=== PATIENT | female | born 1960 | race Caucasian/White ===

== ENCOUNTER 2016-12-12 09:05 | Day surgery (SDC) | payer MEDICARE, BC ==
[2016-12-08 13:42] VITALS: BMI 35.6
[~2016-12-12 09:05] MED LIST: LACTATED RINGERS 1,000 ML IV SCH
[2016-12-12 09:24] VITALS: TEMP 98
[2016-12-12] MEDS ORDERED: LIDOCAINE 1% 20 ML VIAL (10MG/ML) FOR IV START SQ ONE (09:36)
[2016-12-12] MEDS ORDERED: MIDAZOLAM 2 MG/2 ML VIAL ONE (10:16)
[2016-12-12] MEDS ORDERED: fentaNYL (PF) 50 MCG/ML 2 ML AMP ONE (10:16)
[2016-12-12] MEDS ORDERED: TRIAMCINOLONE ACETONIDE 40 MG/ML 1 ML VIAL ONE (10:16)
[2016-12-12] MEDS ORDERED: BUPIVACAINE (PF) 0.5% 30 ML VIAL ONE (10:16)
[2016-12-12] MEDS ORDERED: IV FLUID CONTINUATION 1,000 ML IV ONE (11:19)
--- NOTE | 2016-12-12 11:19 | P.PCN ---
Date of Procedure: 12/12/16 Procedure(s) Performed: PREOPERATIVE DIAGNOSIS: 1-Lumbosacral spondylosis . 2- Right sacroiliit. post operative Diagnosis: . 1-Lumbosacral spondylosis . 2- Right sacroiliit. PROCEDURES: 1- Right radiofrequency thermocoagulation/ablation of the L5 dorsal ramus. 2- Right multi-site radiofrequency thermocoagulation/ablation of the right S1 , S2, lateral branchs. The procedure was performed using fluoroscopic guidance during needle placement to assure proper position and maximize safety . ANESTHESIA: LOCAL ANESTHESIA with lidocaine 1% 5 ML and IV sedation with versed 2 mg and Fentanyle 100 mcg EBL: NONE INDICATION/MEDICAL NECESSITY: History of low back pain secondary to right sacroiliitis and lumbosacral arthropathy unresponsive to more conservative treatments. The patient reported more than 50% relief of pain symptoms following 2 previous diagnostic blocks with Bupivacaine. PROCEDURE DESCRIPTION: The patient was seen and identified in the preoperative area. Risks, benefits, complications, and alternatives were discussed with the patient. The patient agreed to proceed with the procedure and signed the consent. Vital signs were checked before and after the procedure and they remained stable. Patient ambulated to the procedure room and time out was completed. The patient was placed in the prone position on the procedure table and a pillow was placed under the abdomen to reduce lumbar lordosis. The lumbosacral area was prepped and draped in the usual sterile fashion. Critical pause was taken. L5 Dorsal Ramus RF: Using right oblique fluoroscopy, the junction of the transverse process and the superior articular process of the right S1 vertebra, which correspond to the fluoroscopic image of the "eye of the Escobar dog" was identified. Subsequently, a 10-cm 20 -gauge radiofrequency cannula with a 10-mm active tip was advanced under fluoroscopic guidance until contact was made with periosteum. At this level, the Sensory testing of the L5 dorsal ramus was performed at 50 Hz and 0 to 1 volt with production of concordant pain starting at 0.5 volt. Motor stimulation was done at 2.5 Hz with stimulation of mulitifidus muscle contration . No radicular symptoms or paresthesias were produced during the testing. Subsequently, the L5 dorsal ramus was subjected to a radiofrequency ablation at 80 degree celsius for 90 seconds . after 0.5% Bupivacaine 1 ml injected at each level after negative aspirations .The needle was withdrawn intact. S1, S3, Lateral Branch RF: The lateral margins of the Right S1, S2, foramina were identified using AP fluoroscopy. Under fluoroscopic guidance, three 10-cm 20 -gauge radiofrequency cannula with a 10-mm active tip were inserted at 8-10 mm peripheral to the posterior S1 foramen, at various locations using clock-face coordinates. The center of the clock was registered at the lateral margin of the foramen. The 2: 30, 4:00, and 5:30 oclock positions were used. At this level, the sensory testing of the S1 lateral branch was performed at 50 Hz and 0 to 1 volt at the three levels with production of concordant pain starting at 0.5 volt. Motor stimulation was done at 2.5 Hz. No radicular symptoms or paresthesias were produced during the testing. Subsequently, the S1 lateral branch was subjected to a radiofrequency ablation at a mode of 90 seconds at 80 degrees Celsius at the 3 levels after negative motor and sensory testing and after injecting 0.5 ml of preservative free Bupivacaine 0.5 %. The same procedure was performed at the level of the S2 foramen.The needle was withdrawn intact after each injection. COMPLICATIONS: The patient tolerated the procedure well without any acute complications. ( the Plan was to do also radiofrequency of the lateral branches of S3, but I couldn't visualize the S3 foramina, for this reason I ended up doing, the lateral branches of S1 and S2 only ). DISPOSTION/PLAN: The patient ambulated to the recovery area after the procedure in a stable condition for observation. Patient was reexamined prior to discharge. Patient was observed for 30 minutes in the recovery area and was discharged home, accompanied by an adult, after meeting discharged criteria. Discharge instructions were give to the patient by the staff. Patient was specifically instructed not to drive today and to rest for the rest of the day. The patient will schedule a follow up visit in the clinic in weeks or earlier if needed.
--- NOTE | 2016-12-12 11:25 | FL ---
Fluoroscopy HISTORY: Pain 1 minute 33 seconds fluoroscopy time supplied to the referring clinician. 5 intraoperative C-arm brittany ges document the procedure. See dictated report from anesthesia.
[2016-12-12 11:38] VITALS: BP 127/75; PULSE 65; RESP 16
== END 2016-12-12 11:50 | disposition home or self-care (01) ==
LOC: ORPAIN 09:05
PROVIDERS: ATTEND Specialist
DX: M46.1 Sacroiliitis, not elsewhere classified (principal); M47.817 Spondylosis without myelopathy or radiculopathy, lumbosacral region
CPT/HCPCS: 64640 ×2; 64635; 99152; 99153 ×2; J2250; J3301; J3010

== ENCOUNTER → 2017-01-09 | Outpatient (CLI) | payer MEDICARE, BC ==
[2017-01-09 12:14] VITALS: BP 144/88; PULSE 85; RESP 16; TEMP 98.1
--- NOTE | 2017-01-09 12:44 | P.PN ---
Subjective This is follow-up visit for this patient with a history of severe and chronic low back pain secondary to lumbar postlaminectomy syndrome lumbar spondylosis with facet arthropathy, and right sacroiliitis we have done interventional pain management injection, radiofrequency ablation of the right side L5-S1 towards the Ramas, and radiofrequency ablation on the right side lateral branches of S1-S2 and S3, and this helped her low back pain tremendously, and is currently on pain medications [place] 5/325 every 6-8 hours when necessary Patient denies any side effects of the medication, denies excessive drowsiness or sleepiness, denies suicidal ideation, and reports that the current pain medication is helping To control the pain and improve activity of daily living Physical Examinations : 1-Constitutiona : Cooperative , not in acute distress . 2-HEENT : nech ; supple , no Lymphadenopathy , no Thyromegaly , normal thyroid size . eyes : no ptosis , no icterus, no photophobia . ENT : normal of hearing , normal oropharynx , no Thrush . 3- Respiratory : Chest clear to auscultations Bilaterally , no wheezing , no Rhonchi . 4- Cardiovascular : regular rate and rhythem , S1 , S2 , no S3 , no S4. 5- Gastrointestinal : abdomen soft no tenderness , bowel sounds positive all four quadrents , no organomegally . 6- Genitourinary : Defferred . 7- neurologic : Cranial nerve II to XII intact , no focal neurological deffecit . 8-psychatric : alert , oriented X 3 , appropriate affect , intact judgment and insight . 9-Lymphatic : no Lymphadenopathy . 10- musculoskeltal : exams of the Lumber spine = motor strength lower extremities ,thigh and legs .5/5 deep tendon reflexes : normal Knee Jerk , normal ankle Jerk . lumber facet Loading Test positive strait leg raising test positive at 30 degree , RT ,LT , Fabere test positive RT and positive LT . Range of motion: Range of motion in flexion of the lumbar spine 30 degrees Range of motion range of motion of extension of the lumbar spine 10 Sever tenderness over the Sacroiliac joint on the Right , Assessment and plan = - Chronic low back pain secondary to lumbar degenerative disc disease , lumbar spondylosis with facet arthropathy without myelopathy , - chronic and current use of high-risk medication (Opioids). The patient was counseled about risk of opioid use, psychological risk associated with opioids and was orally counseled to not overuse , divert,or sell dictations to take medications as prescribed only , and to restore medication in safe location , and the patient counseled against driving while using narcotic medications, and also not to use alcohol or any illicit recreational drugs, the patient's verbalized understanding that the lack of compliance will result in failure to renew narcotic prescription and possible discharge from the clinic - diagnoses, prognosis, and treatment options including but not limited to physical therapy, surgical interventions, interventional therapies , and medication management including narcotics and adjuvant medication were discussed with the patient and all The questions answered -medication management =1-prescription refill for [place] 5/325 every 6 hours dispensed 90 with 1 refill and she will follow up with the pain clinic in 2 months Patient and the spinal cord stimulator implanted by Dr. Dr. Espinoza, and currently her stimulator is not functioning, and she is not planning to do any revision because of her insurance coverage, -procedure= none scheduled at this time. Objective - Vital Signs Vital signs: Vital Signs Temp 98.1 F 01/09/17 12:08 Pulse 85 01/09/17 12:08 Resp 16 01/09/17 12:08 BP 144/88 01/09/17 12:08 Pulse Ox Intake & Output 01/08/17 01/09/17 01/09/17 18:59 06:59 18:59 Weight 88.451 kg
== END | disposition home or self-care (01) ==
LOC: PNWHC3 11:58
PROVIDERS: ATTEND Specialist
DX: G89.29 Other chronic pain (principal); M51.36 Other intervertebral disc degeneration, lumbar region; M47.816 Spondylosis without myelopathy or radiculopathy, lumbar region; M46.96 Unspecified inflammatory spondylopathy, lumbar region; M96.1 Postlaminectomy syndrome, not elsewhere classified; M46.1 Sacroiliitis, not elsewhere classified; Z98.890 Other specified postprocedural states; Z79.891 Long term (current) use of opiate analgesic
CPT/HCPCS: 99211

== ENCOUNTER → 2017-03-06 | Outpatient (CLI) | payer MEDICARE, BC ==
[2017-03-06 12:58] VITALS: BP 121/83; PULSE 63; RESP 16; TEMP 98
--- NOTE | 2017-03-06 13:17 | P.CONS ---
History of Present Illness - Reason for Consult Consult date: 03/06/17 - History of Present Illness This is follow up visit for this 56-year-old female with a chronic history of severe low back pain, diagnosed with lumbar spondylosis and right sacroiliitis, status post radiofrequency ablation of the dorsum browning processor AT L5-S1 ,and RFA of the lateral branches of S1/S2/S3 , which was done in November 2016, she reported that her pain improved almost 70% after the radiofrequency, he continued to have some low back pain which is controlled with the current pain medication [place] 5/325 every 6 hours, and she taken Motrin occasionally, Motrin causes some stomach upset , she denies any fever or night sweats which she denies any change in the bowel movement or urination and no motor or sensory deficit Past Medical History Past Medical History: Deep Vein Thrombosis (DVT), GERD/Reflux, Osteoarthritis ( OA) Additional Past Medical History / Comment(s): BACK PAIN History of Any Multi-Drug Resistant Organisms: None Reported Past Surgical History: Back Surgery, Section, Hysterectomy, Orthopedic Surgery Additional Past Surgical History / Comment(s): LAMINECTOMY WITH SPINAL CORD STIMULATOR,LT OVARY REMOVED 1998, pain procedures. Past Anesthesia/Blood Transfusion Reactions: Postoperative Nausea & Vomiting ( PONV) Additional Past Anesthesia/Blood Transfusion Reaction / Comm: PONV WITH BACK SURGERY Past Psychological History: Depression Smoking Status: Former smoker Past Alcohol Use History: Rare Additional Past Alcohol Use History / Comment(s): QUIT SMOKING 1984-STARTED IN 1972. PPD-3/4-1 Past Drug Use History: None Reported - Past Family History Mother Family Medical History: Cancer, CVA/TIA Additional Family Medical History / Comment(s): BREAST CA Medications and Allergies Home Medications Medication Instructions Recorded Confirmed Type Citalopram Hydrobromide [CeleXA] 20 mg PO DAILY 08/04/14 03/06/17 History Calcium Carbonate [Calcium] 600 mg PO DAILY 12/08/16 03/06/17 History Kelp 1 each PO DAILY 12/08/16 03/06/17 History L.acidoph,Paracasei, B.lactis 1 tab PO DAILY 12/08/16 03/06/17 History [Probiotic] Magnesium 200 mg PO DAILY 12/08/16 03/06/17 History Meloxicam [Mobic] 7.5 mg PO BID PRN 03/06/17 03/06/17 History Allergies Allergy/AdvReac Type Severity Reaction Status Date / Time No Known Allergies Allergy Verified 03/06/17 12:48 Physical Exam Vitals: Vital Signs Temp Pulse Resp BP 03/06/17 12:50 98 F 63 16 121/83 Intake and Output 03/05/17 03/06/17 03/06/17 22:59 06:59 14:59 Other: Weight 88.451 kg Patient Weight 03/07/17 06:59 Weight 88.451 kg Physical Examinations : 1-Constitutiona : Cooperative , not in acute distress . 2-HEENT : nech ; supple , no Lymphadenopathy , no Thyromegaly , normal thyroid size . eyes : no ptosis , no icterus, no photophobia . ENT : normal of hearing , normal oropharynx , no Thrush . 3- Respiratory : Chest clear to auscultations Bilaterally , no wheezing , no Rhonchi . 4- Cardiovascular : regular rate and rhythem , S1 , S2 , no S3 , no S4. 5- Gastrointestinal : abdomen soft no tenderness , bowel sounds positive all four quadrents , no organomegally . 6- Genitourinary : Defferred . 7- neurologic : Cranial nerve II to XII intact , no focal neurological deffecit . 8-psychatric : alert , oriented X 3 , appropriate affect , intact judgment and insight . 9-Lymphatic : no Lymphadenopathy . 10- musculoskeltal : exams of the Lumber spine = normal moter stegnth lower extremities ,thigh and legs .5/5 deep tendon reflexes : normal Knee Jerk , normal ankle Jerk . positive lumber facet Loading Test mild tenderness over the Sacroiliac joint on the Right , Assessment and Plan Plan: Assessment and plan = - Chronic low back pain secondary to sacroiliitis, lumbar spondylosis with facet arthropathy without myelopathy , -Improved significantly after the radiofrequency of the doors of drowsiness and L5-S1 and the lateral branches of S1/S2/S3 -chronic and current use of high-risk medication (Opioids). The patient was counseled about risk of opioid use, psychological risk associated with opioids discussed with the patient, body mass index and exercise. Patient signed the narcotic agreement , and was orally counseled not to overuse , abuse , divert, or sell medications ,and take them as prescribed only , and the patient was counseled against driving and while you are using the narcotic medication also not to use alcohol or any illicit drugs and the patient verbalized understanding that lack of compliance and could result in failure to renew narcotics prescriptions and possible discharge from the clinic - diagnoses, prognosis, and treatment options including but not limited to physical therapy, surgical interventions, interventional therapies and medication management including narcotics and adjuvant medication were discussed with the patient and all questions answered to the patient's satisfaction. -medication refile =1-discontinue Motrin ( S.E stomach upset ) 2-start Mobic 7.5 g twice a day dispense 60 with one refill 3-[place] 5/325 every 6 hours dispense 90 with 1 refill ,And she will follow with the pain clinic in 2 months -procedure= none Time with Patient: Less than 30
== END ==
LOC: PNWHC3 11:33
PROVIDERS: ATTEND Specialist
DX: M47.816 Spondylosis without myelopathy or radiculopathy, lumbar region (principal); M46.96 Unspecified inflammatory spondylopathy, lumbar region; G89.29 Other chronic pain; M19.90 Unspecified osteoarthritis, unspecified site; Z79.891 Long term (current) use of opiate analgesic; Z79.899 Other long term (current) drug therapy
CPT/HCPCS: 99211

== ENCOUNTER → 2017-05-22 | Outpatient (CLI) | payer MEDICARE, BC ==
[2017-05-22 12:56] VITALS: BP 141/95; PULSE 84; RESP 16; TEMP 98.2
--- NOTE | 2017-05-22 13:22 | P.PN ---
Progress Note - Text This is a 56-year-old female with lower back pain status post spinal cord stimulator placement. The patient states that the spinal cord similar to lead was broken and she is not using it anymore. She did have lumbar medial branch radio frequency ablation in November of this year which helped her pain significantly. She feels pain in the lower back that shoots down her right leg to the right thigh as she states. The same kind of pain responded favorably to her last radio frequency ablation as mentioned above. The patient also takes [place] 5 mg 3 times a day and Mobic 7.5 mg twice a day. At this point I will schedule the patient to have right lumbar medial branch radiofrequency ablation under fluoroscopic guidance next month and also will continue with her [place] and Mobic.
== END | disposition home or self-care (01) ==
LOC: PNWHC3 12:24
PROVIDERS: ATTEND Anesthesiology
DX: M54.5 Low back pain (principal); Z79.899 Other long term (current) drug therapy; Z79.1 Long term (current) use of non-steroidal anti-inflammatories (NSAID)
CPT/HCPCS: 99211

== ENCOUNTER 2017-06-22 06:39 | Day surgery (SDC) | payer MEDICARE, BC ==
[2017-06-16 15:58] VITALS: BMI 35.6
[2017-06-22 06:51] VITALS: RESP 16; TEMP 98.2
--- NOTE | 2017-06-22 07:42 | P.PCN ---
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 Skin was prepped with ChloraPrep and draped in a sterile manner. Lidocaine 1% was used to numb the skin up at the target points that were chosen as follows: For The L5-S1 level which corresponds to thedorsal ramus of L5 the target point was the superior medial aspect of the sacral ala on the right side of the spine on the AP view of fluoroscopy, and for the L2, L3, and L4 medial branches the target points were the connection between the transverse process and the superior to go process of L3, L4, and L5 vertebra respectively on the right oblique view of fluoroscopy. I used 18-gauge 150 mm in length with 10 mm curved active tip radiofrequency ablation needles for this procedure. I placed the active tips as parallel as possible to the medial branches tracks by going in a superior medial direction. AP, oblique, and lateral view of fluoroscopy were used to verify needle tip position. Then motor stimulation showed only local twitches of these needles with no radiation of twitching to the right lower extremity. I then prepared a solution of 3 MLS of Marcaine 0.5% +40 mg of Kenalog and 1 mL of the solution was injected in each needle before starting radio frequency ablation for 90 seconds at 80C. After The first session of ablation was done the needles were withdrawn by 1 or 2 mm and the bevels were turned 180 and another another session of ablation was started for 90 seconds at 80C. Patient tolerated procedure well. Fluoroscopy time 16 seconds.
[2017-06-22] MEDS ORDERED: IV FLUID CONTINUATION 1,000 ML IV ONE (07:51)
[2017-06-22] MEDS ORDERED: fentaNYL (PF) 50 MCG/ML 2 ML AMP IVP ONE (08:14)
--- NOTE | 2017-06-22 08:49 | FL ---
EXAMINATION TYPE: FL guided pain mgmt statistic DATE OF EXAM: 06/22/2017 COMPARISON: NONE HISTORY: Back pain TECHNIQUE: Fluoroscopy. FINDINGS/IMPRESSION: Fluoroscopic guidance was provided during procedure performed by Dr. Lozano. A total of 16 seconds of fluoroscopic time was utilized during the procedure and 3 spot images was ac quired.
[2017-06-22 09:00] VITALS: BP 123/80; PULSE 58
== END 2017-06-22 09:12 | disposition home or self-care (01) ==
LOC: ORPAIN 06:39
DX: M47.816 Spondylosis without myelopathy or radiculopathy, lumbar region (principal); M46.1 Sacroiliitis, not elsewhere classified
CPT/HCPCS: 64635; 64636; 99152; 99153; J2250; J3301; J3010

== ENCOUNTER → 2017-07-17 | Outpatient (CLI) | payer MEDICARE, BC ==
[2017-07-17 13:50] VITALS: BP 140/102; PULSE 100; RESP 16
--- NOTE | 2017-07-17 14:20 | P.PN ---
Progress Note - Text This is a 56-year-old female with chronic lower back pain. The patient had an RFA on the right side of her lower back which helped her pain significantly. Her pain now on the right side of her back and her right leg is 2 out of 10 and as a matter of fact the patient was able to go down on her Everetts dose from 3 pills to 1-2 pills a day. Today I will give the patient prescription for Everetts 5 mg twice a day as needed for her pain and we'll see her back in 2 months. The plan will be to repeat her lumbar medial branch RFA on her pain starts to get worse.
== END | disposition home or self-care (01) ==
LOC: PNWHC3 13:26
PROVIDERS: ATTEND Anesthesiology
DX: M54.5 Low back pain (principal); Z79.899 Other long term (current) drug therapy; Z98.890 Other specified postprocedural states
CPT/HCPCS: 99211

== ENCOUNTER → 2017-09-11 | Outpatient (CLI) | payer MEDICARE, BC ==
[2017-09-11 13:28] VITALS: BP 141/91; PULSE 83; RESP 16
--- NOTE | 2017-09-11 14:00 | P.PN ---
Progress Note - Text Progress Note Date: 09/11/17 This is a 57-year-old female with chronic lower back pain status post medial branch RFA which has helped her pain significantly. The patient denies any new neurologic changes and no weakness in the lower extremities or any bowel or bladder dysfunction. The pain occasionally wakes her up at night. The patient still uses [place] 5 mg twice a day as needed for her pain. She denies any side effects to [place] and she does not show any drug-seeking behavior. For now we will give the patient prescription for 2 months of [place] I will plan on repeating the lumbar medial branch RFA on her pain starts to become more significant. PQRS measures: 1-Patient's medications are documented in the chart. 2-Tobacco use is negative, counseling given 3-Patient has had a pneumococcal vaccine. 4-Advanced care planning discussed, patient unable to give 5-Opioid contract signed with the patient. 6-Pain positive, follow-up visit or procedure scheduled 7-Patient's blood pressure measured and documented within normal limits. 8-Patient's weight was measured, and body mass index ABOVE the normal limits, and counseling was done. Patient instructed to follow up with PCP. 9-Patient WAS NOT identified as an unhealthy alcohol user.
== END | disposition home or self-care (01) ==
LOC: PNWHC3 12:56
PROVIDERS: ATTEND Anesthesiology
DX: M54.5 Low back pain (principal)
CPT/HCPCS: 99211

== ENCOUNTER → 2017-11-06 | Outpatient (CLI) | payer MEDICARE, BC ==
[2017-11-06 14:26] VITALS: BP 120/83; PULSE 94; RESP 18
--- NOTE | 2017-11-06 14:51 | P.PN ---
Progress Note - Text Progress Note Date: 11/06/17 Patient returns for follow-up for chronic back pain with radiation to bilateral legs. Patient got good relief from lumbar RFA done in May 2017 and continues on [place] 5/325 BID with good relief. Patient denies adverse drug effects from medications. Today, pt denies new-onset weakness, bowel/bladder incontinence, or any other signs or symptoms of cauda equina syndrome. There are no signs of acute intoxication, and no indications of medication diversion or overuse. In addition to above, 13-point review of systems is also negative for chest pain , shortness of breath, changes in vision, changes in hearing, new onset weakness , abdominal pain, diarrhea, extreme fatigue, malaise, fever, skin changes, homicidal or suicidal ideation, or bowel or bladder incontinence. Vital Signs: Reviewed in EMR Gen: WDWN, AAOx3, NAD HEENT: NCAT, EOMI, hearing grossly normal Pulm: resp unlabored Abd: soft, NT, ND Neck: supple, trachea midline ROM in flexion lumbar spine: reduced ROM in extension lumbar spine: reduced Lumbar paravertebral tenderness: + Facet loading: + R side SI joint tenderness: + R side, neg L side Stevie's test: + R side, neg L side Straight leg raise: neg bilateral Neuro: CN II-XII grossly intact, muscle strength lower extremities PRESERVED Imaging: Reviewed in EMR Assessment: 1. lumbar spondylosis without myelopathy 2. sacroiliac joint dysfunction 3. lumbar postlaminectomy syndrome, SCS in place Plan: 1. Explanation: Opioid and psychological risk scores were reviewed. Diagnoses , prognoses, and multiple treatment options including but not limited to physical therapy, interventional therapies, adjuvant medical therapies, narcotic medication therapies, and surgery were discussed with the patient and all questions were answered to the patient's satisfaction. 2. Opioid agreement: Patient has previously signed narcotic agreement, and was orally counseled to not overuse, abuse, divert, or cell medications, and to take them as prescribed by only 1 healthcare provider. The patient was also counseled to store opioid medications in a safe and preferably locked location. Patient was also counseled against driving or operating heavy equipment while using narcotic medications and also to not use alcohol or any illicit or recreational drugs. The patient verbalized understanding that lack of compliance with any of the above and likely result in failure to renew narcotic prescriptions, possible discharge from the clinic, and possible legal ramifications thereafter if indicated. 3. Counseling: The patient was counseled extensively on SMOKING CESSATION, BODY MASS INDEX, EXERCISE. Specifically, the patient was instructed regarding the importance of smoking cessation, obesity, and exercise in the context of both chronic pain and overall health. 4. Procedures: Right SIJ RFA in December 04. Consultations: None 6. Investigations: none 7. Medications: [place] 5/325 BID #60 with one refill 8. Disposition: f/u for procedure as scheduled PQRS measures: 1-Patient's medications are documented in the chart. 2-Tobacco use is negative 3-Patient has not had a pneumococcal vaccine. 4-Advanced care planning discussed, patient unable to give. 5-Opioid contract signed with the patient. 6-Pain positive, follow-up visit or procedure scheduled 7-Patient's blood pressure measured and documented, and patient will follow up with the primary care due to hypertension. 8-Patient's weight was measured, and body mass index ABOVE the normal limits, and counseling was done. Patient instructed to follow up with PCP. 9-Patient WAS NOT identified as an unhealthy alcohol user.
== END | disposition home or self-care (01) ==
LOC: PNWHC3 13:38
PROVIDERS: ATTEND Anesthesiology
DX: M47.816 Spondylosis without myelopathy or radiculopathy, lumbar region (principal); M96.1 Postlaminectomy syndrome, not elsewhere classified; M53.88 Other specified dorsopathies, sacral and sacrococcygeal region; Z79.891 Long term (current) use of opiate analgesic; Z96.89 Presence of other specified functional implants
CPT/HCPCS: 99211

== ENCOUNTER 2018-02-05 08:50 | Day surgery (SDC) | payer MEDICARE, BC ==
[2018-02-01 09:56] VITALS: BMI 36.6
[2018-02-05 09:55] VITALS: TEMP 97.9
[2018-02-05] MEDS ORDERED: LACTATED RINGERS 1,000 ML IV ONE (09:56)
[2018-02-05] MEDS ORDERED: LIDOCAINE 1% 20 ML VIAL (10MG/ML) FOR IV START INTRADERMA ONE (10:03)
--- NOTE | 2018-02-05 10:33 | P.PCN ---
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 Skin was prepped with ChloraPrep and draped in a sterile manner. Lidocaine 1% was used to numb the skin up at the target points that were chosen as follows: For The L5-S1 level which corresponds to the dorsal ramus of L5 the target point was the superior medial aspect of the sacral ala on the right side of the spine on the AP view of fluoroscopy, and for the L2, L3, and L4 medial branches the target points were the connection between the transverse process and the superior to go process of L3, L4, and L5 vertebra respectively on the right oblique view of fluoroscopy. I used 18-gauge 100 mm in length with 10 mm curved active tip radiofrequency ablation needles for this procedure. I placed the active tips as parallel as possible to the medial branches tracks by going in a superior medial direction. AP, oblique, and lateral view of fluoroscopy were used to verify needle tip position. Then motor stimulation showed only local twitches of these needles with no radiation of twitching to the right lower extremity. I then prepared a solution of 3 MLS of Marcaine 0.5% +40 mg of Kenalog and 1 mL of the solution was injected in each needle before starting radio frequency ablation for 90 seconds at 80C. After The first session of ablation was done the needles were withdrawn by 1 or 2 mm and the bevels were turned 180 and another another session of ablation was started for 90 seconds at 80C. Patient tolerated procedure well. Fluoroscopy time 16 seconds.
[2018-02-05] MEDS ORDERED: IV FLUID CONTINUATION 400 ML IV ONE (11:13)
[2018-02-05 11:21] VITALS: RESP 18
[2018-02-05 11:49] VITALS: BP 126/83; PULSE 65
== END 2018-02-05 11:52 | disposition home or self-care (01) ==
LOC: ORPAIN 08:50
PROVIDERS: ATTEND Anesthesiology
DX: M47.26 Other spondylosis with radiculopathy, lumbar region (principal); M46.1 Sacroiliitis, not elsewhere classified; Z90.710 Acquired absence of both cervix and uterus
CPT/HCPCS: 64635; 64636 ×2; J2250; J3301; J2001; J3010; 99152; 99153

== ENCOUNTER → 2018-03-05 | Outpatient (CLI) | payer MEDICARE, BC ==
[2018-03-05 13:28] VITALS: BP 134/91; PULSE 84; RESP 16
--- NOTE | 2018-03-13 11:38 | P.PN ---
Progress Note - Text Progress Note Date: 03/05/18 Patient returns for follow-up for chronic back pain with radiation to bilateral legs. Patient got only 1-2 weeks' relief from previous lumbar RFA and continues on Mobridge 5/325 BID with decent relief. Patient denies adverse drug effects from medications. Today, pt denies new-onset weakness, bowel/bladder incontinence, or any other signs or symptoms of cauda equina syndrome. There are no signs of acute intoxication, and no indications of medication diversion or overuse. In addition to above, 13-point review of systems is also negative for chest pain , shortness of breath, changes in vision, changes in hearing, new onset weakness , abdominal pain, diarrhea, extreme fatigue, malaise, fever, skin changes, homicidal or suicidal ideation, or bowel or bladder incontinence. Vital Signs: Reviewed in EMR Gen: WDWN, AAOx3, NAD HEENT: NCAT, EOMI, hearing grossly normal Pulm: resp unlabored Abd: soft, NT, ND Neck: supple, trachea midline ROM in flexion lumbar spine: reduced ROM in extension lumbar spine: reduced Lumbar paravertebral tenderness: + Facet loading: + R side SI joint tenderness: + R side, neg L side Stevie's test: + R side, neg L side Straight leg raise: neg bilateral Neuro: CN II-XII grossly intact, muscle strength lower extremities PRESERVED Imaging: Reviewed in EMR Assessment: 1. lumbar spondylosis without myelopathy 2. sacroiliac joint dysfunction 3. lumbar postlaminectomy syndrome, SCS in place Plan: 1. Explanation: Opioid and psychological risk scores were reviewed. Diagnoses , prognoses, and multiple treatment options including but not limited to physical therapy, interventional therapies, adjuvant medical therapies, narcotic medication therapies, and surgery were discussed with the patient and all questions were answered to the patient's satisfaction. 2. Opioid agreement: Patient has previously signed narcotic agreement, and was orally counseled to not overuse, abuse, divert, or cell medications, and to take them as prescribed by only 1 healthcare provider. The patient was also counseled to store opioid medications in a safe and preferably locked location. Patient was also counseled against driving or operating heavy equipment while using narcotic medications and also to not use alcohol or any illicit or recreational drugs. The patient verbalized understanding that lack of compliance with any of the above and likely result in failure to renew narcotic prescriptions, possible discharge from the clinic, and possible legal ramifications thereafter if indicated. 3. Counseling: The patient was counseled extensively on SMOKING CESSATION, BODY MASS INDEX, EXERCISE. Specifically, the patient was instructed regarding the importance of smoking cessation, obesity, and exercise in the context of both chronic pain and overall health. 4. Procedures: Right SIJ injection 5. Consultations: None 6. Investigations: none 7. Medications: Mobridge 5/325 BID #60 with no refill 8. Disposition: f/u for procedure as scheduled PQRS measures: 1-Patient's medications are documented in the chart. 2-Tobacco use is negative 3-Patient has not had a pneumococcal vaccine. 4-Advanced care planning discussed, patient unable to give. 5-Opioid contract signed with the patient. 6-Pain positive, follow-up visit or procedure scheduled 7-Patient's blood pressure measured and documented, and patient will follow up with the primary care due to hypertension. 8-Patient's weight was measured, and body mass index ABOVE the normal limits, and counseling was done. Patient instructed to follow up with PCP. 9-Patient WAS NOT identified as an unhealthy alcohol user.
== END | disposition home or self-care (01) ==
LOC: PNWHC3 13:09
PROVIDERS: ATTEND Anesthesiology
DX: G89.29 Other chronic pain (principal); M54.9 Dorsalgia, unspecified; M96.1 Postlaminectomy syndrome, not elsewhere classified; M47.816 Spondylosis without myelopathy or radiculopathy, lumbar region; M53.88 Other specified dorsopathies, sacral and sacrococcygeal region; Z79.891 Long term (current) use of opiate analgesic
CPT/HCPCS: 99211

== ENCOUNTER 2018-03-07 06:50 | Day surgery (SDC) | payer MEDICARE, BC ==
[2018-03-07] MEDS ORDERED: LACTATED RINGERS 1,000 ML IV SCH (07:15)
[2018-03-07 07:37] VITALS: RESP 16; TEMP 97.1
[2018-03-07] MEDS ORDERED: LIDOCAINE 1% 20 ML VIAL (10MG/ML) FOR IV START INTRADERMA ONE (07:42)
--- NOTE | 2018-03-07 09:12 | P.PCN ---
Date of Procedure: 03/07/18 Procedure(s) Performed: Preoperative diagnoses= 1-right sacroiliitis. 2-lumbar spondylosis with lumbar facet arthropathy without myelopathy Postoperative diagnoses= same as preoperative diagnosis. Procedure= Right sacroiliac joint steroid injection under fluoroscopic guidance. Anesthesia= moderate sedation with Versed 2 mg and fentanyl 50 micrograms and local infiltration with lidocaine 1% 2 ml Estimated blood loss=minimal. Procedure indication= the patient had a history of severe chronic low back pain , diagnosed with sacroiliitis and lumbar sacral facet arthropathy unresponsive to conservative treatment. Procedure description= the patient was seen and identified in the preoperative holding area, risks and benefits and alternative of the procedure and possible complications discussed with the patient, and he agreed with the preceding, patient signed the consent, an IV was started, and vital signs were monitored and were stable throughout the procedure, patient was placed in the prone position or table and the lumbosacral area was prepped and draped with a sterile fashion, vital signs were closely monitored during the procedure, the fluoroscopy camera was placed in the contralateral oblique view on the right sacroiliac joint and the lower part of the joint was identified, local infiltration of the skin and subcutaneous tissue with lidocaine 1% 2 mL then a 22-gauge Quincke-type spinal needle advanced slowly under fluoroscopy and placed in the posterior and inferior border of the right sacroiliac joint, placement confirmed with AP and lateral view, and after appropriate needle placement confirmed and after negative aspiration for heme and CSF and there was no paresthesia during the injection, 3 ml of Marcaine 0.5% and 40 mg of Kenalog injected after negative aspiration, then the needle removed . Patient tolerated the procedure well without any complication, The patient returned to supine position after the back was cleaned and a Band- Aid applied, the patient transported to recovery room in stable condition and he was monitored for 30 minutes before he was discharged home and then patient was reexamined before going home and patient was discharged in stable condition and patient will follow up with the pain clinic in a few weeks
[2018-03-07] MEDS ORDERED: IV FLUID CONTINUATION 1,000 ML IV ONE ×2 (09:18)
--- NOTE | 2018-03-07 09:20 | FL ---
EXAMINATION TYPE: FL guided pain mgmt statistic DATE OF EXAM: 03/07/2018 CLINICAL HISTORY: Low back and right sacroiliac joint pain. TECHNIQUE: Fluoroscopy. COMPARISON: None. FINDINGS: Fluoroscopic guidance was provided during pain relief procedure performed by Dr. Boss . A total of 6 seconds of fluoroscopic time was utilized during the procedure and two spot images ar e acquired. Images acquired shows needle localization at level of SI joint. IMPRESSION: As Above.
[2018-03-07 09:38] VITALS: BP 144/103; PULSE 64
== END 2018-03-07 09:49 | disposition home or self-care (01) ==
LOC: ORPAIN 06:50
PROVIDERS: ATTEND Specialist
DX: G89.29 Other chronic pain (principal); M46.1 Sacroiliitis, not elsewhere classified; M47.816 Spondylosis without myelopathy or radiculopathy, lumbar region
CPT/HCPCS: J3301; G0260; 27096

== ENCOUNTER 2018-03-28 08:46 | Day surgery (SDC) | payer MEDICARE, BC ==
[2018-03-20 15:13] VITALS: BMI 36.6
[2018-03-28 09:46] VITALS: RESP 16; TEMP 96.9
[2018-03-28] MEDS ORDERED: ONDANSETRON 4 MG/2 ML VIAL IVP ONE (10:03)
--- NOTE | 2018-03-28 10:05 | P.PCN ---
Date of Procedure: 03/28/18 Surgeon: Edgardo Lozano Pathology: none sent Condition: stable Disposition: PACU Description of Procedure: Procedure(s) Performed: Preoperative diagnoses= 1-right sacroiliitis. 2-postlaminectomy pain syndrome Postoperative diagnoses= same as preoperative diagnosis. Procedure= Right sacroiliac joint steroid injection under fluoroscopic guidance. Anesthesia= moderate sedation with Versed and fentanyl and local infiltration with lidocaine 1% 2 ml Estimated blood loss=minimal. Procedure indication= the patient had a history of severe chronic low back pain , diagnosed with sacroiliitis and lumbar sacral facet arthropathy unresponsive to conservative treatment. Procedure description= the patient was seen and identified in the preoperative holding area, risks and benefits and alternative of the procedure and possible complications discussed with the patient, and he agreed with the preceding, patient signed the consent, an IV was started, and vital signs were monitored and were stable throughout the procedure, patient was placed in the prone position or table and the lumbosacral area was prepped and draped with a sterile fashion, vital signs were closely monitored during the procedure, the fluoroscopy camera was placed in the contralateral oblique view on the right sacroiliac joint and the lower part of the joint was identified, local infiltration of the skin and subcutaneous tissue with lidocaine 1% 2 mL then a 22-gauge Quincke-type spinal needle advanced slowly under fluoroscopy and placed in the posterior and inferior border of the right sacroiliac joint, placement confirmed with AP and lateral view, and after appropriate needle placement confirmed and after negative aspiration for heme and CSF and there was no paresthesia during the injection, 3 ml of ropivacaine 0.5% and 40 mg of Kenalog injected after negative aspiration, then the needle removed . Patient tolerated the procedure well without any complication, The patient returned to supine position after the back was cleaned and a Band- Aid applied, the patient transported to recovery room in stable condition and he was monitored for 30 minutes before he was discharged home and then patient was reexamined before going home and patient was discharged in stable condition and patient will follow up with the pain clinic in a few weeks
[2018-03-28] MEDS ORDERED: IV FLUID CONTINUATION 1,000 ML IV ONE (10:16)
--- NOTE | 2018-03-28 10:23 | FL ---
Fluoroscopy HISTORY: Pain 15 seconds fluoroscopy time supplied to the referring clinician. 1 intraoperative C-arm images docum ent the procedure. See dictated report from anesthesia.
[2018-03-28 10:35] VITALS: BP 130/82; PULSE 76
== END 2018-03-28 10:45 | disposition home or self-care (01) ==
LOC: ORPAIN 08:46
PROVIDERS: ATTEND Anesthesiology
DX: G89.29 Other chronic pain (principal); M46.1 Sacroiliitis, not elsewhere classified; M96.1 Postlaminectomy syndrome, not elsewhere classified; M46.96 Unspecified inflammatory spondylopathy, lumbar region; E66.9 Obesity, unspecified; Z68.36 Body mass index [BMI] 36.0-36.9, adult
CPT/HCPCS: J2250; J3301; J2405; J3010; G0260; 27096

== ENCOUNTER → 2018-04-02 | Outpatient (CLI) | payer MEDICARE, BC ==
[2018-04-02 13:52] VITALS: BP 126/89; PULSE 96; RESP 16; TEMP 98.3
--- NOTE | 2018-04-02 14:20 | P.PAINPG ---
Subjective Progress Note Date: 04/02/18 This is follow-up visit for this patient with a history of severe and chronic low back pain secondary to sacroiliitis, lumbar facet arthropathy, We have done an interventional pain procedure radiofrequency ablation of the medial branch lumbar area, and recently we did the right side sacroiliac joint steroid injection, and she reported that her pain improved significantly after sacroiliac steroid injection The patient currently on Filion 5/325 twice a day, Mobic 7.5 mg twice a day Patient denies any side effect of the medication , patient denies any excessive drowsiness or sleepiness, patient denies any suicidal ideation, Patient reported that the current medication is helping to control the pain and improve the activity of daily livings, Patient denies any motor or sensory deficit, denies any change in the bowel movement or urination, patient denies any fever or night sweats. Patient here today for follow-up visit and medication refill Objective - Vital Signs Vital signs: Vital Signs Temp 98.3 F 04/02/18 13:47 Pulse 96 04/02/18 13:47 Resp 16 04/02/18 13:47 BP 126/89 04/02/18 13:47 Pulse Ox 96 04/02/18 13:47 Intake & Output 04/01/18 04/02/18 04/02/18 18:59 06:59 18:59 Weight 90.718 kg - Exam Physical Examinations : 1-Constitutiona : Cooperative , not in acute distress . 2-HEENT : nech ; supple , no Lymphadenopathy , normal thyroid size . eyes : no ptosis , no icterus, no photophobia . ENT : normal of hearing , normal oropharynx , no Thrush . 3- Respiratory : Chest clear to auscultations Bilaterally , no wheezing , no Rhonchi . 4- Cardiovascular : regular rate and rhythem , S1 , S2 , no S3 , no S4. 5- Gastrointestinal : abdomen soft no tenderness , bowel sounds , no organomegally . 6- Genitourinary : Defferred . 7- neurologic : Cranial nerve II to XII intact , no focal neurological deffecit . 8-psychatric : alert , oriented X 3 , appropriate affect , intact judgment and insight . 9-Lymphatic : no Lymphadenopathy . 10- musculoskeltal : Lumber spine = normal moter stegnth lower extremities ,thigh and legs .5/5 deep tendon reflexes : normal Knee Jerk , normal ankle Jerk . lumber facet Loading Test positive Sever tenderness over the Sacroiliac joint on the Right , Assessment and Plan Plan: Assessment and plan= chronic low back pain secondary to sacroiliitis , lumbar spondylosis with lumbar facet arthropathy , Status post radiofrequency ablation of the medial branch lumbar area and recently we have done right-sided sacroiliac joint steroid injection patient gets excellent pain relief chronic and current use of high-risk medication (opioids) Patient denies any side effects of the current pain medication and the current treatment/medication helping the patient to do activity of daily living , Diagnoses, prognosis, treatment options, including but not limited to physical therapy, medication management, interventional therapies, and surgery, were discussed with the patient All the questions answered Patient signed the narcotic agreement, and was orally counseled, not to overuse, not to abuse, not to Divert , not tp sell pain medication, and to take it as prescribed only, Patient was counseled not to drive or operate heavy equipment while using narcotic medication, and advised not to use alcohol or any Illicit drugs while using the narcotis, the patient's verbalized understanding that lack of compliance with any of the above instructions, will likely to cause discharge from, the pain service, not to renew his narcotic prescriptions Medication managements= patient will be given prescription refills for Filion 5/325 every 12 hours dispense 60 with one refill , Time with Patient: Less than 30 PQRS Measure Charge Sheet Measure #130: Documentation of Current Meds in Medical Chart: Patient's medications documented in chart Measure #226: Tobacco Use: Screen & Cessation Intervention: Pt not a tobacco user Measure #111: Pneumonia Vaccination: Pneumococcal vaccine administered or previously received Measure #47: Advance Care Plan: Advance care planning discussed & documented, plan or surrogate given Measure #412: Opioid Treatment Agreement: Documented signed opioid trtmnt agreemnt min once during opioid trtmnt Measure #408: Opioid Therapy Follow-up Evaluation: Patient had f/u eval minimum every 3 months during opioid therapy Measure #317: Preventitive Care & Scrn High Bld Press & F/U: Normal blood pressure, f/u not required Measure #128: Body Mass Index (BMI) Screening & Follow-up: BMI documented ABOVE normal parameters - f/u documented Measure #131: Pain Assessment & Follow-up: Pain positive & plan documented, Follow-up scheduled Measure #431: Unhealthy Alcohol Use Preventative Care & Scrn: Patient not identified as an unhealthy alcohol user PQRS Narrative: Smoking Status Former smoker Do You Want the Pneumonia Vaccine Up to Date Vaccine AT THIS TIME? Narcotic Agreement Date Signed 10/13/16 Blood Pressure 126/89 Pain Intensity [Right Buttock] 1 Scale Used Numeric (1 - 10) Hx Alcohol Use (MH) Yes: occational Home Medications: Ambulatory Orders Citalopram Hydrobromide [CeleXA] 20 mg PO HS 08/04/14 Calcium Carbonate [Calcium] 600 mg PO DAILY 12/08/16 Kelp 1 each PO DAILY 12/08/16 L.acidoph,Paracasei, B.lactis [Probiotic] 1 tab PO DAILY 12/08/16 Magnesium 200 mg PO DAILY 12/08/16 Meloxicam [Mobic] 7.5 mg PO BID PRN #60 tab 03/05/18 HYDROcodone/APAP 5-325MG [Filion 5-325] 1 - 2 tab PO Q12HR PRN #60 tab 04/02/18 Hydrocodone/Acetaminophen [Filion 5-325] 1 tab PO Q12HR PRN #60 tablet 04/02/18 Controlled Substance Measures - Controlled Substance Measures Is patient prescribed a controlled substance at discharge?: Yes When asked, does pt state using other controlled substances?: No If prescribed controlled substance>3 days was MAPS reviewed?: Yes If Rx opioid, was Start Talking consent form obtained?: Yes If opioid is for acute pain is fill amount 7 days or less?: No Was information provided regarding opioid addiction?: Yes
== END | disposition home or self-care (01) ==
LOC: PNWHC3 12:50
PROVIDERS: ATTEND Specialist
DX: G89.29 Other chronic pain (principal); M47.816 Spondylosis without myelopathy or radiculopathy, lumbar region; M46.1 Sacroiliitis, not elsewhere classified; M46.96 Unspecified inflammatory spondylopathy, lumbar region; Z87.891 Personal history of nicotine dependence; Z79.899 Other long term (current) drug therapy; Z79.1 Long term (current) use of non-steroidal anti-inflammatories (NSAID); Z79.891 Long term (current) use of opiate analgesic
CPT/HCPCS: 99211

== ENCOUNTER → 2018-06-12 | Outpatient (CLI) | payer MEDICARE, BC ==
[2018-06-12 12:50] VITALS: BP 127/89; PULSE 87; RESP 16
--- NOTE | 2018-06-12 13:44 | P.PAINPG ---
Subjective Progress Note Date: 06/12/18 This is follow-up visit for this patient with a history of severe and chronic low back pain secondary to lumbar failed back surgery syndrome, lumbar facet arthropathy, right sacroiliitis We have done an interventional pain procedure right sacroiliac joint steroid injectionx2 , and she gets excellent pain relief after each injection The patient currently on [place] 5/325 every 12 hours, Mobic 7.5 twice a day when necessary Patient denies any side effect of the medication , patient denies any excessive drowsiness or sleepiness, patient denies any suicidal ideation, Patient reported that the current medication is helping to control the pain and improve the activity of daily livings, Patient denies any motor or sensory deficit, denies any change in the bowel movement or urination, patient denies any fever or night sweats Objective - Vital Signs Vital signs: Vital Signs Temp Pulse 87 06/12/18 12:46 Resp 16 06/12/18 12:46 BP 127/89 06/12/18 12:46 Pulse Ox 95 06/12/18 12:46 Intake & Output 06/11/18 06/12/18 06/12/18 18:59 06:59 18:59 Weight 97.522 kg - Exam Physical Examinations : 1-Constitutiona : Cooperative , not in acute distress . 2-HEENT : nech ; supple , no Lymphadenopathy , normal thyroid size . eyes : no ptosis , no icterus , no photophobia . ENT : normal of hearing , normal oropharynx , no Thrush . 3- Respiratory : Chest clear to auscultations Bilaterally , no wheezing , no Rhonchi . 4- Cardiovascular : regular rate and rhythem , S1 , S2 , no S3 , no S4. 5- Gastrointestinal : abdomen soft no tenderness , bowel sounds , no organomegally . 6- Genitourinary : Defferred . 7- neurologic : Cranial nerve II to XII intact , no focal neurological deffecit . 8-psychatric : alert , oriented X 3 , appropriate affect , intact judgment and insight . 9-Lymphatic : no Lymphadenopathy . 10- musculoskeltal : Lumber spine moter stegnth lower extremities ,thigh and legs 5/5 Right side , 5/5 Left side deep tendon reflexes : normal Knee Jerk , normal ankle Jerk positive lumber facet Loading Test on the right side Range of motion of the lumbar spine Flexion 30 degrees, extension 10 degrees strait leg raising test , positive at 30 degree on the right side Fabere test positive RT and positive LT . Sever tenderness over the Sacroiliac joint on the R sides Assessment and Plan Plan: Assessment and plan= chronic low back pain secondary to right sacroiliitis , lumbar spondylosis with lumbar facet arthropathy . Failed back surgery syndrome lumbar area Patient had more than 50% decrease in her pain after right sacroiliac joint steroid injection ,done on 2 different occasions chronic and current use of high-risk medication (opioids) Patient denies any side effects of the current pain medication and the current treatment/medication helping the patient to do activity of daily living , Diagnoses, prognosis, treatment options, including but not limited to physical therapy, medication management, interventional therapies, and surgery, were discussed with the patient All the questions answered The narcotic consent was signed and patient agreed and understood the side effects and complications of opioid treatment. Patient signed the narcotic agreement, and was orally counseled, not to overuse, not to abuse, not to Divert , not tp sell pain medication, and to take it as prescribed only, Patient was counseled not to drive or operate heavy equipment while using narcotic medication, and advised not to use alcohol or any Illicit drugs while using the narcotis, the patient's verbalized understanding that lack of compliance with any of the above instructions, will likely to cause discharge from, the pain service, not to renew his narcotic prescriptions Medication managements= patient will be given prescription refills for [place] 5/25 dispense 60 with 1 refill. Interventions= patient will be good candidate to have radiofrequency ablation on the right sacroiliac joint, and the frequency of L5-S1 dorsal ramus , radiofrequency ablation of the lateral branches S1/S2/S3 , Time with Patient: Less than 30 PQRS Measure Charge Sheet Measure #130: Documentation of Current Meds in Medical Chart: Patient's medications documented in chart Measure #226: Tobacco Use: Screen & Cessation Intervention: Pt not a tobacco user Measure #111: Pneumonia Vaccination: Pneumococcal vaccine administered or previously received Measure #47: Advance Care Plan: Advance care planning discussed & documented, pt chose/unable to give Measure #412: Opioid Treatment Agreement: Documented signed opioid trtmnt agreemnt min once during opioid trtmnt Measure #408: Opioid Therapy Follow-up Evaluation: Patient had f/u eval minimum every 3 months during opioid therapy Measure #317: Preventitive Care & Scrn High Bld Press & F/U: Normal blood pressure, f/u not required Measure #128: Body Mass Index (BMI) Screening & Follow-up: BMI documented ABOVE normal parameters - f/u documented Measure #131: Pain Assessment & Follow-up: Pain positive & plan documented, Follow-up scheduled Measure #431: Unhealthy Alcohol Use Preventative Care & Scrn: Patient not identified as an unhealthy alcohol user PQRS Narrative: Smoking Status Former smoker Do You Want the Pneumonia Vaccine Up to Date Vaccine AT THIS TIME? Narcotic Agreement Date Signed 10/13/16 Blood Pressure 127/89 Pain Intensity [Right Lower 7 Back] Scale Used Numeric (1 - 10) Hx Alcohol Use (MH) Yes: occational Home Medications: Ambulatory Orders Citalopram Hydrobromide [CeleXA] 20 mg PO HS 08/04/14 Calcium Carbonate [Calcium] 600 mg PO DAILY 12/08/16 Kelp 1 each PO DAILY 12/08/16 L.acidoph,Paracasei, B.lactis [Probiotic] 1 tab PO DAILY 12/08/16 Magnesium 200 mg PO DAILY 12/08/16 Meloxicam [Mobic] 7.5 mg PO BID PRN #60 tab 03/05/18 HYDROcodone/APAP 5-325MG [[place] 5-325] 1 - 2 tab PO Q12HR PRN #60 tab 06/12/18 Hydrocodone/Acetaminophen [[place] 5-325] 1 tab PO Q12HR PRN #60 tablet 06/12/18 Controlled Substance Measures - Controlled Substance Measures Is patient prescribed a controlled substance at discharge?: Yes When asked, does pt state using other controlled substances?: No If prescribed controlled substance>3 days was MAPS reviewed?: Yes If Rx opioid, was Start Talking consent form obtained?: Yes If opioid is for acute pain is fill amount 7 days or less?: No Was information provided regarding opioid addiction?: Yes
== END | disposition home or self-care (01) ==
LOC: PNWHC3 12:16
PROVIDERS: ATTEND Specialist
DX: G89.29 Other chronic pain (principal); M47.816 Spondylosis without myelopathy or radiculopathy, lumbar region; M46.96 Unspecified inflammatory spondylopathy, lumbar region; M46.1 Sacroiliitis, not elsewhere classified; M96.1 Postlaminectomy syndrome, not elsewhere classified; Z87.891 Personal history of nicotine dependence; Z79.899 Other long term (current) drug therapy; Z79.891 Long term (current) use of opiate analgesic; Z79.1 Long term (current) use of non-steroidal anti-inflammatories (NSAID)
CPT/HCPCS: 99211

== ENCOUNTER 2018-07-05 07:56 | Day surgery (SDC) | payer MEDICARE, BC ==
[2018-06-28 15:38] VITALS: BMI 36.6
[2018-07-05 08:32] VITALS: TEMP 98.4
[2018-07-05] MEDS ORDERED: LACTATED RINGERS 1,000 ML IV ONE (08:40)
[2018-07-05] MEDS ORDERED: LIDOCAINE 1% 20 ML VIAL (10MG/ML) FOR IV START INTRADERMA ONE (08:41)
[2018-07-05] MEDS ORDERED: LACTATED RINGERS 1,000 ML IV SCH (09:15)
--- NOTE | 2018-07-05 09:49 | P.PCN ---
Date of Procedure: 07/05/18 Procedure(s) Performed: PREOPERATIVE DIAGNOSIS: 1-Lumbosacral spondylosis with facet arthropathy without myelopathy. 2 Right Sacroilitis post operative Diagnosis: . 1-Lumbosacral spondylosis with facet arthropathy without myelopathy. 2- Right sacroilitis. PROCEDURES: 1- Right radiofrequency thermocoagulation/ablation of the L5 dorsal ramus. 2- Right multi-site radio frequency thermocoagulation/ablation of the S1, S2, and S3 lateral branchs. The procedure was performed using fluoroscopic guidance during needle placement to assure proper position and maximize safety . ANESTHESIA: LOCAL ANESTHESIA and IV sedation with versed mg and Fentanyle mcg EBL: NONE INDICATION/MEDICAL NECESSITY: History of low back pain secondary to right sacroiliitis and lumbosacral arthropathy unresponsive to more conservative treatments. The patient reported more than 50% relief of pain symptoms following 2 previous diagnostic blocks with Bupivacaine. PROCEDURE DESCRIPTION: The patient was seen and identified in the preoperative area. Risks, benefits, complications, and alternatives were discussed with the patient. The patient agreed to proceed with the procedure and signed the consent. Vital signs were checked before and after the procedure and they remained stable. Patient ambulated to the procedure room and time out was completed. The patient was placed in the prone position on the procedure table and a pillow was placed under the abdomen to reduce lumbar lordosis. The lumbosacral area was prepped and draped in the usual sterile fashion. Critical pause was taken. L5 Dorsal Ramus RF: Using right oblique fluoroscopy, the junction of the transverse process and the superior articular process of the right S1 vertebra, which correspond to the fluoroscopic image of the "eye of the Escobar dog" was identified. Subsequently, a 10-cm 20 -gauge radiofrequency cannula with a 10-mm active tip was advanced under fluoroscopic guidance until contact was made with periosteum. At this level, the Sensory testing of the L5 dorsal ramus was performed at 50 Hz and 0 to 1 volt with production of concordant pain starting at 0.5 volt. Motor stimulation was done at 2.5 Hz with stimulation of mulitifidus muscle contration . No radicular symptoms or paresthesias were produced during the testing. Subsequently, the L5 dorsal ramus was subjected to a radiofrequency ablation at 80 degree celsius for 90 seconds . after 0.5% Bupivacaine 1 ml injected at each level after negative aspirations . S1, S3, and S3 Lateral Branch RF: The lateral margins of the Right S1, S2, and S3 foramina were identified using AP fluoroscopy. Under fluoroscopic guidance, three 10-cm 20 -gauge radiofrequency cannula with a 10-mm active tip were inserted at 8-10 mm peripheral to the posterior S1 foramen, at various locations using clock-face coordinates. The center of the clock was registered at the lateral margin of the foramen. The 2:30, 4:00, and 5:30 oclock positions were used. At this level , the sensory testing of the S1 lateral branch was performed at 50 Hz and 0 to 1 volt at the three levels with production of concordant pain starting at 0.5 volt. Motor stimulation was done at 2.5 Hz. No radicular symptoms or paresthesias were produced during the testing. Subsequently, the S1 lateral branch was subjected to a radiofrequency ablation at a mode of 90 seconds at 80 degrees Celsius at the 3 levels after negative motor and sensory testing and after injecting 0.5 ml of preservative free Bupivacaine 0.5 %. The same procedure was performed at the level of the S2 foramen. For the S3 foramen, only the 2:30 and 4:00 oclock positions were used. Sensory and motor testing followed by radiofrequency ablation were performed as described for the S1 and S2 foramina. The same procedure was repeated on the left side using the following locations: The 9:30, 8:00, and 6:30 oclock positions were used for the S1 and S2 foramina and the 9:30 and 8:00 oclock positions were used for the S3 foramen. The needle was withdrawn intact after each injection. COMPLICATIONS: The patient tolerated the procedure well without any acute complications. DISPOSTION/PLAN: The patient ambulated to the recovery area after the procedure in a stable condition for observation. Patient was reexamined prior to discharge. Patient was observed for 30 minutes in the recovery area and was discharged home, accompanied by an adult, after meeting discharged criteria. Discharge instructions were give to the patient by the staff. Patient was specifically instructed not to drive today and to rest for the rest of the day. The patient will schedule a follow up visit in the clinic in weeks or earlier if needed.
[2018-07-05 10:11] VITALS: BP 135/89; PULSE 55; RESP 16
--- NOTE | 2018-07-05 13:01 | FL ---
Fluoroscopy HISTORY: Pain 23 seconds fluoroscopy time supplied to the referring clinician. 1 intraoperative C-arm images docum ent the procedure. See dictated report from anesthesia.
== END 2018-07-05 10:41 | disposition home or self-care (01) ==
LOC: ORPAIN 07:56
PROVIDERS: ATTEND Hospitalist
DX: G89.29 Other chronic pain (principal); M47.817 Spondylosis without myelopathy or radiculopathy, lumbosacral region; M46.1 Sacroiliitis, not elsewhere classified; M96.1 Postlaminectomy syndrome, not elsewhere classified; Z79.891 Long term (current) use of opiate analgesic; Z87.891 Personal history of nicotine dependence
CPT/HCPCS: 64640 ×3; 64635; J2250; J2001; J3010; 64636; 99152

== ENCOUNTER → 2018-07-26 | Outpatient (CLI) | payer MEDICARE, BC ==
[2018-07-26 13:54] VITALS: BP 124/84; PULSE 88; RESP 16
--- NOTE | 2018-07-26 18:13 | P.PAINPG ---
Subjective Progress Note Date: 07/26/18 This is follow-up visit for this patient with a history of severe and chronic low back pain secondary to lumbar failed back surgery syndrome, lumbar facet arthropathy, right sacroiliitis We have done an interventional pain procedure right sacroiliac joint steroid injectionx2 , and we have done radiofrequency ablation of the median branch lumbar area and the radiofrequency ablation of the sacroiliac joint , patient reported that the pain improved more than 50% after the radiofrequency The patient currently on [place] 5/325 every 12 hours, Mobic 7.5 twice a day when necessary Patient denies any side effect of the medication , patient denies any excessive drowsiness or sleepiness, patient denies any suicidal ideation, Patient reported that the current medication is helping to control the pain and improve the activity of daily livings, Patient denies any motor or sensory deficit, denies any change in the bowel movement or urination, patient denies any fever or night sweats Physical Examinations : 1-Constitutiona : Cooperative , not in acute distress . 2-HEENT : nech ; supple , no Lymphadenopathy , normal thyroid size . eyes : no ptosis , no icterus , no photophobia . ENT : normal of hearing , normal oropharynx , no Thrush . 3- Respiratory : Chest clear to auscultations Bilaterally , no wheezing , no Rhonchi . 4- Cardiovascular : regular rate and rhythem , S1 , S2 , no S3 , no S4. 5- Gastrointestinal : abdomen soft no tenderness , bowel sounds , no organomegally . 6- Genitourinary : Defferred . 7- neurologic : Cranial nerve II to XII intact , no focal neurological deffecit . 8-psychatric : alert , oriented X 3 , appropriate affect , intact judgment and insight . 9-Lymphatic : no Lymphadenopathy . 10- musculoskeltal : Lumber spine moter stegnth lower extremities ,thigh and legs 5/5 Right side , 5/5 Left side deep tendon reflexes : normal Knee Jerk , normal ankle Jerk positive lumber facet Loading Test on the right side Range of motion of the lumbar spine Flexion 30 degrees, extension 10 degrees strait leg raising test , positive at 30 degree on the right side Fabere test positive RT and positive LT . tenderness over the Sacroiliac joint on the R sides Assessment and plan= chronic low back pain secondary to right sacroiliitis , lumbar spondylosis with lumbar facet arthropathy . Failed back surgery syndrome lumbar area Patient had more than 50% decrease in her pain after right RFA of the lumbar medial branch RFA of the right sacroiliac joint chronic and current use of high-risk medication (opioids) Patient denies any side effects of the current pain medication and the current treatment/medication helping the patient to do activity of daily living , Diagnoses, prognosis, treatment options, including but not limited to physical therapy, medication management, interventional therapies, and surgery, were discussed with the patient All the questions answered The narcotic consent was signed and patient agreed and understood the side effects and complications of opioid treatment. Patient signed the narcotic agreement, and was orally counseled, not to overuse, not to abuse, not to Divert , not tp sell pain medication, and to take it as prescribed only, Patient was counseled not to drive or operate heavy equipment while using narcotic medication, and advised not to use alcohol or any Illicit drugs while using the narcotis, the patient's verbalized understanding that lack of compliance with any of the above instructions, will likely to cause discharge from, the pain service, not to renew his narcotic prescriptions Medication managements= patient will be given prescription refills for [place] 03/23 dispense 60 with 1 refill. Interventions= none at this time Objective - Vital Signs Vital signs: Vital Signs Temp Pulse 88 07/26/18 13:44 Resp 16 07/26/18 13:44 BP 124/84 07/26/18 13:44 Pulse Ox 96 07/26/18 13:44 Intake & Output 07/25/18 07/26/18 07/26/18 18:59 06:59 18:59 Weight 97.522 kg PQRS Measure Charge Sheet Measure #130: Documentation of Current Meds in Medical Chart: Patient's medications documented in chart Measure #226: Tobacco Use: Screen & Cessation Intervention: Pt not a tobacco user Measure #111: Pneumonia Vaccination: Pneumococcal vaccine administered or previously received Measure #47: Advance Care Plan: Advance care planning discussed & documented, pt chose/unable to give Measure #412: Opioid Treatment Agreement: Documented signed opioid trtmnt agreemnt min once during opioid trtmnt Measure #408: Opioid Therapy Follow-up Evaluation: Patient had f/u eval minimum every 3 months during opioid therapy Measure #317: Preventitive Care & Scrn High Bld Press & F/U: Normal blood pressure, f/u not required Measure #128: Body Mass Index (BMI) Screening & Follow-up: BMI documented ABOVE normal parameters - f/u documented Measure #131: Pain Assessment & Follow-up: Pain positive & plan documented, Follow-up scheduled Measure #431: Unhealthy Alcohol Use Preventative Care & Scrn: Patient not identified as an unhealthy alcohol user PQRS Narrative: Smoking Status Former smoker Do You Want the Pneumonia No Vaccine AT THIS TIME? Narcotic Agreement Date Signed 03/05/18 Blood Pressure 124/84 Pain Intensity [Right Lower 3 Back] Scale Used Numeric (1 - 10) Hx Alcohol Use (MH) Yes: occational Home Medications: Ambulatory Orders Citalopram Hydrobromide [CeleXA] 20 mg PO HS 08/04/14 Calcium Carbonate [Calcium] 600 mg PO DAILY 12/08/16 Kelp 1 each PO DAILY 12/08/16 L.acidoph,Paracasei, B.lactis [Probiotic] 1 tab PO DAILY 12/08/16 Magnesium 200 mg PO DAILY 12/08/16 Meloxicam [Mobic] 7.5 mg PO BID PRN #60 tab 03/05/18 Hydrocodone/Acetaminophen [[place] 5-325] 1 tab PO Q12HR PRN #60 tablet 06/12/18 Controlled Substance Measures - Controlled Substance Measures Is patient prescribed a controlled substance at discharge?: Yes When asked, does pt state using other controlled substances?: No If prescribed controlled substance>3 days was MAPS reviewed?: Yes If Rx opioid, was Start Talking consent form obtained?: Yes If opioid is for acute pain is fill amount 7 days or less?: No Was information provided regarding opioid addiction?: Yes
== END ==
LOC: PNWHC3 12:50
PROVIDERS: ATTEND Specialist
DX: M47.816 Spondylosis without myelopathy or radiculopathy, lumbar region (principal); M46.96 Unspecified inflammatory spondylopathy, lumbar region; M46.1 Sacroiliitis, not elsewhere classified; M96.1 Postlaminectomy syndrome, not elsewhere classified; Z79.899 Other long term (current) drug therapy; Z79.1 Long term (current) use of non-steroidal anti-inflammatories (NSAID); Z79.891 Long term (current) use of opiate analgesic; Z87.891 Personal history of nicotine dependence
CPT/HCPCS: 99211

== ENCOUNTER → 2018-08-13 | Outpatient (CLI) | payer MEDICARE, BC ==
--- NOTE | 2018-08-13 19:10 | BD ---
EXAMINATION TYPE: Axial Bone Density DATE OF EXAM: 08/13/2018 COMPARISON: NONE CLINICAL HISTORY: 57-year-old female postmenopausal screening without HRT Height: 62 Weight: 214.2 FRAX RISK QUESTIONS: Alcohol (3 or more units per day): no Family History (Parent hip fracture): no Glucocorticoids (More than 3mos): no (Ex: prednisone, prednisolone, methylprednisolone, dexamethasone, and hydrocortisone). History of Fracture in Adulthood: no Secondary Osteoporosis: 1. Type 1 Diabetes: no 2. Hyperthyroidism: no 3. Menopause before 45: yes 4. Malnutrition: no 5. Chronic liver disease: no Rheumatoid Arthritis: no Current Tobacco Use: no RISK FACTORS HISTORY OF: Family History of Osteoporosis: no Active: sometimes Diet low in dairy products/other sources of calcium: low but takes calcium Postmenopausal woman: hysterectomy age 38 Lost more than 2 inches in height since high school: no MEDICATIONS: Celexa, narco Additional History: pt has a neuro stimulater in her back EXAM MEASUREMENTS: Bone mineral densitometry was performed using the GoGuide System. Bone mineral density as measured about the Lumbar spine is: ----- L1-L4(G/cm2): 1.106 T Score Values are as follows: ----- L2: -0.6 ----- L3: -0.6 ----- L4: -05 ----- L1-L4: -0.6 Bone mineral density : baseline here Bone mineral density about the R hip (g/cm2): 0.855 Bone mineral density about the L hip (g/cm2): 0.860 T Score values are as follows: -----R Neck: -1.1 -----L Neck: -1.3 -----R Total: -1.2 -----L Total: -1.0 Bone mineral density baseline IMPRESSION: Osteopenia (T Score between -2.5 and -1). There is slightly increased risk of fracture and the patient may be considered for treatment. Re-Screen 2-5 years. NOTE: T-SCORE=SD OF THE YOUNG ADULT MEAN.
--- NOTE | 2018-08-14 11:14 | MM ---
Reason for exam: screening (asymptomatic). Last mammogram was performed 1 year and 6 months ago. History: Patient is postmenopausal. Family history of breast cancer in sister at age 60. Physical Findings: A clinical breast exam by your physician is recommended on an annual basis and results should be correlated with mammographic findings. MG 3D Screening Mammo W/Cad Bilateral CC and MLO view(s) were taken. Prior study comparison: February 15, 2017, mammogram, performed at [facility]. June 25, 2013, mammogram, performed at [facility]. There are scattered fibroglandular densities. No significant changes when compared with prior studies. ASSESSMENT: Negative, BI-RAD 1 RECOMMENDATION: Routine screening mammogram of both breasts in 1 year.
== END | disposition home or self-care (01) ==
LOC: RADMAMWWP 13:36
PROVIDERS: ATTEND Family Medicine
DX: Z12.31 Encounter for screening mammogram for malignant neoplasm of breast (principal); M85.88 Other specified disorders of bone density and structure, other site; Z78.0 Asymptomatic menopausal state
CPT/HCPCS: 77063; 77067; 77080

== ENCOUNTER → 2018-09-03 | Outpatient (CLI) | payer MEDICARE, BC ==
[2018-09-03 14:02] VITALS: BP 121/84; PULSE 107; RESP 18
--- NOTE | 2018-09-03 14:16 | P.PAINCN ---
History of Present Illness - Reason for Consult Consult date: 09/03/18 - Chief Complaint Back pain - History of Present Illness Adelina presents today for follow-up. She reports that her pain is significantly improved since her radiofrequency ablation. She continues to have some pain that shoots down her leg and reports the [place] does help with that and she continues to use 1-2 tablets per day. She denies any side effects from the medications. She denies any new symptoms. She denies any aberrant use of the medications. She has a prescription that was dated to be filled after August 23 with her today. I advised her that it still be good to be refilled over next couple days. Review of Systems 10 point review of system was done and is negative except as noted in the HPI Past Medical History Past Medical History: Deep Vein Thrombosis (DVT), GERD/Reflux, Musculoskeletal Disorder, Osteoarthritis (OA) Additional Past Medical History / Comment(s): BACK PAIN. DVT TO LEFT LEG 1979 History of Any Multi-Drug Resistant Organisms: None Reported Past Surgical History: Back Surgery, Section, Hysterectomy, Orthopedic Surgery Additional Past Surgical History / Comment(s): LAMINECTOMY WITH SPINAL CORD STIMULATOR,LT OVARY REMOVED 1998, pain procedures. Past Anesthesia/Blood Transfusion Reactions: Postoperative Nausea & Vomiting ( PONV) Additional Past Anesthesia/Blood Transfusion Reaction / Comm: PONV WITH BACK SURGERY Past Psychological History: Depression Smoking Status: Former smoker Past Alcohol Use History: Rare Additional Past Alcohol Use History / Comment(s): QUIT SMOKING 1984-STARTED IN 1972. PPD-3/4-1 Past Drug Use History: None Reported - Past Family History Mother Family Medical History: Cancer, CVA/TIA Additional Family Medical History / Comment(s): BREAST CA Medications and Allergies Home Medications Medication Instructions Recorded Confirmed Type Citalopram Hydrobromide [CeleXA] 20 mg PO HS 08/04/14 09/03/18 History Calcium Carbonate [Calcium] 600 mg PO DAILY 12/08/16 09/03/18 History Kelp 1 each PO DAILY 12/08/16 09/03/18 History L.acidoph,Paracasei, B.lactis 1 tab PO DAILY 12/08/16 09/03/18 History [Probiotic] Magnesium 200 mg PO DAILY 12/08/16 09/03/18 History Meloxicam [Mobic] 7.5 mg PO BID PRN #60 tab 03/05/18 09/03/18 Rx Hydrocodone/Acetaminophen [[place] 1 tab PO Q12HR PRN #60 tablet 06/12/18 Rx 5-325] Allergies Allergy/AdvReac Type Severity Reaction Status Date / Time No Known Allergies Allergy Verified 09/03/18 13:51 Physical Exam Vitals: Vital Signs Pulse Resp BP Pulse Ox 09/03/18 13:56 107 H 18 121/84 96 Intake and Output 09/02/18 09/03/18 09/03/18 22:59 06:59 14:59 Other: Weight 97.522 kg PHYSICAL EXAM: Constitutional: Awake and alert no distress Cardiovascular exam: Regular rate, no lower extremity edema, palpable pulses bilaterally Respiratory exam: No audible wheezing, no accessory muscle usage Abdominal exam: Soft nontender Muscular skeletal exam: - Cervical spine: Nontender to palpation bilaterally. Range of motion is not limited. Spurling is negative bilateral. Facet loading is negative bilaterally - Lumbar spine: Decreased lumbar lordosis. No changes in skin. Minimal tenderness to palpation bilateral. Patient has full range of motion in flexion and extension as well as lateral sidebending. Straight leg raise is negative. Facet loading is negative. Nontender over the SI joints. AYAN Negative, Gaenselons negative, SI Joint compression negative. Neuro exam: Normal sensation bilateral upper and lower extremities. Deep tendon reflexes are 2+ bilaterally. Bosch's is negative Psychiatric exam: Cooperative, good insight Assessment and Plan Assessment: Sacroiliitis Opioid dependence Plan: Plan is to refill her medications today for the next 2 months time. I will give her another prescription that will be filled not before 10/03/2018. That should get her into the new year. Maps was reviewed. Urine drug screen has been reviewed and is appropriate. Opioid start talking form has been signed and is in the chart follow-up in 10-11 weeks. Time with Patient: Less than 30 PQRS Measure Charge Sheet Measure #130: Documentation of Current Meds in Medical Chart: Patient's medications documented in chart Measure #226: Tobacco Use: Screen & Cessation Intervention: Pt screened for tobacco use AND intervention given Measure #111: Pneumonia Vaccination: Pneumococcal vaccine administered or previously received Measure #47: Advance Care Plan: Advance care planning discussed & documented, pt chose/unable to give Measure #412: Opioid Treatment Agreement: Documented signed opioid trtmnt agreemnt min once during opioid trtmnt Measure #408: Opioid Therapy Follow-up Evaluation: Patient had f/u eval minimum every 3 months during opioid therapy Measure #317: Preventitive Care & Scrn High Bld Press & F/U: Normal blood pressure, f/u not required Measure #128: Body Mass Index (BMI) Screening & Follow-up: BMI documented within normal parameters Measure #131: Pain Assessment & Follow-up: Pain positive & plan documented PQRS Narrative: Smoking Status Former smoker Do You Want the Pneumonia Vaccine Up to Date Vaccine AT THIS TIME? Narcotic Agreement Date Signed 03/05/18 Blood Pressure 121/84 Pain Intensity [Right 5 Posterior Buttock] Scale Used Numeric (1 - 10) Hx Alcohol Use (MH) Yes: occational Home Medications: Ambulatory Orders Citalopram Hydrobromide [CeleXA] 20 mg PO HS 08/04/14 Calcium Carbonate [Calcium] 600 mg PO DAILY 12/08/16 Kelp 1 each PO DAILY 12/08/16 L.acidoph,Paracasei, B.lactis [Probiotic] 1 tab PO DAILY 12/08/16 Magnesium 200 mg PO DAILY 12/08/16 Meloxicam [Mobic] 7.5 mg PO BID PRN #60 tab 03/05/18 Hydrocodone/Acetaminophen [[place] 5-325] 1 tab PO Q12HR PRN #60 tablet 06/12/18
== END ==
LOC: PNWHC3 13:42
PROVIDERS: ATTEND Hospitalist
DX: M46.1 Sacroiliitis, not elsewhere classified (principal); F11.20 Opioid dependence, uncomplicated; Z87.891 Personal history of nicotine dependence; Z79.899 Other long term (current) drug therapy; Z79.891 Long term (current) use of opiate analgesic; Z79.1 Long term (current) use of non-steroidal anti-inflammatories (NSAID)
CPT/HCPCS: 99211

== ENCOUNTER → 2018-10-31 | Outpatient (CLI) | payer MEDICARE, BC ==
[2018-10-31 13:20] VITALS: BP 136/96; PULSE 80; RESP 16
--- NOTE | 2018-10-31 13:30 | P.PN ---
Subjective Progress Note Date: 10/31/18 This is a 58-year-old lady with history of chronic lower back pain status post back surgery. The patient hand and RFA on the lumbar medial branches recently which has helped her pain. Her pain radiates down to the right buttock area with occasional numbness and tingling in the right leg in no specific radicular distribution. The patient takes [place] 5 mg twice a day as needed for her pain and she's been doing well lately. Today, pt denies new-onset weakness, bowel/bladder incontinence, or any other signs or symptoms of cauda equina syndrome. There are no signs of acute intoxication, and no indications of medication diversion or overuse. In addition to above, 13-point review of systems is also negative for chest pain , shortness of breath, changes in vision, changes in hearing, new onset weakness , abdominal pain, diarrhea, extreme fatigue, malaise, fever, skin changes, homicidal or suicidal ideation, or bowel or bladder incontinence. Vital Signs: Reviewed in EMR Gen: AAOx3, NAD HEENT: PERRLA,hearing grossly normal Pulm: resp unlabored,CTA Heart:S1,S2, No Mur Neck: supple, trachea midline Neuro exam of the lower extremities: Within normal limits Straight leg raising test: Negative bilaterally Tenderness in the paravertebral musculature: Mild of the lumbar area Neuro: CN II-XII grossly intact, Imaging: Reviewed in EMR/chart Assessment: Failed back surgery syndrome Lumbar spondylosis without myelopathy Right sacroiliitis Obesity Opioid dependence Plan: 1. Explanation: Opioid and psychological risk scores were reviewed. Diagnoses , prognoses, and multiple treatment options including but not limited to physical therapy, interventional therapies, adjuvant medical therapies, narcotic medication therapies, and surgery were discussed with the patient and all questions were answered to the patient's satisfaction. 2. Opioid agreement: Signed with the patient and the patient is warned not to use opioids while driving or before driving and not to combine opioids with benzodiazepines or alcohol. 3. Counseling: The patient was counseled extensively on SMOKING CESSATION, BODY MASS INDEX, EXERCISE. Specifically, the patient was instructed regarding the importance of smoking cessation, obesity, and exercise in the context of both chronic pain and overall health. 4. Procedures: None at this point 5. Consultations: None 6. Investigations: None 7. Medications: Continue [place] 5 mg twice a day. I'll give her prescription for 60 pills with 1 refill. 8. Disposition: Return to clinic in 2 months 9. Maps were reviewed and were appropriate. PQRS measures: 1-Patient's medications are documented in the chart. 2-Tobacco use is negative, counseling given 3-Patient has had a pneumococcal vaccine. 4-Advanced care planning discussed, patient unable to give 5-Opioid contract signed with the patient. 6-Pain positive, follow-up visit or procedure scheduled 7-Patient's blood pressure measured and documented within normal limits. 8-Patient's weight was measured, and body mass index ABOVE the normal limits, and counseling was done. Patient instructed to follow up with PCP. 9-Patient WAS NOT identified as an unhealthy alcohol user. Objective - Vital Signs Vital signs: Vital Signs Temp Pulse 80 10/31/18 13:15 Resp 16 10/31/18 13:15 BP 136/96 10/31/18 13:15 Pulse Ox 96 10/31/18 13:15 Intake & Output 10/30/18 10/31/18 10/31/18 18:59 06:59 18:59 Weight 97.522 kg
== END ==
LOC: PNWHC3 12:44
PROVIDERS: ATTEND Anesthesiology
DX: M47.816 Spondylosis without myelopathy or radiculopathy, lumbar region (principal); M96.1 Postlaminectomy syndrome, not elsewhere classified; M46.1 Sacroiliitis, not elsewhere classified; E66.9 Obesity, unspecified; F11.20 Opioid dependence, uncomplicated; Z79.899 Other long term (current) drug therapy; Z68.39 Body mass index [BMI] 39.0-39.9, adult
CPT/HCPCS: 99211

== ENCOUNTER → 2018-12-27 | Outpatient (CLI) | payer MEDICARE, BC ==
[2018-12-27 11:44] VITALS: BP 137/86; PULSE 83; RESP 16
--- NOTE | 2018-12-27 12:19 | P.PN ---
Subjective Progress Note Date: 12/27/18 This is a 58-year-old lady with history of chronic lower back pain that radiates to the right groin anteriorly and down to the knee level. The patient had spinal cord stimulator placed in surgically by Dr. Tony however it is not working now due to lead disruption. The patient does not want the stimulator to be revised because of her current pain management is working well for her which includes a combination of interventional pain procedures and Chandler 5 mg twice a day if needed for her pain. She had RFA on the lumbar medial branches recently which has given her good pain relief. Today, pt denies new-onset weakness, bowel/bladder incontinence, or any other signs or symptoms of cauda equina syndrome. There are no signs of acute intoxication, and no indications of medication diversion or overuse. In addition to above, 13-point review of systems is also negative for chest pain , shortness of breath, changes in vision, changes in hearing, new onset weakness , abdominal pain, diarrhea, extreme fatigue, malaise, fever, skin changes, homicidal or suicidal ideation, or bowel or bladder incontinence. Vital Signs: Reviewed in EMR Gen: AAOx3, NAD HEENT: PERRLA,hearing grossly normal Pulm: resp unlabored,CTA Heart:S1,S2, No Mur Neck: supple, trachea midline Neuro exam of the lower extremities: Within normal limits Straight leg raising test: Negative bilaterally Tenderness in the paravertebral musculature: Mild of the lumbar area Neuro: CN II-XII grossly intact, Imaging: Reviewed in EMR/chart Assessment: Lumbar spondylosis without myelopathy Right sacroiliitis Obesity Opioid dependence Plan: 1. Explanation: Opioid and psychological risk scores were reviewed. Diagnoses , prognoses, and multiple treatment options including but not limited to physical therapy, interventional therapies, adjuvant medical therapies, narcotic medication therapies, and surgery were discussed with the patient and all questions were answered to the patient's satisfaction. 2. Opioid agreement: Signed with the patient and the patient is warned not to use opioids while driving or before driving and not to combine opioids with benzodiazepines or alcohol. 3. Counseling: The patient was counseled extensively on SMOKING CESSATION, BODY MASS INDEX, EXERCISE. Specifically, the patient was instructed regarding the importance of smoking cessation, obesity, and exercise in the context of both chronic pain and overall health. 4. Procedures: None at this point 5. Consultations: None 6. Investigations: None 7. Medications: Continue Chandler 5 mg twice a day. I'll give her prescription for 60 pills with 1 refill. 8. Disposition: Return to clinic in 2 months 9. Maps were reviewed and were appropriate. PQRS measures: 1-Patient's medications are documented in the chart. 2-Tobacco use is negative, counseling given 3-Patient has had a pneumococcal vaccine. 4-Advanced care planning discussed, patient unable to give 5-Opioid contract signed with the patient. 6-Pain positive, follow-up visit or procedure scheduled 7-Patient's blood pressure measured and documented within normal limits. 8-Patient's weight was measured, and body mass index ABOVE the normal limits, and counseling was done. Patient instructed to follow up with PCP. 9-Patient WAS NOT identified as an unhealthy alcohol user. Objective - Vital Signs Vital signs: Vital Signs Temp Pulse 83 12/27/18 11:38 Resp 16 12/27/18 11:38 BP 137/86 12/27/18 11:38 Pulse Ox 96 12/27/18 11:38 Intake & Output 12/26/18 12/27/18 12/27/18 18:59 06:59 18:59 Weight 95.254 kg
== END ==
LOC: PNWHC3 11:31
PROVIDERS: ATTEND Anesthesiology
DX: M47.816 Spondylosis without myelopathy or radiculopathy, lumbar region (principal); M46.1 Sacroiliitis, not elsewhere classified; E66.9 Obesity, unspecified; F11.20 Opioid dependence, uncomplicated; Z79.891 Long term (current) use of opiate analgesic
CPT/HCPCS: 99211

== ENCOUNTER → 2019-02-21 | Outpatient (CLI) | payer MEDICARE, BC ==
[2019-02-21 13:28] VITALS: BP 139/89; PULSE 78; RESP 18
--- NOTE | 2019-02-21 14:07 | P.PAINPG ---
Subjective Progress Note Date: 02/21/19 This is follow-up visit for this patient with a history of severe and chronic low back pain secondary to lumbar failed back surgery syndrome, lumbar facet arthropathy, right sacroiliitis We have done an interventional pain procedure , radiofrequency ablation of the median branch lumbar area ,and the radiofrequency ablation of the Right sacroiliac joint , patient reported that the pain improved more than 50% after the radiofrequency The patient currently on [place] 5/325 every 12 hours, Mobic 7.5 twice a day when necessary Patient denies any side effect of the medication , patient denies any excessive drowsiness or sleepiness, patient denies any suicidal ideation, Patient reported that the current medication is helping to control the pain and improve the activity of daily livings, Patient denies any motor or sensory deficit, denies any change in the bowel movement or urination, patient denies any fever or night sweats Physical Examinations : -Constitutiona : Cooperative , not in acute distress . -HEENT : nech ; supple , no Lymphadenopathy , normal thyroid size . eyes : no ptosis , no icterus, no photophobia . - neurologic : Cranial nerve II to XII intact , no focal neurological deffecit . -psychatric : alert , oriented X 3 , appropriate affect , intact judgment and insight . -Lymphatic : no Lymphadenopathy . - musculoskeltal : Lumber spine moter stegnth lower extremities ,thigh and legs 5/5 Right side , 5/5 Left side deep tendon reflexes : normal Knee Jerk , normal ankle Jerk lumber facet Loading Test positive on the right side Range of motion of the lumbar spine Flexion 60 degrees, extension 30 degrees strait leg raising test negative bilaterally Fabere test negative bilaterally Sever tenderness over the Sacroiliac joint on the Right side Gaenslen test positive on the right side Seated flexion test positive on the right side Assessment and plan= chronic low back pain secondary to right sacroiliitis , lumbar spondylosis with lumbar facet arthropathy . Failed back surgery syndrome lumbar area Patient had more than 50% decrease in her pain after RFA of the right sacroiliac chronic and current use of high-risk medication (opioids) Patient denies any side effects of the current pain medication and the current treatment/medication helping the patient to do activity of daily living , Diagnoses, prognosis, treatment options, including but not limited to physical therapy, medication management, interventional therapies, and surgery, were discussed with the patient All the questions answered The narcotic consent was signed and patient agreed and understood the side effects and complications of opioid treatment. Patient signed the narcotic agreement, and was orally counseled, not to overuse, not to abuse, not to Divert , not tp sell pain medication, and to take it as prescribed only, Patient was counseled not to drive or operate heavy equipment while using narcotic medication, and advised not to use alcohol or any Illicit drugs while using the narcotis, the patient's verbalized understanding that lack of compliance with any of the above instructions, will likely to cause discharge from, the pain service, not to renew his narcotic prescriptions Medication managements= patient will be given prescription refills for [place] 03/23 dispense 60 with 1 refill. Interventions= none at this time repeat this radiofrequency ablation of the right sacroiliac joint Objective - Vital Signs Vital signs: Vital Signs Temp Pulse 78 02/21/19 13:22 Resp 18 02/21/19 13:22 BP 139/89 02/21/19 13:22 Pulse Ox 96 02/21/19 13:22 Intake & Output 02/20/19 02/21/19 02/21/19 18:59 06:59 18:59 Weight 97.522 kg PQRS Measure Charge Sheet Measure #130: Documentation of Current Meds in Medical Chart: Patient's medications documented in chart Measure #226: Tobacco Use: Screen & Cessation Intervention: Pt not a tobacco user Measure #111: Pneumonia Vaccination: Pneumococcal vaccine administered or previously received Measure #47: Advance Care Plan: Advance care planning discussed & documented, pt chose/unable to give Measure #412: Opioid Treatment Agreement: Documented signed opioid trtmnt agreemnt min once during opioid trtmnt Measure #408: Opioid Therapy Follow-up Evaluation: Patient had f/u eval minimum every 3 months during opioid therapy Measure #317: Preventitive Care & Scrn High Bld Press & F/U: Normal blood pressure, f/u not required Measure #128: Body Mass Index (BMI) Screening & Follow-up: BMI documented ABOVE normal parameters - f/u documented Measure #131: Pain Assessment & Follow-up: Pain positive & plan documented, Follow-up scheduled Measure #431: Unhealthy Alcohol Use Preventative Care & Scrn: Patient not identified as an unhealthy alcohol user PQRS Narrative: Smoking Status Former smoker Do You Want the Pneumonia Yes Vaccine AT THIS TIME? Narcotic Agreement Date Signed 03/05/18 Blood Pressure 139/89 Pain Intensity [Right Lower 5 Back] Scale Used Numeric (1 - 10) Hx Alcohol Use (MH) Yes: occational Home Medications: Ambulatory Orders Citalopram Hydrobromide [CeleXA] 20 mg PO HS 08/04/14 Calcium Carbonate [Calcium] 600 mg PO DAILY 12/08/16 Kelp 1 each PO DAILY 12/08/16 L.acidoph,Paracasei, B.lactis [Probiotic] 1 tab PO DAILY 12/08/16 Magnesium 200 mg PO DAILY 12/08/16 Hydrocodone/Acetaminophen [[place] 5-325] 1 tab PO Q12HR PRN #60 tablet 06/12/18 Controlled Substance Measures - Controlled Substance Measures Is patient prescribed a controlled substance at discharge?: Yes When asked, does pt state using other controlled substances?: No If prescribed controlled substance>3 days was MAPS reviewed?: Yes If Rx opioid, was Start Talking consent form obtained?: Yes If opioid is for acute pain is fill amount 7 days or less?: No Was information provided regarding opioid addiction?: Yes
== END | disposition home or self-care (01) ==
LOC: PNWHC3 12:35
PROVIDERS: ATTEND Specialist
DX: G89.29 Other chronic pain (principal); M46.1 Sacroiliitis, not elsewhere classified; M47.816 Spondylosis without myelopathy or radiculopathy, lumbar region; M46.96 Unspecified inflammatory spondylopathy, lumbar region; M96.1 Postlaminectomy syndrome, not elsewhere classified; Z87.891 Personal history of nicotine dependence; Z98.890 Other specified postprocedural states; Z79.891 Long term (current) use of opiate analgesic; Z79.1 Long term (current) use of non-steroidal anti-inflammatories (NSAID)
CPT/HCPCS: 99211

== ENCOUNTER 2019-03-11 07:46 | Day surgery (SDC) | payer MEDICARE, BC ==
[2019-03-08 11:27] VITALS: BMI 38.4
[2019-03-11 08:11] VITALS: RESP 18; TEMP 98.1
[2019-03-11] MEDS: LACTATED RINGERS 1,000 ML IV SCH ×2 (08:13→08:14)
[2019-03-11] MEDS ORDERED: LIDOCAINE 1% 20 ML VIAL (10MG/ML) FOR IV START INTRADERMA ONE (08:13)
--- NOTE | 2019-03-11 09:05 | P.PCN ---
Date of Procedure: 03/11/19 Description of Procedure: PREOPERATIVE DIAGNOSIS: 1. Lumbosacral spondylosis with facet arthropathy without myelopathy. POSTOPERATIVE DIAGNOSIS: 1. Lumbosacral spondylosis with facet arthropathy without myelopathy. PROCEDURES: 1. Right radiofrequency thermocoagulation/ablation of the L5 dorsal ramus. 2. Right multi-site radio frequency thermocoagulation/ablation of the S1, S2, and S3 lateral branches. The procedure was performed using fluoroscopic guidance during needle placement to assure proper position and maximize safety ANESTHESIA: LOCAL ANESTHESIA and IV sedation with versed 2mg and Fentanyl 100mcg EBL: NONE INDICATION/MEDICAL NECESSITY: Previous radio frequency ablation of L5 dorsal ramus and S1 to S3 lateral branches provided relief greater than 80% for 6 months. This is a repeat radio frequency ablation. PROCEDURE DESCRIPTION: The patient was seen and identified in the preoperative area. Risks, benefits, complications, and alternatives were discussed with the patient. The patient agreed to proceed with the procedure and signed the consent. Vital signs were checked before and after the procedure and they remained stable. Patient ambulated to the procedure room and time out was completed. The patient was placed in the prone position on the procedure table and a pillow was placed under the abdomen to reduce lumbar lordosis. The lumbosacral area was prepped and draped in the usual sterile fashion. Critical pause was taken. L5 Dorsal Ramus RF: Using right oblique fluoroscopy, the junction of the transverse process and the superior articular process of the right S1 vertebra, which correspond to the fluoroscopic image of the "eye of the Escobar dog" was identified. Subsequently, a 10-cm 20 -gauge radiofrequency cannula with a 10-mm active tip was advanced under fluoroscopic guidance until contact was made with periosteum. At this le ranulfo, the Sensory testing of the L5 dorsal ramus was performed at 50 Hz and 0 to 1 volt with production of concordant pain starting at 0.5 volt. Motor stimulation was done at 2.5 Hz with stimulation of mulitifidus muscle contration . No radicular symptoms or paresthesias were produced during the testing. Subsequently, the L5 dorsal ramus was subjected to a radiofrequency ablation at 80 degree celsius for 90 seconds . after 0.5% ropivacaine 1 ml injected at each level after negative aspirations . S1, S3, and S3 Lateral Branch RF: The lateral margins of the Right S1, S2, and S3 foramina were identified using AP fluoroscopy. Under fluoroscopic guidance, three 10-cm 20 -gauge radiofrequency cannula with a 10-mm active tip were inserted at 8-10 mm peripheral to the posterior S1 foramen, at various locations using clock-face coordinates. The center of the clock was registered at the lateral margin of the foramen. The 2:30, 4:00, and 5:30 oclock positions were used. At this level, the sensory testing of the S1 lateral branch was performed at 50 Hz and 0 to 1 volt at the three levels with production of concordant pain starting at 0.5 volt. Motor stimulation was done at 2.5 Hz. No radicular symptoms or paresthesias were produced during the testing. Subsequently, the S1 lateral branch was subjected to a radiofrequency ablation at a mode of 90 seconds at 80 degrees Celsius at the 3 levels after negative motor and sensory testing and after injecting 0.5 ml of preservative free 0.5% Ropivacaine with 40 mg Depo- Medrol . The same procedure was performed at the level of the S2 foramen. For the S3 foramen, only the 2:30 and 4:00 oclock positions were used. Sensory and motor testing followed by radiofrequency ablation were performed as described for the S1 and S2 foramina. The same procedure was repeated on the left side using the following locations: The 9:30, 8:00, and 6:30 oclock positions were used for the S1 and S2 foramina and the 9:30 and 8:00 oclock positions were used for the S3 foramen. The needle was withdrawn intact after each injection. COMPLICATIONS: The patient tolerated the procedure well without any acute complications. DISPOSTION/PLAN: The patient ambulated to the recovery area after the procedure in a stable condition for observation. Patient was reexamined prior to discharge. Patient was observed for 30 minutes in the recovery area and was discharged home, accompanied by an adult, after meeting discharged criteria. Discharge instructions were give to the patient by the staff. Patient was specifically instructed not to drive today and to rest for the rest of the day. The patient will schedule a follow up visit in the clinic in weeks or earlier if needed.
[2019-03-11] MEDS ORDERED: IV FLUID CONTINUATION 550 ML IV ONE (09:06)
[2019-03-11 09:21] VITALS: BP 114/76; PULSE 61
--- NOTE | 2019-03-11 09:55 | FL ---
Fluoroscopy HISTORY: Pain 52 seconds fluoroscopy time supplied to the referring clinician. 4 intraoperative C-arm images docum ent the procedure. See dictated report from anesthesia.
== END 2019-03-11 09:37 | disposition home or self-care (01) ==
LOC: ORPAIN 07:46
PROVIDERS: ATTEND Anesthesiology
DX: M47.817 Spondylosis without myelopathy or radiculopathy, lumbosacral region (principal); G89.29 Other chronic pain; M96.1 Postlaminectomy syndrome, not elsewhere classified; M46.1 Sacroiliitis, not elsewhere classified; Z87.891 Personal history of nicotine dependence; Z79.899 Other long term (current) drug therapy
CPT/HCPCS: 64635; 64640 ×3; J2250; J3301; J2001; J3010; 64630; 64636; 99152; 99153

== ENCOUNTER → 2019-04-18 | Outpatient (CLI) | payer MEDICARE, BC ==
[2019-04-18 13:01] VITALS: BP 128/83; PULSE 80; RESP 16
--- NOTE | 2019-04-18 14:48 | P.PAINPG ---
Subjective Progress Note Date: 04/18/19 This is follow-up visit for this patient with a history of severe and chronic low back pain secondary to lumbar failed back surgery syndrome, lumbar facet arthropathy, right sacroiliitis We have done radiofrequency ablation of the right sacroiliac joint, and she reported that she had improvement in her right buttock pain, currently she is complaining of low back pain The patient currently on [place] 5/325 every 12 hours, Mobic 7.5 twice a day when necessary Patient denies any side effect of the medication , patient denies any excessive drowsiness or sleepiness, patient denies any suicidal ideation, Patient reported that the current medication is helping to control the pain and improve the activity of daily livings, Patient denies any motor or sensory deficit, denies any change in the bowel movement or urination, patient denies any fever or night sweats Physical Examinations : 1-Constitutiona : Cooperative , not in acute distress . 2-HEENT : nech ; supple , no Lymphadenopathy , normal thyroid size . eyes : no ptosis , no icterus, no photophobia . ENT : normal of hearing , normal oropharynx , no Thrush . 3- Respiratory : Chest clear to auscultations Bilaterally , no wheezing , no Rhonchi . 4- Cardiovascular : regular rate and rhythem , S1 , S2 , no S3 , no S4. 5- Gastrointestinal : abdomen soft no tenderness , bowel sounds , no organomegally . 6- Genitourinary : Defferred . 7- neurologic : Cranial nerve II to XII intact , no focal neurological deffecit . 8-psychatric : alert , oriented X 3 , appropriate affect , intact judgment and insight . 9-Lymphatic : no Lymphadenopathy . 10- musculoskeltal : Lumber spine moter stegnth lower extremities ,thigh and legs 5/5 Right side , 5/5 Left side deep tendon reflexes : normal Knee Jerk , normal ankle Jerk positive lumber facet Loading Test on the right side Range of motion of the lumbar spine Flexion 30 degrees, extension 10 degrees strait leg raising test , positive at 30 de gree on the right side Fabere test positive RT and positive LT . tenderness over the Sacroiliac joint on the R sides Assessment and plan= chronic low back pain secondary to right sacroiliitis , lumbar spondylosis with lumbar facet arthropathy . Failed back surgery syndrome lumbar area Status post radiofrequency ablation of the right sacroiliac joint, she continued to have low back pain chronic and current use of high-risk medication (opioids) Patient denies any side effects of the current pain medication and the current treatment/medication helping the patient to do activity of daily living , Diagnoses, prognosis, treatment options, including but not limited to physic al therapy, medication management, interventional therapies, and surgery, were discussed with the patient All the questions answered The narcotic consent was signed and patient agreed and understood the side effects and complications of opioid treatment. Patient signed the narcotic agreement, and was orally counseled, not to overuse, not to abuse, not to Divert , not tp sell pain medication, and to take it as prescribed only, Patient was counseled not to drive or operate heavy equipment while using narcotic medication, and advised not to use alcohol or any Illicit drugs while using the narcotis, the patient's verbalized understanding that lack of compliance with any of the above instructions, will likely to cause discharge from, the pain service, not to renew his narcotic prescriptions Medication managements= patient will be given prescription refills for [place] 03/23 dispense 60 with 1 refill. UDS ordered today Interventions= none at this time Investigation= with order MRI of the lumbar spine, and patient will be seen in the pain clinic after the MRI results Objective - Vital Signs Vital signs: Vital Signs Temp Pulse 80 04/18/19 12:56 Resp 16 04/18/19 12:56 BP 128/83 04/18/19 12:56 Pulse Ox Intake & Output 04/17/19 04/18/19 04/18/19 18:59 06:59 18:59 Weight 95.254 kg PQRS Measure Charge Sheet Measure #130: Documentation of Current Meds in Medical Chart: Patient's medications documented in chart Measure #226: Tobacco Use: Screen & Cessation Intervention: Pt not a tobacco user Measure #111: Pneumonia Vaccination: Pneumococcal vaccine administered or previously received Measure #47: Advance Care Plan: Advance care planning discussed & documented, pt chose/unable to give Measure #412: Opioid Treatment Agreement: Documented signed opioid trtmnt agreemnt min once during opioid trtmnt Measure #408: Opioid Therapy Follow-up Evaluation: Patient had f/u eval minimum every 3 months during opioid therapy Measure #317: Preventitive Care & Scrn High Bld Press & F/U: Normal blood pressure, f/u not required Measure #128: Body Mass Index (BMI) Screening & Follow-up: BMI documented ABOVE normal parameters - f/u documented Measure #131: Pain Assessment & Follow-up: Pain positive & plan documented, Follow-up scheduled Measure #431: Unhealthy Alcohol Use Preventative Care & Scrn: Patient not identified as an unhealthy alcohol user PQRS Narrative: Smoking Status Former smoker Narcotic Agreement Date Signed 03/05/18 Blood Pressure 128/83 Pain Intensity [Right Lower 3 Back] Scale Used Numeric (1 - 10) Hx Alcohol Use (MH) Yes: occational Home Medications: Ambulatory Orders Citalopram Hydrobromide [CeleXA] 20 mg PO HS 08/04/14 Calcium Carbonate [Calcium] 600 mg PO DAILY 12/08/16 Kelp 1 each PO DAILY 12/08/16 L.acidoph,Paracasei, B.lactis [Probiotic] 1 tab PO DAILY 12/08/16 Magnesium 200 mg PO DAILY 12/08/16 Hydrocodone/Acetaminophen [[place] 5-325] 1 tab PO Q12HR PRN #60 tablet 06/12/18 Controlled Substance Measures - Controlled Substance Measures Is patient prescribed a controlled substance at discharge?: Yes When asked, does pt state using other controlled substances?: No If prescribed controlled substance>3 days was MAPS reviewed?: Yes If Rx opioid, was Start Talking consent form obtained?: Yes If opioid is for acute pain is fill amount 7 days or less?: No Was information provided regarding opioid addiction?: Yes
== END | disposition home or self-care (01) ==
LOC: PNWHC3 12:20
PROVIDERS: ATTEND Specialist
DX: G89.29 Other chronic pain (principal); M47.816 Spondylosis without myelopathy or radiculopathy, lumbar region; M46.96 Unspecified inflammatory spondylopathy, lumbar region; M96.1 Postlaminectomy syndrome, not elsewhere classified; M46.1 Sacroiliitis, not elsewhere classified; Z87.891 Personal history of nicotine dependence; Z79.891 Long term (current) use of opiate analgesic; Z79.899 Other long term (current) drug therapy
CPT/HCPCS: 80307; G0482; G0463; 99211

== ENCOUNTER → 2019-05-16 | Outpatient (CLI) | payer MEDICARE, BC ==
--- NOTE | 2019-05-16 16:46 | CT ---
EXAMINATION TYPE: CT lumbar spine wo/w con DATE OF EXAM: 05/16/2019 COMPARISON: None HISTORY: Lower back pain. CT DLP: 2322.6 mGycm CONTRAST: CT scan of the lumbar is performed without and with IV Contrast, patient injected with 100 mL of Isovue 300. TECHNIQUE: CT of the lumbar spine is performed on a spiral scan at 3 mm thick sections. Reconstructed images are performed in the coronal and sagittal planes. FINDINGS: Imaging begins at the lower aspect of T11 and continues through the upper sacral canal. T12-L1: No focal disc herniation or significant disc bulge is evident. No spinal canal stenosis or neural foraminal stenosis is present. L1-L2: No focal disc herniation or significant disc bulge is evident. No spinal canal stenosis or n eural foraminal stenosis is present L2-L3: No focal disc herniation or significant disc bulge is evident. No spinal canal stenosis or n eural foraminal stenosis is present. There is increased signal within the disc space could be contras t or calcification. L3-L4: No focal disc herniation or significant disc bulge is evident. No spinal canal stenosis or n eural foraminal stenosis is present L4-L5: Mild disc bulge is present with anterior thecal sac flattening. No AP spinal canal stenosis is present. Facet hypertrophy is present. Neural foramen appear patent. L5-S1: No focal disc herniation or significant disc bulge is evident. No spinal canal stenosis or n eural foraminal stenosis is present Vertebral alignment appears normal. No suspicious abnormal areas of enhancement are evident within th e visualized spinal canal. Stimulator leads enter the spinal canal at T10-T11 which is just out of the [id number]. The stimul ator device is out of the [id number] for the exam but is identified on the shipping order clerk image. IMPRESSION: 1. Mild disc bulge L4-L5 with mild anterior thecal sac compression. 2. Calcified disc versus prior contrast at the L2-L3 level. No loss of disc height or disc bulge is e vident. 3. Stimulator leads and device are out of the [id number] during this examination.
== END | disposition home or self-care (01) ==
LOC: RADCTMAIN 14:12
PROVIDERS: ATTEND Specialist
DX: M51.26 Other intervertebral disc displacement, lumbar region (principal)
CPT/HCPCS: 72133; Q9967

== ENCOUNTER → 2019-06-20 | Outpatient (CLI) | payer MEDICARE, BC ==
[2019-06-20 15:07] VITALS: BP 102/70; PULSE 80; RESP 16
--- NOTE | 2019-06-20 15:51 | P.PAINPG ---
Subjective Progress Note Date: 06/20/19 This is a normal visit for this 58 years old female with a chronic history of severe low back pain patient diagnosed with lumbar spondylosis, and lumbar bulging disc disease and right sacroiliitis recently helped an RFA of the right sacroiliac joint, continued to have low back pain with radiation to the right lower extremity patient and the new computed tomography scan of the lumbar spine and it showed that she had an L4 5 bulging disc disease and lumbar facet arthropathy, she denies any motor or sensory deficit she denies any fever or numbness with and is no focal neurological deficit Objective - Vital Signs Vital signs: Vital Signs Temp Pulse 80 06/20/19 15:05 Resp 16 06/20/19 15:05 BP 102/70 06/20/19 15:05 Pulse Ox 96 06/20/19 15:05 Intake & Output 06/19/19 06/20/19 06/20/19 18:59 06:59 18:59 Weight 95.254 kg - Exam Physical Examinations : -Constitutiona : Cooperative , not in acute distress . -HEENT : nech : supple , no Lymphadenopathy , normal thyroid size . eyes : no ptosis , no icterus, no photophobia . - neurologic : Cranial nerve II to XII intact , no focal neurological deffecit . -psychatric : alert , oriented X 3 , appropriate affect , intact judgment and insight . -Lymphatic : no Lymphadenopathy . - musculoskeltal : Lumber spine moter stegnth lower extremities ,thigh and legs 5/5 Right side , 5/5 Left side deep tendon reflexes : normal Knee Jerk , normal ankle Jerk positive lumber facet Loading Test Range of motion of the lumbar spine Flexion 30 degrees, extension 10 degrees strait leg raising test , positive at 30 degree on the right side and is negative on the left side Fabere test positive RT and positive LT . Sever tenderness over the Sacroiliac joint on the Right . Assessment and Plan Plan: Assessment and plan= chronic low back pain secondary to lumbar degenerative disc disease , lumbar spondylosis with lumbar facet arthropathy . And sacroiliitis chronic and current use of high-risk medication (opioids) Patient denies any side effects of the current pain medication and the current treatment/medication helping the patient to do activity of daily living , Diagnoses, prognosis, treatment options, including but not limited to physical therapy, medication management, interventional therapies, and surgery, were discussed with the patient All the questions answered The narcotic consent was signed and patient agreed and understood the side effects and complications of opioid treatment. Patient signed the narcotic agreement, and was orally counseled, not to overuse, not to abuse, not to Divert , not tp sell pain medication, and to take it as prescribed only, Patient was counseled not to drive or operate heavy equipment while using narcotic medication, and advised not to use alcohol or any Illicit drugs while using the narcotis. understanding that lack of compliance with any of the above instructions, will likely to cause discharge from, the pain service, not to renew his narcotic prescriptions MAPS Reviwed and it was apropriate . Medication managements= patient will be given prescription refills for [place] 5/325 every 12 hours dispense 60 with one refill Interventions=Patient could benefit from lumbar epidural steroid injection at L4 5 right-sided paramedian approach , PQRS Measure Charge Sheet Measure #130: Documentation of Current Meds in Medical Chart: Patient's medications documented in chart Measure #226: Tobacco Use: Screen & Cessation Intervention: Pt not a tobacco user Measure #111: Pneumonia Vaccination: Pneumococcal vaccine NOT administered or previously given Measure #47: Advance Care Plan: Advance care planning discussed & documented, pt chose/unable to give Measure #412: Opioid Treatment Agreement: Documented signed opioid trtmnt agreemnt min once during opioid trtmnt Measure #408: Opioid Therapy Follow-up Evaluation: Patient had f/u eval minimum every 3 months during opioid therapy Measure #317: Preventitive Care & Scrn High Bld Press & F/U: Normal blood pressure, f/u not required Measure #128: Body Mass Index (BMI) Screening & Follow-up: BMI documented ABOVE normal parameters - f/u documented Measure #131: Pain Assessment & Follow-up: Pain positive & plan documented, Follow-up scheduled Measure #431: Unhealthy Alcohol Use Preventative Care & Scrn: Patient not identified as an unhealthy alcohol user PQRS Narrative: Smoking Status Former smoker Narcotic Agreement Date Signed 03/05/18 Blood Pressure 102/70 Pain Intensity [Right Lower 3 Back] Scale Used Numeric (1 - 10) Hx Alcohol Use (MH) Yes: occational Home Medications: Ambulatory Orders Citalopram Hydrobromide [CeleXA] 20 mg PO HS 08/04/14 L.acidoph,Paracasei, B.lactis [Probiotic] 1 tab PO DAILY 12/08/16 Glucosamine-Chondr 500-400Mg 1 cap PO DAILY 06/20/19 HYDROcodone/APAP 5-325MG [[place] 5-325] 1 tab PO Q12HR PRN 30 Days #60 tab 06/20/19 Hydrocodone/Acetaminophen [[place] 5-325] 1 tab PO Q12HR PRN #60 tablet 06/20/19 Magnesium/ Calcium 1 tab PO DAILY 06/20/19 Controlled Substance Measures - Controlled Substance Measures Is patient prescribed a controlled substance at discharge?: Yes When asked, does pt state using other controlled substances?: No If prescribed controlled substance>3 days was MAPS reviewed?: Yes If Rx opioid, was Start Talking consent form obtained?: Yes If opioid is for acute pain is fill amount 7 days or less?: No Was information provided regarding opioid addiction?: Yes
== END ==
LOC: PNWHC3 12:51
PROVIDERS: ATTEND Specialist
DX: G89.29 Other chronic pain (principal); M51.36 Other intervertebral disc degeneration, lumbar region; M47.816 Spondylosis without myelopathy or radiculopathy, lumbar region; M46.96 Unspecified inflammatory spondylopathy, lumbar region; M46.1 Sacroiliitis, not elsewhere classified; Z79.891 Long term (current) use of opiate analgesic; Z87.891 Personal history of nicotine dependence; Z79.899 Other long term (current) drug therapy
CPT/HCPCS: 99211

== ENCOUNTER 2019-06-27 08:03 | Day surgery (SDC) | payer MEDICARE, BC ==
[2019-06-24 14:55] VITALS: BMI 38.2
[2019-06-27 09:01] VITALS: RESP 16; TEMP 98.3
[2019-06-27] MEDS ORDERED: LIDOCAINE 1% 20 ML VIAL (10MG/ML) FOR IV START INTRADERMA ONE (09:09)
--- NOTE | 2019-06-27 09:54 | P.PCN ---
Date of Procedure: 06/27/19 Procedure(s) Performed: PREOPERATIVE DIAGNOSIS: Degenerative disc disease POSTOPERATIVE DIAGNOSIS: Same PROCEDURE Lumbar epidural steroid injection under fluoroscopic guidance at the L4-L5 right paramedian level. ANESTHESIA: Local with 1% lidocaine 3 ml; moderate sedation with 2 mg of midazolam and 50 g of fentanyl EBL: Minimal PROCEDURE INDICATION: Degenerative disc disease. PROCEDURE DESCRIPTION / TECHNIQUE: The patient was seen and identified in the preoperative area. Risks, benefits, complications including but not limited to infections ,bleeding ,allergic reaction to the medications ,nerve damage and not complete pain relief , and alternatives were discussed with the patient. The patient agreed to proceed with the procedure and signed the consent. IV was started, and vital signs were stable. Patient was taken to the OR and time out was completed. The patient was placed in the prone position on procedure table and a pillow was placed under the abdomen to reduce lumbar lordosis. The lumbosacral area was prepped and draped in the usual sterile fashion. The patient was closely monitored during the procedure. Conscious sedation was used during the procedure to decrease patients anxiety. Vital signs was monitored during the entire procedure. Using anterior-posterior fluoroscopy, the L4-L5 interlaminar space was identified and the skin over this site was marked and then infiltrated with 1% lidocaine subcutaneously. Subsequently, a 20-gauge Tuohy epidural needle was inserted and advanced toward the epidural space using the loss of resistance technique and guided by AP and lateral fluoroscopy. The correct needle position in the epidural space was verified. After negative aspiration, a solution containing 5 mL of 80 mg of Depo-Medrol, 2 mL of preservative-free normal saline, 2 mL of preservative-free 1% lidocaine was injected. The needle was withdrawn intact, skin was cleansed, and bandages were applied. COMPLICATIONS: None DISPOSITION / PLANS: The patient was returned to the supine position and transferred to the recovery area in a stable condition for observation. There was no evidence of lower extremity motor or sensory deficit after the procedure. Patient was discharged from the recovery room after meeting discharge criteria. Home discharge instructions were given to the patient by the staff. Follow up plan: In clinic or for procedure in a few weeks
[2019-06-27] MEDS ORDERED: IV FLUID CONTINUATION 1,000 ML IV ONE (09:55)
[2019-06-27 10:11] VITALS: BP 117/82; PULSE 66
--- NOTE | 2019-06-27 10:15 | FL ---
EXAMINATION TYPE: FL guided pain mgmt statistic DATE OF EXAM: 06/27/2019 CLINICAL HISTORY: Low back pain. TECHNIQUE: Fluoroscopy. COMPARISON: None. FINDINGS: Fluoroscopic guidance was provided during pain relief procedure performed by Dr. Baca . A total of 12 seconds of fluoroscopic time was utilized during the procedure and two spot images ar e acquired. Images acquired shows needle localization at L4-L5 epidural space with contrast injectio n. IMPRESSION: As Above.
== END 2019-06-27 10:22 | disposition home or self-care (01) ==
LOC: ORPAIN 08:03
PROVIDERS: ATTEND Student in an Organized Health Care Education/Training Program
DX: M51.36 Other intervertebral disc degeneration, lumbar region (principal)
CPT/HCPCS: 62323; J2250; J1030; J3010; Q9966

== ENCOUNTER → 2019-08-20 | Outpatient (CLI) | payer MEDICARE, BC ==
[2019-08-20 11:19] VITALS: BP 167/88; PULSE 78; RESP 16
--- NOTE | 2019-08-20 12:40 | P.PAINPG ---
Subjective Progress Note Date: 08/20/19 This is follow up visit for this 58 years old female with history of severe chronic low back pain ,patient diagnosed with lumbar spondylosis, and lumbar bulging disc disease and right sacroiliitis , previously we have done RFA of the right sacroiliac joint, recently we did lumbar epidural steroid injection at L4 5 patient reported that she had significant improvement of her low back pain , she denies any motor or sensory deficit she denies any fever or numbness with and is no focal neurological deficit, she continued to use [place] 5/325 every 12 hours when necessary, and she reported the current medication helping her to control her pain she denies any side effect of the medication, she denies any excessive drowsiness or sleepiness Objective - Vital Signs Vital signs: Vital Signs Temp Pulse 78 08/20/19 11:14 Resp 16 08/20/19 11:14 BP 167/88 08/20/19 11:14 Pulse Ox 97 08/20/19 11:14 - Exam Physical Examinations : -Constitutiona : Cooperative , not in acute distress . -HEENT : nech : supple , no Lymphadenopathy , normal thyroid size . eyes : no ptosis , no icterus, no photophobia . - neurologic : Cranial nerve II to XII intact , no focal neurological deffecit . -psychatric : alert , oriented X 3 , appropriate affect , intact judgment and insight . -Lymphatic : no Lymphadenopathy . - musculoskeltal : Lumber spine moter stegnth lower extremities ,thigh and legs 5/5 Right side , 5/5 Left side deep tendon reflexes : normal Knee Jerk , normal ankle Jerk positive lumber facet Loading Test Range of motion of the lumbar spine Flexion 30 degrees, extension 10 degrees strait leg raising test , positive at 30 degree Fabere test positive RT and positive LT . tenderness over the Sacroiliac joint on the Right Assessment and Plan Plan: Assessment and plan= chronic low back pain secondary to lumbar degenerative disc disease , lumbar spondylosis with lumbar facet arthropathy . Sacroiliitis chronic and current use of high-risk medication (opioids) Patient denies any side effects of the current pain medication and the current treatment/medication helping the patient to do activity of daily living , Diagnoses, prognosis, treatment options, including but not limited to physical therapy, medication management, interventional therapies, and surgery, were discussed with the patient All the questions answered The narcotic consent was signed and patient agreed and understood the side effects and complications of opioid treatment. Patient signed the narcotic agreement, and was orally counseled, not to overuse, not to abuse, not to Divert , not tp sell pain medication, and to take it as prescribed only, Patient was counseled not to drive or operate heavy equipment while using narcotic medication, and advised not to use alcohol or any Illicit drugs while using the narcotis. understanding that lack of compliance with any of the above instructions, will likely to cause discharge from, the pain service, not to renew his narcotic prescriptions MAPS Reviwed and it was apropriate . Medication managements= patient will be given prescription refills for [place] 5/325 every 12 hours dispense 60 with one refill Interventions= patient could benefit from lumbar epidural steroid injection at L4 5 levels , Time with Patient: Less than 30 PQRS Measure Charge Sheet Measure #130: Documentation of Current Meds in Medical Chart: Patient's medications documented in chart Measure #226: Tobacco Use: Screen & Cessation Intervention: Pt not a tobacco user Measure #111: Pneumonia Vaccination: Pneumococcal vaccine NOT administered or previously given Measure #47: Advance Care Plan: Advance care planning discussed & documented, pt chose/unable to give Measure #412: Opioid Treatment Agreement: Documented signed opioid trtmnt agreemnt min once during opioid trtmnt Measure #408: Opioid Therapy Follow-up Evaluation: Patient had f/u eval minimum every 3 months during opioid therapy Measure #317: Preventitive Care & Scrn High Bld Press & F/U: Pre-hypertensive or hypertensive BP documented, pt will f/u with PCP Measure #128: Body Mass Index (BMI) Screening & Follow-up: BMI documented ABOVE normal parameters - f/u documented Measure #131: Pain Assessment & Follow-up: Pain positive & plan documented, Follow-up scheduled Measure #431: Unhealthy Alcohol Use Preventative Care & Scrn: Patient not identified as an unhealthy alcohol user PQRS Narrative: Smoking Status Former smoker Narcotic Agreement Date Signed 03/05/18 Blood Pressure 167/88 Pain Intensity [Lower Back] 6 Scale Used Numeric (1 - 10) Hx Alcohol Use (MH) Yes: occational Home Medications: Ambulatory Orders Citalopram Hydrobromide [CeleXA] 20 mg PO HS 08/04/14 L.acidoph,Paracasei, B.lactis [Probiotic] 1 tab PO DAILY 12/08/16 Glucosamine-Chondr 500-400Mg 1 cap PO DAILY 06/20/19 HYDROcodone/APAP 5-325MG [[place] 5-325] 1 tab PO Q12HR PRN 30 Days #60 tab 06/20/19 Magnesium/ Calcium 1 tab PO DAILY 06/20/19 Multivitamins, Thera [Multivitamin (formulary)] 1 tab PO DAILY 08/12/19 Controlled Substance Measures - Controlled Substance Measures Is patient prescribed a controlled substance at discharge?: Yes When asked, does pt state using other controlled substances?: No If prescribed controlled substance>3 days was MAPS reviewed?: Yes If Rx opioid, was Start Talking consent form obtained?: Yes If opioid is for acute pain is fill amount 7 days or less?: No Was information provided regarding opioid addiction?: Yes
== END ==
LOC: PNWHC3 11:03
PROVIDERS: ATTEND Specialist
DX: G89.29 Other chronic pain (principal); M51.36 Other intervertebral disc degeneration, lumbar region; M47.816 Spondylosis without myelopathy or radiculopathy, lumbar region; M46.96 Unspecified inflammatory spondylopathy, lumbar region; M46.1 Sacroiliitis, not elsewhere classified; Z87.891 Personal history of nicotine dependence; Z79.899 Other long term (current) drug therapy; Z79.891 Long term (current) use of opiate analgesic
CPT/HCPCS: 99211

== ENCOUNTER 2019-09-09 07:18 | Day surgery (SDC) | payer MEDICARE, BC ==
[2019-09-04 18:14] VITALS: BMI 38.4
[2019-09-09 07:29] VITALS: RESP 18; TEMP 97.2
[2019-09-09] MEDS ORDERED: LACTATED RINGERS 1,000 ML IV ONE (07:35)
[2019-09-09] MEDS ORDERED: LIDOCAINE 1% 20 ML VIAL (10MG/ML) FOR IV START INTRADERMA ONE (07:36)
--- NOTE | 2019-09-09 07:59 | P.PCN ---
Date of Procedure: 09/09/19 Procedure(s) Performed: PREOPERATIVE DIAGNOSIS: 1- Lumbar Degenerative Disc Diseases 2-Lumbar spondylosis with Facet arthropathy without myelopathy POSTOPERATIVE DIAGNOSIS: 1-Lumber Degenerative Disc Diseases 2-Lumbar spondylosis with Facet arthropathy without myelopathy PROCEDURE 1. Lumbar epidural steroid injection under fluoroscopic guidance at the L4-5 level. (Fluoroscopy imaging was available in radiology department) (Right paramedian approach ) 2. Lumbar epidurogram. ANESTHESIA: Local with 1% lidocaine 3 ml and , moderate sedation with intravenous Versed 2 mg ,and fentanyle 50 Mcg EBL: Minimal PROCEDURE INDICATION: The patient with low back pain and radiculitis symptoms unresponsive to conservative treatment. Fluoroscopy was used to optimize visualization of the needle placement and to maximize safety. PROCEDURE DESCRIPTION / TECHNIQUE: The patient was seen and identified in the preoperative area. Risks, benefits, complications including but not limited to infections ,bleeding ,allergic reaction to the medications ,nerve damage and not complete pain releife , and alternatives were discussed with the patient. The patient agreed to proceed with the procedure and signed the consent. IV was started, and vital signs were stable. Patient was taken to the OR and time out was completed. The patient was placed in the prone position on procedure table and a pillow was placed under the abdomen to reduce lumbar lordosis. The lumbosacral area was prepped and draped in the usual sterile fashion.ere closely monitored during the procedure. Conscious sedation was used during the procedure to decrease patients anxiety. Vital signs was monitered during the entire procedure. Using anterior-posterior fluoroscopy, the L4-5 interlaminar space was identified and the skin over this site was marked and then infiltrated with 1% lidocaine subcutaneously. Subsequently, a 18 -gauge Tuohy epidural needle was inserted and advanced toward the epidural space using the ``Loss of resistance technique and guided by AP and lateral fluoroscopy. The correct needle position in the epidural space was verified with the injection of 2 mL of the water soluble contrast dye Isovue 200 contrast and observing an excellent epidurogram with the epidural spread of the dye, after negative aspiration for blood and CSF and in the absence of paresthesias. Again after negative aspiration, a 6 ml mixture containing 80 mg of Depo-medrol , and 2 ml of preservative free Normal Saline, and 2 ml of preservative free lidocaine 1% solution was injected and a washout of epidurogram was seen. Needle was withdrawn intact, skin was cleansed, and bandages were applied. COMPLICATIONS: None DISPOSITION / PLANS: The patient was placed in a supine position and transferred to the recovery area in a stable condition for observation. There was no evidence of lower extremity motor or sensory deficit after the procedure. Patient was discharged from the recovery room after meeting discharge criteria. Home discharge instructions were given to the patient by the staff. The patient was reexamined prior to discharge. The patient will schedule a follow up in the clinic in 2-4 weeks.
[2019-09-09] MEDS ORDERED: IV FLUID CONTINUATION 1,000 ML IV ONE (08:05)
[2019-09-09 08:21] VITALS: BP 111/77; PULSE 70
--- NOTE | 2019-09-09 09:19 | FL ---
EXAMINATION TYPE: FL guided pain mgmt statistic DATE OF EXAM: 09/09/2019 HISTORY: Pain 4 sec fl, 1 film
== END 2019-09-09 08:35 | disposition home or self-care (01) ==
LOC: ORPAIN 07:18
PROVIDERS: ATTEND Specialist
DX: M47.26 Other spondylosis with radiculopathy, lumbar region (principal); M51.16 Intervertebral disc disorders with radiculopathy, lumbar region
CPT/HCPCS: 62323; J2250; J1030; J3010; Q9966; 99152

== ENCOUNTER → 2019-10-15 | Outpatient (CLI) | payer MEDICARE, BC ==
[2019-10-15 11:54] VITALS: BP 134/90; RESP 16
--- NOTE | 2019-10-15 12:12 | P.PAINPG ---
Subjective Progress Note Date: 10/15/19 This is follow up visit for this 59 years old female with history of severe chronic low back pain ,patient diagnosed with lumbar spondylosis, and lumbar bulging disc disease and right sacroiliitis , recently we did lumbar epidural steroid injection at L4 5 patient reported that she had significant improvement of her low back pain , she denies any motor or sensory deficit she denies any fever or numbness with and is no focal neurological deficit, she continued to use [place] 5/325 every 12 hours when necessary, and she reported the current medication helping her to control her pain she denies any side effect of the medication, she denies any excessive drowsiness or sleepiness Objective - Vital Signs Vital signs: Vital Signs Temp Pulse Resp 16 10/15/19 11:49 BP 134/90 10/15/19 11:49 Pulse Ox 96 10/15/19 11:49 Intake & Output 10/14/19 10/15/19 10/15/19 18:59 06:59 18:59 Weight 96.162 kg - Exam -Constitutiona : Cooperative , not in acute distress . -HEENT : nech : supple , no Lymphadenopathy , normal thyroid size . eyes : no ptosis , no icterus, no photopho madalyn . - neurologic : Cranial nerve II to XII intact , no focal neurological deffecit . -psychatric : alert , oriented X 3 , appropriate affect , intact judgment and insight . -Lymphatic : no Lymphadenopathy . - musculoskeltal : Lumber spine moter stegnth lower extremities ,thigh and legs 5/5 Right side , 5/5 Left side deep tendon reflexes : normal Knee Jerk , normal ankle Jerk positive lumber facet Loading Test Range of motion of the lumbar spine Flexion 30 degrees, extension 10 degrees strait leg raising test , positive at 30 degree Fabere test positive RT and positive LT . tenderness over the Sacroiliac joint on the Right Assessment and Plan Plan: chronic low back pain secondary to lumbar degenerative disc disease , lumbar spondylosis with lumbar facet arthropathy . Sacroiliitis chronic and current use of high-risk medication (opioids) Patient denies any side effects of the current pain medication and the current treatment/medication helping the patient to do activity of daily living , Diagnoses, prognosis, treatment options, including but not limited to physical therapy, medication management, interventional therapies, and surgery, were discussed with the patient All the questions answered The narcotic consent was signed and patient agreed and understood the side effects and complications of opioid treatment. Patient signed the narcotic agreement, and was orally counseled, not to overuse, not to abuse, not to Divert , not tp sell pain medication, and to take it as prescribed only, Patient was counseled not to drive or operate heavy equipment while using narcotic medication, and advised not to use alcohol or any Illicit drugs while using the narcotis. understanding that lack of compliance with any of the above instructions, will likely to cause discharge from, the pain service, not to renew his narcotic prescriptions MAPS Reviwed and it was apropriate . Medication managements= patient will be given prescription refills for [place] 5/325 every 12 hours dispense 60 with one refill Interventions= none Time with Patient: Less than 30 PQRS Measure Charge Sheet Measure #130: Documentation of Current Meds in Medical Chart: Patient's medications documented in chart Measure #226: Tobacco Use: Screen & Cessation Intervention: Pt not a tobacco user Measure #111: Pneumonia Vaccination: Pneumococcal vaccine NOT administered or previously given Measure #47: Advance Care Plan: Advance care planning discussed & documented, pt chose/unable to give Measure #412: Opioid Treatment Agreement: Documented signed opioid trtmnt agreemnt min once during opioid trtmnt Measure #408: Opioid Therapy Follow-up Evaluation: Patient had f/u eval minimum every 3 months during opioid therapy Measure #317: Preventitive Care & Scrn High Bld Press & F/U: Normal blood pressure, f/u not required Measure #128: Body Mass Index (BMI) Screening & Follow-up: BMI documented ABOVE normal parameters - f/u documented Measure #131: Pain Assessment & Follow-up: Pain positive & plan documented, Follow-up scheduled Measure #431: Unhealthy Alcohol Use Preventative Care & Scrn: Patient not identified as an unhealthy alcohol user PQRS Narrative: Smoking Status Former smoker Narcotic Agreement Date Signed 03/05/18 Blood Pressure 134/90 Pain Intensity [Right Lower 1 Back] Scale Used Numeric (1 - 10) Hx Alcohol Use (MH) Yes: occational Home Medications: Ambulatory Orders Citalopram Hydrobromide [CeleXA] 20 mg PO HS 08/04/14 L.acidoph,Paracasei, B.lactis [Probiotic] 1 tab PO DAILY 12/08/16 Glucosamine-Chondr 500-400Mg 1 cap PO DAILY 06/20/19 Magnesium/ Calcium 250 mg PO DAILY 06/20/19 Multivitamins, Thera [Multivitamin (formulary)] 1 tab PO DAILY 08/12/19 HYDROcodone/APAP 5-325MG [[place] 5-325] 1 tab PO Q12HR PRN 30 Days #60 tab 10/15/19 HYDROcodone/APAP 5-325MG [[place] 5-325] 1 tab PO Q12HR PRN 30 Days #60 tab 10/15/19 Controlled Substance Measures - Controlled Substance Measures Is patient prescribed a controlled substance at discharge?: Yes When asked, does pt state using other controlled substances?: No If prescribed controlled substance>3 days was MAPS reviewed?: Yes If Rx opioid, was Start Talking consent form obtained?: Yes If opioid is for acute pain is fill amount 7 days or less?: No Was information provided regarding opioid addiction?: Yes
== END | disposition home or self-care (01) ==
LOC: PNWHC3 11:39
PROVIDERS: ATTEND Specialist
DX: G89.29 Other chronic pain (principal); M51.36 Other intervertebral disc degeneration, lumbar region; M47.816 Spondylosis without myelopathy or radiculopathy, lumbar region; M46.96 Unspecified inflammatory spondylopathy, lumbar region; M46.1 Sacroiliitis, not elsewhere classified; Z87.891 Personal history of nicotine dependence; Z79.891 Long term (current) use of opiate analgesic; Z79.899 Other long term (current) drug therapy
CPT/HCPCS: 99211

== ENCOUNTER → 2019-12-10 | Outpatient (CLI) | payer MEDICARE, BC ==
[2019-12-10 13:04] VITALS: BP 146/84; PULSE 98; RESP 18
--- NOTE | 2019-12-16 12:40 | P.PN ---
Subjective Progress Note Date: 12/10/19 This is a 59-year-old lady with history of chronic lower back pain with radiation to the right lower extremity to the right knee and occasionally to the right foot. The patient denies any numbness or tingling in the right lower extremity or any weakness. She has spinal cord stimulator placed surgically in 2010 but it stopped working 2 years after placement. The patient had lumbar epidural steroid injection recently which has helped her pain significantly. She still takes [place] twice a day as needed Patient denies new-onset weakness, bowel/bladder incontinence, or any other signs or symptoms of cauda equina syndrome. There are no signs of acute intoxication, and no indications of medication diversion or overuse. In addition to above, 13-point review of systems is also negative for chest pain, shortness of breath, changes in vision, changes in hearing, new onset weakness, abdominal pain, diarrhea, extreme fatigue, malaise, fever, skin changes, homicidal or suicidal ideation, or bowel or bladder incontinence. Vital Signs: Reviewed in EMR Gen: AAOx3, NAD HEENT: PERRLA,hearing grossly normal Pulm: resp unlabored Heart: Regular Neck: supple, trachea midline Neuro exam of the lower extremities: Normal and symmetrical knee reflexes however she has absent left ankle reflex compared to the right side. Straight leg raising test: Negative bilaterally Stevie's test: Range of motion of the lumbar spine: Facet loading test: Tenderness in the paravertebral musculature: Positive on the right side of the lumbar spine Positive right sacral joint tenderness Neuro: CN II-XII grossly intact, Imaging: Reviewed in EMR/chart Assessment: Lumbar spondylosis without myelopathy Right sacroiliitis Obesity Opioid dependence Malfunctioning spinal cord stimulator Plan: 1. Explanation: Opioid and psychological risk scores were reviewed. Diagnoses, prognoses, and multiple treatment options including but not limited to physical therapy, interventional therapies, adjuvant medical therapies, narcotic medication therapies, and surgery were discussed with the patient and all questions were answered to the patient's satisfaction. 2. Opioid agreement: Signed with the patient and the patient is warned not to use opioids while driving or before driving and not to combine opioids with benzodiazepines or alcohol. 3. Counseling: The patient was counseled extensively on SMOKING CESSATION, BODY MASS INDEX, EXERCISE. Specifically, the patient was instructed regarding the importance of smoking cessation, obesity, and exercise in the context of both chronic pain and overall health. 4. Procedures: None 5. Consultations: None 6. Investigations: None 7. Medications: Continue [place] 5 mg twice a day as needed 8. Disposition: Return to clinic in 8 weeks 9. Maps were reviewed and were appropriate. Controlled Substance Measures Is patient prescribed a controlled substance at discharge?: Yes When asked, does pt state using other controlled substances?: No If prescribed controlled substance>3 days was MAPS reviewed?: Yes If Rx opioid, was Start Talking consent form obtained?: Yes If opioid is for acute pain is fill amount 7 days or less?: No Was information provided regarding opioid addiction?: Yes
== END | disposition home or self-care (01) ==
LOC: PNWHC3 12:34
PROVIDERS: ATTEND Anesthesiology
DX: M47.816 Spondylosis without myelopathy or radiculopathy, lumbar region (principal); M46.1 Sacroiliitis, not elsewhere classified; E66.9 Obesity, unspecified; T85.192A Other mechanical complication of implanted electronic neurostimulator of spinal cord electrode (lead), initial encounter; F11.20 Opioid dependence, uncomplicated; Z68.38 Body mass index [BMI] 38.0-38.9, adult
CPT/HCPCS: 99211

== ENCOUNTER → 2019-12-12 | Outpatient (CLI) | payer MEDICARE, BC ==
--- NOTE | 2019-12-10 13:38 | P.PN ---
Subjective Progress Note Date: 12/10/19 This is a 59-year-old lady with history of chronic lower back pain with radiation to the right lower extremity to the right knee and occasionally to the right foot. The patient denies any numbness or tingling in the right lower extremity or any weakness. She has spinal cord stimulator placed surgically in 2010 but it stopped working 2 years after placement. The patient had lumbar epidural steroid injection recently which has helped her pain significantly. She still takes [place] twice a day as needed Patient denies new-onset weakness, bowel/bladder incontinence, or any other signs or symptoms of cauda equina syndrome. There are no signs of acute intoxication, and no indications of medication diversion or overuse. In addition to above, 13-point review of systems is also negative for chest pain, shortness of breath, changes in vision, changes in hearing, new onset weakness, abdominal pain, diarrhea, extreme fatigue, malaise, fever, skin changes, homicidal or suicidal ideation, or bowel or bladder incontinence. Vital Signs: Reviewed in EMR Gen: AAOx3, NAD HEENT: PERRLA,hearing grossly normal Pulm: resp unlabored Heart: Regular Neck: supple, trachea midline Neuro exam of the lower extremities: Normal and symmetrical knee reflexes however she has absent left ankle reflex compared to the right side. Straight leg raising test: Negative bilaterally Stevie's test: Range of motion of the lumbar spine: Facet loading test: Tenderness in the paravertebral musculature: Positive on the right side of the lumbar spine Positive right sacral joint tenderness Neuro: CN II-XII grossly intact, Imaging: Reviewed in EMR/chart Assessment: Lumbar spondylosis without myelopathy Right sacroiliitis Obesity Opioid dependence Malfunctioning spinal cord stimulator Plan: 1. Explanation: Opioid and psychological risk scores were reviewed. Diagnoses, prognoses, and multiple treatment options including but not limited to physical therapy, interventional therapies, adjuvant medical therapies, narcotic medication therapies, and surgery were discussed with the patient and all questions were answered to the patient's satisfaction. 2. Opioid agreement: Signed with the patient and the patient is warned not to use opioids while driving or before driving and not to combine opioids with benzodiazepines or alcohol. 3. Counseling: The patient was counseled extensively on SMOKING CESSATION, BODY MASS INDEX, EXERCISE. Specifically, the patient was instructed regarding the importance of smoking cessation, obesity, and exercise in the context of both chronic pain and overall health. 4. Procedures: None 5. Consultations: None 6. Investigations: None 7. Medications: Continue [place] 5 mg twice a day as needed 8. Disposition: Return to clinic in 8 weeks 9. Maps were reviewed and were appropriate. Controlled Substance Measures Is patient prescribed a controlled substance at discharge?: Yes When asked, does pt state using other controlled substances?: No If prescribed controlled substance>3 days was MAPS reviewed?: Yes If Rx opioid, was Start Talking consent form obtained?: Yes If opioid is for acute pain is fill amount 7 days or less?: No Was information provided regarding opioid addiction?: Yes
--- NOTE | 2019-12-16 09:07 | MM ---
Reason for exam: screening (asymptomatic). Last mammogram was performed 1 year and 4 months ago. History: Patient is postmenopausal. Family history of breast cancer in sister at age 60. Physical Findings: A clinical breast exam by your physician is recommended on an annual basis and results should be correlated with mammographic findings. MG 3D Screening Mammo W/Cad Bilateral CC and MLO view(s) were taken. Prior study comparison: August 13, 2018, bilateral MG 3d screening mammo w/cad. February 15, 2017, mammogram, performed at [facility]. There are scattered fibroglandular densities. No significant changes when compared with prior studies. ASSESSMENT: Benign, BI-RAD 2 RECOMMENDATION: Routine screening mammogram of both breasts in 1 year.
== END | disposition home or self-care (01) ==
LOC: RADMAMWWP 15:39
PROVIDERS: ATTEND Family Medicine
DX: Z12.31 Encounter for screening mammogram for malignant neoplasm of breast (principal)
CPT/HCPCS: 77063; 77067

== ENCOUNTER → 2020-04-01 | Outpatient (CLI) | payer MEDICARE, BC ==
--- NOTE | 2020-04-01 10:21 | P.PAINPG ---
Subjective Progress Note Date: 04/01/20 Adelina is a 59 y/o female seen via telemedicine visit today for low back pain. She has a history of DDD with radiculopathy. She has been doing well with treatments of injections and medications. She had not had any injections recently due to the pandemic. Her pain medication helps with her pain, no side effects. Pain now is 5/10. Depends on activity level. Objective - Exam GENERAL: Awake, alert, oriented, no distress HENT: atraumatic, normocephalic, trachea midline, nose midline RESP: NO audible wheezing, no coughing CARDIO: Reg rate (per patient palpation), no edema ABDOMEN: Non tender (per patient), no distension CERVICAL SPINE: Range of motion preserved, Spurling Negative LUMBAR SPINE: Limited range of motion secondary to pain, pain with flexion and extension of the Lumbar spine. NEURO: Gait is Normal, Sensation in Lower ext normal (per patient) PSYCH: Cooperative, normal affect. Assessment and Plan Assessment: lumbar DDD Lumbar radiculopathy opioid dependence Plan: Plan is to repeat RUFINA brooke refill medications today. PQRS Measure Charge Sheet Measure #130: Documentation of Current Meds in Medical Chart: Patient's medications documented in chart Measure #226: Tobacco Use: Screen & Cessation Intervention: Pt screened for tobacco use AND intervention given Measure #111: Pneumonia Vaccination: Pneumococcal vaccine NOT administered or previously given Measure #47: Advance Care Plan: Advance care planning discussed & documented, plan or surrogate given Measure #412: Opioid Treatment Agreement: Documented signed opioid trtmnt agreemnt min once during opioid trtmnt Measure #408: Opioid Therapy Follow-up Evaluation: Patient had f/u eval minimum every 3 months during opioid therapy Measure #317: Preventitive Care & Scrn High Bld Press & F/U: Blood pressure not documented, patient not eligible Measure #128: Body Mass Index (BMI) Screening & Follow-up: BMI documented ABOVE normal parameters - f/u documented Measure #131: Pain Assessment & Follow-up: Pain positive & plan documented Measure #431: Unhealthy Alcohol Use Preventative Care & Scrn: Patient not i dentified as an unhealthy alcohol user PQRS Narrative: Smoking Status Former smoker Narcotic Agreement Date Signed 10/15/19 Pain Intensity [Back] 6 Scale Used Numeric (1 - 10) Hx Alcohol Use (MH) Yes: occational Home Medications: Ambulatory Orders Citalopram Hydrobromide [CeleXA] 20 mg PO HS 08/04/14 L.acidoph,Paracasei, B.lactis [Probiotic] 1 tab PO DAILY 12/08/16 Glucosamine-Chondr 500-400Mg 1 cap PO DAILY 06/20/19 Magnesium/ Calcium 250 mg PO DAILY 06/20/19 Multivitamins, Thera [Multivitamin (formulary)] 1 tab PO DAILY 08/12/19 HYDROcodone/APAP 5-325MG [Malin 5-325] 1 tab PO Q12HR PRN 30 Days #60 tab 02/25/20 Controlled Substance Measures - Controlled Substance Measures Is patient prescribed a controlled substance at discharge?: Yes When asked, does pt state using other controlled substances?: No If prescribed controlled substance>3 days was MAPS reviewed?: Yes If Rx opioid, was Start Talking consent form obtained?: Yes If opioid is for acute pain is fill amount 7 days or less?: No Was information provided regarding opioid addiction?: Yes
== END | disposition home or self-care (01) ==
LOC: PNWHC3 07:01
PROVIDERS: ATTEND Hospitalist
DX: Z53.9 Procedure and treatment not carried out, unspecified reason (principal)

== ENCOUNTER 2020-04-09 10:14 | Day surgery (SDC) | payer MEDICARE, BC ==
[2020-04-08 10:22] VITALS: BMI 40.2
[2020-04-09 11:06] VITALS: RESP 18; TEMP 97.8
[2020-04-09] MEDS ORDERED: LIDOCAINE 1% (10MG/ML) FOR IV START INTRADERMA ONE (11:06)
[2020-04-09] MEDS ORDERED: LACTATED RINGERS 1,000 ML IV ONE (11:06)
[2020-04-09] MEDS ORDERED: LIDOCAINE 1% INJ 10MG/ML (20 ML MDV) ONE (11:54)
[2020-04-09] MEDS ORDERED: fentaNYL (PF) 50 MCG/ML 2 ML AMP ONE (11:54)
[2020-04-09] MEDS ORDERED: IOPAMIDOL M200 10 ML VIAL ONE (11:54)
[2020-04-09] MEDS ORDERED: TRIAMCINOLONE ACETONIDE 40 MG/ML 1 ML VIAL ONE (11:54)
[2020-04-09] MEDS ORDERED: MIDAZOLAM 2 MG/2 ML VIAL ONE (11:54)
--- NOTE | 2020-04-09 12:13 | P.PCN ---
Date of Procedure: 04/09/20 Description of Procedure: PREOPERATIVE DIAGNOSIS: 1- Lumbar Degenerative Disc Diseases 2-Lumbar spondylosis with Facet arthropathy without myelopathy POSTOPERATIVE DIAGNOSIS: 1-Lumber Degenerative Disc Diseases 2-Lumbar spondylosis with Facet arthropathy without myelopathy PROCEDURE 1. Lumbar epidural steroid injection under fluoroscopic guidance at the L4-5 level. (Fluoroscopy imaging was available in radiology department) (Right paramedian approach ) 2. Lumbar epidurogram. ANESTHESIA: Local with 1% lidocaine 3 ml and , moderate sedation with intravenous Versed 2 mg ,and fentanyl 50 Mcg EBL: Minimal PROCEDURE INDICATION: The patient with low back pain and radiculitis symptoms unresponsive to conservative treatment. Fluoroscopy was used to optimize visualization of the needle placement and to maximize safety. PROCEDURE DESCRIPTION / TECHNIQUE: The patient was seen and identified in the preoperative area. Risks, benefits, complications including but not limited to infections ,bleeding ,allergic reaction to the medications ,nerve damage and not complete pain releife , and alternatives were discussed with the patient. The patient agreed to proceed with the procedure and signed the consent. IV was started, and vital signs were stable. Patient was taken to the OR and time out was completed. The patient was placed in the prone position on procedure table and a pillow was placed under the abdomen to reduce lumbar lordosis. The lumbosacral area was prepped and draped in the usual sterile fashion.ere closely monitored during the procedure. Conscious sedation was used during the procedure to decrease patients anxiety. Vital signs was monitered during the entire procedure. Using anterior-posterior fluoroscopy, the L4-5 interlaminar space was identified and the skin over this site was marked and then infiltrated with 1% lidocaine subcutaneously. Subsequently, a 20 -gauge Tuohy epidural needle was inserted and advanced toward the epidural space using the ``Loss of resistance technique and guided by AP and lateral fluoroscopy. The correct needle position in the epidural space was verified with the injection of 2 mL of the water soluble contrast dye Isovue 200 contrast and observing an excellent epidurogram with the epidural spread of the dye, after negative aspiration for blood and CSF and in the absence of paresthesias. Again after negative aspiration, a 6 ml mixture containing 40mg Kenalog, and 4 ml of preservative free Normal Saline was injected and a washout of epidurogram was seen. Needle was withdrawn intact, skin was cleansed, and bandages were applied. COMPLICATIONS: None DISPOSITION / PLANS: The patient was placed in a supine position and transferred to the recovery area in a stable condition for observation. There was no evidence of lower extremity motor or sensory deficit after the procedure. Patient was discharged from the recovery room after meeting discharge criteria. Home discharge instructions were given to the patient by the staff. The patient was reexamined prior to discharge. Will repeat in 4 weeks. FLUOROSCOPY IMAGE SAVED AND STORED.
--- NOTE | 2020-04-09 12:26 | FL ---
Fluoroscopy INDICATION: Pain FINDINGS: Fluoroscopy time: 8 seconds. Images obtained: 2. IMPRESSIONS: 1. Documentation of fluoroscopy.
[2020-04-09] MEDS ORDERED: IV FLUID CONTINUATION 800 ML IV ONE (12:27)
[2020-04-09 12:33] VITALS: BP 139/89; PULSE 72
== END 2020-04-09 12:50 | disposition home or self-care (01) ==
LOC: ORPAIN 10:14
PROVIDERS: ATTEND Anesthesiology
DX: M51.16 Intervertebral disc disorders with radiculopathy, lumbar region (principal); M47.26 Other spondylosis with radiculopathy, lumbar region; Z90.710 Acquired absence of both cervix and uterus
CPT/HCPCS: 62323; J2250; J3301; J2001; J3010; Q9966; 99152

== ENCOUNTER 2020-04-23 08:12 | Day surgery (SDC) | payer MEDICARE, BC ==
[2020-04-22 10:57] VITALS: BMI 40.2
[2020-04-23 08:50] VITALS: RESP 16; TEMP 97
[2020-04-23] MEDS ORDERED: IOPAMIDOL M200 10 ML VIAL ONE (09:32)
[2020-04-23] MEDS ORDERED: fentaNYL (PF) 50 MCG/ML 2 ML AMP ONE (09:32)
[2020-04-23] MEDS ORDERED: methylPREDNISolone ACETATE 40 MG/ML 1 ML VIAL ONE (09:32)
[2020-04-23] MEDS ORDERED: MIDAZOLAM 2 MG/2 ML VIAL ONE (09:32)
[2020-04-23] MEDS ORDERED: LACTATED RINGERS 1,000 ML IV ONE ×2 (09:52)
[2020-04-23 10:04] VITALS: BP 141/86; PULSE 61
--- NOTE | 2020-04-23 10:10 | FL ---
EXAMINATION TYPE: FL guided pain mgmt statistic DATE OF EXAM: 04/23/2020 CLINICAL HISTORY: Low back pain. TECHNIQUE: Fluoroscopy. COMPARISON: None. FINDINGS: Fluoroscopic guidance was provided during pain relief procedure performed by Dr. Boss . A total of 5 seconds of fluoroscopic time was utilized during the procedure and single spot fluoro scopic intraoperative image is acquired. Single image acquired shows needle localization with contra st injection at L4 level. IMPRESSION: As Above.
[2020-04-23] MEDS ORDERED: IV FLUID CONTINUATION 800 ML IV ONE (10:16)
== END 2020-04-23 10:29 | disposition home or self-care (01) ==
LOC: ORPAIN 08:12
PROVIDERS: ATTEND Specialist
DX: M51.16 Intervertebral disc disorders with radiculopathy, lumbar region (principal); M47.26 Other spondylosis with radiculopathy, lumbar region; K21.9 Gastro-esophageal reflux disease without esophagitis; I82.409 Acute embolism and thrombosis of unspecified deep veins of unspecified lower extremity
CPT/HCPCS: 62323; J2250; J1030; J3010; Q9966

== ENCOUNTER → 2020-04-29 | Outpatient (CLI) | payer MEDICARE, BC ==
--- NOTE | 2020-04-23 09:47 | P.PCN ---
Date of Procedure: 04/23/20 Procedure(s) Performed: PREOPERATIVE DIAGNOSIS: 1- Lumbar Degenerative Disc Diseases 2-Lumbar spondylosis with Facet arthropathy without myelopathy POSTOPERATIVE DIAGNOSIS: 1-Lumber Degenerative Disc Diseases 2-Lumbar spondylosis with Facet arthropathy without myelopathy PROCEDURE 1. Lumbar epidural steroid injection under fluoroscopic guidance at the L4-5 level. (Fluoroscopy imaging was available in radiology department) (Right paramedian approach ) 2. Lumbar epidurogram. ANESTHESIA: Local with 1% lidocaine 3 ml and , moderate sedation with intravenous Versed 2 mg ,and fentanyle 50 Mcg EBL: Minimal PROCEDURE INDICATION: The patient with low back pain and radiculitis symptoms unresponsive to conservative treatment. Fluoroscopy was used to optimize visualization of the needle placement and to maximize safety. PROCEDURE DESCRIPTION / TECHNIQUE: The patient was seen and identified in the preoperative area. Risks, benefits, complications including but not limited to infections ,bleeding ,allergic reaction to the medications ,nerve damage and not complete pain releife , and alternatives were discussed with the patient. The patient agreed to proceed with the procedure and signed the consent. IV was started, and vital signs were stable. Patient was taken to the OR and time out was completed. The patient was placed in the prone position on procedure table and a pillow was placed under the abdomen to reduce lumbar lordosis. The lumbosacral area was prepped and draped in the usual sterile fashion.ere closely monitored during the procedure. Conscious sedation was used during the procedure to decrease patients anxiety. Vital signs was monitered during the entire procedure. Using anterior-posterior fluoroscopy, the L4-5 interlaminar space was identified and the skin over this site was marked and then infiltrated with 1% lidocaine subcutaneously. Subsequently, a 20-gauge Tuohy epidural needle was inserted and advanced toward the epidural space using the ``Loss of resistance technique and guided by AP and lateral fluoroscopy. The correct needle position in the epidural space was verified with the injection of 2 mL of the water soluble contrast dye Isovue 200 contrast and observing an excellent epidurogram with the epidural spread of the dye, after negative aspiration for blood and CSF and in the absence of paresthesias. Again after negative aspiration, a 6 ml mixture containing 80 mg of Depo-medrol , and 2 ml of preservative free Normal Saline, and 2 ml of preservative free lidocaine 1% solution was injected and a washout of epidurogram was seen. Needle was withdrawn intact, skin was cleansed, and bandages were applied. COMPLICATIONS: None DISPOSITION / PLANS: The patient was placed in a supine position and transferred to the recovery area in a stable condition for observation. There was no evidence of lower extremity motor or sensory deficit after the procedure. Patient was discharged from the recovery room after meeting discharge criteria. Home discharge instructions were given to the patient by the staff. The patient was reexamined prior to discharge. The patient will schedule a follow up in the clinic in 2-4 weeks.
[2020-04-29 13:02] VITALS: BP 159/92; PULSE 101; RESP 16
--- NOTE | 2020-04-29 13:05 | P.PAINPG ---
Subjective Progress Note Date: 04/29/20 Adelina is a 59 y/o female seen for follow-up visittoday for low back pain. She has a history of DDD with radiculopathy. She has been doing well with treatments of injections and medications. She most recently underwent lumbar epidural steroid injection at L4-5 right paramedian approach on 04/09/2020 and 04/23/2020. She returns today for follow-up. She reports excellent relief from these procedures, pain is rated as 1/10 today. Pain is located in right low back, right buttock radiating to front of right thigh up to knee. Pain is worse with standing, sitting and better with injections, medications, heat. Pain is described as a dull ache. Her current medications include [place] 5/325 one to 2 tablets per day. Her pain medication helps with her pain, no side effects. Review of systems is negative for chest pain, shortness of breath, new onset weakness, numbness/tingling, abdominal pain, malaise, fever, night sweats, chills, homicidal or suicidal ideation, or bowel or bladder incontinence. Objective Physical exam: Vitals: Reviewed in EMR GENERAL: Well appearing, in no acute distress, obese PSYCH: Mood and affect is appropriate. Awake, alert, and oriented SKIN: Skin color, texture, turgor normal, no rashes or lesions HEENT: Normocephalic, atraumatic. EOM intact CV: No pedal edema RESP: Respirations are unlabored, no audible wheezing GI: Abdomen non-distended MUSCULOSKELETAL: Bilateral lower extremity strength is normal and symmetric. No atrophy or tone abnormalities are noted. Lumbar spine: Mild tenderness to palpation over the lumbar spine and paraspinous muscles bilaterally. Positive for pain with facet loading and back extension/rotation. Extremities: Peripheral joint ROM is full and pain free without obvious instability or laxity in all four extremities. No edema or skin discolorations noted. NEUR: Cranial nerves are grossly intact No loss of sensation is noted. Assessment and Plan Assessment: lumbar DDD Lumbar radiculopathy opioid dependence Morbid obesity Plan: Patient had excellent benefit from lumbar epidural steroid injections 2. Medications: [place] 5/325reduced from #60 to #45 today. 2 month supply given. Patient is amenable to continuing to reduce opioids as tolerated UDS sent today We had a lengthy discussion regarding the importance of weight loss and exercise as it pertains to overall health and chronic pain. Patient was counseled on resuming back exercises and weight loss. Follow-up: In 8 weeks for medication management PQRS Measure Charge Sheet Measure #130: Documentation of Current Meds in Medical Chart: Patient's medications documented in chart Measure #226: Tobacco Use: Screen & Cessation Intervention: Pt is not a tobacco user Measure #111: Pneumonia Vaccination: Pneumococcal vaccine administered or previously given Measure #47: Advance Care Plan: Advance care planning discussed & documented, patient chose/unable to give Measure #412: Opioid Treatment Agreement: Documented signed opioid trtmnt agreemnt min once during opioid trtmnt Measure #408: Opioid Therapy Follow-up Evaluation: Patient had f/u eval minimum every 3 months during opioid therapy Measure #317: Preventitive Care & Scrn High Bld Press & F/U: Blood pressure prehypertensive or hypertensive, follow-up with primary care physician Measure #128: Body Mass Index (BMI) Screening & Follow-up: BMI documented ABOVE normal parameters - f/u documented Measure #131: Pain Assessment & Follow-up: Pain positive & plan documented Measure #431: Unhealthy Alcohol Use Preventative Care & Scrn: Patient not identified as an unhealthy alcohol user PQRS Measure Charge Sheet PQRS Narrative: Smoking Status Former smoker Narcotic Agreement Date Signed 10/15/19 Pain Intensity [Right Lower 1 Back] Hx Alcohol Use (MH) Yes: occational Home Medications: Ambulatory Orders Citalopram Hydrobromide [CeleXA] 20 mg PO HS 08/04/14 L.acidoph,Paracasei, B.lactis [Probiotic] 1 tab PO DAILY 12/08/16 Glucosamine-Chondr 500-400Mg 1 cap PO DAILY 06/20/19 Magnesium/ Calcium 250 mg PO DAILY 06/20/19 Multivitamins, Thera [Multivitamin (formulary)] 1 tab PO DAILY 08/12/19 Loratadine [Claritin] 10 mg PO DAILY 04/22/20 HYDROcodone/APAP 5-325MG [[place] 5-325] 1 tab PO Q12HR PRN 30 Days #45 tab 04/29/20 HYDROcodone/APAP 5-325MG [[place] 5-325] 1 tab PO Q12HR PRN 30 Days #45 tab 04/29/20 Controlled Substance Measures - Controlled Substance Measures Is patient prescribed a controlled substance at discharge?: Yes When asked, does pt state using other controlled substances?: No If prescribed controlled substance>3 days was MAPS reviewed?: Yes If Rx opioid, was Start Talking consent form obtained?: Yes If opioid is for acute pain is fill amount 7 days or less?: No Was information provided regarding opioid addiction?: Yes
== END | disposition home or self-care (01) ==
LOC: PNWHC3 12:13
PROVIDERS: ATTEND Anesthesiology
DX: M51.16 Intervertebral disc disorders with radiculopathy, lumbar region (principal); F11.20 Opioid dependence, uncomplicated; E66.01 Morbid (severe) obesity due to excess calories; Z68.41 Body mass index [BMI] 40.0-44.9, adult; Z87.891 Personal history of nicotine dependence; Z79.899 Other long term (current) drug therapy
CPT/HCPCS: 99211

== ENCOUNTER → 2020-06-24 | Outpatient (CLI) | payer MEDICARE, BC ==
[2020-06-24 12:40] VITALS: BP 131/87; PULSE 96; RESP 18; TEMP 98.5
--- NOTE | 2020-06-24 13:26 | P.PAINPG ---
Subjective Progress Note Date: 06/24/20 This is follow up visit for this 59 years old female with history of severe chronic low back pain ,patient diagnosed with lumbar spondylosis, and lumbar bulging disc disease and right sacroiliitis , recently we did lumbar epidural steroid injection at L4 5 patient reported that she had significant improvement of her low back pain , she denies any motor or sensory deficit she denies any fever or numbness with and is no focal neurological deficit, she continued to use [place] 5/325 every 12 hours when necessary, and she reported the current medication helping her to control her pain she denies any side effect of the medication, she denies any excessive drowsiness or sleepiness, currently she reported that most of the pain in the right side low back area radiated to the right buttock, the pain increases with any activity and interfere with her quality of life Objective - Vital Signs Vital signs: Vital Signs Temp 98.5 F 06/24/20 12:27 Pulse 96 06/24/20 12:27 Resp 18 06/24/20 12:27 BP 131/87 06/24/20 12:27 Pulse Ox 96 06/24/20 12:27 - Exam Physical Examinations : -Constitutiona : Cooperative , not in acute distress . -HEENT : nech : supple , no Lymphadenopathy , normal thyroid size . : eyes : no ptosis , no icterus, no photophobia . - neurologic : Cranial nerve II to XII intact , no focal neurological deffecit . -psychatric : alert , oriented X 3 , appropriate affect , intact judgment and insight . -Lymphatic : no Lymphadenopathy . - musculoskeltal : Lumber spine moter stegnth lower extremities ,thigh and legs 5/5 Right side , 5/5 Left side deep tendon reflexes : normal Knee Jerk , normal ankle Jerk lumber facet Loading Test =positive Right , positive Left Range of motion of the lumbar spine Flexion 30 degrees, extension 10 degrees strait leg raising test = positive at 45degree Fabere test= positive Right . Sever tenderness over the Sacroiliac joint on the Right . Gaenslen test= positive right . Seated flexion test= positive right . Assessment and Plan Plan: chronic low back pain secondary to lumbar degenerative disc disease , lumbar spondylosis with lumbar facet arthropathy . Right Sacroiliitis chronic and current use of high-risk medication (opioids) Patient had good results with the previous RFA of the right sacroiliac joint Patient denies any side effects of the current pain medication and the current treatment/medication helping the patient to do activity of daily living , Diagnoses, prognosis, treatment options, including but not limited to physic al therapy, medication management, interventional therapies, and surgery, were discussed with the patient All the questions answered The narcotic consent was signed and patient agreed and understood the side effects and complications of opioid treatment. Patient signed the narcotic agreement, and was orally counseled, not to overuse, not to abuse, not to Divert , not tp sell pain medication, and to take it as prescribed only, Patient was counseled not to drive or operate heavy equipment while using narcotic medication, and advised not to use alcohol or any Illicit drugs while using the narcotis. understanding that lack of compliance with any of the above instructions, will likely to cause discharge from, the pain service, not to renew his narcotic prescriptions MAPS Reviwed and it was apropriate . Medication managements= patient will be given prescription refills for [place] 5/325 every 12 hours dispense 45 with one refill Interventions= patient could benefit from repeat RFA of the right sacroiliac joint (RFA of the L5-S1 dorsal Ramas, and RFA of the lateral branches S1,S2,S3 ) Time with Patient: Less than 30 PQRS Measure Charge Sheet Measure #130: Documentation of Current Meds in Medical Chart: Patient's medications documented in chart Measure #226: Tobacco Use: Screen & Cessation Intervention: Pt not a tobacco user Measure #111: Pneumonia Vaccination: Pneumococcal vaccine administered or previously received Measure #47: Advance Care Plan: Advance care planning discussed & documented, pt chose/unable to give Measure #412: Opioid Treatment Agreement: Documented signed opioid trtmnt agreemnt min once during opioid trtmnt Measure #408: Opioid Therapy Follow-up Evaluation: Patient had f/u eval minimum every 3 months during opioid therapy Measure #317: Preventitive Care & Scrn High Bld Press & F/U: Normal blood pressure, f/u not required Measure #128: Body Mass Index (BMI) Screening & Follow-up: BMI documented ABOVE normal parameters - f/u documented Measure #131: Pain Assessment & Follow-up: Pain positive & plan documented, Follow-up scheduled Measure #431: Unhealthy Alcohol Use Preventative Care & Scrn: Patient not identified as an unhealthy alcohol user PQRS Narrative: Smoking Status Former smoker Narcotic Agreement Date Signed 04/29/20 Blood Pressure 131/87 Pain Intensity [Lower Back] 7 Scale Used Numeric (1 - 10) Hx Alcohol Use (MH) Yes: OCCASIONAL. Home Medications: Ambulatory Orders Citalopram Hydrobromide [CeleXA] 20 mg PO HS 08/04/14 L.acidoph,Paracasei, B.lactis [Probiotic] 1 tab PO DAILY 12/08/16 Magnesium/ Calcium 250 mg PO DAILY 06/20/19 Multivitamins, Thera [Multivitamin (formulary)] 1 tab PO DAILY 08/12/19 Loratadine [Claritin] 10 mg PO DAILY 04/22/20 HYDROcodone/APAP 5-325MG [[place] 5-325] 1 - 2 tab PO Q12HR PRN #45 tab 06/24/20 HYDROcodone/APAP 5-325MG [[place] 5-325] 1 tab PO Q12HR PRN 30 Days #45 tab 06/24/20 Controlled Substance Measures - Controlled Substance Measures Is patient prescribed a controlled substance at discharge?: Yes
== END | disposition home or self-care (01) ==
LOC: PNWHC3 12:19
PROVIDERS: ATTEND Specialist
DX: M51.36 Other intervertebral disc degeneration, lumbar region (principal); M47.816 Spondylosis without myelopathy or radiculopathy, lumbar region; M46.96 Unspecified inflammatory spondylopathy, lumbar region; M46.1 Sacroiliitis, not elsewhere classified; G89.29 Other chronic pain; Z87.891 Personal history of nicotine dependence; Z79.891 Long term (current) use of opiate analgesic; Z79.899 Other long term (current) drug therapy
CPT/HCPCS: 99211

== ENCOUNTER 2020-07-07 09:09 | Day surgery (SDC) | payer MEDICARE, BC ==
[2020-07-02 10:44] VITALS: BMI 38.7
[2020-07-07 09:23] VITALS: TEMP 97.5
[2020-07-07] MEDS ORDERED: LIDOCAINE 1% (10MG/ML) FOR IV START INTRADERMA ONE (09:42)
[2020-07-07] MEDS ORDERED: MIDAZOLAM 2 MG/2 ML VIAL ONE (09:58)
[2020-07-07] MEDS ORDERED: methylPREDNISolone ACETATE 40 MG/ML 1 ML VIAL ONE (09:58)
[2020-07-07] MEDS ORDERED: fentaNYL (PF) 50 MCG/ML 2 ML AMP ONE (09:58)
[2020-07-07] MEDS ORDERED: ROPIVACAINE 5MG/ML 20ML VIAL ONE (09:58)
[2020-07-07] MEDS ORDERED: IV FLUID CONTINUATION 1,000 ML IV ONE (10:37)
[2020-07-07 10:41] VITALS: RESP 16
--- NOTE | 2020-07-07 10:42 | P.PCN ---
Date of Procedure: 07/07/20 Procedure(s) Performed: PREOPERATIVE DIAGNOSIS: 1-Lumbosacral spondylosis . 2- Right sacroiliit. post operative Diagnosis: . 1-Lumbosacral spondylosis . 2- Right sacroiliit. PROCEDURES: 1- Right radiofrequency thermocoagulation/ablation of the L5 dorsal ramus. 2- Right multi-site radiofrequency thermocoagulation/ablation of the right S1, S2, S3 lateral branchs. The procedure was performed using fluoroscopic guidance during needle placement to assure proper position and maximize safety . ANESTHESIA: LOCAL ANESTHESIA with lidocaine 1% 5 ML and IV sedation with versed 2 mg and Fentanyle 50 mcg EBL: NONE INDICATION/MEDICAL NECESSITY: History of low back pain secondary to right sacroiliitis and lumbosacral arthropathy unresponsive to more conservative treatments. The patient reported more than 50% relief of pain symptoms following 2 previous diagnostic blocks with Bupivacaine. PROCEDURE DESCRIPTION: The patient was seen and identified in the preoperative area. Risks, benefits, complications, and alternatives were discussed with the patient. The patient agreed to proceed with the procedure and signed the consent. Vital signs were checked before and after the procedure and they remained stable. Patient ambulated to the procedure room and time out was completed. The patient was placed in the prone position on the procedure table and a pillow was placed under the abdomen to reduce lumbar lordosis. The lumbosacral area was prepped and draped in the usual sterile fashion. Critical pause was taken. L5 Dorsal Ramus RF: Using right oblique fluoroscopy, the junction of the transverse process and the superior articular process of the right S1 vertebra, which correspond to the fluoroscopic image of the "eye of the Escobar dog" was identified. Subsequently, a 10-cm 20 -gauge radiofrequency cannula with a 10-mm active tip was advanced under fluoroscopic guidance until contact was made with periosteum. At this level, the Sensory testing of the L5 dorsal ramus was performed at 50 Hz and 0 to 1 volt with production of concordant pain starting at 0.5 volt. Motor stimulation was done at 2.5 Hz with stimulation of mulitifidus muscle contration . No radicular symptoms or paresthesias were produced during the testing. Subsequently, the L5 dorsal ramus was subjected to a radiofrequency ablation at 80 degree celsius for 90 seconds . after 0.5% Bupivacaine 1 ml injected at each level after negative aspirations .The needle was withdrawn intact. S1, S2 ,S3, Lateral Branch RFA: The S2 and S3 foramina was not visualized secondary to a lot of gas in the pelvic area, for this reason I did the radiofrequency ablation of the Lateral branches S1, S2, and S3, by placing 20-gauge radiofrequency 10 mm active tip needles at the medial edge of the right sacroiliac joint starting from the inferior border of the right sacroiliac joint going superior, total of 6 RFA needles 20-gauge placed 3-5 mm medial to the medial edge of the Right sacroiliac joint, and after needle placement confirmed with AP and lateral view then we did , the sensory testing of the S1,S2 ,S3 lateral branch was performed at 50 Hz and 0 to 1 volt at the three levels with production of concordant pain starting at 0.5 volt. Motor stimulation was done at 2.5 Hz. No radicular symptoms or paresthesias were produced during the testing. Subsequently, we did the radiofrequency ablation for 90 seconds at 80 degrees and after injecting 0.5 ml of preservative free Bupivacaine 0.5 %.and after the radiofrequency done mixture of ropivacaine 0.5% 6 ML and 40 mg of Depo-Medrol mixed together and 1 ML of the mixture injected at each level after negative aspiration ,The needles was withdrawn intact after each injection. COMPLICATIONS: The patient tolerated the procedure well without any acute complications. DISPOSTION/PLAN: The patient ambulated to the recovery area after the procedure in a stable condition for observation. Patient was reexamined prior to discharge. Patient was observed for 30 minutes in the recovery area and was discharged home, accompanied by an adult, after meeting discharged criteria. Discharge instructions were give to the patient by the staff. Patient was specifically instructed not to drive today and to rest for the rest of the day. The patient will schedule a follow up visit in the clinic in weeks or earlier if needed.
--- NOTE | 2020-07-07 10:50 | FL ---
Fluoroscopy INDICATION: Pain FINDINGS: Fluoroscopy time: 21 seconds. Images obtained: 6. IMPRESSIONS: 1. Documentation of fluoroscopy.
[2020-07-07 10:54] VITALS: BP 114/75; PULSE 67
== END 2020-07-07 11:07 ==
LOC: ORPAIN 09:09
PROVIDERS: ATTEND Specialist
DX: M47.817 Spondylosis without myelopathy or radiculopathy, lumbosacral region (principal); M46.1 Sacroiliitis, not elsewhere classified; Z90.710 Acquired absence of both cervix and uterus
CPT/HCPCS: 64640; 64625; J2250; J1030; J3010; J2795; 99152; 99153

== ENCOUNTER → 2020-08-19 | Outpatient (CLI) | payer MEDICARE, BC ==
[2020-08-19 13:29] VITALS: BP 139/103; PULSE 94; RESP 18; TEMP 98.3
--- NOTE | 2020-08-20 09:06 | P.PN ---
Subjective Progress Note Date: 08/19/20 This is follow up visit for this 59 years old female with history of severe chronic low back pain ,patient diagnosed with lumbar spondylosis, and lumbar bulging disc disease and right sacroiliitis , previously we have done lumbar epidural steroid injections, and recently we have been RFA of the sacroiliac joint, patient currently complaining of severe low back pain in the low back area mainly in the right buttock , she denies any motor or sensory deficit she denies any fever or numbness with and is no focal neurological deficit, she continued to use [place] 5/325 every 12 hours when necessary, and she reported the current medication helping her to control her pain she denies any side effect of the medication, she denies any excessive drowsiness or sleepiness, currently she reported that most of the pain in the right side low back area radiated to the right buttock, the pain increases with any activity and interfere with her quality of life Objective Physical Examinations : -Constitutiona : Cooperative , not in acute distress . -HEENT : nech : supple , no Lymphadenopathy , normal thyroid size . : eyes : no ptosis , no icterus, no photophobia . - neurologic : Cranial nerve II to XII intact , no focal neurological deffecit . -psychatric : alert , oriented X 3 , appropriate affect , intact judgment and insight . -Lymphatic : no Lymphadenopathy . - musculoskeltal : Lumber spine moter stegnth lower extremities ,thigh and legs 5/5 Right side , 5/5 Left side deep tendon reflexes : normal Knee Jerk , normal ankle Jerk lumber facet Loading Test =positive Right , positive Left Range of motion of the lumbar spine Flexion 30 degrees, extension 10 degrees strait leg raising test = positive at 45degree Fabere test= positive Right . Sever tenderness over the Sacroiliac joint on the Right . Gaenslen test= positive right . Seated flexion test= positive right . Assessment and Plan chronic low back pain secondary to lumbar degenerative disc disease , lumbar spondylosis with lumbar facet arthropathy . Right Sacroiliitis chronic and current use of high-risk medication (opioids) Patient had good results with the previous RFA of the right sacroiliac joint Patient denies any side effects of the current pain medication and the current treatment/medication helping the patient to do activity of daily living , Diagnoses, prognosis, treatment options, including but not limited to physical therapy, medication management, interventional therapies, and surgery, were discussed with the patient All the questions answered The narcotic consent was signed and patient agreed and understood the side effects and complications of opioid treatment. Patient signed the narcotic agreement, and was orally counseled, not to overuse, not to abuse, not to Divert , not tp sell pain medication, and to take it as prescribed only, Patient was counseled not to drive or operate heavy equipment while using narcotic medication, and advised not to use alcohol or any Illicit drugs while using the narcotis. understanding that lack of compliance with any of the above instructions, will likely to cause discharge from, the pain service, not to renew his narcotic prescriptions MAPS Reviwed and it was apropriate . Medication managements= patient will be given prescription refills for [place] 5/325 every 12 hours dispense 60 with one refill Interventions= patient continued to have severe low back pain RFA of the right sacroiliac joint , patient could benefit from Voltaren gel to be applied in the right buttock area at the location of the right sacroiliac joint And she could benefit from Motrin 600 mg every 8 hours when necessary Time with Patient: Less than 30 PQRS Measure Charge Sheet Measure #130: Documentation of Current Meds in Medical Chart: Patient's medications documented in chart Measure #226: Tobacco Use: Screen & Cessation Intervention: Pt not a tobacco user Measure #111: Pneumonia Vaccination: Pneumococcal vaccine administered or previously received Measure #47: Advance Care Plan: Advance care planning discussed & documented, pt chose/unable to give Measure #412: Opioid Treatment Agreement: Documented signed opioid trtmnt agreemnt min once during opioid trtmnt Measure #408: Opioid Therapy Follow-up Evaluation: Patient had f/u eval minimum every 3 months during opioid therapy Measure #317: Preventitive Care & Scrn High Bld Press & F/U: Normal blood pressure, f/u not required Measure #128: Body Mass Index (BMI) Screening & Follow-up: BMI documented ABOVE normal parameters - f/u documented Measure #131: Pain Assessment & Follow-up: Pain positive & plan documented, Follow-up scheduled Measure #431: Unhealthy Alcohol Use Preventative Care & Scrn: Patient not identified as an unhealthy alcohol user Objective - Vital Signs Vital signs: Vital Signs Temp 98.3 F 08/19/20 13:26 Pulse 94 08/19/20 13:26 Resp 18 08/19/20 13:26 BP 139/103 08/19/20 13:26 Pulse Ox 96 08/19/20 13:26
== END | disposition home or self-care (01) ==
LOC: PNWHC3 12:48
PROVIDERS: ATTEND Specialist
DX: G89.29 Other chronic pain (principal); M51.36 Other intervertebral disc degeneration, lumbar region; M47.816 Spondylosis without myelopathy or radiculopathy, lumbar region
CPT/HCPCS: 99211

== ENCOUNTER → 2020-10-14 | Outpatient (CLI) | payer MEDICARE, BC ==
[2020-10-14 13:09] VITALS: BP 125/86; PULSE 89; RESP 16; TEMP 98.1
--- NOTE | 2020-10-14 13:23 | P.PN ---
Subjective Progress Note Date: 10/14/20 This is follow up visit for this 59 years old female with history of severe chronic low back pain ,patient diagnosed with lumbar spondylosis, and lumbar bulging disc disease and right sacroiliitis , previously we have done lumbar epidural steroid injections, and recently we have been RFA of the sacroiliac joint, patient currently complaining of severe low back pain in the low back area mainly in the right buttock , she denies any motor or sensory deficit she denies any fever or numbness with and is no focal neurological deficit, she continued to use [place] 5/325 every 12 hours when necessary, and she reported the current medication helping her to control her pain she denies any side effect of the medication, she denies any excessive drowsiness or sleepiness, currently she reported that most of the pain in the right side low back area radiated to the right buttock, the pain increases with any activity and interfere with her quality of life Objective - Vital Signs Vital signs: Vital Signs Temp 98.1 F 10/14/20 13:02 Pulse 89 10/14/20 13:02 Resp 16 10/14/20 13:02 BP 125/86 10/14/20 13:02 Pulse Ox 96 10/14/20 13:02 - Exam -Constitutiona : Cooperative , not in acute distress . -HEENT : nech : supple , no Lymphadenopathy , normal thyroid size . : eyes : no ptosis , no icterus, no photophobia . - neurologic : Cranial nerve II to XII intact , no focal neurological deffecit . -psychatric : alert , oriented X 3 , appropriate affect , intact judgment and insight . -Lymphatic : no Lymphadenopathy . - musculoskeltal : Lumber spine moter stegnth lower extremities ,thigh and legs 5/5 Right side , 5/5 Left side deep tendon reflexes : normal Knee Jerk , normal ankle Jerk lumber facet Loading Test =positive Right , positive Left Range of motion of the lumbar spine Flexion 30 degrees, extension 10 degrees strait leg raising test = positive at 45degree Fabere test= positive Right . Sever tenderness over the Sacroiliac joint on the Right . Gaenslen test= positive right . Seated flexion test= positive right . Assessment and Plan Plan: chronic low back pain secondary to lumbar degenerative disc disease , lumbar spondylosis with lumbar facet arthropathy . Right Sacroiliitis chronic and current use of high-risk medication (opioids) Patient had good results with the previous RFA of the right sacroiliac joint Patient denies any side effects of the current pain medication and the current treatment/medication helping the patient to do activity of daily living , Diagnoses, prognosis, treatment options, including but not limited to physical therapy, medication management, interventional therapies, and surgery, were discussed with the patient All the questions answered The narcotic consent was signed and patient agreed and understood the side effects and complications of opioid treatment. Patient signed the narcotic agreement, and was orally counseled, not to overuse, not to abuse, not to Divert , not tp sell pain medication, and to take it as prescribed only, Patient was counseled not to drive or operate heavy equipment while using narcotic medication, and advised not to use alcohol or any Illicit drugs while using the narcotis. understanding that lack of compliance with any of the above instructions, will likely to cause discharge from, the pain service, not to renew his narcotic prescriptions MAPS Reviwed and it was apropriate . Medication managements= patient will be given prescription refills for [place] 5/325 every 12 hours dispense 60 with one refill Interventions= patient continued to have severe low back pain RFA of the right sacroiliac joint. she could benefit from Motrin 600 mg every 8 hours when necessary, patient tried Voltaren gel and she said she had no benefit from Time with Patient: Less than 30 PQRS Measure Charge Sheet Measure #130: Documentation of Current Meds in Medical Chart: Patient's medications documented in chart Measure #226: Tobacco Use: Screen & Cessation Intervention: Pt not a tobacco user Measure #111: Pneumonia Vaccination: Pneumococcal vaccine administered or previously received Measure #47: Advance Care Plan: Advance care planning discussed & documented, pt chose/unable to give Measure #412: Opioid Treatment Agreement: Documented signed opioid trtmnt agreemnt min once during opioid trtmnt Measure #408: Opioid Therapy Follow-up Evaluation: Patient had f/u eval minimum every 3 months during opioid therapy Measure #317: Preventitive Care & Scrn High Bld Press & F/U: Normal blood pressure, f/u not required Measure #128: Body Mass Index (BMI) Screening & Follow-up: BMI documented ABOVE normal parameters - f/u documented Measure #131: Pain Assessment & Follow-up: Pain positive & plan documented, Follow-up scheduled Measure #431: Unhealthy Alcohol Use Preventative Care & Scrn: Patient not identified as an unhealthy alcohol user Time with Patient: Less than 30
== END | disposition home or self-care (01) ==
LOC: PNWHC3 12:25
PROVIDERS: ATTEND Specialist
DX: M51.36 Other intervertebral disc degeneration, lumbar region (principal); M47.816 Spondylosis without myelopathy or radiculopathy, lumbar region; M46.1 Sacroiliitis, not elsewhere classified; Z79.891 Long term (current) use of opiate analgesic
CPT/HCPCS: 99211

== ENCOUNTER → 2020-12-21 | Outpatient (CLI) | payer MEDICARE, BC ==
[2020-12-21 14:15] VITALS: BP 137/83; PULSE 103; RESP 18; TEMP 98.2
--- NOTE | 2020-12-21 14:34 | P.PN ---
Subjective Progress Note Date: 12/21/20 This is a 6-year-old lady with history of chronic lower back pain with radiation to the hips bilaterally. The patient's pain has been well-controlled with a combination of intervention pain procedures and oral opioids including [place] 5 mg twice a day and Motrin 600 mg twice a day if needed. The patient had spinal cord stimulator placed a few years ago however he stopped working and she had the lead programmer analyst removed. She never had any back surgeries previously except for placement of the spinal cord stimulator. Patient denies new-onset weakness, bowel/bladder incontinence, or any other signs or symptoms of cauda equina syndrome. There are no signs of acute int oxication, and no indications of medication diversion or overuse. In addition to above, 13-point review of systems is also negative for chest pain, shortness of breath, changes in vision, changes in hearing, new onset weakness, abdominal pain, diarrhea, extreme fatigue, malaise, fever, skin changes, homicidal or suicidal ideation, or bowel or bladder incontinence. Vital Signs: Reviewed in EMR Gen: AAOx3, NAD HEENT: PERRLA,hearing grossly normal Pulm: resp unlabored Neck: supple, trachea midline Neuro exam of the lower extremities: Straight leg raising test: Stevie's test: Range of motion of the lumbar spine: Facet loading test: Tenderness in the paravertebral musculature: Neuro: CN II-XII grossly intact, Imaging: Reviewed in EMR/chart Assessment: Morbid obesity Lumbar spondylosis without myelopathy Lumbar DDD Opioid dependence Idle spinal cord stimulation leads Plan: 1. Explanation: Opioid and psychological risk scores were reviewed. Diagnoses, prognoses, and multiple treatment options including but not limited to physical therapy, interventional therapies, adjuvant medical therapies, narcotic medication therapies, and surgery were discussed with the patient and all questions were answered to the patient's satisfaction. 2. Opioid agreement: Signed with the patient and the patient is warned not to use opioids while driving or before driving and not to combine opioids with benzodiazepines or alcohol. 3. Counseling: The patient was counseled extensively on SMOKING CESSATION, BODY MASS INDEX, EXERCISE. Specifically, the patient was instructed regarding the importance of smoking cessation, obesity, and exercise in the context of both chronic pain and overall health. 4. Procedures: None for now 5. Consultations: None 6. Investigations: None 7. Medications: Continue [place] 5 mg twice a day #60 pills with 1 refill and Motrin 600 mg twice a day with one refill. I encouraged the patient to decrease the usage of Motrin if possible to avoid any side effects. 8. Disposition: Return to clinic in 8 weeks 9. Maps were reviewed and were appropriate. Controlled Substance Measures Is patient prescribed a controlled substance at discharge?: Yes When asked, does pt state using other controlled substances?: No If prescribed controlled substance>3 days was MAPS reviewed?: Yes If Rx opioid, was Start Talking consent form obtained?: Yes If opioid is for acute pain is fill amount 7 days or less?: No Was information provided regarding opioid addiction?: Yes Objective - Vital Signs Vital signs: Vital Signs Temp 98.2 F 12/21/20 14:13 Pulse 103 H 12/21/20 14:13 Resp 18 12/21/20 14:13 BP 137/83 12/21/20 14:13 Pulse Ox 95 12/21/20 14:13
== END | disposition home or self-care (01) ==
LOC: PNWHC3 13:57
PROVIDERS: ATTEND Anesthesiology
DX: M51.36 Other intervertebral disc degeneration, lumbar region (principal); M47.816 Spondylosis without myelopathy or radiculopathy, lumbar region; E66.01 Morbid (severe) obesity due to excess calories; F11.20 Opioid dependence, uncomplicated; Z79.1 Long term (current) use of non-steroidal anti-inflammatories (NSAID); Z79.891 Long term (current) use of opiate analgesic; Z79.899 Other long term (current) drug therapy
CPT/HCPCS: 80307; G0482; G0463; 99211; 99212

== ENCOUNTER → 2021-02-15 | Outpatient (CLI) | payer MEDICARE, BC ==
[2021-02-15 13:56] VITALS: BP 120/86; PULSE 89; RESP 18; TEMP 98
--- NOTE | 2021-02-15 15:19 | P.PN ---
Subjective Progress Note Date: 02/15/21 This is follow up visit for this 60 years old female with history of severe chronic low back pain ,patient diagnosed with lumbar spondylosis, and lumbar bulging disc disease and right sacroiliitis , previously we have done lumbar epidural steroid injections, and recently we have been RFA of the sacroiliac joint, patient currently complaining of severe low back pain in the low back area mainly in the right buttock , she denies any motor or sensory deficit she denies any fever or numbness with and is no focal neurological deficit, she continued to use [place] 5/325 every 12 hours when necessary, and Motrin 600 mg every 8 hours when necessary and she reported the current medication helping her to control her pain she denies any side effect of the medication, she denies any excessive drowsiness or sleepiness, currently she reported that most of the pain in the right side low back area radiated to the right buttock, the pain increases with any activity and interfere with her quality of life - Exam Physical Examinations : -Constitutiona : Cooperative , not in acute distress . -HEENT : nech : supple , no Lymphadenopathy , normal thyroid size . : eyes : no ptosis , no icterus, no photophobia . - neurologic : Cranial nerve II to XII intact , no focal neurological deffecit . -psychatric : alert , oriented X 3 , appropriate affect , intact judgment and insight . -Lymphatic : no Lymphadenopathy . - musculoskeltal : Lumber spine moter stegnth lower extremities ,thigh and legs 5/5 Right side , 5/5 Left side deep tendon reflexes : normal Knee Jerk , normal ankle Jerk lumber facet Loading Test =positive Right , positive Left Range of motion of the lumbar spine Flexion 30 degrees, extension 10 degrees strait leg raising test = positive at 45 degree Fabere test= positive Right , and positive LT . Sever tenderness over the Sacroiliac joint on the Right . Gaenslen test= positive right . Seated flexion test= positive right . Distraction test= positive Right Sacroiliac compression test= positive right . Assessment and Plan chronic low back pain secondary to lumbar degenerative disc disease , lumbar spondylosis with lumbar facet arthropathy . Right Sacroiliitis chronic and current use of high-risk medication (opioids) Patient had good results with the previous RFA of the right sacroiliac joint Patient denies any side effects of the current pain medication and the current treatment/medication helping the patient to do activity of daily living , Diagnoses, prognosis, treatment options, including but not limited to physical therapy, medication management, interventional therapies, and surgery, were discussed with the patient All the questions answered The narcotic consent was signed and patient agreed and understood the side effects and complications of opioid treatment. Patient signed the narcotic agreement, and was orally counseled, not to overuse, not to abuse, not to Divert , not tp sell pain medication, and to take it as prescribed only, Patient was counseled not to drive or operate heavy equipment while using narcotic medication, and advised not to use alcohol or any Illicit drugs while using the narcotis. understanding that lack of compliance with any of the above instructions, will likely to cause discharge from, the pain service, not to renew his narcotic prescriptions MAPS Reviwed and it was apropriate . Medication managements= patient will be given prescription refills for [place] 5/325 every 12 hours dispense 60 with one refill, motrin 600 Q 8 H PRN Interventions= patient could benefit from RFA of the right sacroiliac joint (RFA of the right L5 and S1 dorsal dramas, RFA lateral branches S!,S2,S3 Time with Patient: Less than 30 PQRS Measure Charge Sheet Measure #130: Documentation of Current Meds in Medical Chart: Patient's medications documented in chart Measure #226: Tobacco Use: Screen & Cessation Intervention: Pt not a tobacco user Measure #111: Pneumonia Vaccination: Pneumococcal vaccine administered or previously received Measure #47: Advance Care Plan: Advance care planning discussed & documented, pt chose/unable to give Measure #412: Opioid Treatment Agreement: Documented signed opioid trtmnt agreemnt min once during opioid trtmnt Measure #408: Opioid Therapy Follow-up Evaluation: Patient had f/u eval minimum every 3 months during opioid therapy Measure #317: Preventitive Care & Scrn High Bld Press & F/U: Normal blood pressure, f/u not required Measure #128: Body Mass Index (BMI) Screening & Follow-up: BMI documented ABOVE normal parameters - f/u documented Measure #131: Pain Assessment & Follow-up: Pain positive & plan documented, Follow-up scheduled Measure #431: Unhealthy Alcohol Use Preventative Care & Scrn: Patient not identified as an unhealthy alcohol user Objective - Vital Signs Vital signs: Vital Signs Temp 98.0 F 02/15/21 13:46 Pulse 89 02/15/21 13:46 Resp 18 02/15/21 13:46 BP 120/86 02/15/21 13:46 Pulse Ox 94 L 02/15/21 13:46
== END ==
LOC: PNWHC3 13:13
PROVIDERS: ATTEND Specialist
DX: M51.36 Other intervertebral disc degeneration, lumbar region (principal); M47.816 Spondylosis without myelopathy or radiculopathy, lumbar region; G89.29 Other chronic pain; M46.1 Sacroiliitis, not elsewhere classified; Z79.891 Long term (current) use of opiate analgesic; Z87.891 Personal history of nicotine dependence
CPT/HCPCS: 99211

== ENCOUNTER → 2021-03-05 | Day surgery (SDC) | payer BC, MEDICARE ==
[2021-03-03 18:05] VITALS: BMI 37.1
[~2021-03-05] MED LIST changes: +IV FLUID CONTINUATION 1,000 ML IV ONE; +LACTATED RINGERS 1,000 ML IV ONE; -LACTATED RINGERS 1,000 ML IV SCH; +LIDOCAINE 1% INJ 10MG/ML (20 ML MDV) ONE; +MIDAZOLAM 2 MG/2 ML VIAL ONE; +ROPIVACAINE 5MG/ML 20ML VIAL ONE; +fentaNYL (PF) 50 MCG/ML 2 ML AMP ONE
[2021-03-05 13:12] VITALS: RESP 18; TEMP 97.8
--- NOTE | 2021-03-05 14:28 | P.PCN ---
Date of Procedure: 03/05/21 Description of Procedure: PREOPERATIVE DIAGNOSIS: 1-Lumbosacral spondylosis . 2- Right sacroiliitis post operative Diagnosis: . 1-Lumbosacral spondylosis . 2- Right sacroiliitis PROCEDURES: 1- Right radiofrequency thermocoagulation/ablation of the L5 dorsal ramus. 2- Right multi-site radiofrequency thermocoagulation/ablation of the right S1, S2, S3 lateral branches. The procedure was performed using fluoroscopic guidance during needle placement to assure proper position and maximize safety . ANESTHESIA: LOCAL ANESTHESIA with lidocaine 1% 5 ML and IV sedation with anesthesia team EBL: NONE INDICATION/MEDICAL NECESSITY: History of low back pain secondary to right sacroiliitis and lumbosacral arthropathy unresponsive to more conservative treatments. The patient reported more than 50% relief of pain symptoms following 2 previous diagnostic blocks with Bupivacaine. PROCEDURE DESCRIPTION: The patient was seen and identified in the preoperative area. Risks, benefits, complications, and alternatives were discussed with the patient. The patient agreed to proceed with the procedure and signed the consent. Vital signs were checked before and after the procedure and they remained stable. Patient ambulated to the procedure room and time out was completed. The patient was placed in the prone position on the procedure table and a pillow was placed under the abdomen to reduce lumbar lordosis. The lumbosacral area was prepped and draped in the usual sterile fashion. Critical pause was taken. L5 Dorsal Ramus RF: Using right oblique fluoroscopy, the junction of the transverse process and the superior articular process of the right S1 vertebra, which correspond to the fluoroscopic image of the "eye of the Escobar dog" was identified. Subsequently, a 10-cm 18 -gauge radiofrequency cannula with a 10-mm active tip was advanced under fluoroscopic guidance until contact was made with periosteum. At this level, the Sensory testing of the L5 dorsal ramus was performed at 50 Hz and 0 to 1 volt with production of concordant pain starting at 0.5 volt. Motor stimulation was done at 2.5 Hz with stimulation of mulitifidus muscle contration . No radicular symptoms or paresthesias were produced during the testing. Subsequently, the L5 dorsal ramus was subjected to a radiofrequency ablation at 80 degree celsius for 90 seconds . after 0.5% Ropivacaine 1 ml injected at each level after negative aspirations .The needle was withdrawn intact. S1, S2 ,S3, Lateral Branch RFA: The S1 S2 and S3 foramina were visualized .visualized secondary to a lot of gas in the pelvic area, for this reason I did the radiofrequency ablation of the I placed 3 20-gauge radiofrequency 10 mm active tip needles at the lateral edge of each foramen at the 3 oclock position. after needle placement confirmed with AP and lateral view then we did , the sensory testing of the S1,S2 ,S3 lateral branch was performed at 50 Hz and 0 to 1 volt at the three levels with production of concordant pain starting at 0.5 volt. Motor stimulation was done at 2.5 Hz. No radicular symptoms or paresthesias were produced during the testing. Subsequently, we did the radiofrequency ablation for 90 seconds at 80 degrees and after injecting 0.5 ml of preservative free Ropivacaine 0.5 % The needles was withdrawn intact after each injection. COMPLICATIONS: The patient tolerated the procedure well without any acute complications. DISPOSTION/PLAN: The patient ambulated to the recovery area after the procedure in a stable condition for observation. Patient was reexamined prior to discharge. Patient was observed for 30 minutes in the recovery area and was discharged home, accompanied by an adult, after meeting discharged criteria. Discharge instructions were give to the patient by the staff. Patient was specifically instructed not to drive today and to rest for the rest of the day. The patient will schedule a follow up visit in the clinic in weeks or earlier if needed.
--- NOTE | 2021-03-05 14:41 | FL ---
Fluoroscopy INDICATION: Pain FINDINGS: Fluoroscopy time: 16 seconds. Images obtained: 4. IMPRESSIONS: 1. Documentation of fluoroscopy.
[2021-03-05 14:54] VITALS: BP 151/86; PULSE 64
== END ==
LOC: ORPAIN 12:42
PROVIDERS: ATTEND Anesthesiology
DX: M47.817 Spondylosis without myelopathy or radiculopathy, lumbosacral region (principal); M46.1 Sacroiliitis, not elsewhere classified; Z79.1 Long term (current) use of non-steroidal anti-inflammatories (NSAID)
CPT/HCPCS: 64635; 64636; J2250; J2001; J3010; J2795; 64640

== ENCOUNTER → 2021-04-12 | Outpatient (CLI) | payer MEDICARE, BC ==
[2021-04-12 14:17] VITALS: BP 109/75; PULSE 85; RESP 18; TEMP 98
--- NOTE | 2021-04-12 14:39 | P.PN ---
Subjective Progress Note Date: 04/12/21 This is follow up visit for this 60 years old female with history of severe chronic low back pain ,patient diagnosed with lumbar spondylosis, and lumbar bulging disc disease and right sacroiliitis , previously we have done lumbar epidural steroid injections, and recently we have been RFA of the sacroiliac joint, patient currently complaining of severe low back pain in the low back area mainly in the right buttock , she denies any motor or sensory deficit she denies any fever or numbness with and is no focal neurological deficit, she continued to use [place] 5/325 every 12 hours when necessary, and Motrin 600 mg every 8 hours when necessary and she reported the current medication helping her to control her pain she denies any side effect of the medication, she denies any excessive drowsiness or sleepiness, currently she reported that most of the pain in the right side low back area radiated to the right buttock, the pain increases with any activity and interfere with her quality of life Physical Examinations : -Constitutiona : Cooperative , not in acute distress . -HEENT : nech : supple , no Lymphadenopathy , normal thyroid size . : eyes : no ptosis , no icterus, no photophobia . - neurologic : Cranial nerve II to XII intact , no focal neurological deffecit . -psychatric : alert , oriented X 3 , appropriate affect , intact judgment and insight . -Lymphatic : no Lymphadenopathy . - musculoskeltal : Lumber spine moter stegnth lower extremities ,thigh and legs 5/5 Right side , 5/5 Left side deep tendon reflexes : normal Knee Jerk , normal ankle Jerk lumber facet Loading Test =positive Right , positive Left Range of motion of the lumbar spine Flexion 30 degrees, extension 10 degrees strait leg raising test = positive at 45 degree Fabere test= positive Right , and positive LT . Sever tenderness over the Sacroiliac joint on the Right . Gaenslen test= positive right . Seated flexion test= positive right . Distraction test= positive Right Sacroiliac compression test= positive right . Computed tomography scan of the lumbar spine done 05/16/2019 L4 5 bulging disc and multilevel lumbar spondylosis with facet arthropathy Assessment and Plan chronic low back pain secondary to lumbar degenerative disc disease , lumbar spondylosis with lumbar facet arthropathy . Right Sacroiliitis chronic and current use of high-risk medication (opioids) status post RFA of the right sacroiliac joint Patient denies any side effects of the current pain medication and the current treatment/medication helping the patient to do activity of daily living , Diagnoses, prognosis, treatment options, including but not limited to physical therapy, medication management, interventional therapies, and surgery, were discussed with the patient All the questions answered The narcotic consent was signed and patient agreed and understood the side effects and complications of opioid treatment. Patient signed the narcotic agreement, and was orally counseled, not to overuse, not to abuse, not to Divert , not tp sell pain medication, and to take it as prescribed only, Patient was counseled not to drive or operate heavy equipment while using narcotic medication, and advised not to use alcohol or any Illicit drugs while using the narcotis. understanding that lack of compliance with any of the above instructions, will likely to cause discharge from, the pain service, not to renew his narcotic prescriptions MAPS Reviwed and it was apropriate . Medication managements= patient will be given prescription refills for [place] 5/325 every 12 hours dispense 60 with one refill, motrin 600 Q 8 H PRN Interventions= patient could benefit from caudal epidural steroid injections under fluoroscopy guidance Time with Patient: Less than 30 PQRS Measure Charge Sheet Measure #130: Documentation of Current Meds in Medical Chart: Patient's medications documented in chart Measure #226: Tobacco Use: Screen & Cessation Intervention: Pt not a tobacco user Measure #111: Pneumonia Vaccination: Pneumococcal vaccine administered or previously received Measure #47: Advance Care Plan: Advance care planning discussed & documented, pt chose/unable to give Measure #412: Opioid Treatment Agreement: Documented signed opioid trtmnt agreemnt min once during opioid trtmnt Measure #408: Opioid Therapy Follow-up Evaluation: Patient had f/u eval minimum every 3 months during opioid therapy Measure #317: Preventitive Care & Scrn High Bld Press & F/U: Normal blood pressu re, f/u not required Measure #128: Body Mass Index (BMI) Screening & Follow-up: BMI documented ABOVE normal parameters - f/u documented Measure #131: Pain Assessment & Follow-up: Pain positive & plan documented, Follow-up scheduled Measure #431: Unhealthy Alcohol Use Preventative Care & Scrn: Patient not identified as an unhealthy alcohol user Objective - Vital Signs Vital signs: Vital Signs Temp 98.0 F 04/12/21 14:03 Pulse 85 04/12/21 14:03 Resp 18 04/12/21 14:03 BP 109/75 04/12/21 14:03 Pulse Ox 95 04/12/21 14:03
== END ==
LOC: PNWHC3 13:27
PROVIDERS: ATTEND Specialist
DX: G89.29 Other chronic pain (principal); M51.36 Other intervertebral disc degeneration, lumbar region; M47.816 Spondylosis without myelopathy or radiculopathy, lumbar region; M46.1 Sacroiliitis, not elsewhere classified; Z79.891 Long term (current) use of opiate analgesic; Z87.891 Personal history of nicotine dependence
CPT/HCPCS: 99211

== ENCOUNTER → 2021-05-25 | Outpatient (CLI) | payer MEDICARE, BC ==
[2021-05-25 13:22] VITALS: BP 131/82; PULSE 83; RESP 18; TEMP 98.2
--- NOTE | 2021-05-25 14:20 | P.HPOB ---
History of Present Illness H&P Date: 05/25/21 Chief Complaint: The patient is here for her routine gynecologic exam and ma mmogram. This is a 60-year-old with an LMP of 1997. She is here to establish with this office. It has been about 8 years since her last pelvic exam. She is status post SHALINI in 1997 and left oophorectomy in 1998 for endometriosis. The patient is without gynecologic complaints. Review of Systems The patient's weight has been stable over the last year. She denies respiratory, cardiac, or G.I. problems. Past Medical History Past Medical History: Deep Vein Thrombosis (DVT), GERD/Reflux, Musculoskeletal Disorder, Osteoarthritis (OA) Additional Past Medical History / Comment(s): CHRONIC BACK PAIN, DVT TO LEFT LEG 1979. Osteopenia. Seasonal ALLERGIES. PAST [employer] WORKER HISTORY: She has no history of STDs. History of Any Multi-Drug Resistant Organisms: None Reported Past Surgical History: Back Surgery, Section, Hysterectomy, Orthopedic Surgery Additional Past Surgical History / Comment(s): LAMINECTOMY WITH SPINAL CORD STIMULATOR, SHALINI 1997, LEFT OOPHORECTOMY 1998, pain procedures, LEFT BUNIONECTOMY, COLONOSCOPY 2003. Past Anesthesia/Blood Transfusion Reactions: Postoperative Nausea & Vomiting (PONV) Additional Past Anesthesia/Blood Transfusion Reaction / Comment(s): PONV WITH BACK SURGERY. Past Psychological History: Anxiety, Depression Smoking Status: Former smoker Past Alcohol Use History: None Reported Additional Past Alcohol Use History / Comment(s): QUIT SMOKING 1984-STARTED IN 1972. PPD-3/4-1. Past Drug Use History: None Reported Additional History: She has been since 1990 and is not sexually active. She does not work outside of the home. - Past Family History Mother Family Medical History: CVA/TIA Additional Family Medical History / Comment(s): Bipolar disorder. Sister(s) Family Medical History: Cancer Additional Family Medical History / Comment(s): Breast cancer at age 60. Father Family Medical History: Myocardial Infarction ([place]) Brother(s) Family Medical History: Seizure Disorder Medications and Allergies Home Medications Medication Instructions Recorded Confirmed Type Citalopram Hydrobromide [CeleXA] 20 mg PO HS 08/04/14 05/25/21 History L.acidoph,Paracasei, B.lactis 1 tab PO DAILY 12/08/16 05/25/21 History [Probiotic] Magnesium/ Calcium 250 mg PO DAILY 06/20/19 05/25/21 History Multivitamins, Thera [Multivitamin 1 tab PO DAILY 08/12/19 05/25/21 History (formulary)] Loratadine [Claritin] 10 mg PO DAILY 04/22/20 05/25/21 History Diclofenac Sodium [Voltaren Gel] 4 gram TOPICAL BID PRN #100 gram 08/19/20 05/25/21 Rx HYDROcodone/APAP 5-325MG [[place] 1 tab PO Q12HR PRN 30 Days #60 tab 04/12/2104/30 Rx 5-325] Ibuprofen [Motrin] 600 mg PO Q8HR PRN #90 tab 04/12/21 05/25/21 Rx Allergies Allergy/AdvReac Type Severity Reaction Status Date / Time No Known Allergies Allergy Verified 05/25/21 13:18 Exam Vital Signs Temp Pulse Resp BP Pulse Ox 05/25/21 13:18 98.2 F 83 18 131/82 93 L Intake and Output 05/24/21 05/25/21 05/25/21 22:59 06:59 14:59 Other: Weight 94.801 kg Height 5 feet 1-1/2 inches, weight 209 pounds, BMI 38.9. This is a well-developed well-nourished white female who is alert and oriented times 3 in no acute distress. HEENT: Within normal limits. NECK: Supple without mass or thyromegaly. CHEST AND LUNGS: Clear to auscultation. HEART: Regular rate and rhythm. BREASTS: Are without mass or discharge. There is mild generalized bilateral breast tenderness. She has had some issues with breast soreness in the past but this did improve after decreasing caffeine intake. AXILLARY EXAM: Negative for adenopathy. BACK: Negative for CVA tenderness. ABDOMEN: Soft, nontender, without palpable masses. PELVIC EXAM: External genitalia appears normal with mild atrophy. Vagina appears normal with mild atrophy. There is no evidence of prolapse. Bimanual examination is negative for mass or tenderness. RECTAL EXAM: Rectovaginal exam is negative for mass or tenderness and is negative for occult blood. EXTREMITIES: Nontender. IMPRESSION: 1. 60-year-old menopausal female status post SHALINI and later left oophorectomy for benign reasons with normal gynecologic exam. 2. History of osteopenia. PLAN: 1. Pap smears have been discontinued. 2. Self breast awareness was discussed with the patient. 3. Screening mammogram will be done today. 4. Osteoporosis prevention was discussed. I have stressed the importance of adequate calcium, vitamin D and regular exercise. Recommended amounts of calcium and vitamin D were also discussed. We will plan on repeating bone density testing in 1 year at her annual well woman examination. 5. I have recommended screening colonoscopy since it is been nearly 20 years since she has had this done. She will arrange this through her PCP. 6. She was advised to return in one year for her annual well woman exam.
--- NOTE | 2021-05-27 11:55 | MM ---
Reason for exam: screening (asymptomatic). Last mammogram was performed 1 year and 5 months ago. History: Patient is postmenopausal. Family history of breast cancer in sister at age 60. Took hormonal contraceptives for 3 years. Physical Findings: A clinical breast exam by your physician is recommended on an annual basis and results should be correlated with mammographic findings. MG Screening Mammo w CAD Bilateral CC and MLO view(s) were taken. Prior study comparison: December 12, 2019, bilateral MG 3d screening mammo w/cad. August 13, 2018, bilateral MG 3d screening mammo w/cad. There are scattered fibroglandular densities. There is no discrete abnormality. No significant changes when compared with prior studies. ASSESSMENT: Negative, BI-RAD 1 RECOMMENDATION: Routine screening mammogram of both breasts in 1 year.
== END ==
LOC: WWCWWP 12:38
PROVIDERS: ATTEND Obstetrics & Gynecology
DX: Z12.31 Encounter for screening mammogram for malignant neoplasm of breast (principal); M19.90 Unspecified osteoarthritis, unspecified site; F32.9 Major depressive disorder, single episode, unspecified; F41.9 Anxiety disorder, unspecified; Z87.891 Personal history of nicotine dependence; Z80.3 Family history of malignant neoplasm of breast; Z90.710 Acquired absence of both cervix and uterus; Z86.718 Personal history of other venous thrombosis and embolism; Z87.39 Personal history of other diseases of the musculoskeletal system and connective tissue; Z90.721 Acquired absence of ovaries, unilateral
CPT/HCPCS: 77067

== ENCOUNTER → 2021-06-07 | Outpatient (CLI) | payer MEDICARE, BC ==
[2021-06-07 12:46] VITALS: BP 126/89; PULSE 89; RESP 18; TEMP 98.5
--- NOTE | 2021-06-07 12:55 | P.PAINPG ---
Subjective Progress Note Date: 06/07/21 This is follow up visit for this 60 years old female with history of severe chronic low back pain ,patient diagnosed with lumbar spondylosis, and lumbar bulging disc disease and right sacroiliitis , previously we have done lumbar epidural steroid injections, and recently we have been RFA of the sacroiliac joint, patient currently complaining of severe low back pain in the low back area mainly in the right buttock , she denies any motor or sensory deficit she denies any fever or numbness with and is no focal neurological deficit, she continued to use [place] 5/325 every 12 hours when necessary, and Motrin 600 mg every 8 hours when necessary and she reported the current medication helping her to control her pain she denies any side effect of the medication, she denies any excessive drowsiness or sleepiness, currently she reported that most of the pain in the right side low back area radiated to the right buttock, the pain increases with any activity and interfere with her quality of life. He is scheduled for a caudal epidural injection this . She is also planning on seeing a guest relations manager due to arthritis in her hands. Physical Examinations : -Constitutiona : Cooperative , not in acute distress . -HEENT : nech : supple , no Lymphadenopathy , normal thyroid size . : eyes : no ptosis , no icterus, no photophobia . - neurologic : Cranial nerve II to XII intact , no focal neurological deffecit . -psychatric : alert , oriented X 3 , appropriate affect , intact judgment and insight . -Lymphatic : no Lymphadenopathy . - musculoskeltal : Lumber spine moter stegnth lower extremities ,thigh and legs 5/5 Right side , 5/5 Left side deep tendon reflexes : normal Knee Jerk , normal ankle Jerk lumber facet Loading Test =positive Right , positive Left Range of motion of the lumbar spine Flexion 30 degrees, extension 10 degrees strait leg raising test = positive at 45 degree Fabere test= positive Right , and positive LT . Sever tenderness over the Sacroiliac joint on the Right . Gaenslen test= positive right . Seated flexion test= positive right . Distraction test= positive Right Sacroiliac compression test= positive right . Computed tomography scan of the lumbar spine done 05/16/2019 L4 5 bulging disc and multilevel lumbar spondylosis with facet arthropathy Assessment and Plan chronic low back pain secondary to lumbar degenerative disc disease , lumbar spondylosis with lumbar facet arthropathy . Right Sacroiliitis chronic and current use of high-risk medication (opioids) status post RFA of the right sacroiliac joint Patient denies any side effects of the current pain medication and the current treatment/medication helping the patient to do activity of daily living , Diagnoses, prognosis, treatment options, including but not limited to physical therapy, medication management, interventional therapies, and surgery, were discussed with the patient All the questions answered The narcotic consent was signed and patient agreed and understood the side effects and complications of opioid treatment. Patient signed the narcotic agreement, and was orally counseled, not to overuse, not to abuse, not to Divert , not tp sell pain medication, and to take it as prescribed only, Patient was counseled not to drive or operate heavy equipment while using narcotic medication, and advised not to use alcohol or any Illicit drugs while using the narcotis. understanding that lack of compliance with any of the above instructions, will likely to cause discharge from, the pain service, not to renew his narcotic prescriptions MAPS Reviwed and it was apropriate . Medication managements= patient will be given prescription refills for [place] 5/325 every 12 hours dispense 60 with one refill, motrin 600 Q 8 H PRN Interventions= caudal RUFINA scheduled this week I have spent 23 minutes on patient care today. The time was used to review the medical records including relevant urine studies and prescription history, review of the available imaging, evaluation and examination of the patient, coordination of care with the medical staff and if applicable referring physicians, as well as creation of the medical record. PQRS Measure Charge Sheet Measure #130: Documentation of Current Meds in Medical Chart: Patient's medications documented in chart Measure #226: Tobacco Use: Screen & Cessation Intervention: Pt not a tobacco user Measure #111: Pneumonia Vaccination: Pneumococcal vaccine administered or previously received Measure #47: Advance Care Plan: Advance care planning discussed & documented, pt chose/unable to give Measure #412: Opioid Treatment Agreement: Documented signed opioid trtmnt agreemnt min once during opioid trtmnt Measure #408: Opioid Therapy Follow-up Evaluation: Patient had f/u eval minimum every 3 months during opioid therapy Measure #317: Preventitive Care & Scrn High Bld Press & F/U: Normal blood pressure, f/u not required Measure #128: Body Mass Index (BMI) Screening & Follow-up: BMI documented ABOVE normal parameters - f/u documented Measure #131: Pain Assessment & Follow-up: Pain positive & plan documented, Follow-up scheduled Measure #431: Unhealthy Alcohol Use Preventative Care & Scrn: Patient not identified as an unhealthy alcohol user PQRS Measure Charge Sheet PQRS Narrative: Smoking Status Former smoker Narcotic Agreement Date Signed 04/29/20 Pain Intensity [Back] 6 Scale Used Numeric (1 - 10) Hx Alcohol Use (MH) Yes: Rare Home Medications: Ambulatory Orders Citalopram Hydrobromide [CeleXA] 20 mg PO HS 08/04/14 L.acidoph,Paracasei, B.lactis [Probiotic] 1 tab PO DAILY 12/08/16 Magnesium/ Calcium 250 mg PO DAILY 06/20/19 Multivitamins, Thera [Multivitamin (formulary)] 1 tab PO DAILY 08/12/19 Loratadine [Claritin] 10 mg PO DAILY 04/22/20 Diclofenac Sodium [Voltaren Gel] 4 gram TOPICAL BID PRN #100 gram 08/19/20 HYDROcodone/APAP 5-325MG [[place] 5-325] 1 tab PO Q12HR PRN 30 Days #60 tab 06/07/21 HYDROcodone/APAP 5-325MG [[place] 5-325] 1 tab PO Q6HR PRN 30 Days #60 tab 06/07/21 Ibuprofen [Motrin] 600 mg PO Q8HR PRN #90 tab 06/07/21 Controlled Substance Measures - Controlled Substance Measures Is patient prescribed a controlled substance at discharge?: Yes When asked, does pt state using other controlled substances?: No If prescribed controlled substance>3 days was MAPS reviewed?: Yes If Rx opioid, was Start Talking consent form obtained?: Yes If opioid is for acute pain is fill amount 7 days or less?: No Was information provided regarding opioid addiction?: No
== END ==
LOC: PNWHC3 12:28
PROVIDERS: ATTEND Anesthesiology
DX: M51.36 Other intervertebral disc degeneration, lumbar region (principal); M47.816 Spondylosis without myelopathy or radiculopathy, lumbar region; M46.1 Sacroiliitis, not elsewhere classified; G89.29 Other chronic pain; Z98.890 Other specified postprocedural states; Z79.891 Long term (current) use of opiate analgesic; Z87.891 Personal history of nicotine dependence
CPT/HCPCS: 80307; G0482; G0463; 99212

== ENCOUNTER 2021-06-10 11:30 | Day surgery (SDC) | payer MEDICARE, BC ==
[2021-06-02 13:50] VITALS: BMI 38.5
[~2021-06-10 11:30] MED LIST changes: -IV FLUID CONTINUATION 1,000 ML IV ONE; -LACTATED RINGERS 1,000 ML IV ONE; +LACTATED RINGERS 1,000 ML IV SCH; -LIDOCAINE 1% INJ 10MG/ML (20 ML MDV) ONE; -MIDAZOLAM 2 MG/2 ML VIAL ONE; -ROPIVACAINE 5MG/ML 20ML VIAL ONE; -fentaNYL (PF) 50 MCG/ML 2 ML AMP ONE
[2021-06-10 11:45] VITALS: RESP 18; TEMP 97.8
[2021-06-10] MEDS ORDERED: LACTATED RINGERS 1,000 ML IV ONE (11:45)
[2021-06-10] MEDS ORDERED: fentaNYL (PF) 50 MCG/ML 2 ML AMP ONE (12:19)
[2021-06-10] MEDS ORDERED: IOPAMIDOL M200 10 ML VIAL ONE (12:19)
[2021-06-10] MEDS ORDERED: SODIUM CHLORIDE 0.9% (PF) 10 ML VIAL ONE (12:19)
[2021-06-10] MEDS ORDERED: methylPREDNISolone ACETATE 40 MG/ML 1 ML VIAL ONE (12:19)
[2021-06-10] MEDS ORDERED: MIDAZOLAM 2 MG/2 ML VIAL ONE (12:19)
--- NOTE | 2021-06-10 12:38 | P.PCN ---
Date of Procedure: 06/10/21 Procedure(s) Performed: PREOPERATIVE DIAGNOSIS: 1-lumbar degenerative disc disease. 2-lumbar spondylosis and lumbar facet arthropathy. 3-sacroiliitis POSTOPERATIVE DIAGNOSIS: same as pre op diagnosis. PROCEDURE: 1. Caudal epidural steroid injection under fluoroscopic guidance. (Fluoroscopy images available in the radiology department ) 2. Caudal epidurogram ANESTHESIA: Local with 1% lidocaine; 5ml for subcutaneous infiltrations and ,and moderate sedations with IV versed 2 mg ,and fentanyl 50 mcg EBL: None. PROCEDURE INDICATION: The patient with neuropathic pain radiating distally returns for caudal epidural steroid injection. PROCEDURE DESCRIPTION: The patient was seen and identified in the preoperative area. Risks, benefits, complications, and alternatives were discussed with the patient. The patient agreed to proceed with the procedure and signed the consent. IV was started, and vital signs were stable. Patient was taken to the OR and time out was completed. The patient was placed in the prone position on procedure table and a pillow was placed under the a bdomen to reduce lumbar lordosis. The lumbosacral area was prepped and draped in the usual sterile fashion. Critical pause was taken. Vital signs were closely monitored during the procedure. Using lateral fluoroscopy the anterior-posterior plates of the sacrum were identified and the skin and deeper tissues corresponding into sacrococcygeal ligament were anesthetized using approximately 3 mL of 1% lidocaine. Then under fluoroscopy, a 3-1/2-inch 20-gauge Tuohy epidural needle was guided through the sacrococcygeal ligament, and into the epidural space. After negative aspiration, a 2 mL of Isovue 200 contrast dye was injected with excellent epidurogram. Again after negative aspiration for CSF, blood, and with no paresthesias, then Depo-Medrol 80mg, 2ml of 1% preservative free Lidocaine with 6 ml of preservative free normal saline(total of 9 ml)solution was injected with washout of epidurogram. Needle was withdrawn intact. Skin was cleansed, and bandage was applied. COMPLICATIONS: None DISPOSITION / PLANS: The patient was placed in a supine position and transferred to the recovery area in a stable condition for observation and was discharged from the recovery room after meeting discharge criteria. Home discharge instructions given to the patient by the staff. The patient was reexamined prior to discharge. The patient will schedule a follow up in the clinic in 2-4 weeks.
[2021-06-10] MEDS ORDERED: IV FLUID CONTINUATION 1,000 ML IV ONE (12:41)
--- NOTE | 2021-06-10 12:43 | FL ---
EXAMINATION TYPE: FL guided pain mgmt statistic DATE OF EXAM: 06/10/2021 HISTORY: Fluoroscopy time 4 seconds of fluoroscopy provided. IMPRESSION: 1. Fluoroscopy time.
[2021-06-10 12:57] VITALS: BP 136/84; PULSE 65
== END 2021-06-10 13:12 | disposition home or self-care (01) ==
LOC: ORPAIN 11:30
PROVIDERS: ATTEND Specialist
DX: M47.816 Spondylosis without myelopathy or radiculopathy, lumbar region (principal); M46.1 Sacroiliitis, not elsewhere classified; M51.36 Other intervertebral disc degeneration, lumbar region
CPT/HCPCS: 62323; J2250; J1030; J3010; Q9966

== ENCOUNTER 2021-06-24 17:06 | Emergency (ER) | payer MEDICARE, BC ==
[2021-06-24 17:20] VITALS: PULSE 75; TEMP 97.7
--- NOTE | 2021-06-24 17:48 | ED ---
General Adult HPI - General Chief complaint: Extremity Injury, Lower Stated complaint: Fall, toe injury Time Seen by Provider: 06/24/21 17:28 Source: patient Mode of arrival: ambulatory Limitations: no limitations - History of Present Illness Initial comments: Dictation was produced using [employer] dictation software. please excuse any grammatical, word or spelling errors. Chief Complaint: 60-year-old female presents with left foot pain History of Present Illness: An is a 60-year-old female presents with left foot pain. Patient's was wearing shoe when she stubbed her foot into the door casing. Patient now has pain in the left foot at the fifth metatarsal head. The ROS documented in this emergency department record has been reviewed and confirmed by me. Those systems with pertinent positive or negative responses have been documented in the HPI. All other systems are other negative and/or noncontributory. PHYSICAL EXAM: General Impression: Alert and oriented x3, not in acute distress HEENT: Normocephalic atraumatic, extra-ocular movements intact, pupils equal and reactive to light bilaterally, mucous membranes moist. Cardiovascular: Heart regular rate and rhythm Chest: Able to complete full sentences, no retractions, no tachypnea Left foot: Tenderness to palpation over the left fifth metatarsal head Motor: no focal deficits noted Neurological: CN II-XII grossly intact, no focal motor or sensory deficits noted Skin: Intact with no visualized rashes Psych: Normal affect and mood ED course: 60-year-old female presents with left foot pain after striking her foot on the door casing. Vital signs upon arrival are within acceptable limits. Foot x-ray shows fifth metatarsal fracture. No other issues noted. Patient placed in a posterior mold short splint. Patient discharged with referral to orthopedic surgery. Patient given crutches. Told to remain nonweightbearing to that extremity for the time being. - Related Data Home Medications Medication Instructions Recorded Confirmed Citalopram Hydrobromide [CeleXA] 20 mg PO HS 08/04/14 06/02/21 L.acidoph,Paracasei, B.lactis 1 tab PO DAILY 12/08/16 06/02/21 [Probiotic] Magnesium/ Calcium 250 mg PO DAILY 06/20/19 06/02/21 Multivitamins, Thera [Multivitamin 1 tab PO DAILY 08/12/19 06/02/21 (formulary)] Loratadine [Claritin] 10 mg PO DAILY 04/22/20 06/02/21 Previous Rx's Medication Instructions Recorded Diclofenac Sodium [Voltaren Gel] 4 gram TOPICAL BID PRN #100 gram 08/19/20 HYDROcodone/APAP 5-325MG [[place] 1 tab PO Q12HR PRN 30 Days #60 tab 06/07/21 5-325] HYDROcodone/APAP 5-325MG [[place] 5] 1 each PO Q12HR PRN 30 Days #60 tab 06/07/21 Ibuprofen [Motrin] 600 mg PO Q8HR PRN #90 tab 06/07/21 Allergies Allergy/AdvReac Type Severity Reaction Status Date / Time No Known Allergies Allergy Verified 06/24/21 17:19 Review of Systems ROS Statement: Those systems with pertinent positive or pertinent negative responses have been documented in the HPI. ROS Other: All systems not noted in ROS Statement are negative. Past Medical History Past Medical History: Deep Vein Thrombosis (DVT), GERD/Reflux, Musculoskeletal Disorder, Osteoarthritis (OA) Additional Past Medical History / Comment(s): CHRONIC BACK PAIN, DVT TO LEFT LEG 1979. Bilateral carpal tunnel currently flared up, had injection in hand. History of Any Multi-Drug Resistant Organisms: None Reported Past Surgical History: Back Surgery, Section, Hysterectomy, Orthopedic Surgery Additional Past Surgical History / Comment(s): LAMINECTOMY WITH SPINAL CORD STIMULATOR, SHALINI 1997, LEFT OOPHORECTOMY 1998, pain procedures, LEFT B UNIONECTOMY, COLONOSCOPY 2003. Past Anesthesia/Blood Transfusion Reactions: Postoperative Nausea & Vomiting (PONV) Additional Past Anesthesia/Blood Transfusion Reaction / Comment(s): PONV WITH BACK SURGERY. Past Psychological History: Anxiety, Depression Smoking Status: Never smoker Past Alcohol Use History: None Reported - Past Family History Mother Family Medical History: Cancer, CVA/TIA Additional Family Medical History / Comment(s): BREAST CANCER. Sister(s) Family Medical History: Cancer Additional Family Medical History / Comment(s): Breast cancer at age 60. Father Family Medical History: Myocardial Infarction (CA) Brother(s) Family Medical History: Seizure Disorder General Exam Limitations: no limitations Course Vital Signs 06/24/21 06/24/21 17:15 18:37 Temperature 97.7 F Pulse Rate 75 75 Respiratory 19 18 Rate Blood Pressure 147/87 124/85 O2 Sat by Pulse 97 98 Oximetry Procedures - Orthopedic Splinting/Casting Injury #1 Side: left Lower Extremity Injury Location: foot Lower Extremity Immobilizer: posterior splint Other Orthopedic Equipment: crutches Disposition Clinical Impression: Foot fracture Disposition: HOME SELF-CARE Condition: Fair Instructions (If sedation given, give patient instructions): Foot Fracture in Adults (ED) Is patient prescribed a controlled substance at d/c from ED?: No Referrals: Roberto Tucker MD [STAFF PHYSICIAN] - 1-2 days
[2021-06-24 18:39] VITALS: BP 124/85; RESP 18
--- NOTE | 2021-06-24 19:25 | XR ---
EXAMINATION TYPE: XR foot complete LT DATE OF EXAM: 06/24/2021 COMPARISON: NONE HISTORY: 60 years Female. STUDY INDICATION GIVEN: stubbed foot, 5th metatarsal pain . TECHNIQUE: 3 radiographs of the left foot IMPRESSION: Acute slightly displaced fracture of the fifth metatarsal with overlying soft tissue swelling. Mild a rthritic changes in the foot.
== END 2021-06-24 18:37 | disposition home or self-care (01) ==
LOC: EC 17:06
DX: S92.352A Displaced fracture of fifth metatarsal bone, left foot, initial encounter for closed fracture (principal); K21.9 Gastro-esophageal reflux disease without esophagitis; M19.90 Unspecified osteoarthritis, unspecified site; F41.9 Anxiety disorder, unspecified; F32.9 Major depressive disorder, single episode, unspecified; Z90.710 Acquired absence of both cervix and uterus; Z86.718 Personal history of other venous thrombosis and embolism; W22.8XXA Striking against or struck by other objects, initial encounter
CPT/HCPCS: 29515; 99283

== ENCOUNTER → 2021-09-13 | Outpatient (CLI) | payer MEDICARE, BC ==
[2021-09-13 14:05] VITALS: BP 112/89; PULSE 87; RESP 18; TEMP 98.2
--- NOTE | 2021-09-13 14:16 | P.PN ---
Subjective Progress Note Date: 09/13/21 This is follow up visit for this 61 years old female with history of severe chronic low back pain ,patient diagnosed with lumbar spondylosis, and lumbar bulging disc disease and right sacroiliitis , previously we have done lumbar epidural steroid injections,also we have done RFA of the sacroiliac joint, and recently we did caudal epidural steroid injection which helped her the most, patient currently complaining of severe low back pain in the low back area mainly in the right buttock , she denies any motor or sensory deficit she denies any fever or numbness with and is no focal neurological deficit, she continued to use [place] 5/325 every 12 hours when necessary, and Motrin 600 mg every 8 hours when necessary and she reported the current medication helping her to control her pain she denies any side effect of the medication, she denies any excessive drowsiness or sleepiness, currently she reported that most of the pain in the right side low back area radiated to the right buttock, the pain increases with any activity and interfere with her quality of life Physical Examinations : -Constitutiona : Cooperative , not in acute distress . -HEENT : nech : supple , no Lymphadenopathy , normal thyroid size . : eyes : no ptosis , no icterus, no photophobia . - neurologic : Cranial nerve II to XII intact , no focal neurological deffecit . -psychatric : alert , oriented X 3 , appropriate affect , intact judgment and insight . -Lymphatic : no Lymphadenopathy . - musculoskeltal : Lumber spine moter stegnth lower extremities ,thigh and legs 5/5 Right side , 5/5 Left side deep tendon reflexes : normal Knee Jerk , normal ankle Jerk lumber facet Loading Test =positive Right , positive Left Range of motion of the lumbar spine Flexion 30 degrees, extension 10 degrees strait leg raising test = positive at 45 degree Fabere test= positive Right , and positive LT . Sever tenderness over the Sacroiliac joint on the Right . Gaenslen test= positive right . Seated flexion test= positive right . Distraction test= positive Right Sacroiliac compression test= positive right . Computed tomography scan of the lumbar spine done 05/16/2019 L4 5 bulging disc and multilevel lumbar spondylosis with facet arthropathy Assessment and Plan chronic low back pain secondary to lumbar degenerative disc disease , lumbar spondylosis with lumbar facet arthropathy . Right Sacroiliitis chronic and current use of high-risk medication (opioids) status post RFA of the right sacroiliac joint Patient denies any side effects of the current pain medication and the current treatment/medication helping the patient to do activity of daily living , Diagnoses, prognosis, treatment options, including but not limited to physical therapy, medication management, interventional therapies, and surgery, were discussed with the patient All the questions answered The narcotic consent was signed and patient agreed and understood the side effects and complications of opioid treatment. Patient signed the narcotic agreement, and was orally counseled, not to overuse, not to abuse, not to Divert , not tp sell pain medication, and to take it as prescribed only, Patient was counseled not to drive or operate heavy equipment while using narcotic medication, and advised not to use alcohol or any Illicit drugs while using the narcotis. understanding that lack of compliance with any of the above instructions, will likely to cause discharge from, the pain service, not to renew his narcotic prescriptions MAPS Reviwed and it was apropriate . Medication managements= patient will be given prescription refills for [place] 5/325 every 12 hours dispense 60 with one refill, motrin 600 Q 8 H PRN Interventions= patient could benefit from caudal epidural steroid injections under fluoroscopy guidance Time with Patient: Less than 30 PQRS Measure Charge Sheet Measure #130: Documentation of Current Meds in Medical Chart: Patient's medications documented in chart Measure #226: Tobacco Use: Screen & Cessation Intervention: Pt not a tobacco user Measure #111: Pneumonia Vaccination: Pneumococcal vaccine administered or previously received Measure #47: Advance Care Plan: Advance care planning discussed & documented, pt chose/unable to give Measure #412: Opioid Treatment Agreement: Documented signed opioid trtmnt agreemnt min once during opioid trtmnt Measure #408: Opioid Therapy Follow-up Evaluation: Patient had f/u eval minimum every 3 months during opioid therapy Measure #317: Preventitive Care & Scrn High Bld Press & F/U: Normal blood pressure, f/u not required Measure #128: Body Mass Index (BMI) Screening & Follow-up: BMI documented ABOVE normal parameters - f/u documented Measure #131: Pain Assessment & Follow-up: Pain positive & plan documented, Follow-up scheduled Measure #431: Unhealthy Alcohol Use Preventative Care & Scrn: Patient not identified as an unhealthy alcohol user Objective - Vital Signs Vital signs: Vital Signs Temp 98.2 F 09/13/21 14:00 Pulse 87 09/13/21 14:00 Resp 18 09/13/21 14:00 BP 112/89 09/13/21 14:00 Pulse Ox
== END ==
LOC: PNWHC3 13:07
PROVIDERS: ATTEND Specialist
DX: M47.816 Spondylosis without myelopathy or radiculopathy, lumbar region (principal); M51.36 Other intervertebral disc degeneration, lumbar region; G89.29 Other chronic pain; M46.1 Sacroiliitis, not elsewhere classified; Z79.891 Long term (current) use of opiate analgesic; Z87.891 Personal history of nicotine dependence
CPT/HCPCS: 80307; G0482; G0463; 99211; 99212

== ENCOUNTER 2021-11-16 10:43 | Day surgery (SDC) | payer MEDICARE, BC ==
[2021-11-10 09:57] VITALS: BMI 39.3
[2021-11-16 11:29] VITALS: TEMP 97.6
[2021-11-16] MEDS ORDERED: LACTATED RINGERS 1,000 ML IV ONE (11:33)
[2021-11-16] MEDS ORDERED: fentaNYL (PF) 50 MCG/ML 2 ML AMP ONE (12:03)
[2021-11-16] MEDS ORDERED: IOPAMIDOL M200 10 ML VIAL ONE (12:03)
[2021-11-16] MEDS ORDERED: ROPIVACAINE 5MG/ML 20ML VIAL ONE (12:03)
[2021-11-16] MEDS ORDERED: methylPREDNISolone ACETATE 40 MG/ML 1 ML VIAL ONE (12:03)
[2021-11-16] MEDS ORDERED: MIDAZOLAM 2 MG/2 ML VIAL ONE (12:03)
--- NOTE | 2021-11-16 12:18 | P.PCN ---
Date of Procedure: 11/16/21 Description of Procedure: PREOPERATIVE DIAGNOSIS: Lumbar post laminectomy syndrome. POSTOPERATIVE DIAGNOSIS: Lumbar post laminectomy syndrome. PROCEDURE: 1. Caudal epidural steroid injection under fluoroscopic guidance. 2. Caudal epidurogram Imaging: Fluoroscopy was used, images where saved to the medical record ANESTHESIA: Local with 1% lidocaine; 5ml for subcutaneous infiltrations and 2 mg of Versed 100 g of fentanyl PROCEDURE DESCRIPTION: The patient was seen and identified in the preoperative area. Risks, benefits, complications, and alternatives were discussed with the patient. The patient agreed to proceed with the procedure and signed the consent. Vital signs were stable. Patient was taken to the OR and time out was completed. The patient was placed in the prone position on procedure table and a pillow was placed under the abdomen to reduce lumbar lordosis. The lumbosacral area was prepped and draped in the usual sterile fashion. Critical pause was taken. Vital signs were closely monitored during the procedure. Using lateral fluoroscopy the anterior-posterior plates of the sacrum were identified and the skin and deeper tissues corresponding into sacrococcygeal ligament were anesthetized using approximately 5 mL of 1% lidocaine. Then under fluoroscopy, a 3-1/2-inch 22-gauge spinal needle was guided through the sacrococcygeal ligament, and into the epidural space. After negative aspiration, a 2 mL of omnipaque-180 contrast dye was injected with excellent epidurogram. Again after negative aspiration for CSF, blood, and with no paresthesias, methylprednisolone 40mg along with 2ml of 0.5% ropivacaine with 2 ml of preservative free normal saline (total of 5ml) solution was injected with washout of epidurogram. Needle was withdrawn intact. Skin was cleansed, and bandage was applied. COMPLICATIONS: None DISPOSITION / PLANS: The patient was placed in a supine position and transferred to the recovery area in a stable condition for observation and was discharged from the recovery room after meeting discharge criteria. Home discharge instructions given to the patient by the staff. The patient was reexamined prior to discharge. The patient will schedule a follow up in the clinic in 2-4 weeks.
[2021-11-16] MEDS ORDERED: IV FLUID CONTINUATION 900 ML IV ONE (12:24)
[2021-11-16 12:28] VITALS: RESP 20
--- NOTE | 2021-11-16 12:36 | FL ---
Fluoroscopy INDICATION: Pain FINDINGS: Fluoroscopy time: 3 seconds. Images obtained: 2. IMPRESSIONS: 1. Documentation of fluoroscopy.
[2021-11-16 12:43] VITALS: BP 117/81; PULSE 76
== END 2021-11-16 12:53 | disposition home or self-care (01) ==
LOC: ORPAIN 10:43
PROVIDERS: ATTEND Hospitalist
DX: M96.1 Postlaminectomy syndrome, not elsewhere classified (principal); M51.36 Other intervertebral disc degeneration, lumbar region; M54.50 Low back pain, unspecified
CPT/HCPCS: 62323; J2250; J1030; J3010; Q9966; J2795

== ENCOUNTER → 2021-11-24 | Outpatient (CLI) | payer MEDICARE, BC ==
--- NOTE | 2021-11-24 14:08 | CT ---
EXAMINATION TYPE: CT lumbar spine wo con DATE OF EXAM: 11/24/2021 1:45 PM COMPARISON: CT lumbar spine May 16, 2019 HISTORY: lower back pain CT DLP: 1229.7 mGycm Automated exposure control for dose reduction was used. Unenhanced CT of the lumbar spine was performed. Bone and soft tissue window settings are submitted as well as coronal and sagittal reconstructions. There are 5 lumbar type vertebra redemonstrated. Slight levoconvex scoliotic curvature centered at L2 -L3 level on coronal images is again seen. Alignment is satisfactory on sagittal images. Vertebral verna dy heights and disc space heights are fairly well maintained. There is disc calcification at L2-L3 le ranulfo redemonstrated. Axial images at T12-L1, L1-L2, L2-L3, and L3-L4 levels remain within normal limits. Axial images at L4-L5 level show moderate right and mild left-sided facet arthropathy. Mild broad bas ed posterior disc protrusion. Spinal canal is minimally effaced anteriorly. There is mild bilateral a nterior inferior neural foraminal narrowing seen. No significant change from prior. Axial images at L5-S1 level mild to moderate left greater than right facet arthropathy. Spinal canal is preserved. Bilateral neural foramina are patent. No significant change from prior. Paraspinal muscle bulk is preserved. IMPRESSION: Mild multilevel degenerative changes lower lumbar spine as detailed above. No significant change from prior CT.
== END | disposition home or self-care (01) ==
LOC: RADCTMAIN 13:26
PROVIDERS: ATTEND Specialist
DX: M47.817 Spondylosis without myelopathy or radiculopathy, lumbosacral region (principal); M51.26 Other intervertebral disc displacement, lumbar region; M41.86 Other forms of scoliosis, lumbar region
CPT/HCPCS: 72131

== ENCOUNTER → 2021-12-23 | Outpatient (CLI) | payer MEDICARE, BC ==
[2021-12-23 11:09] VITALS: BP 136/89; PULSE 88; RESP 18; TEMP 98.2
--- NOTE | 2021-12-23 11:22 | P.PN ---
Subjective Progress Note Date: 12/23/21 Principal diagnosis: A 61 yr old female with a history of severe and chronic low back pain secondary to lumbar degenerative disc diseases and lumbar spondylosis with facet arthropathy presents today for evaluation status post caudal RUFINA and medication refills. Patient states she experienced 90% pain relief for one week status post procedure. Pain level is currently at 7 out of 10 in intensity, dull and achy in the tailbone area with radiation of sharp, electrical shocks in the right thigh. Pain is provoked by standing for periods of 15 minutes or walking for periods of 10 minutes or more. Pain is alleviated with medications, topicals, injections, heat, home exercise regimen, repositioning and rest. Patient has not interested in an additional caudal RUFINA at this time. She is following up with a railroad car loader for issues with her cervical spine. Interventional pain procedures completed include caudal RUFINA Patient is currently on [place] 5/325 #60, Motrin 800 #60 Patient denies any side effects of the medication(s), denies excessive drowsiness or sleepiness, denies suicidal ideation and reports that the current pain medication is helping to control the pain and improve activities of daily living. Patient denies any motor or sensory deficits. Patient denies any fever or night sweats, denies any change in the bowel movements or urination. Physical Examination: -Constitutional: Cooperative. Not in acute distress . -HEENT: Neck is supple. No lymphadenopathy. No thyromegaly. Normal thyroid size. Eyes: No ptosis , no icterus, no photophobia. ENT: No auditory deficits. Normal oropharynx. No Thrush. - Respiratory: Chest clear to auscultations bilaterally. No wheezing. No rhonchi. - Cardiovascular: Regular rate and rhythm. S1 / S2 , no S3 , no S4. - Gastrointestinal: Abdomen soft no tenderness. Bowel sounds positive in all four quadrants. No organomegaly. - Genitourinary: Deferred. - Neurologic: Cranial nerve II to XII intact. No focal neurological deficits. - Psychatric: Alert & oriented x 3. Matching mood & appropriate affect. Judgment and insight intact. - Lymphatic: No Lymphadenopathy. - Musculoskeletal: Cervical spine: Muscle bulk/ tone/ strength in the bilateral upper extremities normal. Facet loading test cervical area positive. Lumbar spine: Motor bulk/ tone/ strength lower extremities , thigh and legs : 5/5 Deep tendon reflexes : Normal Knee Jerk. Normal Ankle Jerk . Vertebral body tenderness to palpation over Lumbar Facet Loading Test positive Straight Leg Raise: positive at 30 degrees right side/ left side Gaenslen's Test positive Sacral spine : Severe tenderness over the Sacroiliac joint: right side / left side Range of motion: Flexion of the lumbar spine <60 degrees Range of motion: Extension of the lumbar spine <20 degrees Gaenslen's Test positive Rommel test: positive right side / left side Assessment and plan: Chronic low back pain secondary to lumbar degenerative disc disease , lumbar spondylosis with facet arthropathy without myelopathy Patient has not interested in a repeat procedures at this time. She is following up with a railroad car loader for neck concerns. All patient questions answered UDS from reviewed and was consistent MAPS reviewed and it was appropriate. Prescription refill for [place] 5/325 #60 with 1 refill, Motrin 800 mg #60 with 1 refill I have spent 31 minutes on patient care today. Dr Boss was available by phone for the evaluation of this patient. The time was used to review the medical records including relevant urine studies and Prescription history (MAPs), review of the available imaging, evaluation and examination of the patient, coordination of care with the medical staff and if applicable referring physicians, as well as creation of the medical record Objective - Vital Signs Vital signs: Vital Signs Temp 98.2 F 12/23/21 11:05 Pulse 88 12/23/21 11:05 Resp 18 12/23/21 11:05 BP 136/89 12/23/21 11:05 Pulse Ox 95 12/23/21 11:05 Intake & Output 12/22/21 12/23/21 12/23/21 18:59 06:59 18:59 Weight 99.79 kg PQRS Measure Charge Sheet Mode of Arrival: Ambulatory - Pain Location Right Back Non-Pharmacological Interventions: Heat, Home Exercise, Position/Reposition, Stretching Pharmacological Interventions: Block, Epidural, Medication, PRN Medication, Topical Medication PQRS Narrative: Smoking Status Former smoker Narcotic Agreement Date Signed 09/13/21 Blood Pressure 136/89 Pain Intensity [Right Back] 7 Scale Used Numeric (1 - 10) Hx Alcohol Use (MH) Yes: Rare Home Medications: Ambulatory Orders Citalopram Hydrobromide [CeleXA] 20 mg PO HS 08/04/14 L.acidoph,Paracasei, B.lactis [Probiotic] 1 tab PO DAILY 12/08/16 Multivitamins, Thera [Multivitamin (formulary)] 1 tab PO DAILY 08/12/19 Loratadine [Claritin] 10 mg PO DAILY 04/22/20 Diclofenac Sodium [Voltaren Gel] 4 gram TOPICAL BID PRN #100 gram 08/19/20 Magnesium 250 mg PO DAILY 11/10/21 HYDROcodone/APAP 5-325MG [[place] 5-325] 1 each PO Q12HR PRN 30 Days #60 tab 12/23/21 HYDROcodone/APAP 5-325MG [[place] 5] 1 each PO Q12HR PRN 30 Days #60 tab 12/23/21 Ibuprofen [Motrin] 600 mg PO Q8HR PRN 30 Days #90 tab 12/23/21
== END ==
LOC: PNWHC3 10:45
PROVIDERS: ATTEND Physician Assistant Medical
DX: M51.36 Other intervertebral disc degeneration, lumbar region (principal); M47.816 Spondylosis without myelopathy or radiculopathy, lumbar region; G89.29 Other chronic pain; Z87.891 Personal history of nicotine dependence
CPT/HCPCS: 99211

== ENCOUNTER → 2022-02-17 | Outpatient (CLI) | payer MEDICARE, BC ==
[2022-02-17 12:58] VITALS: BP 140/92; PULSE 85; RESP 16
--- NOTE | 2022-02-17 13:10 | P.PN ---
Subjective Progress Note Date: 02/17/22 Principal diagnosis: A 61 yr old female with a history of severe and chronic low back pain secondary to lumbar degenerative disc diseases and lumbar spondylosis with facet arthropathy presents today for medication refills. Pain level is currently at 5 out of 10 in intensity, localized in the right lower lumbar spine, burning, stabbing, achy, throbbing, constant in character with occasional radiation of pain to the right buttock and upper thigh. Pain is provoked by bending, twisting and lifting. Pain is alleviated with medications, topicals, heat, sitting, reclining and rest. Patient is currently on [place], Ibuprofen, Voltaren gel Patient denies any side effects of the medication(s), denies excessive drowsiness or sleepiness, denies suicidal ideation and reports that the current pain medication is helping to control the pain and improve activities of daily living. Patient denies any motor or sensory deficits. Patient denies any fever or night sweats, denies any change in the bowel movements or urination. Physical Examination: -Constitutional: Cooperative. Not in acute distress . -HEENT: Neck is supple. No lymphadenopathy. No thyromegaly. Normal thyroid size. Eyes: No ptosis , no icterus, no photophobia. ENT: No auditory deficits. Normal oropharynx. No Thrush. - Respiratory: Chest clear to auscultations bilaterally. No wheezing. No rhonchi. - Cardiovascular: Regular rate and rhythm. S1 / S2 , no S3 , no S4. - Gastrointestinal: Abdomen soft no tenderness. Bowel sounds positive in all four quadrants. No organomegaly. - Genitourinary: Deferred. - Neurologic: Cranial nerve II to XII intact. No focal neurological deficits. - Psychatric: Alert & oriented x 3. Matching mood & appropriate affect. Judgment and insight intact. - Lymphatic: No Lymphadenopathy. - Musculoskeletal: Cervical spine: Muscle bulk/ tone/ strength in the bilateral upper extremities normal. Facet loading test cervical area positive. Lumbar spine: Motor bulk/ tone/ strength lower extremities , thigh and legs : 5/5 Deep tendon reflexes : Normal Knee Jerk. Normal Ankle Jerk . Vertebral body tenderness to palpation over L4 Lumbar Facet Loading Test positive Straight Leg Raise: positive at 30 degrees right side/ left side Gaenslen's Test positive Sacral spine : Severe tenderness over the Sacroiliac joint: right side / left side Range of motion: Flexion of the lumbar spine <60 degrees Range of motion: Extension of the lumbar spine <20 degrees Gaenslen's Test positive Rommel test: positive right side / left side Assessment and plan: Chronic low back pain secondary to lumbar degenerative disc disease , lumbar spondylosis with facet arthropathy without myelopathy Chronic and current use of high-risk medication (Opioids). The patient was counseled about risk of opioid use, psychological risk associated with opioids and was orally counseled to not overuse , divert or sell medications. Pt is to store medication in a safe location. The patient is counseled against driving while using narcotic medications and also not to use alcohol or any illicit recreational drugs. Patient verbalized understanding that the lack of compliance will result in failure to renew narcotic prescription(s) as well as possible discharge from the clinic Diagnoses, prognosis and treatment options including but not limited to physical therapy, surgical interventions, interventional therapies and medication management including narcotics and adjuvant medication were discussed. All patient questions answered MAPS reviewed and it was appropriate. UDS reviewed and consistent. Prescription refill for [place] #60 w 1 refill. I have spent 31 minutes on patient care today. Dr Boss was available by phone for the evaluation of this patient. The time was used to review the medical records including relevant urine studies and Prescription history (MAPs), review of the available imaging, evaluation and examination of the patient, coordination of care with the medical staff and if applicable referring physicians, as well as creation of the medical record Objective - Vital Signs Vital signs: Vital Signs Temp Pulse 85 02/17/22 12:46 Resp 16 02/17/22 12:46 BP 140/92 02/17/22 12:46 Pulse Ox 95 02/17/22 12:46 PQRS Measure Charge Sheet Mode of Arrival: Ambulatory - Pain Location Right Lower Back Non-Pharmacological Interventions: Heat, Inactivity, Position/Reposition Pharmacological Interventions: Epidural, PRN Medication, Scheduled Medication, Topical Medication PQRS Narrative: Smoking Status Former smoker Narcotic Agreement Date Signed 09/13/21 Blood Pressure 140/92 Pain Intensity [Right Lower 5 Back] Scale Used Numeric (1 - 10) Hx Alcohol Use (MH) Yes: Rare Home Medications: Ambulatory Orders Citalopram Hydrobromide [CeleXA] 20 mg PO HS 08/04/14 L.acidoph,Paracasei, B.lactis [Probiotic] 1 tab PO DAILY 12/08/16 Multivitamins, Thera [Multivitamin (formulary)] 1 tab PO DAILY 08/12/19 Loratadine [Claritin] 10 mg PO DAILY 04/22/20 Diclofenac Sodium [Voltaren Gel] 4 gram TOPICAL BID PRN #100 gram 08/19/20 Magnesium 250 mg PO DAILY 11/10/21 Ibuprofen [Motrin] 600 mg PO Q8HR PRN 30 Days #90 tab 12/23/21 HYDROcodone/APAP 5-325MG [[place] 5-325] 1 each PO Q12HR PRN 30 Days #60 tab 02/17/22 HYDROcodone/APAP 5-325MG [[place] 5-325] 1 each PO Q12HR PRN 30 Days #60 tab 02/17/22
== END ==
LOC: PNWHC3 12:29
PROVIDERS: ATTEND Specialist
DX: M51.36 Other intervertebral disc degeneration, lumbar region (principal); M47.816 Spondylosis without myelopathy or radiculopathy, lumbar region; G89.29 Other chronic pain; Z79.891 Long term (current) use of opiate analgesic; Z87.891 Personal history of nicotine dependence
CPT/HCPCS: 99211

== ENCOUNTER → 2022-04-11 | Outpatient (CLI) | payer MEDICARE, BC ==
--- NOTE | 2022-04-11 23:36 | XR ---
EXAMINATION TYPE: XR shoulder complete LT DATE OF EXAM: 04/11/2022 COMPARISON: NONE INDICATION: Shoulder pain TECHNIQUE: 3 views of the left shoulder FINDINGS: Mild gapping at the acromioclavicular joint measuring up to 4 mm, underlying subtle ligamentous injur y cannot be excluded. Grossly unremarkable glenohumeral articulation. No definite acute fracture line identified. No humeral head dislocation or significant subluxation. N o signs of rotator cuff calcific tendinitis. Maintained acromiohumeral distance. IMPRESSION: No definite acute fracture or dislocation identified. Incidental findings as described above.
== END | disposition home or self-care (01) ==
LOC: RADXRMAIN 13:50
PROVIDERS: ATTEND Family Medicine
DX: M25.512 Pain in left shoulder (principal)

== ENCOUNTER → 2022-04-14 | Outpatient (CLI) | payer MEDICARE, BC ==
[2022-04-14 13:01] VITALS: BP 160/88; PULSE 85; RESP 18; TEMP 98.4
--- NOTE | 2022-04-14 13:10 | P.PAINPG ---
PQRS Measure Charge Sheet Comment: A 61 yr old female with a history of severe and chronic low back pain secondary to lumbar degenerative disc diseases and lumbar spondylosis with facet arthropathy presents today for medication refills. Pain level is currently at 4 out of 10 in intensity, burning, throbbing in the thoracic and lumbar spine as well as the radiating pain to the left shoulder and the left elbow status post injury. Patient underwent a left shoulder x-ray from her PCP which was negative and will follow up for additional testing. Pain is provoked by hyperextension of the lumbar spine or turning and flexing to the left. Pain is alleviated with medications, topicals, heat, home-based stretching regimen, repositioning and rest. She states the ibuprofen is causing abdominal pain and would like a substitute. Patient is currently on [place] 5/325 mg #60, ibuprofen when necessary, Voltaren gel when necessary. Patient denies any side effects of the medication(s), denies excessive drowsiness or sleepiness, denies suicidal ideation and reports that the current pain medication is helping to control the pain and improve activities of daily living. Patient denies any motor or sensory deficits. Patient denies any fever or night sweats, denies any change in the bowel movements or urination. Physical Examination: -Constitutional: Cooperative. Not in acute distress . -HEENT: Neck is supple. No lymphadenopathy. No thyromegaly. Normal thyroid size. Eyes: No ptosis , no icterus, no photophobia. ENT: No auditory deficits. Normal oropharynx. No Thrush. - Respiratory: Chest clear to auscultations bilaterally. No wheezing. No rhonchi. - Cardiovascular: Regular rate and rhythm. S1 / S2 , no S3 , no S4. - Gastrointestinal: Abdomen soft no tenderness. Bowel sounds positive in all four quadrants. No organomegaly. - Genitourinary: Deferred. - Neurologic: Cranial nerve II to XII intact. No focal neurological deficits. - Psychatric: Alert & oriented x 3. Matching mood & appropriate affect. Judgment and insight intact. - Lymphatic: No Lymphadenopathy. - Musculoskeletal: Cervical spine: Muscle bulk/ tone/ strength in the bilateral upper extremities normal Vertebral body tenderness to palpation over Facet loading test positive Thoracic spine Muscle bulk / tone/ strength in the bilateral paraspinal muscles normal Vertebral body tender to palpation over T4, T5, T6 Facet loading test positive Lumbar spine: Motor bulk/ tone/ strength lower extremities , thigh and legs : 5/5 Deep tendon reflexes : Normal Knee Jerk. Normal Ankle Jerk . Vertebral body tenderness to palpation over L3, L4, L5 Lumbar Facet Loading Test positive Straight Leg Raise: positive at 30 degrees right side/ left side Gaenslen's Test positive Sacral spine : Severe tenderness over the Sacroiliac joint: right side / left side Range of motion: Flexion of the lumbar spine <60 degrees Range of motion: Extension of the lumbar spine <20 degrees Gaenslen's Test positive Stevie's Test positive Rommel test: positive right side / left side Thigh Thrust Test Sacral Thrust Test Assessment and plan: Chronic low back pain secondary to lumbar degenerative disc disease , lumbar spondylosis with facet arthropathy without myelopathy Chronic and current use of high-risk medication (Opioids). The patient was counseled about risk of opioid use, psychological risk associated with opioids and was orally counseled to not overuse , divert or sell medications. Pt is to store medication in a safe location. The patient is counseled against driving while using narcotic medications and also not to use alcohol or any illicit recreational drugs. Patient verbalized understanding that the lack of compliance will result in failure to renew narcotic prescription(s) as well as possible discharge from the clinic Diagnoses, prognosis and treatment options including but not limited to physical therapy, surgical interventions, interventional therapies and medication management including narcotics and adjuvant medication were discuss ed. All patient questions answered MAPS reviewed and it was appropriate. Prescription refill for [place] 5/325 mg #60 & Diclofenac gel prn with 1 refill. Discontinue Ibuprofen. Start Naproxen 500mg BIDWM #60 w 1 refill. I have spent 31 minutes on patient care today. Dr Boss was available by phone for the evaluation of this patient. The time was used to review the medical records including relevant urine studies and Prescription history (MAPs), review of the available imaging, evaluation and examination of the patient, coordination of care with the medical staff and if applicable referring physicians, as well as creation of the medical record - Pain Location Left Shoulder Non-Pharmacological Interventions: Heat, Home Exercise, Inactivity, Position/Reposition, Stretching Pharmacological Interventions: PRN Medication, Topical Medication PQRS Narrative: Smoking Status Former smoker Narcotic Agreement Date Signed 09/13/21 Hx Alcohol Use (MH) Yes: Rare Home Medications: Ambulatory Orders Citalopram Hydrobromide [CeleXA] 20 mg PO HS 08/04/14 L.acidoph,Paracasei, B.lactis [Probiotic] 1 tab PO DAILY 12/08/16 Multivitamins, Thera [Multivitamin (formulary)] 1 tab PO DAILY 08/12/19 Loratadine [Claritin] 10 mg PO DAILY 04/22/20 Diclofenac Sodium [Voltaren Gel] 4 gram TOPICAL BID PRN #100 gram 08/19/20 Magnesium 250 mg PO DAILY 11/10/21 Ibuprofen [Motrin] 600 mg PO Q8HR PRN 30 Days #90 tab 12/23/21 HYDROcodone/APAP 5-325MG [[place] 5-325] 1 each PO Q12HR PRN 30 Days #60 tab 02/17/22 HYDROcodone/APAP 5-325MG [[place] 5-325] 1 each PO Q12HR PRN 30 Days #60 tab 02/17/22 Controlled Substance Measures - Controlled Substance Measures Is patient prescribed a controlled substance at discharge?: Yes When asked, does pt state using other controlled substances?: Yes If prescribed controlled substance>3 days was MAPS reviewed?: Yes If Rx opioid, was Start Talking consent form obtained?: Yes If opioid is for acute pain is fill amount 7 days or less?: Yes Was information provided regarding opioid addiction?: Yes
== END ==
LOC: PNWHC3 12:34
PROVIDERS: ATTEND Specialist
DX: M51.36 Other intervertebral disc degeneration, lumbar region (principal); M47.816 Spondylosis without myelopathy or radiculopathy, lumbar region; G89.29 Other chronic pain; Z79.891 Long term (current) use of opiate analgesic; Z88.6 Allergy status to analgesic agent; Z87.891 Personal history of nicotine dependence
CPT/HCPCS: 99211

== ENCOUNTER → 2022-06-02 | Outpatient (CLI) | payer MEDICARE, BC ==
--- NOTE | 2022-06-02 17:51 | BD ---
EXAMINATION TYPE: Axial Bone Density DATE OF EXAM: 06/02/2022 COMPARISON: 2018 CLINICAL HISTORY: 61 years year old Female. ICD-10 CODE: M81.0 known osteoporosis Height: 62 Weight: 215.8 FRAX RISK QUESTIONS: Alcohol (3 or more units per day): NO Family History (Parent hip fracture): NO Glucocorticoids (More than 3mos): NO History of Fracture in Adulthood: NO Secondary Osteoporosis: 1. Type 1 Diabetes: NO 2. Hyperthyroidism: NO 3. Menopause before 45: YES 4. Malnutrition: NO 5. Chronic liver disease: NO Rheumatoid Arthritis: NO Current Tobacco Use: NO RISK FACTORS HISTORY OF: Hip Fracture (Right/Left): NO Spine Fracture: NO History of Wrist Fracture: NO Surgery to Spine/Hip(right/left)/Wrist (right/left): PT HAS SPINAL CORD STIMULATOR IN [facility] WIT H BATTERY PACK RT PELVIS When: STIMULATOR 2010 Family History of Osteoporosis: NO Active: YES Diet low in dairy products/other sources of calcium: NO Postmenopausal woman: YES Take estrogen and/or progesterone medications: NO Lost more than 2 inches in height since high school: NO Frequent falls: NO Poor Health: YES Hyperparathyroidism: NO Adrenal Insufficiency: NO MEDICATIONS: Prednisone or other steroids: NO Thyroid Medications:NO Osteoporosis Medications: NO Additional Medications: MULTI VIT., MAGNESIUM, CALCIUM, VIT D, EXAM MEASUREMENTS: Bone mineral densitometry was performed using the [employer] System. Bone mineral density as measured about the Lumbar spine is: ----- L1-L4(G/cm2): 1.131 T Score Values are as follows: ----- L1: -0.9 ----- L2: -0.6 ----- L3: -0.5 ----- L4: 0.0 ----- L1-L4: -0.4 Bone mineral density has: INCREASED 2.4% since study of: 08/13/2018 Bone mineral density about the R hip (g/cm2): 0.934 Bone mineral density about the L hip (g/cm2): 0.888 T Score values are as follows: -----R Neck: -0.8 -----L Neck: -1.1 -----R Total: -0.9 -----L Total: -0.8 Bone mineral density has: INCREASED 3.8 % since study of: 08/13/2018 FRAX%s: The graph provided illustrates a 6.8% chance for a major osteoporotic fx and a 0.4% chance fo r the hips probability for fx in 10 years time. IMPRESSION: Osteopenia (T Score between -2.5 and -1). There is slightly increased risk of fracture and the patient may be considered for treatment. Re-Screen 2-5 years. NOTE: T-SCORE=SD OF THE YOUNG ADULT MEAN.
== END | disposition home or self-care (01) ==
LOC: RADBDWWP 15:42
PROVIDERS: ATTEND Family Medicine
DX: M85.89 Other specified disorders of bone density and structure, multiple sites (principal)
CPT/HCPCS: 77080

== ENCOUNTER → 2022-06-09 | Outpatient (CLI) | payer MEDICARE, BC ==
--- NOTE | 2022-06-09 13:44 | P.PAINPG ---
PQRS Measure Charge Sheet Comment: A 61 yr old female with a history of severe and chronic low back pain secondary to lumbar degenerative disc diseases and lumbar spondylosis with facet arthropathy presents today for medication refills. Pain level is currently at 7 out of 10 in intensity, dull/achy/burning, throbbing in the thoracic and lumbar spine as well as the radiating pain to the R glutes and RLE. Pain is provoked by standing/reaching and bending. Pain is alleviated with medications, topicals, heat, ice, home-based stretching regimen, repositioning and rest. She does not like Naproxen and still takes remaining Ibuprofen she has at home with food & water. Patient is currently on [place] 5/325 mg #60, Voltaren gel when necessary. Patient denies any side effects of the medication(s), denies excessive drowsiness or sleepiness, denies suicidal ideation and reports that the current pain medication is helping to control the pain and improve activities of daily living. Patient denies any motor or sensory deficits. Patient denies any fever or night sweats, denies any change in the bowel movements or urination. Physical Examination: -Constitutional: Cooperative. Not in acute distress . -HEENT: Neck is supple. No lymphadenopathy. No thyromegaly. Normal thyroid size. Eyes: No ptosis , no icterus, no photophobia. ENT: No auditory deficits. Normal oropharynx. No Thrush. - Respiratory: Chest clear to auscultations bilaterally. No wheezing. No rhonchi. - Cardiovascular: Regular rate and rhythm. S1 / S2 , no S3 , no S4. - Gastrointestinal: Abdomen soft no tenderness. Bowel sounds positive in all four quadrants. No organomegaly. - Genitourinary: Deferred. - Neurologic: Cranial nerve II to XII intact. No focal neurological deficits. - Psychatric: Alert & oriented x 3. Matching mood & appropriate affect. Judgment and insight intact. - Lymphatic: No Lymphadenopathy. - Musculoskeletal: Cervical spine: Muscle bulk/ tone/ strength in the bilateral upper extremities normal Vertebral body tenderness to palpation over Facet loading test positive Thoracic spine Muscle bulk / tone/ strength in the bilateral paraspinal muscles normal Vertebral body tender to palpation Facet loading test positive Lumbar spine: Motor bulk/ tone/ strength lower extremities , thigh and legs : 5/5 Deep tendon reflexes : Normal Knee Jerk. Normal Ankle Jerk . Vertebral body tenderness to palpation over L3, L4, L5 Lumbar Facet Loading Test positive Straight Leg Raise: positive at 30 degrees right side/ left side Gaenslen's Test positive Sacral spine : Severe tenderness over the Sacroiliac joint: right side / left side Range of motion: Flexion of the lumbar spine <60 degrees Range of motion: Extension of the lumbar spine <20 degrees Gaenslen's Test positive Stevie's Test positive Rommel test: positive right side / left side Thigh Thrust Test Sacral Thrust Test Assessment and plan: Chronic low back pain secondary to lumbar degenerative disc disease , lumbar spondylosis with facet arthropathy without myelopathy Chronic and current use of high-risk medication (Opioids). The patient was counseled about risk of opioid use, psychological risk associated with opioids and was orally counseled to not overuse , divert or sell medications. Pt is to store medication in a safe location. The patient is counseled against driving while using narcotic medications and also not to use alcohol or any illicit recreational drugs. Patient verbalized understanding that the lack of compliance will result in failure to renew narcotic prescription(s) as well as possible discharge from the clinic Diagnoses, prognosis and treatment options including but not limited to physical therapy, surgical interventions, interventional therapies and medication management including narcotics and adjuvant medication were discussed. All patient questions answered MAPS reviewed and it was appropriate. UDS collected today 06/09/22 Prescription refill for [place] 5/325 mg #60 w 1 refill. Still has Diclofenac gel. I have spent 31 minutes on patient care today. Dr Boss was available by phone for the evaluation of this patient. The time was used to review the medical records including relevant urine studies and Prescription history (MAPs), review of the available imaging, evaluation and examination of the patient, coordination of care with the medical staff and if applicable referring physicians, as well as creation of the medical record PQRS Narrative: Smoking Status Former smoker Narcotic Agreement Date Signed 09/13/21 Hx Alcohol Use (MH) Yes: Rare Home Medications: Ambulatory Orders Citalopram Hydrobromide [CeleXA] 20 mg PO HS 08/04/14 L.acidoph,Paracasei, B.lactis [Probiotic] 1 tab PO DAILY 12/08/16 Multivitamins, Thera [Multivitamin (formulary)] 1 tab PO DAILY 08/12/19 Loratadine [Claritin] 10 mg PO DAILY 04/22/20 Magnesium 250 mg PO DAILY 11/10/21 Diclofenac Sodium Gel [Voltaren Gel] 100 gm TOPICAL BID 30 Days #100 gm 04/14/22 Naproxen [EC-Naprosyn] 500 mg PO BID-W/MEALS 30 Days #60 tab 04/14/22 HYDROcodone/APAP 5-325MG [[place] 5-325] 1 each PO Q12HR PRN 30 Days #60 tab 06/09/22 HYDROcodone/APAP 5-325MG [[place] 5-325] 1 each PO Q12HR PRN 30 Days #60 tab 06/09/22 Controlled Substance Measures - Controlled Substance Measures Is patient prescribed a controlled substance at discharge?: Yes When asked, does pt state using other controlled substances?: No If prescribed controlled substance>3 days was MAPS reviewed?: Yes If Rx opioid, was Start Talking consent form obtained?: Yes Was information provided regarding opioid addiction?: Yes
[2022-06-09 13:58] VITALS: BP 134/100; PULSE 87; RESP 18; TEMP 98.1
== END ==
LOC: PNWHC3 12:42
PROVIDERS: ATTEND Specialist
DX: M51.36 Other intervertebral disc degeneration, lumbar region (principal); M47.816 Spondylosis without myelopathy or radiculopathy, lumbar region; G89.29 Other chronic pain; Z51.81 Encounter for therapeutic drug level monitoring; Z88.6 Allergy status to analgesic agent; Z79.891 Long term (current) use of opiate analgesic; Z87.891 Personal history of nicotine dependence
CPT/HCPCS: 80307; G0482; G0463; 99211

== ENCOUNTER 2022-06-23 08:48 | Day surgery (SDC) | payer MEDICARE, BC ==
[2022-06-21 11:49] VITALS: BMI 39.4
[~2022-06-23 08:48] MED LIST changes: +LIDOCAINE 1% (10MG/ML) FOR IV START INTRADERMA PRN
[2022-06-23 09:23] VITALS: TEMP 97.3
[2022-06-23] MEDS ORDERED: PROPOFOL 10 MG/ML 20 ML VIAL IV ONE (10:12)
--- NOTE | 2022-06-23 10:17 | P.GSHP ---
History of Present Illness H&P Date: 06/23/22 Chief Complaint: History of colon polyps This a 61-year-old female with previous history of colon polyps. Patient presents today for colonoscopy. Last colonoscopy was over 20 years ago. Past Medical History Past Medical History: Deep Vein Thrombosis (DVT), GERD/Reflux, Musculoskeletal Disorder, Osteoarthritis (OA) Additional Past Medical History / Comment(s): CHRONIC BACK PAIN, HX DVT TO LEFT LEG 1979, bilateral carpal tunnel. History of Any Multi-Drug Resistant Organisms: None Reported Past Surgical History: Back Surgery, Section, Hysterectomy, Orthopedic Surgery Additional Past Surgical History / Comment(s): LAMINECTOMY WITH SPINAL CORD STIMULATOR, LEFT OOPHORECTOMY, pain procedures, LEFT BUNIONECTOMY, COLONOSCOPY. Past Anesthesia/Blood Transfusion Reactions: Postoperative Nausea & Vomiting (PONV) Additional Past Anesthesia/Blood Transfusion Reaction / Comment(s): PONV WITH BACK SURGERY. Past Psychological History: Anxiety, Depression Smoking Status: Former smoker Past Alcohol Use History: None Reported Additional Past Alcohol Use History / Comment(s): QUIT SMOKING 1984, STARTED IN 1972, PPD-3/4-1. Past Drug Use History: None Reported - Past Family History Mother Family Medical History: CVA/TIA Additional Family Medical History / Comment(s): . Sister(s) Family Medical History: Cancer Additional Family Medical History / Comment(s): Breast cancer. Father Family Medical History: Myocardial Infarction ([place]) Brother(s) Family Medical History: Seizure Disorder Medications and Allergies Home Medications Medication Instructions Recorded Confirmed Type Citalopram Hydrobromide [CeleXA] 20 mg PO HS 08/04/14 06/23/22 History L.acidoph,Paracasei, B.lactis 1 tab PO DAILY 12/08/16 06/23/22 History [Probiotic] Multivitamins, Thera [Multivitamin 1 tab PO DAILY 08/12/19 06/23/22 History (formulary)] Loratadine [Claritin] 10 mg PO DAILY 04/22/20 06/23/22 History Magnesium 250 mg PO DAILY 11/10/21 06/23/22 History Diclofenac Sodium Gel [Voltaren 100 gm TOPICAL BID 30 Days #100 gm 04/14/22 06/23/22 Rx Gel] HYDROcodone/APAP 5-325MG [[place] 1 each PO Q12HR 06/21/22 06/23/22 History 5-325] Ibuprofen [Motrin] 600 mg PO Q8HR PRN 06/21/22 06/23/22 History Allergies Allergy/AdvReac Type Severity Reaction Status Date / Time naproxen Allergy Ulcers Verified 06/23/22 09:16 Surgical - Exam Vital Signs Temp Pulse Resp BP Pulse Ox 97.3 F L 85 15 123/85 96 06/23/22 09:22 06/23/22 09:22 06/23/22 09:22 06/23/22 09:22 06/23/22 09:22 - General well developed, well nourished, no distress - Eyes PERRL - ENT normal pinna - Neck no masses - Respiratory normal expansion - Cardiovascular Rhythm: regular - Abdomen Abdomen: soft, non tender Assessment and Plan Assessment: History of colon polyps. We'll perform colonoscopy.
--- NOTE | 2022-06-23 10:27 | P.OP ---
Date of Procedure: 06/23/22 Preoperative Diagnosis: History of colon polyps Postoperative Diagnosis: Normal Colonoscopy Procedure(s) Performed: Colonoscopy Anesthesia: MAC Surgeon: Joe Zheng Pathology: none sent Condition: stable Disposition: PACU Description of Procedure: N PROCEDURE: The patient was placed on the endoscopy table in the lateral position. Digital rectal examination was performed which revealed no abnormalities. The prostate was symmetrical without nodules. Flexible colonoscope was then placed in the patient's anus and passed throughout the entire colon. The ileocecal valve was visualized. The cecum, ascending, transverse, descending and sigmoid colon were normal. The rectum was normal as well. There were no masses, polyps or diverticula noted in the entire colon. SUMMARY OF FINDINGS: Normal colonoscopy.
[2022-06-23 10:55] VITALS: BP 131/83; PULSE 64; RESP 20
== END 2022-06-23 10:59 | disposition home or self-care (01) ==
LOC: ORWHC2ENDO 08:48
PROVIDERS: ATTEND Surgery
DX: Z12.11 Encounter for screening for malignant neoplasm of colon (principal); Z86.010 Personal history of colon polyps; K21.9 Gastro-esophageal reflux disease without esophagitis; M19.90 Unspecified osteoarthritis, unspecified site; Z86.718 Personal history of other venous thrombosis and embolism; G89.29 Other chronic pain; M54.9 Dorsalgia, unspecified; Z98.891 History of uterine scar from previous surgery; Z90.710 Acquired absence of both cervix and uterus; Z90.721 Acquired absence of ovaries, unilateral; Z98.890 Other specified postprocedural states; Z82.3 Family history of stroke; Z80.3 Family history of malignant neoplasm of breast; Z82.49 Family history of ischemic heart disease and other diseases of the circulatory system; Z79.83 Long term (current) use of bisphosphonates; Z79.891 Long term (current) use of opiate analgesic; Z79.899 Other long term (current) drug therapy; Z88.6 Allergy status to analgesic agent; Z87.891 Personal history of nicotine dependence
CPT/HCPCS: J2704; G0105; 45378

== ENCOUNTER → 2022-07-05 | Outpatient (CLI) | payer MEDICARE, BC ==
[2022-07-06 07:42] VITALS: BP 134/93; PULSE 81; RESP 17; TEMP 97.9
--- NOTE | 2022-07-06 08:56 | WWHP ---
[facility] - HISTORY AND PHYSICAL CHIEF COMPLAINT: The patient is here for her routine gynecologic exam and mammogram. HISTORY OF PRESENT ILLNESS: This is a 61-year-old G1, P1 with an LMP of 1997, She is status post SHALINI in 1997 and left oophorectomy in 1998 for endometriosis. She is without gynecologic complaints. PAST MEDICAL HISTORY: DVT, gastroesophageal reflux disease, osteoarthritis, chronic back pain, osteopenia, and seasonal allergies. PAST ASSISTED LIVING HOUSEKEEPER HISTORY: She has no history of STDs. PAST SURGICAL HISTORY: Back surgery, section, SHALINI and later LSO, laminectomy, back pain procedures, left bunionectomy, and colonoscopy. SOCIAL HISTORY: She quit smoking in 1984. She denies alcohol or drug use. She has been since 1990 and is not sexually active. She does not work outside of the home. FAMILY HISTORY: Unchanged from the 05/25/2021 H and P. REVIEW OF SYSTEMS: She has gained 8 pounds over the past year. She denies respiratory, cardiac, or GI problems. PHYSICAL EXAMINATION: VITAL SIGNS: Blood pressure 134/93, height 5 feet 2 inches, weight 217 pounds, BMI of 40, temperature 97.9, pulse 81, pulse oximeter 96%. GENERAL: This is a well-developed, well-nourished, white female, who is alert and oriented x3, in no acute distress. HEENT: Within normal limits. NECK: Supple without mass or thyromegaly. CHEST AND LUNGS: Clear to auscultation. HEART: Regular rate and rhythm. BREASTS: Without mass or discharge. AXILLARY: Negative for adenopathy. BACK: Negative for CVA tenderness. ABDOMEN: Soft, nontender, without palpable masses. PELVIC: External genitalia appears normal with mild atrophy. The vagina appears normal with mild atrophy. There is no evidence of prolapse. Bimanual examination is negative for mass or tenderness. RECTOVAGINAL: Negative for mass or tenderness and is negative for occult blood. EXTREMITIES: Nontender. IMPRESSION: 1. A 61-year-old menopausal female, status post total abdominal hysterectomy and later left oophorectomy for benign reasons with normal gynecologic exam. 2. History of osteopenia. PLAN: 1. Pap smears have been discontinued. 2. Self breast awareness was discussed with the patient. 3. Screening mammogram will be done today. 4. Osteoporosis prevention was discussed. She states a bone density test was done through her PCP in May of 2022. 5. She has completed her COVID vaccination series and has received 2 boosters. 6. She will return in 1 year for her well-woman examination. MMODL / IJN: [id number] /
== END ==
LOC: WWCWWP 21:33
PROVIDERS: ATTEND Obstetrics & Gynecology
DX: Z01.419 Encounter for gynecological examination (general) (routine) without abnormal findings (principal); Z12.31 Encounter for screening mammogram for malignant neoplasm of breast; Z88.6 Allergy status to analgesic agent; Z87.891 Personal history of nicotine dependence
CPT/HCPCS: 77063; 77067

== ENCOUNTER → 2022-08-04 | Outpatient (CLI) | payer MEDICARE, BC ==
[2022-08-04 13:26] VITALS: BP 129/90; PULSE 87; RESP 18; TEMP 98.2
--- NOTE | 2022-08-04 14:52 | P.PAINPG ---
PQRS Measure Charge Sheet Comment: A 61 yr old female with a history of severe and chronic low back pain secondary to lumbar degenerative disc diseases and lumbar spondylosis with facet arthropathy without myelopathy and R Sacroiliitis presents today for medication refills. Pain level is currently at 6 /10 in intensity, constant, localized in the R lower lumbar spine/tailbone, sharp in character w shooting towards the R glute and R thigh. Pain is provoked by sitting for periods of 20 min or more. Pain is alleviated with medications ([place], Ibuprofen), injections, ice, heat, repositioning and rest. Interventional pain procedures completed include Caudal RUFINA, LESIs, CESIs, R SI. Patient is currently on [place] 5/325mg #60, Ibuprofen Patient denies any side effects of the medication(s), denies excessive drowsiness or sleepiness, denies suicidal ideation and reports that the current pain medication is helping to control the pain and improve activities of daily living. Patient denies any motor or sensory deficits. Patient denies any fever or night sweats, denies any change in the bowel movements or urination. Physical Examination: -Constitutional: Cooperative. Not in acute distress . - Neurologic: Cranial nerve II to XII intact. No focal neurological deficits. - Psychatric: Alert & oriented x 3. Matching mood & appropriate affect. Judgment and insight intact. - Musculoskeletal: Cervical spine: Muscle bulk/ tone/ strength in the bilateral upper extremities normal Vertebral body tenderness to palpation over Spurling test positive Distraction test positive Facet loading test positive Thoracic spine Muscle bulk / tone/ strength in the bilateral paraspinal muscles normal Vertebral body tender to palpation over Facet loading test positive Lumbar spine: Motor bulk/ tone/ strength lower extremities , thigh and legs : 5/5 Deep tendon reflexes : Normal Knee Jerk. Normal Ankle Jerk . Vertebral body tenderness to palpation over Lumbar Facet Loading Test positive Straight Leg Raise: positive at 30 degrees right side/ left side Gaenslen's Test positive Sacral spine : Severe tenderness over the Sacroiliac joint: right side / left side Range of motion: Flexion of the lumbar spine <60 degrees Range of motion: Extension of the lumbar spine <20 degrees Gaenslen's Test positive R side Rommel test: positive right side / left side Thigh Thrust Test R R Sacral Thrust Test Assessment and plan: Chronic low back pain secondary to lumbar degenerative disc disease , lumbar spondylosis with facet arthropathy without myelopathy, R Sacroiliitis Recommendation of R SI injection. May need a series, up to 4 per 12 mo period, for optimal pain relief. Risks, benefits of procedure discussed and pt verbalized understanding. Denies anticoagulant use or medical history of diabetes. Chronic and current use of high-risk medication (Opioids). The patient was counseled about risk of opioid use, psychological risk associated with opioids and was orally counseled to not overuse , divert or sell medications. Pt is to store medication in a safe location. The patient is counseled against driving while using narcotic medications and also not to use alcohol or any illicit recreational drugs. Patient verbalized understanding that the lack of compliance will result in failure to renew narcotic prescription(s) as well as possible discharge from the clinic Diagnoses, prognosis and treatment options including but not limited to physical therapy, surgical interventions, interventional therapies and medication management including narcotics and adjuvant medication were discussed. All patient questions answered MAPS reviewed and it was appropriate. Prescription refill for [place] 5/325mg #60 w 1 RF I have spent less than 30 minutes on patient care today. Dr Boss was available by phone for the evaluation of this patient. The time was used to review the medical records including relevant urine studies and Prescription history (MAPs), review of the available imaging, evaluation and examination of the patient, coordination of care with the medical staff and if applicable referring physicians, as well as creation of the medical record PQRS Narrative: Smoking Status Former smoker Narcotic Agreement Date Signed 09/13/21 Hx Alcohol Use (MH) Yes: Rare Home Medications: Ambulatory Orders Citalopram Hydrobromide [CeleXA] 20 mg PO HS 08/04/14 L.acidoph,Paracasei, B.lactis [Probiotic] 1 tab PO DAILY 12/08/16 Multivitamins, Thera [Multivitamin (formulary)] 1 tab PO DAILY 08/12/19 Loratadine [Claritin] 10 mg PO DAILY 04/22/20 Magnesium 250 mg PO DAILY 11/10/21 Diclofenac Sodium Gel [Voltaren Gel] 100 gm TOPICAL BID 30 Days #100 gm 04/14/22 HYDROcodone/APAP 5-325MG [[place] 5-325] 1 each PO Q12HR 06/21/22 Ibuprofen [Motrin] 600 mg PO Q8HR PRN 06/21/22 Controlled Substance Measures - Controlled Substance Measures Is patient prescribed a controlled substance at discharge?: Yes When asked, does pt state using other controlled substances?: No If prescribed controlled substance>3 days was MAPS reviewed?: Yes If Rx opioid, was Start Talking consent form obtained?: Yes Was information provided regarding opioid addiction?: Yes
== END ==
LOC: PNWHC3 12:40
PROVIDERS: ATTEND Specialist
DX: M47.816 Spondylosis without myelopathy or radiculopathy, lumbar region (principal); M51.26 Other intervertebral disc displacement, lumbar region; G89.29 Other chronic pain; Z87.891 Personal history of nicotine dependence; Z79.891 Long term (current) use of opiate analgesic; Z88.6 Allergy status to analgesic agent; E66.9 Obesity, unspecified; Z68.38 Body mass index [BMI] 38.0-38.9, adult
CPT/HCPCS: 99211

== ENCOUNTER → 2022-09-29 | Outpatient (CLI) | payer MEDICARE, BC ==
[2022-09-29 14:51] VITALS: BP 127/89; PULSE 87; RESP 18
--- NOTE | 2022-09-29 15:06 | P.PAINPG ---
PQRS Measure Charge Sheet Comment: A 62 yr old female with a history of severe and chronic low back pain secondary to lumbar DDD and spondylosis with facet arthropathy without myelopathy presents today for medication refills. Pain level is currently at 6/10 in intensity, constant, localized in the R lower lumbar spine, dull in character w shooting towards the RLE. Pain is provoked by bending, twisting, lifting or other weight bearing activity. Pain is alleviated with reclining, medications and rest. Neurostimulator was removed at [facility] at 08/22/22. Patient is currently on [place] 5/325mg #60, Motrin Patient denies any side effects of the medication(s), denies excessive drowsiness or sleepiness, denies suicidal ideation and reports that the current pain medication is helping to control the pain and improve activities of daily living. Patient denies any motor or sensory deficits. Patient denies any fever or night sweats, denies any change in the bowel movements or urination. Physical Examination: -Constitutional: Cooperative. Not in acute distress . - Neurologic: Cranial nerve II to XII intact. No focal neurological deficits. - Psychatric: Alert & oriented x 3. Matching mood & appropriate affect. Judgment and insight intact. - Musculoskeletal: Cervical spine: Muscle bulk/ tone/ strength in the bilateral upper extremities normal Vertebral body tenderness to palpation over Spurling test positive Distraction test positive Facet loading test positive Thoracic spine Muscle bulk / tone/ strength in the bilateral paraspinal muscles normal Vertebral body tender to palpation over Facet loading test positive Lumbar spine: Motor bulk/ tone/ strength lower extremities , thigh and legs : 5/5 Deep tendon reflexes : Normal Knee Jerk. Normal Ankle Jerk . Vertebral body tenderness to palpation over L3, L4, L5 Lumbar Facet Loading Test positive Straight Leg Raise: positive at 30 degrees right side/ left side Gaenslen's Test positive Sacral spine : Severe tenderness over the Sacroiliac joint: right side / left side Range of motion: Flexion of the lumbar spine <60 degrees Range of motion: Extension of the lumbar spine <20 degrees Gaenslen's Test positive Rommel test: positive right side / left side Thigh Thrust Test Sacral Thrust Test Assessment and plan: Chronic low back pain secondary to lumbar degenerative disc disease, spondylosis with facet arthropathy without myelopathy Chronic and current use of high-risk medication (Opioids). The patient was counseled about risk of opioid use, psychological risk associated with opioids and was orally counseled to not overuse , divert or sell medications. Pt is to store medication in a safe location. The patient is counseled against driving while using narcotic medications and also not to use alcohol or any illicit recreational drugs. Patient verbalized understanding that the lack of compliance will result in failure to renew narcotic prescription(s) as well as possible discharge from the clinic Diagnoses, prognosis and treatment options including but not limited to physical therapy, surgical interventions, interventional therapies and medication management including narcotics and adjuvant medication were discussed. All patient questions answered MAPS reviewed and it was appropriate. UDS reviewed and consistent Prescription refill for [place] 5/325mg #60, Motrin #60 w 1 RF I have spent less than 30 minutes on patient care today. Dr Boss was available by phone for the evaluation of this patient. The time was used to review the medical records including relevant urine studies and Prescription history (MAPs), review of the available imaging, evaluation and examination of the patient, coordination of care with the medical staff and if applicable referring physicians, as well as creation of the medical record PQRS Narrative: Smoking Status Former smoker Narcotic Agreement Date Signed 09/13/21 Hx Alcohol Use (MH) Yes: Rare Home Medications: Ambulatory Orders Citalopram Hydrobromide [CeleXA] 20 mg PO HS 08/04/14 L.acidoph,Paracasei, B.lactis [Probiotic] 1 tab PO DAILY 12/08/16 Multivitamins, Thera [Multivitamin (formulary)] 1 tab PO DAILY 08/12/19 Loratadine [Claritin] 10 mg PO DAILY 04/22/20 Magnesium 250 mg PO DAILY 11/10/21 Diclofenac Sodium Gel [Voltaren Gel] 100 gm TOPICAL BID 30 Days #100 gm 04/14/22 Ibuprofen [Motrin] 600 mg PO Q8HR PRN 06/21/22 HYDROcodone/APAP 5-325MG [[place] 5-325] 1 each PO Q12HR PRN 30 Days #60 tab 08/04/22 HYDROcodone/APAP 5-325MG [[place] 5-325] 1 tab PO Q12HR PRN 30 Days #60 tab 08/04/22 Controlled Substance Measures - Controlled Substance Measures Is patient prescribed a controlled substance at discharge?: Yes When asked, does pt state using other controlled substances?: No If prescribed controlled substance>3 days was MAPS reviewed?: Yes If Rx opioid, was Start Talking consent form obtained?: Yes Was information provided regarding opioid addiction?: Yes
== END ==
LOC: PNWHC3 12:37
PROVIDERS: ATTEND Specialist
DX: M47.816 Spondylosis without myelopathy or radiculopathy, lumbar region (principal); M51.36 Other intervertebral disc degeneration, lumbar region; G89.29 Other chronic pain; Z79.891 Long term (current) use of opiate analgesic; Z87.891 Personal history of nicotine dependence; Z88.6 Allergy status to analgesic agent
CPT/HCPCS: 99211

== ENCOUNTER 2022-10-04 09:30 | Day surgery (SDC) | payer MEDICARE, BC ==
[2022-09-30 11:53] VITALS: BMI 38.4
[~2022-10-04 09:30] MED LIST changes: -LIDOCAINE 1% (10MG/ML) FOR IV START INTRADERMA PRN
[2022-10-04 10:03] VITALS: BP 142/91; PULSE 78; RESP 18; TEMP 97.5
[2022-10-04] MEDS ORDERED: methylPREDNISolone ACETATE 40 MG/ML 1 ML VIAL ONE (10:26)
[2022-10-04] MEDS ORDERED: ROPIVACAINE 5 MG/ML 20 ML AMPULE ONE (10:26)
--- NOTE | 2022-10-04 10:35 | P.PCN ---
Date of Procedure: 10/04/22 Description of Procedure: Procedure: Sacroiliac joint injection right Preoperative diagnosis: Sacroiliitis Postoperative diagnosis: Sacroiliitis Imaging: Fluoroscopy was used, images where saved to the medical record Complications: none ANESTHESIA: None Description of the procedure: procedure risk and benefits discussed with the patient, including but not limited, risk of infection and bleeding, and allergic reaction to the medication and incomplete pain relief. Patient agreed and signed consent. Patient was taken to the room and placed in a prone position. Chlorhexidine was used to cleanse the skin. Under sterile conditions patient skin was anesthetized 1% lidocaine. Subcutaneous tissues were also anesthetized with a total 5 mL of 1% lidocaine. After that, a 25-gauge spinal needle was advanced through the anesthetized location under fluoroscopic guidance. Needle was advanced into the inferior portion of the sacroiliac joint. IV contrast was used to confirm spread within the joint. After adequate spread was achieved, 2.5 ML's of 0.5% ropivacaine with 40 mg of depomedrol was injected into the joint (steroid split between both sides if bilateral). Patient tolerated the procedure well. Sent to the recovery room in stable condition. Patient will follow up as directed.
--- NOTE | 2022-10-04 10:46 | FL ---
EXAMINATION TYPE: FL guided pain mgmt statistic DATE OF EXAM: 10/04/2022 FLUOROSCOPY Fluoroscopy time of 2 seconds was used during SI joint injection. 1 image/s document/s the procedure .
== END 2022-10-04 10:54 | disposition home or self-care (01) ==
LOC: ORPAIN 09:30
PROVIDERS: ATTEND Hospitalist
DX: M46.1 Sacroiliitis, not elsewhere classified (principal)
CPT/HCPCS: J1030; J2795; G0260; 27096

== ENCOUNTER → 2022-11-30 | Outpatient (CLI) | payer MEDICARE, BC ==
[2022-11-30 14:19] VITALS: BP 126/85; PULSE 86; RESP 18; TEMP 98.3
--- NOTE | 2022-11-30 14:20 | P.PAINPG ---
PQRS Measure Charge Sheet Comment: A 62 yr old female with a history of severe and chronic LBP secondary to lumbar DDD and spondylosis with facet arthropathy without myelopathy presents today for medication refills and evaluation s/p R SI injection. Pt states she received 50% x 7 wks s/p procedure. Pain level is provoked at 10 /10 in intens ity, constant, localized in the R lumbar spine, sharp in character w shooting towards the R buttocks and inner thigh. Pain is provoked by bending, sitting for periods of 20 min or more. Pain is alleviated with heat, ice, medications (L[place], Ibu), reclinging, topicals and rest. Interventional pain procedures completed include R SI injection Patient is currently on [place] , Ibu Patient denies any side effects of the medication(s), denies excessive drowsiness or sleepiness, denies suicidal ideation and reports that the current pain medication is helping to control the pain and improve activities of daily living. Patient denies any motor or sensory deficits. Patient denies any fever or night sweats, denies any change in the bowel movements or urination. Physical Examination: -Constitutional: Cooperative. Not in acute distress . - Neurologic: Cranial nerve II to XII intact. No focal neurological deficits. - Psychatric: Alert & oriented x 3. Matching mood & appropriate affect. Judgment and insight intact. - Musculoskeletal: Cervical spine: Muscle bulk/ tone/ strength in the bilateral upper extremities normal Vertebral body tenderness to palpation over Spurling test positive Distraction test positive Facet loading test positive Thoracic spine Muscle bulk / tone/ strength in the bilateral paraspinal muscles normal Vertebral body tender to palpation over Facet loading test positive Lumbar spine: Motor bulk/ tone/ strength lower extremities , thigh and legs : 5/5 Deep tendon reflexes : Normal Knee Jerk. Normal Ankle Jerk . Vertebral body tenderness to palpation over Lumbar Facet Loading Test positive Straight Leg Raise: positive at 30 degrees right side/ left side Gaenslen's Test positive Sacral spine : Severe tenderness over the Sacroiliac joint: right side / left side Range of motion: Flexion of the lumbar spine <60 degrees Range of motion: Extension of the lumbar spine <20 degrees Gaenslen's Test positive R Rommel test: positive right side / left side Thigh Thrust Test R Sacral Thrust Test positive Assessment and plan: Chronic LBP secondary to lumbar DDD, spondylosis with facet arthropathy without myelopathy Recommendation of R SI injection. May need a series of injections, up to 3 within a 6 month period, for optimal pain relief. Risks, benefits of procedure discussed and pt verbalized understanding. Admits to anticoagulant use or medical history of diabetes. Protocol for discontinuation/continuation of medications surrounding procedure discussed. Chronic and current use of high-risk medication (Opioids). The patient was counseled about risk of opioid use, psychological risk associated with opioids and was orally counseled to not overuse , divert or sell medications. Pt is to store medication in a safe location. The patient is counseled against driving while using narcotic medications and also not to use alcohol or any illicit recreational drugs. Patient verbalized understanding that the lack of compliance will result in failure to renew narcotic prescription(s) as well as possible discharge from the clinic Diagnoses, prognosis and treatment options including but not limited to physical therapy, surgical interventions, interventional therapies and medication management including narcotics and adjuvant medication were discussed. All patient questions answered MAPS reviewed and it was appropriate. UDS reviewed and consistent. Prescription refill for [place] 5/325mg # 60, Ibu w 1 RF I have spent less than 30 minutes on patient care today. Dr Boss was available by phone for the evaluation of this patient. The time was used to review the medical records including relevant urine studies and Prescription history (MAPs), review of the available imaging, evaluation and examination of the patient, coordination of care with the medical staff and if applicable referring physicians, as well as creation of the medical record PQRS Narrative: Smoking Status Former smoker Narcotic Agreement Date Signed 09/13/21 Hx Alcohol Use (MH) Yes: Rare Home Medications: Ambulatory Orders Citalopram Hydrobromide [CeleXA] 20 mg PO HS 08/04/14 L.acidoph,Paracasei, B.lactis [Probiotic] 1 tab PO DAILY 12/08/16 Multivitamins, Thera [Multivitamin (formulary)] 1 tab PO DAILY 08/12/19 Loratadine [Claritin] 10 mg PO DAILY 04/22/20 Magnesium 250 mg PO DAILY 11/10/21 Diclofenac Sodium Gel [Voltaren Gel] 100 gm TOPICAL BID 30 Days #100 gm 04/14/22 HYDROcodone/APAP 5-325MG [[place] 5-325] 1 tab PO Q12HR PRN 30 Days #60 tab 11/30/22 HYDROcodone/APAP 5-325MG [[place] 5-325] 1 tab PO Q12HR PRN 30 Days #60 tab 11/30/22 Ibuprofen [Motrin] 600 mg PO Q8HR PRN 30 Days #90 tab 11/30/22 Controlled Substance Measures - Controlled Substance Measures Is patient prescribed a controlled substance at discharge?: Yes When asked, does pt state using other controlled substances?: No If prescribed controlled substance>3 days was MAPS reviewed?: Yes If Rx opioid, was Start Talking consent form obtained?: Yes If opioid is for acute pain is fill amount 7 days or less?: No Was information provided regarding opioid addiction?: Yes
== END ==
LOC: PNWHC3 13:35
PROVIDERS: ATTEND Anesthesiology
DX: M47.816 Spondylosis without myelopathy or radiculopathy, lumbar region (principal); M51.36 Other intervertebral disc degeneration, lumbar region; G89.29 Other chronic pain; Z87.891 Personal history of nicotine dependence; Z88.6 Allergy status to analgesic agent
CPT/HCPCS: 99211

== ENCOUNTER → 2023-01-25 | Outpatient (CLI) | payer MEDICARE, BC ==
[2023-01-25 14:13] VITALS: BP 127/78; PULSE 97; RESP 18
--- NOTE | 2023-01-25 14:52 | P.PAINPG ---
PQRS Measure Charge Sheet Comment: A 62 yr old female with a history of severe and chronic LBP secondary to lumbar DDD and spondylosis with facet arthropathy without myelopathy presents today for medication refills. Pain level is provoked at 10 /10 in intensity, constant, localized in the lumbar spine, dull/ achy in character w shooting towa rds the buttock and R thigh. Pain is provoked by standing, bending. Pain is alleviated with medications, topicals, sitting, reclining and rest. Interventional pain procedures completed include R SI, LORENA, Caudal RUFINA Patient is currently on [place] 5/325mg #60 Patient denies any side effects of the medication(s), denies excessive drowsiness or sleepiness, denies suicidal ideation and reports that the current pain medication is helping to control the pain and improve activities of daily living. Patient denies any motor or sensory deficits. Patient denies any fever or night sweats, denies any change in the bowel movements or urination. Physical Examination: -Constitutional: Cooperative. Not in acute distress . - Neurologic: Cranial nerve II to XII intact. No focal neurological deficits. - Psychatric: Alert & oriented x 3. Matching mood & appropriate affect. Judgment and insight intact. - Musculoskeletal: Cervical spine: Muscle bulk/ tone/ strength in the bilateral upper extremities normal Vertebral body tenderness to palpation over Spurling test positive Distraction test positive Facet loading test positive TTP Thoracic spine Muscle bulk / tone/ strength in the bilateral paraspinal muscles normal Vertebral body tender to palpation over Facet loading test positive TTP Lumbar spine: Motor bulk/ tone/ strength lower extremities , thigh and legs : 5/5 Deep tendon reflexes : Normal Knee Jerk. Normal Ankle Jerk . Vertebral body tenderness to palpation over Lumbar Facet Loading Test positive Straight Leg Raise: positive at 30 degrees right side/ left side Gaenslen's Test positive Sacral spine : Severe tenderness over the Sacroiliac joint: right side / left side Range of motion: Flexion of the lumbar spine <60 degrees Range of motion: Extension of the lumbar spine <20 degrees Gaenslen's Test positive right side / left side Rommel test: positive right side / left side Thigh Thrust Test positive right side / left side Sacral Thrust Test positive right side / left side Assessment and plan: Chronic LBP secondary to lumbar DDD, spondylosis with facet arthropathy without myelopathy Chronic and current use of high-risk medication (Opioids). The patient was counseled about risk of opioid use, psychological risk associated with opioids and was orally counseled to not overuse , divert or sell medications. Pt is to store medication in a safe location. The patient is counseled against driving while using narcotic medications and also not to use alcohol or any illicit recreational drugs. Patient verbalized understanding that the lack of compliance will result in failure to renew narcotic prescription(s) as well as possible discharge from the clinic Diagnoses, prognosis and treatment options including but not limited to physical therapy, surgical interventions, interventional therapies and medication management including narcotics and adjuvant medication were discussed. All patient questions answered MAPS reviewed and it was appropriate. UDS collected today 01/25/23. Prescription refill for [place] 5/325mg #60 w 1 RF I have spent less than 30 minutes on patient care today. Dr Boss was available by phone for the evaluation of this patient. The time was used to review the medical records including relevant urine studies and Prescription history (MAPs), review of the available imaging, evaluation and examination of the patient, coordination of care with the medical staff and if applicable referring physicians, as well as creation of the medical record PQRS Narrative: Smoking Status Former smoker Narcotic Agreement Date Signed 09/13/21 Hx Alcohol Use (MH) Yes: Rare Home Medications: Ambulatory Orders Citalopram Hydrobromide [CeleXA] 20 mg PO HS 08/04/14 L.acidoph,Paracasei, B.lactis [Probiotic] 1 tab PO DAILY 12/08/16 Multivitamins, Thera [Multivitamin (formulary)] 1 tab PO DAILY 08/12/19 Loratadine [Claritin] 10 mg PO DAILY 04/22/20 Magnesium 250 mg PO DAILY 11/10/21 Diclofenac Sodium Gel [Voltaren Gel] 100 gm TOPICAL BID 30 Days #100 gm 04/14/22 Vitamin D With Calcium 1 dose PO DAILY 12/22/22 HYDROcodone/APAP 5-325MG [[place] 5-325] 1 tab PO Q12HR PRN 30 Days #60 tab 01/25/23 HYDROcodone/APAP 5-325MG [[place] 5-325] 1 tab PO Q12HR PRN 30 Days #60 tab 01/25/23 Ibuprofen [Motrin] 600 mg PO Q8HR PRN 30 Days #90 tab 01/25/23 Controlled Substance Measures - Controlled Substance Measures Is patient prescribed a controlled substance at discharge?: Yes
== END ==
LOC: PNWHC3 13:11
PROVIDERS: ATTEND Specialist
DX: M51.36 Other intervertebral disc degeneration, lumbar region (principal); M47.816 Spondylosis without myelopathy or radiculopathy, lumbar region; G89.29 Other chronic pain; Z79.891 Long term (current) use of opiate analgesic; Z51.81 Encounter for therapeutic drug level monitoring; Z87.891 Personal history of nicotine dependence; Z88.6 Allergy status to analgesic agent
CPT/HCPCS: 80307; G0482; G0463; 99212

== ENCOUNTER → 2023-03-29 | Outpatient (CLI) | payer MEDICARE, BC ==
[2023-03-29 14:02] VITALS: BP 139/86; PULSE 95; RESP 18; TEMP 98.1
--- NOTE | 2023-03-29 14:49 | P.PAINPG ---
PQRS Measure Charge Sheet Comment: A 62 yr old female with a history of severe and chronic LBP secondary to lumbar DDD and spondylosis with facet arthropathy without myelopathy presents today for medication refills. Pain level is provoked at 6/10 in intensity, constant, localized in the lumbar spine, stabbing, burning in character w shooting towards the R buttock and R thigh. Pain is provoked by standing, bending and twisting. Pain is alleviated with medications, heat, ice, topicals, sitting, reclining and rest. Interventional pain procedures completed include R SI, LORENA, Caudal RUFINA Patient is currently on [place] 5/325mg #60, Voltaren gel, Ibu Patient denies any side effects of the medication(s), denies excessive drowsiness or sleepiness, denies suicidal ideation and reports that the current pain medication is helping to control the pain and improve activities of daily living. Patient denies any motor or sensory deficits. Patient denies any fever or night sweats, denies any change in the bowel movements or urination. Physical Examination: -Constitutional: Cooperative. Not in acute distress . - Neurologic: Cranial nerve II to XII intact. No focal neurological deficits. - Psychatric: Alert & oriented x 3. Matching mood & appropriate affect. Judgment and insight intact. - Musculoskeletal: Cervical spine: Muscle bulk/ tone/ strength in the bilateral upper extremities normal Vertebral body tenderness to palpation over Spurling test positive Distraction test positive Facet loading test positive TTP Thoracic spine Muscle bulk / tone/ strength in the bilateral paraspinal muscles normal Vertebral body tender to palpation over Facet loading test positive TTP Lumbar spine: Motor bulk/ tone/ strength lower extremities , thigh and legs : 5/5 Deep tendon reflexes : Normal Knee Jerk. Normal Ankle Jerk . Vertebral body tenderness to palpation over L5 Lumbar Facet Loading Test positive Straight Leg Raise: positive at 30 degrees right side/ left side Gaenslen's Test positive Sacral spine : Severe tenderness over the Sacroiliac joint: right side / left side Range of motion: Flexion of the lumbar spine <60 degrees Range of motion: Extension of the lumbar spine <20 degrees Gaenslen's Test positive right side / left side Rommel test: positive right side / left side Thigh Thrust Test positive right side / left side Sacral Thrust Test positive right side / left side Assessment and plan: Chronic LBP secondary to lumbar DDD, spondylosis with facet arthropathy without myelopathy Chronic and current use of high-risk medication (Opioids). The patient was counseled about risk of opioid use, psychological risk associated with opioids and was orally counseled to not overuse , divert or sell medications. Pt is to store medication in a safe location. The patient is counseled against driving while using narcotic medications and also not to use alcohol or any illicit recreational drugs. Patient verbalized understanding that the lack of compliance will result in failure to renew narcotic prescription(s) as well as possible discharge from the clinic Diagnoses, prognosis and treatment options including but not limited to physical therapy, surgical interventions, interventional therapies and medication management including narcotics and adjuvant medication were discussed. All patient questions answered MAPS reviewed and it was appropriate. UDS from 01/25/23 reviewed and consistent. Prescription refill for [place] 5/325mg #60, Voltaren gel w 1 RF I have spent less than 30 minutes on patient care today. Dr Boss was available by phone for the evaluation of this patient. The time was used to review the medical records including relevant urine studies and Prescription history (MAPs), review of the available imaging, evaluation and examination of the patient, coordination of care with the medical staff and if applicable referring physicians, as well as creation of the medical record PQRS Narrative: Smoking Status Former smoker Narcotic Agreement Date Signed 12/29/22 Hx Alcohol Use (MH) Yes: Rare Home Medications: Ambulatory Orders Citalopram Hydrobromide [CeleXA] 20 mg PO HS 08/04/14 L.acidoph,Paracasei, B.lactis [Probiotic] 1 tab PO DAILY 12/08/16 Multivitamins, Thera [Multivitamin (formulary)] 1 tab PO DAILY 08/12/19 Loratadine [Claritin] 10 mg PO DAILY 04/22/20 Magnesium 250 mg PO DAILY 11/10/21 Vitamin D With Calcium 1 dose PO DAILY 12/22/22 Ibuprofen [Motrin] 600 mg PO Q8HR PRN 30 Days #90 tab 01/25/23 Diclofenac Sodium Gel [Voltaren Gel] 100 gm TOPICAL BID 30 Days #100 gm 03/29/23 HYDROcodone/APAP 5-325MG [[place] 5-325] 1 tab PO Q12HR PRN 30 Days #60 tab 03/29/23 HYDROcodone/APAP 5-325MG [[place] 5-325] 1 tab PO Q12HR PRN 30 Days #60 tab 03/29/23 Controlled Substance Measures - Controlled Substance Measures Is patient prescribed a controlled substance at discharge?: Yes When asked, does pt state using other controlled substances?: No If prescribed controlled substance>3 days was MAPS reviewed?: Yes
== END ==
LOC: PNWHC3 12:54
PROVIDERS: ATTEND Specialist
DX: M51.36 Other intervertebral disc degeneration, lumbar region (principal); M47.816 Spondylosis without myelopathy or radiculopathy, lumbar region; G89.29 Other chronic pain; Z88.8 Allergy status to other drugs, medicaments and biological substances; Z87.891 Personal history of nicotine dependence
CPT/HCPCS: 99211

== ENCOUNTER 2023-05-11 16:41 | Emergency (ER) | payer MEDICARE, BC ==
[2023-05-11 17:28] VITALS: TEMP 98.9
[2023-05-11 18:18] LABS: Basophils % (A) 0 %; Eosinophils # (A) 0.2 k/uL (0-0.7); Eosinophils % (A) 2 %; HCT 42.3 % (34.0-46.0); HGB 13.7 gm/dL (11.4-16.0); Lymphocytes % (A) 24 %; MCH 28.8 pg (25.0-35.0); MCHC 32.5 g/dL (31.0-37.0); MCV 88.7 fL (80.0-100.0); Mean Platelet Volume 8.8; Monocytes # (A) 0.7 k/uL (0-1.0); Monocytes % (A) 6 %; Neutrophils # (A) 8.6 k/uL (1.3-7.7); Neutrophils % (A) 68 %; Platelet Count 211 k/uL (150-450); RBC 4.77 m/uL (3.80-5.40); RDW 13.4 % (11.5-15.5); WBC 12.5 k/uL (3.8-10.6)
[2023-05-11 18:32] LABS: ALT 26 U/L (4-34); AST 30 U/L (14-36); African American GFR (CKD) >90 (>60 ml/min/1.73 sqM); Albumin 3.7 g/dL (3.5-5.0); Alkaline Phosphatase 99 U/L (38-126); Anion Gap 5 mmol/L; Blood Urea Nitrogen 19 mg/dL (7-17); Calcium 8.7 mg/dL (8.4-10.2); Carbon Dioxide 25 mmol/L (22-30); Chloride 107 mmol/L (98-107); Glucose 95 mg/dL (74-99); Non-African American GFR(CKD) >90 (>60 ml/min/1.73 sqM); Potassium 4.4 mmol/L (3.5-5.1); Sodium 137 mmol/L (137-145); Total Bilirubin 0.4 mg/dL (0.2-1.3); Total Protein 6.4 g/dL (6.3-8.2)
[2023-05-11] MEDS ORDERED: IPRATROPIUM-ALBUTEROL 3 ML NEB INHALATION STA (18:33)
[2023-05-11 18:40] LABS: INR 0.9 (<1.2); Prothrombin Time 9.9 sec (9.0-12.0)
--- NOTE | 2023-05-11 19:48 | ED ---
SOB HPI - General Chief Complaint: Shortness of Breath Stated Complaint: SOB Time Seen by Provider: 05/11/23 18:17 Source: patient Mode of arrival: ambulatory Limitations: no limitations - History of Present Illness Initial Comments: This 62-year-old female presents with complaint of shortness of breath. She states that she had right shoulder biceps tendon surgery done yesterday at outpatient orthopedic clinic. She started having some shortness of breath shortly after the yesterday. She states that it got worse today. She denies any cough, fevers, chills. She does relate a remote history of previous pulmonary embolism about 40 years ago. She is not on any blood thinners. She denies any leg pain or swelling. Digits that she has some slight weird sensation in her chest almost like a pressure at times. She currently does have a right shoulder anesthetic block in place and is unsure if it could be related to this. She denies any other pulmonary problems in the past such as COPD or asthma. No other complaints or modifying factors. - Related Data Home Medications Medication Instructions Recorded Confirmed Citalopram Hydrobromide [CeleXA] 20 mg PO HS 08/04/14 05/11/23 HYDROcodone/APAP 5-325MG [[place] 1 tab PO BID 05/11/23 05/11/23 5-325] HYDROcodone/APAP 7.5-325MG [[place] 1 tab PO Q4H PRN 05/11/23 05/11/23 7.5-325] Ibuprofen [Motrin] 800 mg PO Q8H PRN 05/11/23 05/11/23 Meloxicam [Mobic] 15 mg PO DAILY 05/11/23 05/11/23 Ondansetron Odt [Zofran Odt] 4 mg PO Q8HR PRN 05/11/23 05/11/23 Sennosides/Docusate Sodium [Senna 1 cap PO BID 05/11/23 05/11/23 Plus 8.6-50 mg Softgel] Allergies Allergy/AdvReac Type Severity Reaction Status Date / Time naproxen AdvReac Ulcers Verified 05/11/23 19:23 Review of Systems ROS Statement: Those systems with pertinent positive or pertinent negative responses have been documented in the HPI. ROS Other: All systems not noted in ROS Statement are negative. Past Medical History Past Medical History: Deep Vein Thrombosis (DVT), GERD/Reflux, Musculoskeletal Disorder, Osteoarthritis (OA) Additional Past Medical History / Comment(s): CHRONIC BACK PAIN, HX DVT TO LEFT LEG 1979, bilateral carpal tunnel., RLS. History of Any Multi-Drug Resistant Organisms: None Reported Past Surgical History: Back Surgery, Section, Hysterectomy, Orthopedic Surgery Additional Past Surgical History / Comment(s): LAMINECTOMY WITH SPINAL CORD STIMULATOR THEN SIMULATOR REMOVED JULY 2022, LEFT OOPHORECTOMY, pain procedures, LEFT BUNIONECTOMY, COLONOSCOPY. Past Anesthesia/Blood Transfusion Reactions: Postoperative Nausea & Vomiting (PONV) Additional Past Anesthesia/Blood Transfusion Reaction / Comment(s): PONV WITH BACK SURGERY. Past Psychological History: Anxiety, Depression Smoking Status: Former smoker Past Alcohol Use History: None Reported Past Drug Use History: None Reported - Past Family History Mother Family Medical History: CVA/TIA Additional Family Medical History / Comment(s): . Sister(s) Family Medical History: Cancer Additional Family Medical History / Comment(s): Breast cancer. Father Family Medical History: Myocardial Infarction ([place]) Brother(s) Family Medical History: Seizure Disorder General Exam - General Exam Comments Initial Comments: GENERAL: The patient is well nourished and well hydrated. VITAL SIGNS: Heart rate, blood pressure, respiratory rate reviewed as recorded in nurse's notes. EYES: Pupils are round and reactive. Extraocular movements are intact. No conjunctival / lid redness or swelling. ENT: No external evidence of injury, swelling, or ecchymosis. Airway is patent. Throat is clear. NECK: Nontender. No swelling or evidence of injury. No subcutaneous emphysema. Trachea is midline. No thyroid mass. HEART: Regular rate and rhythm. Good peripheral pulses. LUNGS/CHEST: Breath sounds clear and equal bilaterally. No rales, rhonchi, or wheezes. No ecchymosis, subcutaneous emphysema, or tenderness. ABDOMEN: Abdomen soft without tenderness. No palpable masses or organomegaly. No peritoneal signs. No abdominal wall swelling or ecchymosis. EXTREMITIES: Some blood stressing noted to the right shoulder. Normal muscle tone and function. No thoracolumbar tenderness. NEUROLOGIC: Sensation is grossly intact. Cranial nerve exam reveals face is symmetrical, tongue is midline, speech is clear. SKIN: No abrasions or ecchymosis is noted. No induration or masses noted. PSYCHIATRIC: Alert and oriented. Appropriate behavior and judgment. Limitations: no limitations Course Vital Signs 05/11/23 05/11/23 05/11/23 17:24 17:37 17:40 Temperature 98.9 F Pulse Rate 62 Respiratory 18 Rate Blood Pressure 150/83 182/94 O2 Sat by Pulse 96 93 L 93 L Oximetry 05/11/23 05/11/23 05/11/23 17:50 17:57 18:00 Temperature Pulse Rate 58 L 54 L Respiratory 22 16 27 H Rate Blood Pressure 182/94 182/94 182/94 O2 Sat by Pulse 95 96 96 Oximetry 05/11/23 05/11/23 05/11/23 18:10 18:20 18:26 Temperature Pulse Rate 61 58 L Respiratory 25 H 32 H 20 Rate Blood Pressure 177/104 177/104 O2 Sat by Pulse 95 93 L Oximetry 05/11/23 05/11/23 05/11/23 18:27 18:30 18:40 Temperature Pulse Rate 75 59 L 56 L Respiratory 20 16 23 Rate Blood Pressure 148/74 177/104 178/102 O2 Sat by Pulse 98 96 94 L Oximetry 05/11/23 05/11/23 05/11/23 18:50 18:52 19:00 Temperature Pulse Rate 57 L 60 Respiratory 16 Rate Blood Pressure 178/102 178/102 O2 Sat by Pulse 100 Oximetry 05/11/23 05/11/23 05/11/23 19:02 19:10 19:20 Temperature Pulse Rate 60 60 68 Respiratory 16 16 Rate Blood Pressure 166/88 166/88 O2 Sat by Pulse 94 L 95 Oximetry Medical Decision Making - Medical Decision Making The patient was seen and examined. All diagnostics were reviewed. The EKG was done and this does show a sinus bradycardia at a rate of 56. There is no acute ST or T-wave changes noted per my interpretation. The intervals are normal. Laboratories done which is all essentially within normal limits including a negative d-dimer and negative troponin. Chest x-ray also was completed. The x- ray does show elevation of the right hemidiaphragm. The white blood cell count is slightly elevated. There is no evidence of pneumonia on x-ray per my interpretation. It is felt as though she likely is exhibiting the effects of her right shoulder block to her breathing pattern. She likely has some mild paralysis of the right chest muscles and diaphragm. She did receive a right shoulder block. She still has a catheter noted into her right neck with medication still being administered into this catheter. Her oxygenation is monitored and she is 98% on recheck. It is felt as though she is symptomatic in regards to dyspnea and this affecting her chest musculature but it is not felt as though it is life-threatening at this point in time. It is felt as though she stable for discharge home. She is to remove the catheter in 2 days. She is instructed to return to the emergency department over the next 2 days if any symptoms do worsen. Return parameters are discussed. Close follow-up recommended. Was pt. sent in by a medical professional or institution (, PA, PHOTONICS TECHNICIAN, urgent care, hospital, or usp...) When possible be specific @ -The patient was told to come to the emergency department by her orthopedic physician. Did you speak to anyone other than the patient for history (EMS, parent, family, police, friend...)? What history was obtained from this source @ -[No] Did you review nursing and triage notes (agree or disagree)? Why? @ -[I reviewed and agree with nursing and triage notes] Were old charts reviewed (outside hosp., previous admission, EMS record, old EKG, old radiological studies, urgent care reports/EKG's, usp records)? Report findings @ -Old records are reviewed. Surgery was not completed at our hospital. It was completed at an outpatient surgery center. Differential Diagnosis (chest pain, altered mental status, abdominal pain women, abdominal pain men, vaginal bleeding, weakness, fever, dyspnea, syncope, headache, dizziness, GI bleed, back pain, seizure, CVA, palpatations, mental health, musculoskeletal)? @ -Dyspnea, pulmonary embolism, pneumonia, bronchitis, anesthesia complications EKG interpreted by me (3pts min.). @ -[As above] X-rays interpreted by me (1pt min.). @ -X-rays are interpreted by myself. CT interpreted by me (1pt min.). @ -[None done] U/S interpreted by me (1pt. min.). @ -[None done] What testing was considered but not performed or refused? (CT, X-rays, U/S, labs)? Why? @ -[None] What meds were considered but not given or refused? Why? @ -[None] Did you discuss the management of the patient with other professionals (professionals i.e. , PA, PHOTONICS TECHNICIAN, lab, RT, psych nurse, social services designee, dance instructor, teacher, commercial credit officer, case loader operator)? Give summary @ -[No] Was smoking cessation discussed for >3mins.? @ -[No] Was critical care preformed (if so, how long)? @ -[No] Were there social determinants of health that impacted care today? How? (Homelessness, low income, unemployed, alcoholism, drug addiction, transportation, low edu. Level, literacy, decrease access to med. care, usp, rehab)? @ -[No] Was there de-escalation of care discussed even if they declined (Discuss DNR or withdrawal of care, Hospice)? DNR status @ -[No] What co-morbidities impacted this encounter? (DM, HTN, Smoking, COPD, CAD, Cancer, CVA, ARF, Chemo, Hep., AIDS, mental health diagnosis, sleep apnea, morbid obesity)? @ -Obesity, right shoulder pathology Was patient admitted / discharged? Hospital course, mention meds given and rout e, prescriptions, significant lab abnormalities, going to OR and other pertinent info. @ -Discharged, please see above Undiagnosed new problem with uncertain prognosis? @ -[No] Drug Therapy requiring intensive monitoring for toxicity (Heparin, Nitro, Insulin, Cardizem)? @ -[No] Were any procedures done? @ -[No] Diagnosis/symptom? @ -Dyspnea, anesthesia complications Acute, or Chronic, or Acute on Chronic? @ -Acute Uncomplicated (without systemic symptoms) or Complicated (systemic symptoms)? @ -Uncomplicated Side effects of treatment? @ -[No] Exacerbation, Progression, or Severe Exacerbation? @ -[No] Poses a threat to life or bodily function? How? (Chest pain, [place], [place], pneumonia, PE, COPD, DKA, ARF, appy, cholecystitis, CVA, Diverticulitis, Homicidal, Suicidal, threat to staff... and all critical care pts) @ -[No] - Lab Data Result diagrams: 05/11/23 18:09 05/11/23 18:09 Lab Results 05/11/23 05/11/23 05/11/23 Range/Units 18:09 18:09 18:09 WBC 12.5 H (3.8-10.6) k/uL RBC 4.77 (3.80-5.40) m/uL Hgb 13.7 (11.4-16.0) gm/dL Hct 42.3 (34.0-46.0) % MCV 88.7 (80.0-100.0) fL MCH 28.8 (25.0-35.0) pg MCHC 32.5 (31.0-37.0) g/dL RDW 13.4 (11.5-15.5) % Plt Count 211 (150-450) k/uL MPV 8.8 Neutrophils % 68 % Lymphocytes % 24 % Monocytes % 6 % Eosinophils % 2 % Basophils % 0 % Neutrophils # 8.6 H (1.3-7.7) k/uL Lymphocytes # 3.0 (1.0-4.8) k/uL Monocytes # 0.7 (0-1.0) k/uL Eosinophils # 0.2 (0-0.7) k/uL Basophils # 0.0 (0-0.2) k/uL PT 9.9 (9.0-12.0) sec INR 0.9 (<1.2) APTT 22.0 (22.0-30.0) sec D-Dimer 0.42 (<0.60) mg/L FEU Sodium 137 (137-145) mmol/L Potassium 4.4 (3.5-5.1) mmol/L Chloride 107 (98-107) mmol/L Carbon Dioxide 25 (22-30) mmol/L Anion Gap 5 mmol/L BUN 19 H (7-17) mg/dL Creatinine 0.68 (0.52-1.04) mg/dL Est GFR (CKD-EPI)AfAm >90 (>60 ml/min/1.73 sqM) Est GFR (CKD-EPI)NonAf >90 (>60 ml/min/1.73 sqM) Glucose 95 (74-99) mg/dL Plasma Lactic Acid Crow (0.7-2.0) mmol/L Calcium 8.7 (8.4-10.2) mg/dL Total Bilirubin 0.4 (0.2-1.3) mg/dL AST 30 (14-36) U/L ALT 26 (4-34) U/L Alkaline Phosphatase 99 (38-126) U/L Troponin I (0.000-0.034) ng/mL Total Protein 6.4 (6.3-8.2) g/dL Albumin 3.7 (3.5-5.0) g/dL 05/11/23 05/11/23 Range/Units 18:09 18:09 WBC (3.8-10.6) k/uL RBC (3.80-5.40) m/uL Hgb (11.4-16.0) gm/dL Hct (34.0-46.0) % MCV (80.0-100.0) fL MCH (25.0-35.0) pg MCHC (31.0-37.0) g/dL RDW (11.5-15.5) % Plt Count (150-450) k/uL MPV Neutrophils % % Lymphocytes % % Monocytes % % Eosinophils % % Basophils % % Neutrophils # (1.3-7.7) k/uL Lymphocytes # (1.0-4.8) k/uL Monocytes # (0-1.0) k/uL Eosinophils # (0-0.7) k/uL Basophils # (0-0.2) k/uL PT (9.0-12.0) sec INR (<1.2) APTT (22.0-30.0) sec D-Dimer (<0.60) mg/L FEU Sodium (137-145) mmol/L Potassium (3.5-5.1) mmol/L Chloride (98-107) mmol/L Carbon Dioxide (22-30) mmol/L Anion Gap mmol/L BUN (7-17) mg/dL Creatinine (0.52-1.04) mg/dL Est GFR (CKD-EPI)AfAm (>60 ml/min/1.73 sqM) Est GFR (CKD-EPI)NonAf (>60 ml/min/1.73 sqM) Glucose (74-99) mg/dL Plasma Lactic Acid Crow 1.2 (0.7-2.0) mmol/L Calcium (8.4-10.2) mg/dL Total Bilirubin (0.2-1.3) mg/dL AST (14-36) U/L ALT (4-34) U/L Alkaline Phosphatase (38-126) U/L Troponin I <0.012 (0.000-0.034) ng/mL Total Protein (6.3-8.2) g/dL Albumin (3.5-5.0) g/dL Disposition Clinical Impression: Dyspnea, History of shoulder surgery, Anesthesia complication Disposition: HOME SELF-CARE Condition: Good Is patient prescribed a controlled substance at d/c from ED?: No Referrals: José Marcos MD [Primary Care Provider] - 1-2 days Time of Disposition: 21:47
--- NOTE | 2023-05-11 20:41 | XR ---
EXAMINATION: XR chest 2V: 05/11/2023 6:50 PM CLINICAL INDICATION: difficulty breathing TECHNIQUE: AP and lateral - upright COMPARISON: None FINDINGS: The right hemidiaphragm is elevated to the level of the hilum, etiology unclear. This limits visualiz ation of the right lower lobe. The lungs appear to be clear bilaterally. The pleural spaces are negative. EKG leads. The cardiac silhouette is moderately enlarged. The remainder of the mediastinal silhouette is unremarkable. The skeletal structures and soft tissues are negative for acute findings. IMPRESSION: 1. Elevated right hemidiaphragm. 2. Moderately enlarged cardiac silhouette.
[2023-05-11 22:00] VITALS: BP 134/65; PULSE 70; RESP 20
== END 2023-05-11 22:00 | disposition home or self-care (01) ==
LOC: EC 16:41
DX: Z98.890 Other specified postprocedural states (principal); R06.00 Dyspnea, unspecified; T88.59XA Other complications of anesthesia, initial encounter; M19.90 Unspecified osteoarthritis, unspecified site; F41.9 Anxiety disorder, unspecified; F32.A Depression, unspecified; Z79.1 Long term (current) use of non-steroidal anti-inflammatories (NSAID); Z87.891 Personal history of nicotine dependence; Z79.899 Other long term (current) drug therapy; Z88.6 Allergy status to analgesic agent; Z88.8 Allergy status to other drugs, medicaments and biological substances
CPT/HCPCS: 36415; 71046; 80053; 83605; 84484; 85025; 85379; 85610; 85730; 93005; 94640; 99285

== ENCOUNTER 2023-05-13 10:22 | Emergency (ER) | payer MEDICARE, BC ==
[2023-05-13 10:39] VITALS: BP 187/95; PULSE 70; RESP 18; TEMP 98.5
--- NOTE | 2023-05-13 11:53 | ED ---
General Adult HPI - General Chief complaint: Recheck/Abnormal Lab/Rx Stated complaint: Needs Pump Cath/Drain taken out Time Seen by Provider: 05/13/23 11:10 Source: patient Mode of arrival: ambulatory Limitations: no limitations - History of Present Illness Initial comments: 62-year-old female S/P bicep tendonotomy of me presents to the ED with a chief c omplaint of pain pump removal. Patient states that she had her pain pump removed today and was provided instructions on how to remove the catheter however was hesitant to do so herself therefore presented to the ED for further treatment. Denies fever no other complaints. - Related Data Home Medications Medication Instructions Recorded Confirmed Citalopram Hydrobromide [CeleXA] 20 mg PO HS 08/04/14 05/11/23 HYDROcodone/APAP 5-325MG [[place] 1 tab PO BID 05/11/23 05/11/23 5-325] HYDROcodone/APAP 7.5-325MG [[place] 1 tab PO Q4H PRN 05/11/23 05/11/23 7.5-325] Ibuprofen [Motrin] 800 mg PO Q8H PRN 05/11/23 05/11/23 Meloxicam [Mobic] 15 mg PO DAILY 05/11/23 05/11/23 Ondansetron Odt [Zofran Odt] 4 mg PO Q8HR PRN 05/11/23 05/11/23 Sennosides/Docusate Sodium [Senna 1 cap PO BID 05/11/23 05/11/23 Plus 8.6-50 mg Softgel] Allergies Allergy/AdvReac Type Severity Reaction Status Date / Time naproxen AdvReac Ulcers Verified 05/13/23 10:38 Review of Systems ROS Statement: Those systems with pertinent positive or pertinent negative responses have been documented in the HPI. ROS Other: All systems not noted in ROS Statement are negative. Past Medical History Past Medical History: Deep Vein Thrombosis (DVT), GERD/Reflux, Musculoskeletal Disorder, Osteoarthritis (OA) Additional Past Medical History / Comment(s): CHRONIC BACK PAIN, HX DVT TO LEFT LEG 1979, bilateral carpal tunnel., RLS. History of Any Multi-Drug Resistant Organisms: None Reported Past Surgical History: Back Surgery, Section, Hysterectomy, Orthopedic Surgery Additional Past Surgical History / Comment(s): LAMINECTOMY WITH SPINAL CORD STIMULATOR THEN SIMULATOR REMOVED JULY 2022, LEFT OOPHORECTOMY, pain procedures, LEFT BUNIONECTOMY, COLONOSCOPY. Past Anesthesia/Blood Transfusion Reactions: Postoperative Nausea & Vomiting (PONV) Additional Past Anesthesia/Blood Transfusion Reaction / Comment(s): PONV WITH BACK SURGERY. Past Psychological History: Anxiety, Depression Smoking Status: Former smoker Past Alcohol Use History: None Reported Past Drug Use History: None Reported - Past Family History Mother Family Medical History: CVA/TIA Additional Family Medical History / Comment(s): . Sister(s) Family Medical History: Cancer Additional Family Medical History / Comment(s): Breast cancer. Father Family Medical History: Myocardial Infarction ([place]) Brother(s) Family Medical History: Seizure Disorder General Exam Limitations: no limitations General appearance: alert, in no apparent distress Respiratory exam: Present: normal lung sounds bilaterally Cardiovascular Exam: Present: regular rate, normal rhythm Extremities exam: Present: other (Catheters in place. After removal of catheter surgical sites inspected. Surgical sites are clean dry and intact without surrounding warmth, erythema, edema, tenderness palpation.) Neurological exam: Present: alert, oriented X3 Psychiatric exam: Present: normal affect, normal mood Skin exam: Present: warm, dry Course Vital Signs 05/13/23 10:35 Temperature 98.5 F Pulse Rate 70 Respiratory 18 Rate Blood Pressure 187/95 O2 Sat by Pulse 96 Oximetry Medical Decision Making - Medical Decision Making Was pt. sent in by a medical professional or institution ([facility], LAND ECONOMIST, urgent ca re, hospital, or longterm...) When possible be specific @ -No Did you speak to anyone other than the patient for history (EMS, parent, family, police, friend...)? What history was obtained from this source @ -No Did you review nursing and triage notes (agree or disagree)? Why? @ -I reviewed and agree with nursing and triage notes Were old charts reviewed (outside hosp., previous admission, EMS record, old EKG, old radiological studies, urgent care reports/EKG's, longterm records)? Report findings @ -No old charts were reviewed Differential Diagnosis (chest pain, altered mental status, abdominal pain women, abdominal pain men, vaginal bleeding, weakness, fever, dyspnea, syncope, headache, dizziness, GI bleed, back pain, seizure, CVA, palpatations, mental health, musculoskeletal)? @ -Cellulitis, after obstruction. This is not meant to be an all-inclusive list. EKG interpreted by me (3pts min.). @ -None X-rays interpreted by me (1pt min.). @ -None done CT interpreted by me (1pt min.). @ -None done U/S interpreted by me (1pt. min.). @ -None done What testing was considered but not performed or refused? (CT, X-rays, U/S, labs)? Why? @ -None What meds were considered but not given or refused? Why? @ -None Did you discuss the management of the patient with other professionals (professionals i.e. , PA, LAND ECONOMIST, lab, RT, psych nurse, social security assessor, biodiesel process control technician, teacher, county records management officer, porter sample case)? Give summary @ -No Was smoking cessation discussed for >3mins.? @ -No Was critical care preformed (if so, how long)? @ -No Were there social determinants of health that impacted care today? How? (Homelessness, low income, unemployed, alcoholism, drug addiction, transportation, low edu. Level, literacy, decrease access to med. care, [facility], rehab)? @ -No Was there de-escalation of care discussed even if they declined (Discuss DNR or withdrawal of care, Hospice)? DNR status @ -No What co-morbidities impacted this encounter? (DM, HTN, Smoking, COPD, CAD, Cancer, CVA, ARF, Chemo, Hep., AIDS, mental health diagnosis, sleep apnea, morbid obesity)? @ -None Was patient admitted / discharged? Hospital course, mention meds given and r oute, prescriptions, significant lab abnormalities, going to OR and other pertinent info. @ -Discharge. Patient had catheter removed tolerated without significant difficulty. Surgical sites clean dry and intact without evidence of infection. Patient already provided hydrocodone pain control by her surgeon. Patient discharged in stable condition. Discussed return precautions with patient who verbalizes agreement. Undiagnosed new problem with uncertain prognosis? @ -No Drug Therapy requiring intensive monitoring for toxicity (Heparin, Nitro, Insulin, Cardizem)? @ -No Were any procedures done? @ -Yes, Catheter removal Diagnosis/symptom? @ -Catheter removal of pain pump. Acute, or Chronic, or Acute on Chronic? @ -Acute Uncomplicated (without systemic symptoms) or Complicated (systemic symptoms)? @ -Uncomplicated Side effects of treatment? @ -No Exacerbation, Progression, or Severe Exacerbation? @ -No Poses a threat to life or bodily function? How? (Chest pain, [place], [place], pneumonia, PE, COPD, DKA, ARF, appy, cholecystitis, CVA, Diverticulitis, Homicidal, Suicidal, threat to staff... and all critical care pts) @ -No Disposition Clinical Impression: Encounter for adjustment and management of infusion pump Disposition: HOME SELF-CARE Condition: Good Additional Instructions: Please return to the Emergency Department if symptoms worsen or any other concerns. Monitor for signs of infection Is patient prescribed a controlled substance at d/c from ED?: No Referrals: José Marcos MD [Primary Care Provider] - 1-2 days Time of Disposition: 11:53
== END 2023-05-13 12:00 | disposition home or self-care (01) ==
LOC: EC 10:22
DX: Z45.1 Encounter for adjustment and management of infusion pump (principal); M19.90 Unspecified osteoarthritis, unspecified site; F41.9 Anxiety disorder, unspecified; F32.A Depression, unspecified; Z87.891 Personal history of nicotine dependence; Z79.1 Long term (current) use of non-steroidal anti-inflammatories (NSAID); Z79.899 Other long term (current) drug therapy; Z88.8 Allergy status to other drugs, medicaments and biological substances
CPT/HCPCS: 99283

== ENCOUNTER → 2023-05-24 | Outpatient (CLI) | payer MEDICARE, BC ==
[2023-05-24 13:15] VITALS: BP 185/91; PULSE 95; RESP 15; TEMP 97.9
--- NOTE | 2023-05-24 13:58 | P.PAINPG ---
PQRS Measure Charge Sheet Comment: A 62 yr old female with a history of severe and chronic LBP secondary to lumbar DDD and spondylosis with facet arthropathy without myelopathy presents today for medication refills. Pain level is provoked at 4/10 in intensity, constant, localized in the lumbar spine, dull, achy in character w shooting towards the R buttock and R thigh. Pain is provoked by standing, bending and twisting. Pain is alleviated with medications, heat, ice, topicals, sitting, reclining and rest. Interventional pain procedures completed include R SI, LORENA, Caudal RUFINA Patient is currently on [place] 5/325mg #60, Voltaren gel, Ibu Patient denies any side effects of the medication(s), denies excessive drowsiness or sleepiness, denies suicidal ideation and reports that the current pain medication is helping to control the pain and improve activities of daily living. Patient denies any motor or sensory deficits. Patient denies any fever or night sweats, denies any change in the bowel movements or urination. Physical Examination: -Constitutional: Cooperative. Not in acute distress . - Neurologic: Cranial nerve II to XII intact. No focal neurological deficits. - Psychatric: Alert & oriented x 3. Matching mood & appropriate affect. Judgment and insight intact. - Musculoskeletal: Cervical spine: Muscle bulk/ tone/ strength in the bilateral upper extremities normal Vertebral body tenderness to palpation over Spurling test positive Distraction test positive Facet loading test positive TTP Thoracic spine Muscle bulk / tone/ strength in the bilateral paraspinal muscles normal Vertebral body tender to palpation over Facet loading test positive TTP Lumbar spine: Motor bulk/ tone/ strength lower extremities , thigh and legs : 5/5 Deep tendon reflexes : Normal Knee Jerk. Normal Ankle Jerk . Vertebral body tenderness to palpation over L5 Lumbar Facet Loading Test positive Straight Leg Raise: positive at 30 degrees right side/ left side Gaenslen's Test positive Sacral spine : Severe tenderness over the Sacroiliac joint: right side / left side Range of motion: Flexion of the lumbar spine <60 degrees Range of motion: Extension of the lumbar spine <20 degrees Gaenslen's Test positive right side / left side Rommel test: positive right side / left side Thigh Thrust Test positive right side / left side Sacral Thrust Test positive right side / left side Assessment and plan: Chronic LBP secondary to lumbar DDD, spondylosis with facet arthropathy without myelopathy Chronic and current use of high-risk medication (Opioids). The patient was counseled about risk of opioid use, psychological risk associated with opioids and was orally counseled to not overuse , divert or sell medications. Pt is to store medication in a safe location. The patient is counseled against driving while using narcotic medications and also not to use alcohol or any illicit recreational drugs. Patient verbalized understanding that the lack of compliance will result in failure to renew narcotic prescription(s) as well as possible discharge from the clinic Diagnoses, prognosis and treatment options including but not limited to physical therapy, surgical interventions, interventional therapies and medication management including narcotics and adjuvant medication were discussed. All patient questions answered MAPS reviewed and it was appropriate. UDS from 01/25/23 reviewed and consistent. Prescription refill for Oxford 5/325mg #60 w 1 RF. Discussed urgent care visit w Oxford obtained. Pt acknowledged she will notify clinic of such occurrences again. I have spent less than 30 minutes on patient care today. Dr Boss was availa ble by phone for the evaluation of this patient. The time was used to review the medical records including relevant urine studies and Prescription history (MAPs), review of the available imaging, evaluation and examination of the patient, coordination of care with the medical staff and if applicable referring physicians, as well as creation of the medical record PQRS Narrative: Smoking Status Former smoker Narcotic Agreement Date Signed 12/29/22 Hx Alcohol Use (MH) Yes: Rare Home Medications: Ambulatory Orders Citalopram Hydrobromide [CeleXA] 20 mg PO HS 08/04/14 HYDROcodone/APAP 7.5-325MG [[place] 7.5-325] 1 tab PO Q4H PRN 05/11/23 Ibuprofen [Motrin] 800 mg PO Q8H PRN 05/11/23 Meloxicam [Mobic] 15 mg PO DAILY 05/11/23 Ondansetron Odt [Zofran Odt] 4 mg PO Q8HR PRN 05/11/23 Sennosides/Docusate Sodium [Senna Plus 8.6-50 mg Softgel] 1 cap PO BID 05/11/23 HYDROcodone/APAP 5-325MG [Oxford 5-325] 1 tab PO BID PRN 30 Days #60 tab 05/24/23 HYDROcodone/APAP 5-325MG [[place] 5-325] 1 tab PO BID PRN 30 Days #60 tab 05/24/23 Controlled Substance Measures - Controlled Substance Measures Is patient prescribed a controlled substance at discharge?: Yes When asked, does pt state using other controlled substances?: Yes If prescribed controlled substance>3 days was MAPS reviewed?: Yes If Rx opioid, was Start Talking consent form obtained?: Yes Was information provided regarding opioid addiction?: Yes
== END ==
LOC: PNWHC3 12:54
PROVIDERS: ATTEND Specialist
DX: M51.36 Other intervertebral disc degeneration, lumbar region (principal); M47.816 Spondylosis without myelopathy or radiculopathy, lumbar region; G89.29 Other chronic pain; Z79.891 Long term (current) use of opiate analgesic; Z87.891 Personal history of nicotine dependence; Z88.6 Allergy status to analgesic agent
CPT/HCPCS: 99211

== ENCOUNTER 2023-08-15 08:53 | Day surgery (SDC) | payer MEDICARE, BC ==
[2023-08-09 14:01] VITALS: BMI 41.1
[2023-08-15 09:42] VITALS: RESP 16; TEMP 97.6
[2023-08-15] MEDS ORDERED: methylPREDNISolone ACETATE 80 MG/ML 1 ML VIAL ONE (09:44)
[2023-08-15] MEDS ORDERED: IOPAMIDOL M200 10 ML VIAL ONE (09:44)
--- NOTE | 2023-08-15 09:56 | P.PCN ---
Date of Procedure: 08/15/23 Procedure(s) Performed: PREOP DIAGNOSIS: 1- failed back surgery syndrome. POSTOP DIAGNOSIS:1- failed back surgery syndrome. PROCEDURE: 1-Caudal epidural steroid injection with epidurolysis and epidurogram under fluoroscopic guidance. (Fluoroscopy images available in the radiology Department ) 2-caudal epidurogram. ANESTHESIA: Lidocaine 1% 5 ML only EBL: Minimal. PROCEDURE INDICATION: The patient with failed back surgery syndrome with low back pain and radiculopathy radiating down in both legs, here for a caudal epidural steroid injection with epidurolysis. PROCEDURE DESCRIPTION: The patient was seen and identified in the preoperative area. Risks, benefits, complications, and alternatives were discussed with the patient. The patient agreed to proceed with the procedure and signed the consent., and vital signs were stable. Patient was taken to the OR and time out was completed. The patient was placed in the prone position on procedure table and a pillow was placed under the abdomen to reduce lumbar lordosis. The lumbosacral area was prepped and draped in the usual sterile fashion. Vital signs were closely monitored during the procedure. lateral view and the anterior-posterior plates of the sacrum were identified with infiltration of the area overlying the sacral hiatus with 1% lidocaine .A 17 gauge RK epidural needle was used to advance through the sacral hiatus into the caudal epidural space. Omnipaque 180 dye. 2cc was injected and the position of the needle was verified to be in the midline. A Racz catheter was introduced into the epidural space and was advanced towards the L5-S1 interspace under direct fluoroscopic guidance. Multiple passes were made with the catheter for lysis of epidural adhesions. Depo-Medrol 80 mg ( preservative-free ) with 3ml of preservative free Lidocaine 1% and 5 ml of preservative free normal saline was injected slowly. Additional spread was seen to L4 under fluoroscopy. The needle and the catheter were withdrawn intact. EPIDUROGRAM: Omnipaque 180 mg dye 2 ml was injected with spread of the dye into the caudal epidural space and with spread cutoff at L5 prior to epidurolysis. Post epidurolysis dye 2 ml was injected and spread was seen to L3-4.There was further spread of the solution together with the dye above the L3 COMPLICATIONS: None. DISPOSITION / PLANS: The patient was placed in a supine position and transferred to the recovery area in a stable condition for observation and was discharged from the recovery room after meeting discharge criteria. Home discharge instructions given to the patient by the staff. The patient was reexamined prior to discharge. The patient will schedule a follow up in the clinic in 2-4 weeks.
--- NOTE | 2023-08-15 10:03 | FL ---
Intraoperative/procedural fluoroscopic services were provided for caudal with lysis. Total fluoroscop y time is 6.4 seconds with a total of 3 submitted images to PACS. Total DAP [id number] [id number]. Please se e the operative note for further details.
[2023-08-15 10:19] VITALS: BP 138/79; PULSE 66
== END 2023-08-15 10:12 | disposition home or self-care (01) ==
LOC: ORPAIN 08:53
PROVIDERS: ATTEND Specialist
DX: M51.16 Intervertebral disc disorders with radiculopathy, lumbar region (principal); M96.1 Postlaminectomy syndrome, not elsewhere classified; Z88.8 Allergy status to other drugs, medicaments and biological substances
CPT/HCPCS: 62323; J1040; Q9966; C1894; 62264

== ENCOUNTER → 2023-10-03 | Outpatient (CLI) | payer MEDICARE, BC ==
--- NOTE | 2023-10-03 14:27 | P.PAINPG ---
PQRS Measure Charge Sheet Comment: A 62 yr old female with a history of severe and chronic LBP secondary to lumbar DDD and spondylosis with facet arthropathy without myelopathy presents today for medication refills and evaluation s/p Caudal RUFINA w Lysis. Pt states she experienced 50 % pain relief x 2 wks s/p procedure, then pain immediately r eturned. Pain level is provoked at 8/10 in intensity, constant, localized in the lumbar spine, dull, achy in character w shooting towards the R buttock and R thigh. Pain is provoked by standing, bending and twisting. Pain is alleviated with medications, heat, ice, topicals, sitting, reclining and rest. Pt wants to stop Ibu because it upsets her stomach. Oswestry axial pain score of 30. Interventional pain procedures completed include R SI, LORENA, Caudal RUFINA (May 2021), Caudal RUFINA w Lysis (Jul 2023) Patient is currently on [place] 5/325mg #60, Voltaren gel, Ibu Patient denies any side effects of the medication(s), denies excessive drowsiness or sleepiness, denies suicidal ideation and reports that the current pain medication is helping to control the pain and improve activities of daily living. Patient denies any motor or sensory deficits. Patient denies any fever or night sweats, denies any change in the bowel movements or urination. Physical Examination: -Constitutional: Cooperative. Not in acute distress . - Neurologic: Cranial nerve II to XII intact. No focal neurological deficits. - Psychatric: Alert & oriented x 3. Matching mood & appropriate affect. Judgment and insight intact. - Musculoskeletal: Cervical spine: Muscle bulk/ tone/ strength in the bilateral upper extremities normal Vertebral body tenderness to palpation over Spurling test positive Distraction test positive Facet loading test positive TTP Thoracic spine Muscle bulk / tone/ strength in the bilateral paraspinal muscles normal Vertebral body tender to palpation over Facet loading test positive TTP Lumbar spine: Motor bulk/ tone/ strength lower extremities , thigh and legs : 5/5 Deep tendon reflexes : Normal Knee Jerk. Normal Ankle Jerk . Vertebral body tenderness to palpation over L5 Lumbar Facet Loading Test positive Straight Leg Raise: positive at 30 degrees right side> left side Gaenslen's Test positive Sacral spine : Severe tenderness over the Sacroiliac joint: right side / left side Range of motion: Flexion of the lumbar spine <60 degrees Range of motion: Extension of the lumbar spine <20 degrees Gaenslen's Test positive right side / left side Rommel test: positive right side / left side Thigh Thrust Test positive right side / left side Sacral Thrust Test positive right side / left side Assessment and plan: Chronic LBP secondary to lumbar DDD, spondylosis with facet arthropathy without myelopathy Recommendation of medication management. Prescription refill for [place] 5/325mg #90 w 1 RF. Use, side effects, adverse reactions and safe storage discussed. Pt verbalized understanding. UDS from 07/31/23 reviewed and consistent. Chronic and current use of high-risk medication (Opioids). The patient was counseled about risk of opioid use, psychological risk associated with opioids and was orally counseled to not overuse , divert or sell medications. Pt is to store medication in a safe location. The patient is counseled against driving while using narcotic medications and also not to use alcohol or any illicit recreational drugs. Patient verbalized understanding that the lack of compliance will result in failure to renew narcotic prescription(s) as well as possible discharge from the clinic Diagnoses, prognosis and treatment options including but not limited to physical therapy, surgical interventions, interventional therapies and medication management including narcotics and adjuvant medication were discussed. All patient questions answered MAPS reviewed and it was appropriate. I have spent less than 30 minutes on patient care today. Dr Boss was available by phone for the evaluation of this patient. The time was used to review the medical records including relevant urine studies and Prescription history (MAPs), review of the available imaging, evaluation and examination of the patient, coordination of care with the medical staff and if applicable refer ring physicians, as well as creation of the medical record PQRS Narrative: Smoking Status Former smoker Narcotic Agreement Date Signed 12/29/22 Hx Alcohol Use (MH) Yes: Rare Home Medications: Ambulatory Orders Citalopram Hydrobromide [CeleXA] 20 mg PO HS 08/04/14 Ibuprofen [Motrin] 800 mg PO Q8H PRN 05/11/23 Ondansetron Odt [Zofran Odt] 4 mg PO Q8HR PRN 05/11/23 Sennosides/Docusate Sodium [Senna Plus 8.6-50 mg Softgel] 1 cap PO BID 05/11/23 diazePAM [Valium] 5 mg PO Q24H 1 Days #2 tab 07/31/23 HYDROcodone/APAP 5-325MG [[place] 5-325] 1 tab PO TID 30 Days #90 tab 10/03/23 HYDROcodone/APAP 5-325MG [[place] 5-325] 1 tab PO TID PRN 30 Days #90 tab 10/03/23 Controlled Substance Measures - Controlled Substance Measures Is patient prescribed a controlled substance at discharge?: Yes When asked, does pt state using other controlled substances?: No If prescribed controlled substance>3 days was MAPS reviewed?: Yes
[2023-10-03 15:03] VITALS: BP 126/88; PULSE 94; RESP 15; TEMP 98.5
== END ==
LOC: PNWHC3 13:36
PROVIDERS: ATTEND Specialist
DX: M47.816 Spondylosis without myelopathy or radiculopathy, lumbar region (principal); M51.36 Other intervertebral disc degeneration, lumbar region; G89.29 Other chronic pain; Z79.891 Long term (current) use of opiate analgesic; Z87.891 Personal history of nicotine dependence; Z88.8 Allergy status to other drugs, medicaments and biological substances
CPT/HCPCS: 99211

== ENCOUNTER 2023-11-30 15:54 | Emergency (ER) | payer MEDICARE, BC ==
--- NOTE | 2023-11-30 16:11 | ED ---
Lower Extremity Injury HPI - General Source: patient, family, RN notes reviewed Mode of arrival: wheelchair Limitations: no limitations <Becky Badillo - Last Filed: 11/30/23 16:10> <Mani Logan - Last Filed: 11/30/23 18:50> - General Chief Complaint: Extremity Injury, Lower Stated Complaint: R-LE PAIN Time Seen by Provider: 11/30/23 16:10 - History of Present Illness Initial Comments: Patient is a 63-year-old female presented to ER with a chief complaint of right knee injury. Patient states she took a step off of her porch this morning and she heard something snap. Patient denies any injuries or head trauma. (Becky Badillo) 63-year-old female with a past medical history significant for chronic pain back radiating to her right lower extremity presenting to the ED with a chief complaint of knee pain. Patient notes a history of chronic pain that radiates to her knee however states earlier today took a step off with her porch leading with her right leg and upon stepping down onto her right foot felt a "snap "in the back of her right knee. Since then, patient notes that she has been unable to ambulate as she notes worsening of pain upon bearing weight. Patient notes that she already has orthopedic follow-up scheduled with Dr. Tucker in 4 days however patient does note history of remote DVT 20+ years ago. Secondary to this, she would like to be evaluated to rule out DVT. No other injuries at this time. No other complaints. (Mani Logan) - Related Data Home Medications Medication Instructions Recorded Confirmed Citalopram Hydrobromide [CeleXA] 20 mg PO HS 08/04/14 08/15/23 Ibuprofen [Motrin] 800 mg PO Q8H PRN 05/11/23 08/15/23 Ondansetron Odt [Zofran Odt] 4 mg PO Q8HR PRN 05/11/23 08/15/23 Sennosides/Docusate Sodium [Senna 1 cap PO BID 05/11/23 08/15/23 Plus 8.6-50 mg Softgel] Previous Rx's Medication Instructions Recorded diazePAM [Valium] 5 mg PO Q24H 1 Days #2 tab 07/31/23 HYDROcodone/APAP 5-325MG [[place] 1 tab PO TID 30 Days #90 tab 10/03/23 5-325] HYDROcodone/APAP 5-325MG [[place] 1 tab PO TID PRN 30 Days #90 tab 10/03/23 5-325] Allergies Allergy/AdvReac Type Severity Reaction Status Date / Time naproxen AdvReac Ulcers Verified 08/15/23 09:24 Review of Systems ROS Other: All systems not noted in ROS Statement are negative. <Becky Badillo - Last Filed: 11/30/23 16:10> ROS Other: All systems not noted in ROS Statement are negative. <Mani Logan - Last Filed: 11/30/23 18:50> ROS Statement: Those systems with pertinent positive or pertinent negative responses have been documented in the HPI. Past Medical History Past Medical History: Deep Vein Thrombosis (DVT), Osteoarthritis (OA) Additional Past Medical History / Comment(s): CHRONIC BACK PAIN, HX DVT TO LEFT LEG 1979, bilateral carpal tunnel., RLS. DJD History of Any Multi-Drug Resistant Organisms: None Reported Past Surgical History: Back Surgery, Section, Hysterectomy, Orthopedic Surgery Additional Past Surgical History / Comment(s): LAMINECTOMY WITH SPINAL CORD STIMULATOR THEN SIMULATOR REMOVED JULY 2022, LEFT OOPHORECTOMY, pain procedures, LEFT BUNIONECTOMY, COLONOSCOPY. Past Anesthesia/Blood Transfusion Reactions: Postoperative Nausea & Vomiting (PONV) Additional Past Anesthesia/Blood Transfusion Reaction / Comment(s): PONV WITH BACK SURGERY. Past Psychological History: Anxiety, Depression Smoking Status: Former smoker - Past Family History Mother Family Medical History: CVA/TIA Additional Family Medical History / Comment(s): . Sister(s) Family Medical History: Cancer Additional Family Medical History / Comment(s): Breast cancer. Father Family Medical History: Myocardial Infarction (NH) Brother(s) Family Medical History: Seizure Disorder <Becky Badillo - Last Filed: 11/30/23 16:10> General Exam Limitations: no limitations <Becky Badillo - Last Filed: 11/30/23 16:10> General appearance: alert, in no apparent distress Eye exam: Present: normal appearance Respiratory exam: Present: normal lung sounds bilaterally Cardiovascular Exam: Present: regular rate, normal rhythm GI/Abdominal exam: Present: soft Extremities exam: Present: other (Full passive range of motion of the right lower extremity without significant difficulty. Strength and sensation distal of the right lower extremity equal and intact compared to the left. DP/PT pulses 2+. ) Neurological exam: Present: alert, oriented X3 Skin exam: Present: warm, dry <Mani Logan - Last Filed: 11/30/23 18:50> - General Exam Comments Initial Comments: Visual Physical Exam Vital signs reviewed General: Well-appearing, nontoxic, no acute distress. Head: Normocephalic, atraumatic Eyes: PERRLA, EOMI ENT: Airway patent Chest: Nonlabored breathing Skin: No visual rash, normal skin tone Neuro: Alert and oriented 3 Musculoskeletal: No gross abnormalities (Becky Badillo) Course Vital Signs 11/30/23 16:03 Temperature 98.5 F Pulse Rate 95 Respiratory 16 Rate O2 Sat by Pulse 98 Oximetry Medical Decision Making <Becky Badillo - Last Filed: 11/30/23 16:10> <Mani Logan - Last Filed: 11/30/23 18:50> - Medical Decision Making I performed the quick note portion of the exam. Electronically signed by Becky Badillo PA-C (Becky Badillo) Was pt. sent in by a medical professional or institution ([facility], [employer], urgent care, hospital, or long-term...) When possible be specific @ -No Did you speak to anyone other than the patient for history (EMS, parent, family, police, friend...)? What history was obtained from this source @ -No Did you review nursing and triage notes (agree or disagree)? Why? @ -I reviewed and agree with nursing and triage notes Were old charts reviewed (outside hosp., previous admission, EMS record, old EKG, old radiological studies, urgent care reports/EKG's, long-term records)? Report findings @ -No old charts were reviewed Differential Diagnosis (chest pain, altered mental status, abdominal pain women, abdominal pain men, vaginal bleeding, weakness, fever, dyspnea, syncope, headache, dizziness, GI bleed, back pain, seizure, CVA, palpatations, mental health, musculoskeletal)? @ -Differential Musculoskeletal Muscular strain, contusion, ligament sprain, fracture, arthritis, septic arthritis, bursitis, cellulitis, muscle spasm, nerve compression, DVT, arterial occlusion, herpes zoster, electrolyte abnormality, tumor.... This is not meant to be in all inclusive list EKG interpreted by me (3pts min.). @ -As above X-rays interpreted by me (1pt min.). @ -X-ray of the right knee interpreted by me showing no evidence of acute finding. CT interpreted by me (1pt min.). @ -None done U/S interpreted by me (1pt. min.). @ -Ultrasound of the right knee interpreted by me showing no evidence of DVT or other acute finding. What testing was considered but not performed or refused? (CT, X-rays, U/S, labs)? Why? @ -None What meds were considered but not given or refused? Why? @ -None Did you discuss the management of the patient with other professionals (professionals i.e. , PA, [employer], lab, RT, psych nurse, manager social responsibility, case management specialist, teacher, chief environmental commitment officer, keycase assembler)? Give summary @ -No Was smoking cessation discussed for >3mins.? @ -No Was critical care preformed (if so, how long)? @ -No Were there social determinants of health that impacted care today? How? (Homelessness, low income, unemployed, alcoholism, drug addiction, transportation, low edu. Level, literacy, decrease access to med. care, retirement, rehab)? @ -No Was there de-escalation of care discussed even if they declined (Discuss DNR or withdrawal of care, Hospice)? DNR status @ -No What co-morbidities impacted this encounter? (DM, HTN, Smoking, COPD, CAD, Cancer, CVA, ARF, Chemo, Hep., AIDS, mental health diagnosis, sleep apnea, morbid obesity)? @ -None Was patient admitted / discharged? Hospital course, mention meds given and route, prescriptions, significant lab abnormalities, going to OR and other pertinent info. @ -Discharge 63-year-old female presented to the ED status post injury. At this time imaging studies including x-ray of the right knee and ultrasound are unremarkable for any acute finding. Patient placed in a knee immobilizer and advised to follow- up with her orthopedist as scheduled in the next few days. Offered patient crutches however at this time patient would not like. Advised to use home medications as needed for pain. Discussed return precautions with patient who verbalized agreement. Undiagnosed new problem with uncertain prognosis? @ -No Drug Therapy requiring intensive monitoring for toxicity (Heparin, Nitro, Insulin, Cardizem)? @ -No Were any procedures done? @ -No Diagnosis/symptom? @ -Right knee injury Acute, or Chronic, or Acute on Chronic? @ -Acute Uncomplicated (without systemic symptoms) or Complicated (systemic symptoms)? @ -Uncomplicated Side effects of treatment? @ -No Exacerbation, Progression, or Severe Exacerbation? @ -No Poses a threat to life or bodily function? How? (Chest pain, [place], NH, pneumonia, PE, COPD, DKA, ARF, appy, cholecystitis, CVA, Diverticulitis, Homicidal, Suicidal, threat to staff... and all critical care pts) @ -No (Mani Logan) Disposition <Becky Badillo - Last Filed: 11/30/23 16:10> Is patient prescribed a controlled substance at d/c from ED?: No Time of Disposition: 18:50 <Mani Logan - Last Filed: 11/30/23 18:50> Clinical Impression: Right knee injury Disposition: HOME SELF-CARE Condition: Good Additional Instructions: Please return to the Emergency Department if symptoms worsen or any other concerns. Please follow-up with your orthopedist as scheduled. Referrals: José Marcos MD [Primary Care Provider] - 1-2 days
[2023-11-30 16:21] VITALS: RESP 16; TEMP 98.5
[2023-11-30] MEDS ORDERED: MORPHINE SULFATE 4 MG/ML SYRINGE IM STA (16:38)
--- NOTE | 2023-11-30 16:54 | XR ---
EXAMINATION TYPE: XR knee complete RT DATE OF EXAM: 11/30/2023 4:36 PM CLINICAL INDICATION:Female, 63 years old with history of pain swelling; [facility] COMPARISON: None. TECHNIQUE: XR knee complete RT; examined in Frontal, lateral and oblique projections. FINDINGS: No evidence of any acute osseous pathology, soft tissue swelling, or joint effusion is no aly. Tricompartmental osteophyte formation involving the femoral condyles, tibial plateau and patella. Mo derate joint space narrowing in the medial knee. IMPRESSION: 1. No acute osseous pathology. 2. Moderate tricompartmental osteoarthritic changes.
--- NOTE | 2023-11-30 18:43 | US ---
EXAMINATION TYPE: US venous doppler duplex LE RT DATE OF EXAM: 11/30/2023 4:38 PM COMPARISON: NONE CLINICAL INDICATION: Female, 63 years old with history of r/o dvt; Extreme pain in right leg behind t he knee. Pt said she injured her leg today. Hx of DVT 40ish years ago during . Not on blood thinners. SIDE PERFORMED: Right TECHNIQUE: The lower extremity deep venous system is examined utilizing real time linear array sonog les with graded compression, doppler sonography and color-flow sonography. VESSELS IMAGED: Common Femoral Vein Deep Femoral Vein Greater Saphenous Vein * Femoral Vein Popliteal Vein Small Saphenous Vein * Proximal Calf Veins (* superficial vessels) Right Leg: No evidence for DVT IMPRESSION: Grayscale, color doppler, spectral doppler imaging performed of the deep veins of the lo wer extremities. There is normal flow, compressibility, vascular waveforms.
[2023-11-30] MEDS ORDERED: HYDROmorphone 1 MG/ML 1 ML SYRINGE IM STA (18:47)
[2023-11-30 19:37] VITALS: BP 142/86; PULSE 78
== END 2023-11-30 19:20 | disposition home or self-care (01) ==
LOC: EC 15:54
DX: S89.91XA Unspecified injury of right lower leg, initial encounter (principal); F32.A Depression, unspecified; F41.9 Anxiety disorder, unspecified; Z79.899 Other long term (current) drug therapy; Z88.6 Allergy status to analgesic agent; Z86.718 Personal history of other venous thrombosis and embolism; Z87.891 Personal history of nicotine dependence; W13.0XXA Fall from, out of or through balcony, initial encounter; Y92.009 Unspecified place in unspecified non-institutional (private) residence as the place of occurrence of the external cause
CPT/HCPCS: 99284; 96372 ×2; 73562; 93971; J2270; J1170

== ENCOUNTER → 2023-12-06 | Outpatient (CLI) | payer MEDICARE, BC ==
[2023-12-06 12:44] VITALS: BP 133/88; PULSE 94; RESP 14
--- NOTE | 2023-12-06 15:01 | P.PAINPG ---
PQRS Measure Charge Sheet Comment: A 63 yr old female with a history of severe and chronic LBP secondary to post laminectomy syndrome presents for medication refills. Pain level is provoked at 9 /10 in intensity, constant, localized in the lumbar spine, dull, achy in character w shooting towards the R buttock and R thigh. Pain is provoked by standing, bending and twisting. Pain is alleviated with medications, heat, ice, topicals, sitting, reclining and rest. Pt wants to stop Ibu because it upsets her stomach. Oswestry axial pain score of 30. Interventional pain procedures completed include R SI, LORENA, Caudal RUFINA (May 2021), Caudal RUFINA w Lysis (Jul 2023) Patient is currently on [place] 5/325mg #60, Voltaren gel, Ibu Patient denies any side effects of the medication(s), denies excessive drowsiness or sleepiness, denies suicidal ideation and reports that the current pain medication is helping to control the pain and improve activities of daily living. Patient denies any motor or sensory deficits. Patient denies any fever or night sweats, denies any change in the bowel movements or urination. Physical Examination: -Constitutional: Cooperative. Not in acute distress . - Neurologic: Cranial nerve II to XII intact. No focal neurological deficits. - Psychatric: Alert & oriented x 3. Matching mood & appropriate affect. Judgment and insight intact. - Musculoskeletal: Cervical spine: Muscle bulk/ tone/ strength in the bilateral upper extremities normal Vertebral body tenderness to palpation over Spurling test positive Distraction test positive Facet loading test positive TTP Thoracic spine Muscle bulk / tone/ strength in the bilateral paraspinal muscles normal Vertebral body tender to palpation over Facet loading test positive TTP Lumbar spine: Motor bulk/ tone/ strength lower extremities , thigh and legs : 5/5 Deep tendon reflexes : Normal Knee Jerk. Normal Ankle Jerk . Vertebral body tenderness to palpation over L5 Lumbar Facet Loading Test positive Straight Leg Raise: positive at 30 degrees right side Gaenslen's Test positive Sacral spine : Severe tenderness over the Sacroiliac joint: right side / left side Range of motion: Flexion of the lumbar spine <60 degrees Range of motion: Extension of the lumbar spine <20 degrees Gaenslen's Test positive right side / left side Rommel test: positive right side / left side Thigh Thrust Test positive right side / left side Sacral Thrust Test positive right side / left side Assessment and plan: Chronic LBP secondary to post laminectomy syndrome Recommendation of R TFESI L5-S1 #1 an dmedication management. May need a series of injections for optimal pain relief. Risks, benefits of procedure discussed and pt verbalized understanding. Protocol for discontinuation/ continuation of medications timi procedure discussed. The patient was counseled about risk of opioid use, psychological risk associated with opioids and was orally counseled to not overuse , divert or sell medications. Pt is to store medication in a safe location. The patient is counseled against driving while using narcotic medicatio ns and also not to use alcohol or any illicit recreational drugs. Patient verbalized understanding that the lack of compliance will result in failure to renew narcotic prescription(s) as well as possible discharge from the clinic Diagnoses, prognosis and treatment options including but not limited to physical therapy, surgical interventions, interventional therapies and medication management including narcotics and adjuvant medication were discussed. Prescription refill for [place] 5/325mg #90 w 1 RF. Use, side effects, adverse reactions and safe storage discussed. Opiate/ Narcotic agreement updated 12/06/23. Pt verbalized understanding. UDS from 07/31/23 reviewed and consistent. Chronic and current use of high-risk medication (Opioids). All patient questions answered MAPS reviewed and it was appropriate. I have spent less than 30 minutes on patient care today. Dr Boss was available by phone for the evaluation of this patient. The time was used to review the medical records including relevant urine studies and Prescription history (MAPs), review of the available imaging, evaluation and examination of the patient, coordination of care with the medical staff and if applicable referring physicians, as well as creation of the medical record PQRS Narrative: Smoking Status Former smoker Narcotic Agreement Date Signed 12/29/22 Hx Alcohol Use (MH) Yes: Rare Home Medications: Ambulatory Orders Citalopram Hydrobromide [CeleXA] 20 mg PO HS 08/04/14 Ibuprofen [Motrin] 800 mg PO Q8H PRN 05/11/23 Ondansetron Odt [Zofran Odt] 4 mg PO Q8HR PRN 05/11/23 Sennosides/Docusate Sodium [Senna Plus 8.6-50 mg Softgel] 1 cap PO BID 05/11/23 diazePAM [Valium] 5 mg PO Q24H 1 Days #2 tab 07/31/23 HYDROcodone/APAP 5-325MG [Dayton 5-325] 1 tab PO TID 30 Days #90 tab 12/06/23 HYDROcodone/APAP 5-325MG [[place] 5-325] 1 tab PO TID PRN 30 Days #90 tab 12/06/23 Controlled Substance Measures - Controlled Substance Measures Is patient prescribed a controlled substance at discharge?: Yes When asked, does pt state using other controlled substances?: No If prescribed controlled substance>3 days was MAPS reviewed?: Yes
== END ==
LOC: PNWHC3 12:02
PROVIDERS: ATTEND Anesthesiology
DX: M47.816 Spondylosis without myelopathy or radiculopathy, lumbar region (principal); M96.1 Postlaminectomy syndrome, not elsewhere classified; G89.29 Other chronic pain; Z79.891 Long term (current) use of opiate analgesic; Z87.891 Personal history of nicotine dependence; Z88.8 Allergy status to other drugs, medicaments and biological substances
CPT/HCPCS: 99211

== ENCOUNTER 2023-12-19 10:53 | Day surgery (SDC) | payer MEDICARE, BC ==
[2023-12-14 14:32] VITALS: BMI 41.1
[2023-12-19 11:41] VITALS: TEMP 97.2
[2023-12-19] MEDS ORDERED: DEXAMETHASONE SOD PHOSPHATE 10 MG/ML 1 ML VIAL ONE (12:14)
[2023-12-19] MEDS ORDERED: ROPIVACAINE 5MG/ML 20ML VIAL ONE (12:14)
[2023-12-19] MEDS ORDERED: IOPAMIDOL M300 15ML VIAL ONE (12:14)
--- NOTE | 2023-12-19 12:52 | P.PCN ---
Description of Procedure: PREOPERATIVE DIAGNOSIS: 1-Lumbar radiculopathy . 2-lumbar degenerative disc disease. 3-lumbar spondylosis with lumbar facet arthropathy without myelopathy POSTOPERATIVE DIAGNOSIS: 1-lumbar radiculopathy. 2-lumbar degenerative disc disease. 3-lumbar spondylosis with facet arthropathy without myelopathy PROCEDURE 1. Transforaminal epidural steroid injection under fluoroscopic guidance at RIGHT L5-S1 level. (Fluoroscopy images stored on file in the radiology Department ) 2. Lumbar epidurogram . ANESTHESIA: Local with 1% lidocaine 5 ml. subcutaneously. Continuous pulse ox, EKG, blood pressure and verbal communication was maintained with the patient. EBL: Minimal PROCEDURE INDICATION: The patient with low back pain and radiculopathy symptoms unresponsive to conservative treatment. The patient was seen and identified in the preoperative area. Risks, benefits, complications, and alternatives were discussed with the patient. The patient agreed to proceed with the procedure and signed the consent. IV was started, and vital signs were stable. PROCEDURE DESCRIPTION / TECHNIQUE: After getting consent, patient was taken to the OR and time out was completed. The patient was placed in the prone position on procedure table and a pillow was placed under the abdomen to reduce lumbar lordosis. The lumbosacral area was prepped and draped in the usual sterile fashion. Critical pause was taken. After injecting 5 mL of plain 1% lidocaine subcutaneously, under oblique view of the fluoroscope, a 22-gauge spinal needle was introduced under the tunnel view of the fluoroscope on the RIGHT side and the needle was advanced so that the tip of the needle was at the posterior inferior quadrant of the intervertebral foramen at the lateral view of the fluoroscope and in the lateral third of the facet column in the AP view of the fluoroscope. Negative CSF, negative blood, negative paresthesia. After needle position confirmation by AP and cross table lateral view, 3 mL of Isovue-M 200 contrast was injected under continuous fluoroscope. No contrast was noted in the intrathecal or intravascular space. The epidurogram was noted. Again after repeated negative aspiration 2.5 mL solution was injected which consists 1.5 mL of normal saline mixed with 1 mL of 20 mg dexamethasone. Needle was removed . At the end of the procedure, skin was cleansed, and bandages were applied. DISPOSITION / PLANS: No complication. The patient tolerated the procedure well. The patient was placed in a supine position and transferred to the recovery area in a stable condition for observation. There was no evidence of lower extremity motor or sensory deficit after the procedure. Patient was discharged from the recovery room after meeting discharge criteria. Home discharge instructions were given to the patient by the staff. The patient was reexamined prior to discharge.
[2023-12-19 13:14] VITALS: BP 132/93; PULSE 82; RESP 15
--- NOTE | 2023-12-19 16:23 | FL ---
EXAMINATION TYPE: FL guided pain mgmt statistic Intraoperative/procedural fluoroscopic services were provided. Total fluoroscopy time is 95.7 seconds with a total of 4 submitted images to PACS. Please s ee the operative/procedural note for further details. DAP: [id number] mGym2
== END 2023-12-19 12:59 | disposition home or self-care (01) ==
LOC: ORPAIN 10:53
PROVIDERS: ATTEND Pain Medicine Interventional Pain Medicine
DX: M51.16 Intervertebral disc disorders with radiculopathy, lumbar region (principal); M47.26 Other spondylosis with radiculopathy, lumbar region; Z88.6 Allergy status to analgesic agent
CPT/HCPCS: 64483; J1100; Q9967; J2795

== ENCOUNTER → 2024-01-31 | Outpatient (CLI) | payer MEDICARE, BC ==
[2024-01-31 13:52] VITALS: BP 142/103; PULSE 72; RESP 16; TEMP 98.5
--- NOTE | 2024-01-31 14:27 | P.PAINPG ---
Objective - Vital Signs Vital signs: Intake & Output 01/30/24 01/31/24 01/31/24 18:59 06:59 18:59 Weight 96.615 kg PQRS Measure Charge Sheet Comment: A 63 yr old female with a history of severe and chronic LBP secondary to post laminectomy syndrome presents for medication refills and evaluation s/p R TFESI L5-S1 #1. Pt states she experienced 100% pain relief x 6 wks s/p procedure. Pain level is provoked at 7 /10 in intensity, constant, localized in the lumbar spine, dull, achy in character without shooting pain. Pain is provoked by standing, bending and twisting. Pain is alleviated with medications, heat, ice, topicals, sitting, reclining and rest. Oswestry axial pain score of 27. Interventional pain procedures completed include R SI, LORENA, Caudal RUFINA (May 2021), Caudal RUFINA w Lysis (Jul 2023), R TFESI L5-S1 x1 (Nov 2023) Patient is currently on Dixie 5/325mg #60, Voltaren gel Patient denies any side effects of the medication(s), denies excessive drowsiness or sleepiness, denies suicidal ideation and reports that the current pain medication is helping to control the pain and improve activities of daily living. Patient denies any motor or sensory deficits. Patient denies any fever or night sweats, denies any change in the bowel movements or urination. Physical Examination: -Constitutional: Cooperative. Not in acute distress . - Neurologic: Cranial nerve II to XII intact. No focal neurological deficits. - Psychatric: Alert & oriented x 3. Matching mood & appropriate affect. Judgment and insight intact. - Musculoskeletal: Cervical spine: Muscle bulk/ tone/ strength in the bilateral upper extremities normal Vertebral body tenderness to palpation over Spurling test positive Distraction test positive Facet loading test positive TTP Thoracic spine Muscle bulk / tone/ strength in the bilateral paraspinal muscles normal Vertebral body tender to palpation over Facet loading test positive TTP Lumbar spine: Motor bulk/ tone/ strength lower extremities , thigh and legs : 5/5 Deep tendon reflexes : Normal Knee Jerk. Normal Ankle Jerk . Vertebral body tenderness to palpation over L5 Lumbar Facet Loading Test positive Straight Leg Raise: positive at 30 degrees right side Gaenslen's Test positive Sacral spine : Severe tenderness over the Sacroiliac joint: right side / left side Range of motion: Flexion of the lumbar spine <60 degrees Range of motion: Extension of the lumbar spine <20 degrees Gaenslen's Test positive right side / left side Rommel test: positive right side / left side Thigh Thrust Test positive right side / left side Sacral Thrust Test positive right side / left side Assessment and plan: Chronic LBP secondary to post laminectomy syndrome Recommendation of medication management. Prescription refill for Dixie 5/325mg #90 w 1 RF. Use, side effects, adverse reactions and safe storage discussed. Opiate/ Narcotic agreement updated 12/06/23. Pt verbalized understanding. UDS from 07/31/23 reviewed and consistent. Chronic and current use of high-risk medication (Opioids). The patient was counseled about risk of opioid use, psychological risk associated with opioids and was orally counseled to not overuse , divert or sell medications. Pt is to store medication in a safe location. The patient is counseled against driving while using narcotic medications and also not to use alcohol or any illicit recreational drugs. Patient verbalized understanding that the lack of compliance will result in failure to renew narcotic prescription(s) as well as possible discharge from the clinic Diagnoses, prognosis and treatment options including but not limited to physical therapy, surgical interventions, interventional therapies and medication management including narcotics and adjuvant medication were discussed. All patient questions answered MAPS reviewed and it was appropriate. I have spent less than 30 minutes on patient care today. Dr Boss was available by phone for the evaluation of this patient. The time was used to review the medical records including relevant urine studies and Prescription history (MAPs), review of the available imaging, evaluation and examination of the patient, coordination of care with the medical staff and if applicable referring physicians, as well as creation of the medical record PQRS Narrative: Smoking Status Former smoker Narcotic Agreement Date Signed 12/06/23 Hx Alcohol Use (MH) Yes: Rare Home Medications: Ambulatory Orders Citalopram Hydrobromide [CeleXA] 20 mg PO HS 08/04/14 Ibuprofen [Motrin] 800 mg PO Q8H PRN 05/11/23 Loratadine [Claritin] 10 mg PO DAILY 12/14/23 Magnesium 200 mg PO DAILY 12/14/23 HYDROcodone/APAP 5-325MG [Dixie 5-325] 1 tab PO TID PRN 30 Days #90 tab 01/31/24 HYDROcodone/APAP 5-325MG [Dixie 5-325] 1 tab PO TID PRN 30 Days #90 tab 01/31/24 Controlled Substance Measures - Controlled Substance Measures Is patient prescribed a controlled substance at discharge?: Yes When asked, does pt state using other controlled substances?: No If prescribed controlled substance>3 days was MAPS reviewed?: Yes
== END ==
LOC: PNWHC3 12:26
PROVIDERS: ATTEND Specialist
DX: M47.816 Spondylosis without myelopathy or radiculopathy, lumbar region (principal); M96.1 Postlaminectomy syndrome, not elsewhere classified; G89.29 Other chronic pain; Z79.891 Long term (current) use of opiate analgesic; Z87.891 Personal history of nicotine dependence; Z88.8 Allergy status to other drugs, medicaments and biological substances
CPT/HCPCS: 99211

== ENCOUNTER → 2024-02-06 | Outpatient (CLI) | payer MEDICARE, BC ==
--- NOTE | 2024-02-07 12:25 | MM ---
Reason for Exam: Screening (asymptomatic). Last mammogram was performed 1 year(s) and 7 month(s) ago. Patient History: Menarche at age 13. First Full-Term at age 19. Left ovary removed at age 38. Hysterectomy at age 38. Postmenopausal. Patient used Hormonal Contraceptives for 3 years. Sister had breast cancer, age 60. Risk Values: Connie 5 year model risk: 2.9%. NCI Lifetime model risk: 12.1%. Prior Study Comparison: 02/15/2017 Screening Mammogram, [facility]. 08/13/2018 Bilateral Screening Mammogram, [facility]. 12/12/2019 Bilateral Screening Mammogram, [facility]. 05/25/2021 Bilateral Screening Mammogram, [facility]. 07/05/2022 Bilateral MG 3D screening mammo w/cad, [facility]. Tissue Density: There are scattered areas of fibroglandular density. Findings: Analyzed By CAD. There is no suspicious group of microcalcifications or new suspicious mass in either breast. Overall Assessment: Negative, BI-RAD 1 Management: Screening Mammogram of both breasts in 1 year. . Patient should continue monthly self-breast exams. A clinical breast exam by your physician is recommended on an annual basis. This exam should not preclude additional follow-up of suspicious palpable abnormalities. Note on Connie scores and lifetime risk: 1. A Connie score greater than 3% is considered moderate risk. If this is the case, consider specialist referral to assess eligibility for a risk reducing agent. 2. If overall lifetime risk for the development of breast cancer is 20% or higher, the patient may qualify for future screening with alternating mammogram and breast MRI. Electronically signed and approved by: Bhupendra Brown M.D. Radiologis
== END | disposition home or self-care (01) ==
LOC: RADMAMWWP 12:25
PROVIDERS: ATTEND Family Medicine
DX: Z12.31 Encounter for screening mammogram for malignant neoplasm of breast (principal); Z78.0 Asymptomatic menopausal state; Z80.3 Family history of malignant neoplasm of breast
CPT/HCPCS: 77063; 77067

== ENCOUNTER → 2024-02-27 | Outpatient (CLI) | payer MEDICARE, BC ==
[2024-02-27 15:32] VITALS: BP 139/88; PULSE 79; RESP 17; TEMP 98.4
--- NOTE | 2024-02-27 16:49 | P.HPOB ---
History of Present Illness H&P Date: 02/27/24 Chief Complaint: The patient is here for her routine gynecologic exam. This is a 63-year-old G1, P1 with an LMP of 1997. She is status post SHALINI and later so for benign reasons. She is without gynecologic complaints. Review of Systems She has lost about 8 to 10 pounds since starting week OV for weight loss a few weeks ago. She is down about 4 pounds since she was last seen about 1 and half years ago. She denies respiratory, cardiac, or GI problems. Past Medical History Past Medical History: Deep Vein Thrombosis (DVT), Osteoarthritis (OA) Additional Past Medical History / Comment(s): CHRONIC BACK PAIN, HX DVT TO LEFT LEG 1979, bilateral carpal tunnel., RLS. DJD. PAST [employer] HISTORY: She has no history of STDs. History of Any Multi-Drug Resistant Organisms: None Reported Past Surgical History: Back Surgery, Section, Hysterectomy, Orthopedic Surgery Additional Past Surgical History / Comment(s): LAMINECTOMY WITH SPINAL CORD STIMULATOR THEN SIMULATOR REMOVED JULY 2022, LEFT OOPHORECTOMY, pain procedures, LEFT BUNIONECTOMY, COLONOSCOPY 2021(next after 10yr). Past Anesthesia/Blood Transfusion Reactions: Postoperative Nausea & Vomiting (PONV) Additional Past Anesthesia/Blood Transfusion Reaction / Comment(s): PONV WITH BACK SURGERY. Past Psychological History: Anxiety, Depression Smoking Status: Former smoker Past Alcohol Use History: Rare (1/year.) Additional Past Alcohol Use History / Comment(s): QUIT SMOKING 1984, STARTED IN 1972, PPD-3/4-1. Past Drug Use History: None Reported Additional History: She has been since 1990 and is not sexually active. She does not work outside of the home. - Past Family History Mother Family Medical History: CVA/TIA Additional Family Medical History / Comment(s): . Sister(s) Family Medical History: Cancer Additional Family Medical History / Comment(s): Breast cancer. Father Family Medical History: Myocardial Infarction (HI) Brother(s) Family Medical History: Seizure Disorder Medications and Allergies Home Medications Medication Instructions Recorded Confirmed Type Citalopram Hydrobromide [CeleXA] 20 mg PO HS 08/04/14 02/27/24 History Ibuprofen [Motrin] 800 mg PO Q8H PRN 05/11/23 02/27/24 History Loratadine [Claritin] 10 mg PO DAILY 12/14/23 02/27/24 History Magnesium 200 mg PO DAILY 12/14/23 02/27/24 History HYDROcodone/APAP 5-325MG [[place] 1 tab PO TID PRN 30 Days #90 tab 01/31/24 02/27/24 Rx 5-325] Calcium Carbonate/Vitamin D3 1 tab PO DAILY 02/27/24 02/27/24 History [Calcium 600 mg-Vit D3 10 mcg (400 Unit)] Allergies Allergy/AdvReac Type Severity Reaction Status Date / Time naproxen AdvReac Ulcers Verified 02/27/24 15:21 Exam Vital Signs Temp Pulse Resp BP Pulse Ox 02/27/24 15:22 98.4 F 79 17 139/88 97 Intake and Output 02/27/24 02/27/24 02/27/24 06:59 14:59 22:59 Other: Weight 96.615 kg Height 5 feet 2 inches, weight 213 pounds, BMI 39.0 This is a well-developed well-nourished white female who is alert and oriented times 3 in no acute distress. HEENT: Within normal limits. NECK: Supple without mass or thyromegaly. CHEST AND LUNGS: Clear to auscultation. HEART: Regular rate and rhythm. BREASTS: Are without mass or discharge. AXILLARY EXAM: Negative for adenopathy. BACK: Negative for CVA tenderness. ABDOMEN: Soft, nontender, without palpable masses. PELVIC EXAM: External genitalia appears normal with mild atrophy. Vagina appears normal with mild atrophy. There is no evidence of prolapse. Bimanual examination is negative for mass or tenderness. RECTAL EXAM: Rectovaginal exam is negative for mass or tenderness and is negative for occult blood. EXTREMITIES: Nontender. IMPRESSION: 1. 63-year-old menopausal female status post SHALINI and LSO for benign reasons, with normal gynecologic exam. 2. History of osteopenia. PLAN: 1. Pap smears have been discontinued. 2. Self breast awareness was discussed with the patient. We have also discussed symptoms associated with inflammatory breast cancer. 3. Screening mammogram was done on 02/06/2024 and was benign. She will repeat this after 1 year. 4. Osteoporosis prevention was discussed. I have stressed the importance of adequate calcium, vitamin D and regular exercise. Recommended amounts of calcium and vitamin D were also discussed. We will plan on repeating the bone density test next year at her well woman examination. 5. She was advised to return in one year for her annual well woman exam.
== END ==
LOC: WWCWWP 15:09
PROVIDERS: ATTEND Obstetrics & Gynecology
DX: M85.80 Other specified disorders of bone density and structure, unspecified site (principal); Z78.0 Asymptomatic menopausal state; Z88.5 Allergy status to narcotic agent; Z87.891 Personal history of nicotine dependence

== ENCOUNTER → 2024-03-27 | Outpatient (CLI) | payer MEDICARE, BC ==
--- NOTE | 2024-03-27 13:32 | P.PAINPG ---
PQRS Measure Charge Sheet Comment: A 63 yr old female with a history of severe and chronic LBP secondary to post laminectomy syndrome presents for medication refills. Pain level is provoked at 6 /10 in intensity, constant, localized in the R lumbar spine, predominantly axial, dull/ achy in character without shooting pain. Pain is provoked by standing, bending and twisting. Pain is alleviated with medications, heat, ice, topicals, sitting, reclining and rest. Oswestry axial pain score of 26. Interventional pain procedures completed include R SI, LORENA, Caudal RUFINA (May 2021), Caudal RUFINA w Lysis (Jul 2023), R TFESI L5-S1 x1 (Nov 2023) Patient is currently on [place] 5/325mg #60, Voltaren gel Patient denies any side effects of the medication(s), denies excessive drowsiness or sleepiness, denies suicidal ideation and reports that the current pain medication is helping to control the pain and improve activities of daily living. Patient denies any motor or sensory deficits. Patient denies any fever or night sweats, denies any change in the bowel movements or urination. Physical Examination: -Constitutional: Cooperative. Not in acute distress . - Neurologic: Cranial nerve II to XII intact. No focal neurological deficits. - Psychatric: Alert & oriented x 3. Matching mood & appropriate affect. Judgment and insight intact. - Musculoskeletal: Cervical spine: Muscle bulk/ tone/ strength in the bilateral upper extremities normal Vertebral body tenderness to palpation over Spurling test positive Distraction test positive Facet loading test positive TTP Thoracic spine Muscle bulk / tone/ strength in the bilateral paraspinal muscles normal Vertebral body tender to palpation over Facet loading test positive TTP Lumbar spine: Motor bulk/ tone/ strength lower extremities , thigh and legs : 5/5 Deep tendon reflexes : Normal Knee Jerk. Normal Ankle Jerk . Vertebral body tenderness to palpation over L5 Lumbar Facet Loading Test positive Straight Leg Raise: positive at 30 degrees right side Gaenslen's Test positive Sacral spine : Severe tenderness over the Sacroiliac joint: right side / left side Range of motion: Flexion of the lumbar spine <60 degrees Range of motion: Extension of the lumbar spine <20 degrees Gaenslen's Test positive right side / left side Rommel test: positive right side / left side Thigh Thrust Test positive right side / left side Sacral Thrust Test positive right side / left side Assessment and plan: Chronic LBP secondary to post laminectomy syndrome Recommendation of medication management. Prescription refill for [place] 5/325mg #90 w 1 RF. Use, side effects, adverse reactions and safe storage discussed. Opiate/ Narcotic agreement updated 12/06/23. Pt verbalized understanding. UDS collected 03/27/24. Chronic and current use of high-risk medication (Opioids). The patient was counseled about risk of opioid use, psychological risk associated with opioids and was orally counseled to not overuse , divert or sell medications. Pt is to store medication in a safe location. The patient is counseled against driving while using narcotic me dications and also not to use alcohol or any illicit recreational drugs. Patient verbalized understanding that the lack of compliance will result in failure to renew narcotic prescription(s) as well as possible discharge from the clinic Diagnoses, prognosis and treatment options including but not limited to physical therapy, surgical interventions, interventional therapies and medic ation management including narcotics and adjuvant medication were discussed. All patient questions answered MAPS reviewed and it was appropriate. PQRS Narrative: Smoking Status Former smoker Narcotic Agreement Date Signed 12/06/23 Hx Alcohol Use (MH) Yes: Rare Home Medications: Ambulatory Orders Citalopram Hydrobromide [CeleXA] 20 mg PO HS 08/04/14 Ibuprofen [Motrin] 800 mg PO Q8H PRN 05/11/23 Loratadine [Claritin] 10 mg PO DAILY 12/14/23 Magnesium 200 mg PO DAILY 12/14/23 HYDROcodone/APAP 5-325MG [[place] 5-325] 1 tab PO TID PRN 30 Days #90 tab 01/31/24 Calcium Carbonate/Vitamin D3 [Calcium 600 mg-Vit D3 10 mcg (400 Unit)] 1 tab PO DAILY 02/27/24 Controlled Substance Measures - Controlled Substance Measures Is patient prescribed a controlled substance at discharge?: Yes When asked, does pt state using other controlled substances?: No If prescribed controlled substance>3 days was MAPS reviewed?: Yes
[2024-03-27 13:34] VITALS: BP 137/89; PULSE 93; RESP 16
== END ==
LOC: PNWHC3 12:50
PROVIDERS: ATTEND Specialist
DX: M96.1 Postlaminectomy syndrome, not elsewhere classified (principal); G89.29 Other chronic pain; Z87.891 Personal history of nicotine dependence; Z79.891 Long term (current) use of opiate analgesic; Z88.8 Allergy status to other drugs, medicaments and biological substances
CPT/HCPCS: 80307; G0463; 99212

== ENCOUNTER → 2024-05-22 | Outpatient (CLI) | payer MEDICARE, BC ==
[2024-05-22 13:45] VITALS: BP 144/87; PULSE 84; RESP 16
--- NOTE | 2024-05-22 14:23 | P.PAINPG ---
PQRS Measure Charge Sheet Comment: A 63 yr old female with a history of severe and chronic LBP secondary to post laminectomy syndrome, R Sacroiliitis presents for medication refills. Pain level is provoked at 6 /10 in intensity, constant, localized in the R lumbar spine, predominantly axial, achy in character w occasional shooting pain towards the R buttocks. Pain is provoked by sitting > 30 min. Pain is alleviated with injections in the past, physician guided home stretching regimen daily since Nov 2023, medications, heat, ice, topicals, sitting, reclining and rest. Oswestry axial pain score of 27. Interventional pain procedures completed include R SI, LORENA, Caudal RUFINA (May 2021), Caudal RUFINA w Lysis (Jul 2023), R TFESI L5-S1 x1 (Nov 2023) Patient is currently on [place] 5/325mg #60, Voltaren gel Patient denies any side effects of the medication(s), denies excessive drowsiness or sleepiness, denies suicidal ideation and reports that the current pain medication is helping to control the pain and improve activities of daily living. Patient denies any motor or sensory deficits. Patient denies any fever or night sweats, denies any change in the bowel movements or urination. Physical Examination: -Constitutional: Cooperative. Not in acute distress . - Neurologic: Cranial nerve II to XII intact. No focal neurological deficits. - Psychatric: Alert & oriented x 3. Matching mood & appropriate affect. Judgment and insight intact. - Musculoskeletal: Cervical spine: Muscle bulk/ tone/ strength in the bilateral upper extremities normal Vertebral body tenderness to palpation over Spurling test positive Distraction test positive Facet loading test positive TTP Thoracic spine Muscle bulk / tone/ strength in the bilateral paraspinal muscles normal Vertebral body tender to palpation over Facet loading test positive TTP Lumbar spine: Motor bulk/ tone/ strength lower extremities , thigh and legs : 5/5 Deep tendon reflexes : Normal Knee Jerk. Normal Ankle Jerk . Vertebral body tenderness to palpation over L5 Lumbar Facet Loading Test positive Straight Leg Raise: positive at 30 degrees right side Gaenslen's Test positive Sacral spine : Severe tenderness over the Sacroiliac joint: right side / left side Range of motion: Flexion of the lumbar spine <60 degrees Range of motion: Extension of the lumbar spine <20 degrees Gaenslen's Test positive right side / left side Rommel test: positive right side / left side Thigh Thrust Test positive right side / left side Sacral Thrust Test positive right side / left side Assessment and plan: Chronic LBP secondary to post laminectomy syndrome, R Sacroiliitis Recommendation of R SI injection. Risks, benefits of procedure discussed and patient verbalized understanding. All questions answered. Recommendation of medication manage. Prescription refill for [place] 5/325mg #90 w 1 RF. Use, side effects, adverse reactions and safe storage discussed. Opiate/ Narcotic agreement updated 12/06/23. UDS fr 03/27/24 reviewed and consistent. Chronic and current use of high-risk medication (Opioids). The patient was counseled about risk of opioid use, psychological risk associated with opioids and was orally counseled to not overuse , divert or sell medications. Pt is to store medication in a safe location. The patient is counseled against driving while using narcotic medications and also not to use alcohol or any illicit recreational drugs. Patient verbalized understanding that the lack of compliance will result in failure to renew narcotic prescription(s) as well as possible discharge from the clinic Diagnoses, prognosis and treatment options including but not limited to physical therapy, surgical interventions, interventional therapies and medication management including narcotics and adjuvant medication were discussed. All patient questions answered MAPS reviewed and it was appropriate. PQRS Narrative: Smoking Status Former smoker Narcotic Agreement Date Signed 12/06/23 Hx Alcohol Use (MH) Yes: Rare Home Medications: Ambulatory Orders Citalopram Hydrobromide [CeleXA] 20 mg PO HS 08/04/14 Ibuprofen [Motrin] 800 mg PO Q8H PRN 05/11/23 Loratadine [Claritin] 10 mg PO DAILY 12/14/23 Magnesium 200 mg PO DAILY 12/14/23 Calcium Carbonate/Vitamin D3 [Calcium 600 mg-Vit D3 10 mcg (400 Unit)] 1 tab PO DAILY 02/27/24 HYDROcodone/APAP 5-325MG [[place] 5-325] 1 tab PO TID PRN 30 Days #90 tab 05/22/24 HYDROcodone/APAP 5-325MG [[place] 5-325] 1 tab PO TID PRN 30 Days #90 tab 05/22/24 Controlled Substance Measures - Controlled Substance Measures Is patient prescribed a controlled substance at discharge?: Yes When asked, does pt state using other controlled substances?: No If prescribed controlled substance>3 days was MAPS reviewed?: Yes
== END ==
LOC: PNWHC3 12:44
PROVIDERS: ATTEND Specialist
DX: M96.1 Postlaminectomy syndrome, not elsewhere classified (principal); M46.1 Sacroiliitis, not elsewhere classified; Z87.891 Personal history of nicotine dependence; Z79.891 Long term (current) use of opiate analgesic; Z88.8 Allergy status to other drugs, medicaments and biological substances
CPT/HCPCS: 99211

== ENCOUNTER 2024-06-07 09:48 | Day surgery (SDC) | payer MEDICARE, BC ==
[2024-06-07] MEDS ORDERED: IOPAMIDOL M200 10 ML VIAL ONE (10:30)
[2024-06-07] MEDS ORDERED: TRIAMCINOLONE ACETONIDE 40 MG/ML 1 ML VIAL ONE (10:30)
--- NOTE | 2024-07-31 23:59 | FL ---
EXAMINATION TYPE: FL guided pain mgmt statistic DATE OF EXAM: 07/04/2024 7:22 AM COMPARISON: Pre Operative Images if available both CT/MRI or plain film CLINICAL INDICATION: Female, 63 years old with history of RIGHT SI JOINT INJ; TECHNIQUE: FL guided pain mgmt statistic, multiple fluoroscopic images provided for procedure. Total fluoroscopy time: not available seconds Total submitted images to PACS: 6 DAP: not available mGym2 Gycm2 uGym2 cGycm2 or equivalent. IMPRESSION: 1. Report was generated for administrative purposes only. 2. Please see the operative/procedural note for further details. [facility], , 07/31/2024 11:57 PM
== END 2024-06-07 11:00 ==
LOC: ORPAIN 09:48
DX: M46.1 Sacroiliitis, not elsewhere classified (principal); M47.26 Other spondylosis with radiculopathy, lumbar region; Z88.6 Allergy status to analgesic agent; Z87.891 Personal history of nicotine dependence; Z79.1 Long term (current) use of non-steroidal anti-inflammatories (NSAID); Z79.899 Other long term (current) drug therapy
CPT/HCPCS: 27096

== ENCOUNTER → 2024-07-31 | Outpatient (CLI) | payer MEDICARE, BC ==
[2024-07-31 12:58] VITALS: BP 114/81; PULSE 87; RESP 16; TEMP 96.8
--- NOTE | 2024-07-31 14:42 | P.PAINPG ---
PQRS Measure Charge Sheet Comment: A 63 yr old female with a history of severe and chronic LBP secondary to post laminectomy syndrome, R Sacroiliitis presents for medication refills and evaluation s/p R SI injection #2. Pt states she experienced 0 % pain relief x 8 wks s/p procedure. Pain level is provoked at 8 /10 in intensity, constant, l ocalized in the R lower lumbar spine, predominantly axial, achy in character w occasional shooting pain towards the R buttock and thigh. Pain is provoked by sitting > 30 min. Pain is alleviated with injections in the past, physician guided home stretching regimen daily since Nov 2023, medications, heat, ice, topicals, sitting, reclining and rest. Interventional pain procedures completed include R SI x2 (May 2024), LORENA, Caudal RUFINA (May 2021), Caudal RUFINA w Lysis (Jul 2023), R TFESI L5-S1 x1 (Nov 2023) Patient is currently on [place] 5/325mg #60, Voltaren gel Patient denies any side effects of the medication(s), denies excessive drowsiness or sleepiness, denies suicidal ideation and reports that the current pain medication is helping to control the pain and improve activities of daily living. Patient denies any motor or sensory deficits. Patient denies any fever or night sweats, denies any change in the bowel movements or urination. Physical Examination: -Constitutional: Cooperative. Not in acute distress . - Neurologic: Cranial nerve II to XII intact. No focal neurological deficits. - Psychatric: Alert & oriented x 3. Matching mood & appropriate affect. Judgment and insight intact. - Musculoskeletal: Cervical spine: Muscle bulk/ tone/ strength in the bilateral upper extremities normal Vertebral body tenderness to palpation over Spurling test positive Distraction test positive Facet loading test positive TTP Thoracic spine Muscle bulk / tone/ strength in the bilateral paraspinal muscles normal Vertebral body tender to palpation over Facet loading test positive TTP Lumbar spine: Motor bulk/ tone/ strength lower extremities , thigh and legs : 5/5 Deep tendon reflexes : Normal Knee Jerk. Normal Ankle Jerk . Vertebral body tenderness to palpation over L5 Lumbar Facet Loading Test positive Straight Leg Raise: positive at 30 degrees right side Gaenslen's Test positive R Sacral spine : Severe tenderness over the Sacroiliac joint: right side / left side Range of motion: Flexion of the lumbar spine <60 degrees Range of motion: Extension of the lumbar spine <20 degrees Gaenslen's Test positive right side / left side Rommel test: positive right side / left side Thigh Thrust Test positive right side / left side Sacral Thrust Test positive right side / left side Assessment and plan: Chronic LBP secondary to post laminectomy syndrome, R Sacroiliitis Recommendation of . Risks, benefits of procedure discussed and patient verbalized understanding. All questions answered. Recommendation of medication manage. Prescription refill for [place] 5/325mg #90 w 1 RF. Use, side effects, adverse reactions and safe storage discussed. Opiate/ Narcotic agreement updated 12/06/23. UDS fr 03/27/24 reviewed and consistent. Chronic and current use of high-risk medication (Opioids). The patient was counseled about risk of opioid use, psychological risk associated with opioids and was orally counseled to not overuse , divert or sell medications. Pt is to store medication in a safe location. The patient is counseled against driving while using narcotic medications and also not to use alcohol or any illicit recreational drugs. Patient verbalized understanding that the lack of compliance will result in failure to renew narcotic prescription(s) as well as possible discharge from the clinic Diagnoses, prognosis and treatment options including but not limited to physical therapy, surgical interventions, interventional therapies and medication management including narcotics and adjuvant medication were discussed. All patient questions answered . MAPS reviewed and it was appropriate. PQRS Narrative: Smoking Status Former smoker Narcotic Agreement Date Signed 12/06/23 Hx Alcohol Use (MH) Yes: Rare Home Medications: Ambulatory Orders Citalopram Hydrobromide [CeleXA] 20 mg PO HS 08/04/14 Ibuprofen [Motrin] 800 mg PO Q8H PRN 05/11/23 Loratadine [Claritin] 10 mg PO DAILY 12/14/23 Magnesium 200 mg PO DAILY 12/14/23 Calcium Carbonate/Vitamin D3 [Calcium 600 mg-Vit D3 10 mcg (400 Unit)] 1 tab PO DAILY 02/27/24 HYDROcodone/APAP 5-325MG [[place] 5-325] 1 tab PO TID PRN 30 Days #90 tab 07/31/24 HYDROcodone/APAP 5-325MG [[place] 5-325] 1 tab PO TID PRN 30 Days #90 tab 07/31/24 Controlled Substance Measures - Controlled Substance Measures Is patient prescribed a controlled substance at discharge?: Yes When asked, does pt state using other controlled substances?: Yes If prescribed controlled substance>3 days was MAPS reviewed?: Yes
== END ==
LOC: PNWHC3 12:00
PROVIDERS: ATTEND Specialist
DX: M46.1 Sacroiliitis, not elsewhere classified
CPT/HCPCS: 99211

== ENCOUNTER → 2024-09-19 | Outpatient (CLI) | payer MEDICARE, BC ==
[2024-09-19 13:34] VITALS: BP 134/94; PULSE 94; RESP 18; TEMP 96.5
--- NOTE | 2024-09-19 14:21 | P.PAINPG ---
PQRS Measure Charge Sheet Comment: A 64 yr old female with a history of severe and chronic LBP secondary to post laminectomy syndrome, R Sacroiliitis presents for medication refills. Pain level is provoked at 9 /10 in intensity, constant, localized in the R lower lumbar spine, predominantly axial, throbbing in character w occasional shooting pain towards the R buttock and thigh. Pain is provoked by sitting > 30 min. Pain is alleviated with injections in the past, physician guided home stretching regimen daily since Nov 2023, medications, heat, ice, topicals, sitting, reclining and rest. Interventional pain procedures completed include R SI x2 (May 2024), LORENA, Caudal RUFINA (May 2021), Caudal RUFINA w Lysis (Jul 2023), R TFESI L5-S1 x1 (Nov 2023) Patient is currently on [place] 5/325mg #60, Voltaren gel Patient denies any side effects of the medication(s), denies excessive drowsiness or sleepiness, denies suicidal ideation and reports that the current pain medication is helping to control the pain and improve activities of daily living. Patient denies any motor or sensory deficits. Patient denies any fever or night sweats, denies any change in the bowel movements or urination. Physical Examination: -Constitutional: Cooperative. Not in acute distress . - Neurologic: Cranial nerve II to XII intact. No focal neurological deficits. - Psychatric: Alert & oriented x 3. Matching mood & appropriate affect. Judgment and insight intact. - Musculoskeletal: Cervical spine: Muscle bulk/ tone/ strength in the bilateral upper extremities normal Vertebral body tenderness to palpation over Spurling test positive Distraction test positive Facet loading test positive TTP Thoracic spine Muscle bulk / tone/ strength in the bilateral paraspinal muscles normal Vertebral body tender to palpation over Facet loading test positive TTP Lumbar spine: Motor bulk/ tone/ strength lower extremities , thigh and legs : 5/5 Deep tendon reflexes : Normal Knee Jerk. Normal Ankle Jerk . Vertebral body tenderness to palpation over L5 Lumbar Facet Loading Test positive Straight Leg Raise: positive at 30 degrees right side Gaenslen's Test positive R Sacral spine : Severe tenderness over the Sacroiliac joint: right side / left side Range of motion: Flexion of the lumbar spine <60 degrees Range of motion: Extension of the lumbar spine <20 degrees Gaenslen's Test positive right side / left side Rommel test: positive right side / left side Thigh Thrust Test positive right side / left side Sacral Thrust Test positive right side / left side Assessment and plan: Chronic LBP secondary to post laminectomy syndrome, R Sacroiliitis Recommendation of . Risks, benefits of procedure discussed and patient verbalized understanding. All questions answered. Recommendation of medication manage. Prescription refill for [place] 5/325mg #90 w 1 RF. Use, side effects, adverse reactions and safe storage discussed. Opiate/ Narcotic agreement updated 12/06/23. UDS fr 03/27/24 reviewed and consistent. Chronic and current use of high-risk medication (Opioids). The patient was counseled about risk of opioid use, psychological risk associated with opioids and was orally counseled to not overuse , divert or sell medications. Pt is to store medication in a safe location. The patient is counseled against driving while using narcotic medications and also not to use alcohol or any illicit recreational drugs. Patient verbalized understanding that the lack of compliance will result in failure to renew narcotic prescription(s) as well as possible discharge from the clinic Diagnoses, prognosis and treatment options including but not limited to physical therapy, surgical interventions, interventional therapies and medication management including narcotics and adjuvant medication were discussed. All patient questions answered . MAPS reviewed and it was appropriate. PQRS Narrative: Smoking Status Former smoker Narcotic Agreement Date Signed 12/06/23 Hx Alcohol Use (MH) Yes: Rare Home Medications: Ambulatory Orders Citalopram Hydrobromide [CeleXA] 20 mg PO HS 08/04/14 Ibuprofen [Motrin] 800 mg PO Q8H PRN 05/11/23 Loratadine [Claritin] 10 mg PO DAILY 12/14/23 Magnesium 200 mg PO DAILY 12/14/23 Calcium Carbonate/Vitamin D3 [Calcium 600 mg-Vit D3 10 mcg (400 Unit)] 1 tab PO DAILY 02/27/24 HYDROcodone/APAP 5-325MG [[place] 5-325] 1 tab PO TID PRN 30 Days #90 tab 07/31/24 HYDROcodone/APAP 5-325MG [[place] 5-325] 1 tab PO TID PRN 30 Days #90 tab 07/31/24 Controlled Substance Measures - Controlled Substance Measures Is patient prescribed a controlled substance at discharge?: Yes When asked, does pt state using other controlled substances?: Yes If prescribed controlled substance>3 days was MAPS reviewed?: Yes
== END ==
LOC: PNWHC3 13:13
PROVIDERS: ATTEND Specialist
DX: M46.1 Sacroiliitis, not elsewhere classified (principal); M96.1 Postlaminectomy syndrome, not elsewhere classified; Z87.891 Personal history of nicotine dependence; Z88.8 Allergy status to other drugs, medicaments and biological substances; Z79.891 Long term (current) use of opiate analgesic
CPT/HCPCS: 99211

== ENCOUNTER → 2024-11-21 | Outpatient (CLI) | payer MEDICARE, BC ==
[2024-11-21 13:13] VITALS: BP 108/79; PULSE 82; RESP 16
--- NOTE | 2024-11-21 15:44 | P.PAINPG ---
PQRS Measure Charge Sheet Comment: A 64 yr old female with a history of severe and chronic LBP secondary to post laminectomy syndrome, R Sacroiliitis presents for medication refills. Pain level is provoked at 9 /10 in intensity, constant, localized in the R lower lumbar spine, predominantly axial, throbbing in character w occasional shooting pain towards the R hip, buttock and thigh. Pain is provoked by sitting > 30 min. Pain is alleviated with injections in the past, physician guided home stretching regimen daily since Nov 2023, medications, heat, ice, topicals, sitting, reclining and rest. Interventional pain procedures completed include R SI x2 (May 2024), LORENA, Caudal RUFINA (May 2021), Caudal RUFINA w Lysis (Jul 2023), R TFESI L5-S1 x1 (Nov 2023) Patient is currently on [place] 5/325mg #90, Voltaren gel Patient denies any side effects of the medication(s), denies excessive drowsiness or sleepiness, denies suicidal ideation and reports that the current pain medication is helping to control the pain and improve activities of daily living. Patient denies any motor or sensory deficits. Patient denies any fever or night sweats, denies any change in the bowel movements or urination. Physical Examination: -Constitutional: Cooperative. Not in acute distress . - Neurologic: Cranial nerve II to XII intact. No focal neurological defi cits. - Psychatric: Alert & oriented x 3. Matching mood & appropriate affect. Judgment and insight intact. - Musculoskeletal: Cervical spine: Muscle bulk/ tone/ strength in the bilateral upper extremities normal Vertebral body tenderness to palpation over Spurling test positive Distraction test positive Facet loading test positive TTP Thoracic spine Muscle bulk / tone/ strength in the bilateral paraspinal muscles normal Vertebral body tender to palpation over Facet loading test positive TTP Lumbar spine: Motor bulk/ tone/ strength lower extremities , thigh and legs : 5/5 Deep tendon reflexes : Normal Knee Jerk. Normal Ankle Jerk . Vertebral body tenderness to palpation over L5 Lumbar Facet Loading Test positive Straight Leg Raise: positive at 30 degrees right side Gaenslen's Test positive R Sacral spine : Severe tenderness over the Sacroiliac joint: right side / left side Range of motion: Flexion of the lumbar spine <60 degrees Range of motion: Extension of the lumbar spine <20 degrees Gaenslen's Test positive right side / left side Rommel test: positive right side / left side Thigh Thrust Test positive right side / left side Sacral Thrust Test positive right side / left side Assessment and plan: Chronic LBP secondary to post laminectomy syndrome, R Sacroiliitis Recommendation of R TFESI L5-S1 #2. Risks, benefits of procedure discussed and patient verbalized understanding. All questions answered. Recommendation of medication manage. Prescription refill for Mar[place] 5/325mg #90 w 1 RF. Use, side effects, adverse reactions and safe storage discussed. Opiate/ Narcotic agreement updated 11/21/24. UDS collected 11/21/24. Chronic and current use of high-risk medication (Opioids). The patient was counseled about risk of opioid use, psychological risk associated with opioids and was orally counseled to not overuse , divert or sell medications. Pt is to store medication in a safe location. The patient is counseled against driving while using narcotic medications and also not to use alcohol or any illicit recreational drugs. Patient verbalized understanding that the lack of compliance will result in failure to renew narcotic prescription(s) as well as possible discharge from the clinic Diagnoses, prognosis and treatment options including but not limited to physical therapy, surgical interventions, interventional therapies and medication management including narcotics and adjuvant medication were discussed. All patient questions answered . MAPS reviewed and it was appropriate. - Pain Location Right Lower Back Non-Pharmacological Interventions: Elevation, Heat, Ice, Inactivity, Sitting Pharmacological Interventions: Epidural, PRN Medication, Scheduled Medication, Topical Medication PQRS Narrative: Smoking Status Former smoker Narcotic Agreement Date Signed 09/19/24 Hx Alcohol Use (MH) Yes: Rare Home Medications: Ambulatory Orders Citalopram Hydrobromide [CeleXA] 20 mg PO HS 08/04/14 Ibuprofen [Motrin] 800 mg PO Q8H PRN 05/11/23 Loratadine [Claritin] 10 mg PO DAILY 12/14/23 Magnesium 200 mg PO DAILY 12/14/23 Calcium Carbonate/Vitamin D3 [Calcium 600 mg-Vit D3 10 mcg (400 Unit)] 1 tab PO DAILY 02/27/24 HYDROcodone/APAP 5-325MG [[place] 5-325] 1 tab PO TID PRN 30 Days #90 tab 09/19/24 HYDROcodone/APAP 5-325MG [[place] 5-325] 1 tab PO TID PRN 30 Days #90 tab 09/19/24 Controlled Substance Measures - Controlled Substance Measures Is patient prescribed a controlled substance at discharge?: Yes When asked, does pt state using other controlled substances?: No If prescribed controlled substance>3 days was MAPS reviewed?: Yes If Rx opioid, was Start Talking consent form obtained?: Yes Was information provided regarding opioid addiction?: Yes
== END ==
LOC: PNWHC3 12:31
PROVIDERS: ATTEND Specialist
DX: M46.1 Sacroiliitis, not elsewhere classified (principal); M96.1 Postlaminectomy syndrome, not elsewhere classified; Z87.891 Personal history of nicotine dependence; Z88.8 Allergy status to other drugs, medicaments and biological substances
CPT/HCPCS: 80307; G0463; 99212

== ENCOUNTER → 2025-01-16 | Outpatient (CLI) | payer MEDICARE, BC ==
[2025-01-16 14:05] VITALS: BP 125/85; PULSE 89; RESP 16; TEMP 97.1
--- NOTE | 2025-01-16 14:12 | P.PAINPG ---
PQRS Measure Charge Sheet Comment: A 64 yr old female with a history of severe and chronic LBP secondary to post laminectomy syndrome, R Sacroiliitis presents for medication refills and evaluation s/p R TFESI L5-S1 #2. Pt states she experienced 50% pain relief x 1 mo s/p procedure. Pain level is provoked at 9 /10 in intensity, constant, loca lized in the R lower lumbar spine, predominantly axial, throbbing in character w occasional shooting pain towards the R hip and buttock Pain is provoked by sitting > 30 min. Pain is alleviated with injections in the past, physician guided home stretching regimen daily since Nov 2023, medications, heat, ice, topicals, sitting, reclining and rest. Interventional pain procedures completed include R SI x2 (06/22), LORENA, Caudal RUFINA (May 2021), Caudal RUFINA w Lysis (Jul 2023), R TFESI L5-S1 x2 (12/23, 12/24) Patient is currently on [place] 5/325mg #90, Voltaren gel Patient denies any side effects of the medication(s), denies excessive drowsiness or sleepiness, denies suicidal ideation and reports that the current pain medication is helping to control the pain and improve activities of daily living. Patient denies any motor or sensory deficits. Patient denies any fever or night sweats, denies any change in the bowel movements or urination. Physical Examination: -Constitutional: Cooperative. Not in acute distress . - Neurologic: Cranial nerve II to XII intact. No focal neurological deficits. - Psychatric: Alert & oriented x 3. Matching mood & appropriate affect. Judgment and insight intact. - Musculoskeletal: Cervical spine: Muscle bulk/ tone/ strength in the bilateral upper extremities normal Vertebral body tenderness to palpation over Spurling test positive Distraction test positive Facet loading test positive TTP Thoracic spine Muscle bulk / tone/ strength in the bilateral paraspinal muscles normal Vertebral body tender to palpation over Facet loading test positive TTP Lumbar spine: Motor bulk/ tone/ strength lower extremities , thigh and legs : 5/5 Deep tendon reflexes : Normal Knee Jerk. Normal Ankle Jerk . Vertebral body tenderness to palpation over L5 Lumbar Facet Loading Test positive Straight Leg Raise: positive at 30 degrees right side Gaenslen's Test positive R Sacral spine : Severe tenderness over the Sacroiliac joint: right side / left side Range of motion: Flexion of the lumbar spine <60 degrees Range of motion: Extension of the lumbar spine <20 degrees Gaenslen's Test positive right side / left side Rommel test: positive right side / left side Thigh Thrust Test positive right side / left side Sacral Thrust Test positive right side / left side Assessment and plan: Chronic LBP secondary to post laminectomy syndrome, R Sacroiliitis Recommendation of . Risks, benefits of procedure discussed and patient verbalized understanding. All questions answered. Recommendation of medication manage. Prescription refill for [place] 5/325mg #90 w 1 RF. Use, side effects, adverse reactions and safe storage discussed. Opiate/ Narcotic agreement updated 11/21/24. UDS 11/21/24 reviewed and consistent. Chronic and current use of high-risk medication (Opioids). The patient was counseled about risk of opioid use, psychological risk associated with opioids and was orally counseled to not overuse , divert or sell medications. Pt is to store medication in a safe location. The patient is counseled against driving while using narcotic medications and also not to use alcohol or any illicit recreational drugs. Patient verbalized understanding that the lack of compliance will result in failure to renew narcotic prescription(s) as well as possible discharge from the clinic Diagnoses, prognosis and treatment options including but not limited to physical therapy, surgical interventions, interventional therapies and medication management including narcotics and adjuvant medication were discussed. All patient questions answered . MAPS reviewed and it was appropriate. PQRS Narrative: Smoking Status Former smoker Narcotic Agreement Date Signed 11/21/24 Hx Alcohol Use (MH) Yes: Rare Home Medications: Ambulatory Orders Ibuprofen [Motrin] 800 mg PO Q8H PRN 05/11/23 Loratadine [Claritin] 10 mg PO DAILY 12/14/23 Magnesium 200 mg PO DAILY 12/14/23 Calcium Carbonate/Vitamin D3 [Calcium 600 mg-Vit D3 10 mcg (400 Unit)] 1 tab PO DAILY 02/27/24 Omeprazole [PriLOSEC] 20 mg PO AC-BRKFST 12/10/24 Pregabalin [Lyrica] 50 mg PO TID 12/10/24 diazePAM [Valium] 5 mg PO DIRECTED PRN 12/10/24 HYDROcodone/APAP 5-325MG [[place] 5-325] 1 tab PO TID PRN 30 Days #90 tab 03/20/25 HYDROcodone/APAP 5-325MG [[place] 5-325] 1 tab PO TID PRN 30 Days #90 tab 01/16/25 Controlled Substance Measures - Controlled Substance Measures Is patient prescribed a controlled substance at discharge?: Yes When asked, does pt state using other controlled substances?: No If prescribed controlled substance>3 days was MAPS reviewed?: Yes
== END ==
LOC: PNWHC3 12:37
PROVIDERS: ATTEND Specialist
DX: M54.16 Radiculopathy, lumbar region (principal); M96.1 Postlaminectomy syndrome, not elsewhere classified; M46.1 Sacroiliitis, not elsewhere classified; G89.29 Other chronic pain; Z88.6 Allergy status to analgesic agent; Z87.891 Personal history of nicotine dependence
CPT/HCPCS: 99211

== ENCOUNTER → 2025-03-19 | Outpatient (CLI) | payer MEDICARE, BC ==
[2025-03-19 10:00] VITALS: BP 107/76; PULSE 89; RESP 16; TEMP 97.1
--- NOTE | 2025-03-19 12:41 | XR ---
EXAMINATION TYPE: XR Hip 2 views RT DATE OF EXAM: 03/19/2025 10:54 AM COMPARISON: None CLINICAL INDICATION: Female, 64 years old with history of M16.10 R hip pain; PHH, pain FINDINGS: Mild degenerative spurring at the right hip. Relative preservation of hip joint space. No acute fract ure, subluxation, or dislocation. Phleboliths in the right side of the pelvis. Mild degenerative fleming ge of the right SI joint. 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 No acute osseous abnormality seen. [facility], Workstation: [facility], 03/19/2025 12:39 PM
--- NOTE | 2025-03-19 16:01 | P.PAINPG ---
PQRS Measure Charge Sheet Comment: A 64 yr old female with a history of severe and chronic LBP secondary to post laminectomy syndrome, R Sacroiliitis presents for medication refills. Pain level is provoked at 7 /10 in intensity, constant, localized in the R lower lumbar spine, predominantly axial, throbbing in character w occasional shooting pain towards the R hip and buttock Pain is provoked by sitting > 30 min. Pain is alleviated with injections in the past, physician guided home stretching regimen daily since Nov 2023, medications, heat, ice, topicals, sitting, reclining and rest. Interventional pain procedures completed include R SI x2 (06/22), LORENA, Caudal RUFINA (May 2021), Caudal RUFINA w Lysis (Jul 2023), R TFESI L5-S1 x2 (12/23, 12/24) Patient is currently on [place] 5/325mg #90, Voltaren gel Patient denies any side effects of the medication(s), denies excessive drowsiness or sleepiness, denies suicidal ideation and reports that the current pain medication is helping to control the pain and improve activities of daily living. Patient denies any motor or sensory deficits. Patient denies any fever or night sweats, denies any change in the bowel movements or urination. Physical Examination: -Constitutional: Cooperative. Not in acute distress . - Neurologic: Cranial nerve II to XII intact. No focal neurological deficits. - Psychatric: Alert & oriented x 3. Matching mood & appropriate affect. Judgment and insight intact. - Musculoskeletal: Cervical spine: Muscle bulk/ tone/ strength in the bilateral upper extremities normal Vertebral body tenderness to palpation over Spurling test positive Distraction test positive Facet loading test positive TTP Thoracic spine Muscle bulk / tone/ strength in the bilateral paraspinal muscles normal Vertebral body tender to palpation over Facet loading test positive TTP Lumbar spine: +R Hip Trendelenburg Motor bulk/ tone/ strength lower extremities , thigh and legs : 5/5 Deep tendon reflexes : Normal Knee Jerk. Normal Ankle Jerk . Vertebral body tenderness to palpation over L5 Lumbar Facet Loading Test positive Straight Leg Raise: positive at 30 degrees right side Gaenslen's Test positive R Sacral spine : Severe tenderness over the Sacroiliac joint: right side / left side Range of motion: Flexion of the lumbar spine <60 degrees Range of motion: Extension of the lumbar spine <20 degrees Gaenslen's Test positive right side / left side Rommel test: positive right side / left side Thigh Thrust Test positive right side / left side Sacral Thrust Test positive right side / left side Assessment and plan: Chronic LBP secondary to post laminectomy syndrome, R Sacroiliitis Recommendation of medication management. Risks, benefits of procedure discussed and patient verbalized understanding. All questions answered. Recommendation of medication manage. Prescription refill for [place] 5/325mg #90 w 1 RF. Use, side effects, adverse reactions and safe storage discussed. Opiate/ Narcotic agreement updated 11/21/24. UDS 11/21/24 reviewed and consistent. Chronic and current use of high-risk medication (Opioids). The patient was counseled about risk of opioid use, psychological risk associated with opioids and was orally counseled to not overuse , divert or sell medications. Pt is to store medication in a safe location. The patient is counseled against driving while using narcotic medications and also not to use alcohol or any illicit recreational drugs. Patient verbalized understanding that the lack of compliance will result in failure to renew narcotic prescription(s) as well as possible discharge from the clinic Diagnoses, prognosis and treatment options including but not limited to p hysical therapy, surgical interventions, interventional therapies and medication management including narcotics and adjuvant medication were discussed. All patient questions answered . MAPS reviewed and it was appropriate. I have spent greater than 30 minutes on patient care today. Dr Boss was available by phone for the evaluation of this patient. The time was used to review the medical records including relevant urine studies and Prescription history (MAPs), review of the available imaging, evaluation and examination of the patient, coordination of care with the medical staff and if applicable referring physicians, as well as creation of the medical record - Pain Location Right Lower Back Non-Pharmacological Interventions: Elevation, Heat, Ice, Inactivity, Position/Reposition, Sitting Pharmacological Interventions: Epidural, PRN Medication, Scheduled Medication, Topical Medication PQRS Narrative: Smoking Status Former smoker Narcotic Agreement Date Signed 11/21/24 Hx Alcohol Use (MH) Yes: Rare Home Medications: Ambulatory Orders Loratadine [Claritin] 10 mg PO DAILY 12/14/23 Magnesium 200 mg PO DAILY 12/14/23 Calcium Carbonate/Vitamin D3 [Calcium 600 mg-Vit D3 10 mcg (400 Unit)] 1 tab PO DAILY 02/27/24 Omeprazole [PriLOSEC] 20 mg PO AC-BRKFST 12/10/24 Pregabalin [Lyrica] 50 mg PO TID 12/10/24 diazePAM [Valium] 5 mg PO DIRECTED PRN 12/10/24 HYDROcodone/APAP 5-325MG [[place] 5-325] 1 tab PO TID PRN 30 Days #90 tab 03/19/25 HYDROcodone/APAP 5-325MG [[place] 5-325] 1 tab PO TID PRN 30 Days #90 tab 03/19/25 Ibuprofen [Motrin] 800 mg PO Q8H PRN 30 Days #90 tab 03/19/25 Controlled Substance Measures - Controlled Substance Measures Is patient prescribed a controlled substance at discharge?: Yes When asked, does pt state using other controlled substances?: Yes If prescribed controlled substance>3 days was MAPS reviewed?: Yes
== END ==
LOC: PNWHC3 09:12
PROVIDERS: ATTEND Specialist
DX: M46.1 Sacroiliitis, not elsewhere classified (principal); G89.29 Other chronic pain; M96.1 Postlaminectomy syndrome, not elsewhere classified; Z87.891 Personal history of nicotine dependence; Z88.6 Allergy status to analgesic agent
CPT/HCPCS: 73501; G0463; 99211